=== PATIENT | male | born 1950 | race Caucasian/White ===

== ENCOUNTER 2020-08-05 14:56 | Emergency (ER) | payer MEDICARE, OTHER, SELFPAY ==
[2020-08-05 15:10] VITALS: BP 200/70; PULSE 78; RESP 20; TEMP 37.2; O2SAT 99
--- NOTE | 2020-08-05 15:15 | ED.DIZZY ---
HPI - Dizziness General Chief Complaint: Dizziness Stated Complaint: dizzy Source: patient and RN notes reviewed Limitations: no limitations History of Present Illness HPI Narrative: The left handed patient-- non-smoker/rare drinker on several meds but active-- presents with positional vertigo. Patient states he runs inc half marathons, and has had intermittent positional, true vertigo for the last half year. In July, he and family members were diagnosed with Covid manifested by URI type symptoms which have resolved. 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 He complains 1-2d recurrence of positional vertigo, associated with definite nystagmus, which is vertical. Symptoms are mild- mod, associated with a short latency, resolve after short period of 1 to 2 minutes. He had 1 episode so bad that he took a knee. No fever, URI?sinusitis, speech?visual changes, lateralizing weakness, headache pain, N/V D , increased tinnitus [he has chronic]; no true syncope, S OB, palpitations, CP. Patient offered referral to ED for same day testing [imaging, lab ] which he declines. Vital signs remarkable for elevated blood pressure, so given additional half dose of his morning 5 mg Norvasc. He requests refill of gabapentin; patient advised to follow-up with his neurologist and PMD [who was contacted ,also to gt MRI]. Related Data Home Medications Medication Instructions Recorded Confirmed amlodipine [Norvasc] 5 mg PO DAILY 08/05/20 08/05/20 aripiprazole [Abilify] 10 mg PO DAILY 08/05/20 08/05/20 bupropion HCl [Wellbutrin XL] 300 mg PO QAM 08/05/20 08/05/20 gabapentin 600 mg PO HS 08/05/20 08/05/20 melatonin 10 mg PO HS PRN 08/05/20 08/05/20 terbinafine HCl 250 mg PO DAILY 08/05/20 08/05/20 Allergies Allergy/AdvReac Type Severity Reaction Status Date / Time No Known Allergies Allergy Verified 08/05/20 15:26 Review of Systems Review of Systems: Narrative: General/Constitutional: No weight loss,fever Eyes: N0: Redness,discharge Ears/Nose/Throat: No: Epistaxis,ear discharge Respiratory: Denies: Hemoptysis Gastrointestinal: No Vomiting, Bleeding-rectal Skin: No Lumps, eruption Neurologic: No Focal Weakness,Sz Hematologic: Denies: Petechiae/Purpura Psychiatric: No: Suicida ideationl All Other Systems: Reviewed and Negative [facility] Past Medical History Medical History (Updated 08/13/20 @ 09:16 by Harry Lujan MD) History of anxiety History of hypertension Social History Social History (Updated 07/08/19 @ 14:38 by Wendy Alberts PA-C) Smoking status: Never smoker Gender identity (if verbalized by the patient): Male Comments At time of signature, agree with nursing past medical, surgical, social and family history. There is no relevant family history pertinent to the presenting complaint Exam Narrative: Exam Narrative: General Appearance: Well appearing, No distress EYE: PERRLA, Conjunctiva clear, EOMI , vertical nystagmus with leaning over Neurological: A&O x3, CN II-X intact Ears: External ear normal, TM benign Nose: Normal nose Mouth/Throat: Normal appearing, Normal lips Neck: Supple Respiratory: Airway patent, No respiratory distress Abdomen: Soft, Non-tender, sounds Musculoskeletal: Full ROM Skin: Warm, Dry Psychiatric: Normal mood, Normal affect Course Vital Signs Vital signs: Vital Signs Temperature 98.9 F 08/05/20 15:10 Pulse Rate 78 08/05/20 15:10 Respiratory Rate 08/05/20 15:10 Blood Pressure 200/70 H 08/05/20 15:10 Pulse Oximetry 99 08/05/20 15:10 Temperature 98.9 F 08/05/20 15:10 Pulse Rate 53 L 08/05/20 16:24 Respiratory Rate 08/05/20 15:10 Blood Pressure 157/60 H 08/05/20 16:24 Pulse Oximetry 99 08/05/20 15:10 MDM - Dizziness M
[2020-08-05 15:41] VITALS: BP 200/70
--- NOTE | 2020-08-05 15:42 | PC.NURSE ---
DR AMELIE VIERA GAVE VERBAL ORDER FOR PT TO TAKE ONE OF HIS OWN NORVASC. PT HAS HIS NORVASC 10 MG TABLETS WITH. PT TOOK 10 MG NORVASC PO. D. YULI VO
[2020-08-05 16:24] VITALS: BP 157/60; PULSE 53
== END 2020-08-05 16:44 | disposition home or self-care (01) ==
PROVIDERS: Emergency Provider Emergency Medicine
DX: H55.00 Unspecified nystagmus (principal); R42 Dizziness and giddiness; I10 Essential (primary) hypertension; F41.9 Anxiety disorder, unspecified
CPT/HCPCS: 99213; G0463

== ENCOUNTER → 2021-02-03 10:31 | Outpatient (CLI) | payer MEDICARE, OTHER, SELFPAY ==
--- NOTE | ~2021-02-03 | XR_ITS ---
XR shoulder LT min 2V DATE: 02/03/2021 10:55 INDICATION: Left shoulder pain TECHNIQUE: 4 views COMPARISON: None FINDINGS: No fracture or dislocation, periosteal reaction or bone destruction or abnormal soft tissue calcification. Osteopenia. IMPRESSION: Negative left shoulder Osteopenia Reviewed, dictated and finalized at location A.
== END ==
PROVIDERS: Visit Provider Physician Assistant
DX: M85.812 Other specified disorders of bone density and structure, left shoulder (principal)
CPT/HCPCS: 73030

== ENCOUNTER 2021-02-10 09:46 | Outpatient (CLI) | payer MEDICARE, OTHER, SELFPAY ==
--- NOTE | ~2021-02-10 | XR_ITS ---
EXAMINATION: XR lg joint inject/asp w image DATE: 02/10/2021 10:37 INDICATION: Left shoulder pain TECHNIQUE: A time-out was performed to verify the patient's name, date of , and procedure to b e performed. The procedure including the risks, benefits, and alternatives was discussed with the pat ient. Risks discussed included bleeding and infection. The patient understood the risks and agreed to proceed. The skin overlying the rotator cuff interval of the left glenohumeral joint was prepped an d draped in usual sterile fashion. Anesthetic was administered with 1% lidocaine subcutaneously. A 22 G needle was advanced under fluoroscopic guidance into the joint. Injection of 1 mL of Omnipaque 240 confirmed intra-articular position of the needle. Subsequently, injectate consisting of 4 mL of a 3:1 mixture of 1% lidocaine: 40 mg/mL Kenalog for a total dosage of 20 mg Kenalog was instilled. Wa shout of contrast was seen confirming intra-articular administration. The needle was removed and the entry site was cleaned and dressed. There were no immediate complications. Fluoroscopy exposure time was 0.1 minutes. The total number of images was 2. Total DAP was 0.392 mGycm^2 FINDINGS: Real-time fluoroscopy demonstrates the needle in the left glenohumeral joint. Patient's breonna n prior to procedure:12/22. Patient's pain following the procedure: 07/24. IMPRESSION: 1. Right glenohumeral joint injection of local anesthetic and steroid with decrease in the patient's presenting pain. Reviewed, dictated and finalized at location A. IMPRESSION: 1. Right glenohumeral joint injection of local anesthetic and steroid with decr ease in the patient's presenting pain.
== END 2021-02-10 09:47 | disposition home or self-care (01) ==
PROVIDERS: PCP Physician Assistant; Visit Provider Physician Assistant
DX: M25.512 Pain in left shoulder (principal)
CPT/HCPCS: 20610; 77002; J3301; Q9966

== ENCOUNTER 2021-07-03 08:46 | Emergency (ER) | payer MEDICARE, OTHER, SELFPAY ==
[2021-07-03 08:51] VITALS: BP 155/53; PULSE 50; RESP 16; TEMP 36.4; O2SAT 100
--- NOTE | 2021-07-03 09:04 | PC.NURSE ---
Pt states that his tested positive for covid 19, therefore he would like to get tested, denies symptoms
[2021-07-03 10:25] VITALS: BP 166/50; PULSE 50; RESP 18; O2SAT 100
--- NOTE | 2021-07-03 10:25 | PC.NURSE ---
Pt states he will go to [facility] to get tested
--- NOTE | 2021-07-03 11:00 | ED.GENADULT ---
HPI - General Adult General Chief complaint: Unspecified Stated complaint: wants COVID test Time Seen by Provider: 07/03/21 09:16 Source: patient Mode of arrival: ambulatory Limitations: no limitations History of Present Illness HPI narrative: Patient is 70-year-old male present with chief complaint of wanting a Covid test after his tested positive and being tested for a procedure. Patient states that him and his are both asymptomatic. Patient denies any fevers, chills, chest pain, shortness of breath, nausea, vomiting, abdominal pain or any other symptoms. Related Data Home Medications Medication Instructions Recorded Confirmed amlodipine [Norvasc] 5 mg PO DAILY 08/05/20 08/05/20 aripiprazole [Abilify] 10 mg PO DAILY 08/05/20 08/05/20 bupropion HCl [Wellbutrin XL] 300 mg PO QAM 08/05/20 08/05/20 gabapentin 600 mg PO HS 08/05/20 08/05/20 melatonin 10 mg PO HS PRN 08/05/20 08/05/20 terbinafine HCl 250 mg PO DAILY 08/05/20 08/05/20 Allergies Allergy/AdvReac Type Severity Reaction Status Date / Time No Known Allergies Allergy Verified 08/05/20 15:26 Review of Systems Review of Systems: CONSTITUTIONAL: Denies fever, chills, or sweats. EYES: Denies visual changes, redness, or discharge. ENT: Denies rhinorrhea, congestion, sore throat, or otalgia. CARDIOVASCULAR: Denies chest pain, palpitations, or edema. RESPIRATORY: Denies cough or dyspnea. GASTROINTESTINAL: Denies abdominal pain, nausea, vomiting, or diarrhea. GENITOURINARY: Denies dysuria or hematuria. SKIN: Denies rash or itching. MUSCULOSKELETAL: Denies back pain, joint pain, or myalgia. NEUROLOGIC: Denies headache, numbness, dizziness, or weakness. PSYCHIATRIC: Denies anxiety or depression. [facility] Past Medical History Medical History (Updated 07/03/21 @ 09:45 by Tran Balderas PA-C) History of anxiety History of hypertension Social History Social History (Updated 07/08/19 @ 14:38 by Wendy Alberts PA-C) Smoking status: Never smoker Gender identity (if verbalized by the patient): Male Exam Narrative: GENERAL: Well-appearing, well-nourished, and in no acute distress. HEAD: Normocephalic, atraumatic. EYES: PERRLA and EOMI. NECK: Supple. No adenopathy or masses. No carotid bruits or JVD CHEST: Clear to auscultation. No respiratory distress. No wheezes rales or rhonchi HEART: Regular rate and rhythm. EXTREMITIES: Normal range of motion. No edema. SKIN: Warm, dry, no rash. NEURO: No focal deficits. Alert and oriented x3. PSYCH: Normal mood and affect. Course Vital Signs Vital signs: Vital Signs Temperature 97.6 F 07/03/21 08:51 Pulse Rate 50 L 07/03/21 08:51 Respiratory Rate 16 07/03/21 08:51 Blood Pressure 155/53 H 07/03/21 08:51 Pulse Oximetry 100 07/03/21 08:51 Temperature 97.6 F 07/03/21 08:51 Pulse Rate 50 L 07/03/21 10:25 Respiratory Rate 18 07/03/21 10:25 Blood Pressure 166/50 H 07/03/21 10:25 Pulse Oximetry 100 07/03/21 10:25 Medical Decision Making MDM Narrative Medical decision making narrative: Offered patient PCR test. Did inform patient that her PCR machine is down and the PCR tests are being sent out, so we are not sure the estimated result time. Patient states if we do not know with the distal come back that he will go as well for the test. Patient asked whether he places any area perform Covid testing and I have informed him that [facility], [facility], and some local urgent cares are able to test. Patient given quarantine instructions. Patient treated to return to emergency department should he develop any emergent symptoms. Vital Signs Vital Signs: Vital Signs Temperature 97.6 F 07/03/21 08:51 Pulse Rate 50 L 07/03/21 08:51 Respiratory Rate 16 07/03/21 08:51 Blood Pressure 155/53 H 07/03/21 08:51 Pulse Oximetry 100 07/03/21 08:51 Temperature 97.6 F 07/03/21 08:51 Pulse Rate 50 L 07/03/21 10:25 Respiratory Rate 18 07/03/21 10:25 Blood Pressure 166/
== END 2021-07-03 10:26 | disposition home or self-care (01) ==
PROVIDERS: Emergency Provider Emergency Medicine; PCP Physician Assistant
DX: Z20.822 Contact with and (suspected) exposure to COVID-19 (principal); F41.9 Anxiety disorder, unspecified; I10 Essential (primary) hypertension
CPT/HCPCS: 99281

== ENCOUNTER 2021-09-07 12:16 | Outpatient (CLI) | payer MEDICARE, OTHER, SELFPAY ==
--- NOTE | ~2021-09-07 | MR_ITS ---
EXAMINATION: MR shoulder LT wo con DATE: 09/07/2021 13:40 INDICATION: Left shoulder pain TECHNIQUE: Magnetic resonance imaging (MRI) of the left shoulder was performed without intravenous co ntrast. Sequences included axial PD-weighted FS FSE, coronal oblique PD-weighted FS FSE, coronal obli que T2-weighted FS FSE, sagittal PD-weighted FS FSE, and sagittal T1-weighted SE. COMPARISON: None. FINDINGS: Coracoacromial arch: The acromion undersurface is curved in morphology (type II). The coracoacromial ligament is normal. M ild to moderate acromioclavicular osteoarthritis. Rotator cuff: The supraspinatus, infraspinatus and teres minor tendons are normal. The subscapularis tendon is norm al. Normal rotator cuff muscle bulk and signal. Biceps tendon, glenoid labrum and glenohumeral cartilage: Long head of the biceps tendon is normal. There is a tear at the 9:00-10:00 position of the posterior glenoid labrum. Mild glenohumeral osteoarthritis with diffuse partial thickness cartilage loss most prominent at the inferomedial humeral head. There is also some shallow chondral surface regularity at the inferior glenoid. Fluid: Physiologic amount of fluid in the glenohumeral joint and biceps tendon sheath. No loose osteochondr al bodies. Mild increased fluid signal in the subacromial/subdeltoid bursa consistent with minimal bu rsitis. Bones: Normal marrow signal with no edema, fracture or pathologic marrow replacing process. There is thicken ing of the joint capsule at the axillary recess as well as thickening of the components of the biceps su sling with increased soft tissue density rotator cuff interval. IMPRESSION: 1. Mild glenohumeral osteoarthritis with small tear at the posterior glenoid labrum. 2. Mild to moderate acromioclavicular osteoarthritis with minimal subacromial/subdeltoid bursitis. 3. Thickening of the capsule at the axillary recess and of the biceps su sling at the rotator cuf f interval, both findings which can be seen with adhesive capsulitis which is a clinical diagnosis. Reviewed, dictated and finalized at location A. SSMENT CONSULTANT IMPRESSION: 1. Mild glenohumeral osteoarthritis with small tear at the posterior glenoid la pedro. 2. Mild to moderate acromioclavicular osteoarthritis with minimal subacromial/s ubdeltoid bursitis. 3. Thickening of the capsule at the axillary recess and of the biceps su sl ing at the rotator cuff interval, both findings which can be seen with adhesive capsulitis which is a clinical diagnosis.
--- NOTE | ~2021-09-07 | XR_ITS ---
. EXAMINATION: XR lg joint inject/asp w image DATE: 09/07/2021 14:23 INDICATION: Left shoulder pain TECHNIQUE: A time-out was performed to verify the patient's name, date of , and procedure to b e performed. The procedure including the risks, benefits, and alternatives was discussed with the pat ient. Risks discussed included bleeding and infection. The patient understood the risks and agreed to proceed. The skin overlying the rotator cuff interval of the left glenohumeral joint was prepped an d draped in usual sterile fashion. Anesthetic was administered with 1% lidocaine subcutaneously. A 22 G needle was advanced under fluoroscopic guidance into the joint. Injection of 1 mL of Omnipaque 240 confirmed intra-articular position of the needle. Subsequently, injectate consisting of 4 mL of a 3:1 mixture of 1% lidocaine: 40 mg/mL triamcinolone for a total dosage of 40 mg prednisone was inst illed. Washout of contrast was seen confirming intra-articular administration. The needle was removed and the entry site was cleaned and dressed. There were no immediate complications. Fluoroscopy expo sure time was 0.1 minutes. The total number of images was 2. FINDINGS: Real-time fluoroscopy demonstrates the needle in the left glenohumeral joint. Patient's breonna n prior to procedure:08/24. Patient's pain following the procedure: 07/24. IMPRESSION: 1. Left glenohumeral joint injection of local anesthetic and steroid with decrease in the patient's p resenting pain. Reviewed, dictated and finalized at location A. GER STATISTICAL IMPRESSION: 1. Left glenohumeral joint injection of local anesthetic and steroid with decre ase in the patient's presenting pain.
== END 2021-09-07 12:17 | disposition home or self-care (01) ==
PROVIDERS: PCP Physician Assistant; Visit Provider Physician Assistant
DX: M19.012 Primary osteoarthritis, left shoulder (principal)
CPT/HCPCS: 20610; 73221; 77002; J3301; Q9966

== ENCOUNTER → 2022-05-14 11:14 | Outpatient (CLI) | payer MEDICARE, OTHER, SELFPAY ==
--- NOTE | ~2022-05-14 | XR_ITS ---
EXAM: XR hip BI wo pelvis DATE: 05/14/2022 11:29 HISTORY: BILAT HIP PAIN FOR 2 MONTHS NO INJURY . COMPARISON: None available. FINDINGS: Normal mineralization. No fracture or dislocation. No lytic or blastic lesion. Bilateral s uperior hip joint space narrowing, osteophytosis and sclerosis, slightly worse on the right. Bilatera l cam deformities that can contribute to femoral acetabular impingement. Scattered pelvic enthesopath y. Degenerative changes in the lumbar spine. Scattered vascular calcifications. No erosion or periost eal change. Soft tissues within normal limits. IMPRESSION: Moderate right and mild left hip osteoarthritis. Reviewed, dictated and finalized at location K.
== END ==
PROVIDERS: PCP Family Medicine; Visit Provider Physician Assistant
DX: M16.0 Bilateral primary osteoarthritis of hip (principal)
CPT/HCPCS: 73521

== ENCOUNTER → 2023-04-15 14:19 | Outpatient (CLI) | payer MEDICARE, OTHER, SELFPAY ==
--- NOTE | ~2023-04-15 | XR_ITS ---
XR hip LT min 2V DATE: 04/15/2023 15:16 INDICATION: Left hip pain TECHNIQUE: AP and lateral views COMPARISON: 05/14/2022 bilateral hips FINDINGS: Mild left hip joint space narrowing consistent with mild left hip osteoarthritis. No fractu re or dislocation, avascular necrosis or bone destruction of the left hip is detected. Normal alignment at the pubic symphysis and left sacroiliac joint. IMPRESSION: Mild left hip osteoarthritis Reviewed, dictated and finalized at location L.
== END ==
PROVIDERS: PCP Physician Assistant; Visit Provider Physician Assistant
DX: M16.12 Unilateral primary osteoarthritis, left hip (principal)
CPT/HCPCS: 73502

== ENCOUNTER → 2023-05-21 13:24 | Outpatient (CLI) | payer MEDICARE, OTHER, SELFPAY ==
--- NOTE | ~2023-05-21 | MR_ITS ---
MRI of the left hip Clinical history: Osteoarthritis Technique: Coronal T1-weighted, T2-weighted, and proton-density fat-sat images, and axial T1-weighted and proton-density fat-sat images were acquired through the pelvis. Coronal T2-weighted images and c oronal, axial, and sagittal proton-density fat-sat images were acquired through the left hip. Findings: There is no fracture, avascular necrosis, or transient osteoporosis of either hip. Bone mar row signals the proximal femora and visualized pelvic bones are unremarkable. There is mild bilateral hip joint osteoarthritis, with chondral thinning diffusely, left hip worse than right. There is mild bony spurring at the superolateral acetabular margins bilaterally. No significant joint effusion see n in either side. No definite left acetabular labral tear identified. Visualized musculature about the pelvis and left hip is unremarkable. No muscle atrophy or edema. Vis ualized tendons are intact. No evidence for bursitis. No soft tissue mass or fluid collection seen. IMPRESSION: Mild bilateral hip joint osteoarthritis, left worse than right. Reviewed, dictated and finalized at location . 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
== END ==
PROVIDERS: PCP Physician Assistant; Visit Provider Physician Assistant
DX: M16.0 Bilateral primary osteoarthritis of hip (principal)
CPT/HCPCS: 73721

== ENCOUNTER 2023-06-18 06:47 | Outpatient (CLI) | payer MEDICARE, OTHER, SELFPAY ==
--- NOTE | ~2023-06-18 | MR_ITS ---
MRI of the brain Clinical History: Dementia Technique: Axial and sagittal T1-weighted images were acquired. These were followed by axial T2-weigh hung, diffusion weighted, gradient, and FLAIR images. Findings: There is no acute infarct, intracranial hemorrhage, or mass lesion. There are mild chronic white matter changes in the periventricular white matter bilaterally. Ventricles and subarachnoid spaces are dilated. Orbits are unremarkable. Paranasal sinuses and mastoi d air cells are clear. Major intracranial flow voids are intact. Sagittal midline structures are intact. IMPRESSION: No acute abnormality. Moderate generalized atrophy and minimal chronic white matter changes. Reviewed, dictated and finalized at location . 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
== END 2023-06-18 06:48 | disposition home or self-care (01) ==
PROVIDERS: PCP Family Medicine; Visit Provider Physician Assistant
DX: F03.90 Unspecified dementia, unspecified severity, without behavioral disturbance, psychotic disturbance, mood disturbance, and anxiety (principal); G31.9 Degenerative disease of nervous system, unspecified
CPT/HCPCS: 70551

== ENCOUNTER 2023-07-17 12:26 | Outpatient (CLI) | payer MEDICARE, OTHER, SELFPAY ==
--- NOTE | ~2023-07-17 | MR_ITS ---
MRA HEAD History: Carotid artery stenosis Technique: 3D time of flight MRA of the head is performed. Findings: The right and left distal vertebral arteries and the basilar and posterior cerebral arterie s are normal. Right and left distal internal carotid arteries and anterior and middle cerebral arteri es are normal. There is no aneurysm, stenosis, or occlusion. Impression: No occlusion, stenosis, or aneurysm. Reviewed, dictated and finalized at location . SSER APPRENTICE Impression: No occlusion, stenosis, or aneurysm.
== END 2023-07-17 12:27 | disposition home or self-care (01) ==
LOC: ANHIMG 12:34
PROVIDERS: PCP Family Medicine; Visit Provider Physician Assistant
DX: I67.89 Other cerebrovascular disease (principal)
CPT/HCPCS: 70544

== ENCOUNTER 2024-01-08 15:57 | Outpatient (CLI) | payer MEDICARE, OTHER, SELFPAY ==
--- NOTE | ~2024-01-08 | XR_ITS ---
EXAMINATION: XR ribs RT 2V Exam Date/Time: 01/08/2024 16:00 CDT HISTORY: Fall 1 week ago, lower anterior rib pain Comparison: None available. RESULT: Lines, tubes, and devices: None. Lungs and pleura: Clear. Cardiothymic silhouette: Stable. Other: No acute upper abdominal finding. Minimally displaced right anterolateral sixth and seventh r ib fractures. IMPRESSION: No acute cardiopulmonary process. Minimally replaced right anterolateral sixth and seventh rib fractu res. Reviewed, dictated and finalized at location K. IMPRESSION: No acute cardiopulmonary process. Minimally replaced right anterolateral sixth and seventh rib fractures.
== END 2024-01-08 15:58 ==
PROVIDERS: PCP Physician Assistant; Visit Provider Physician Assistant
DX: R07.81 Pleurodynia (principal)
CPT/HCPCS: 71100

== ENCOUNTER 2024-07-15 10:58 | Emergency (ER) | payer MEDICARE, OTHER, SELFPAY ==
--- NOTE | 2024-07-15 10:59 | ED.NAVMDI ---
HPI - Nausea/Vomiting/Diarrhea General Chief complaint: Nausea/Vomiting/Diarrhea Stated complaint: diarrhea Time Seen by Provider: 07/15/24 10:59 Source: patient Mode of arrival: ambulatory Limitations: no limitations History of Present Illness HPI Narrative: Jesus is a 74-year-old male patient presenting to the clinic today with complaints of diarrhea for 1.5 weeks. He reports no blood in his stool. Denies any fevers, abdominal pain, back pain, nausea, or vomiting. States that he has had 2 diarrhea stools today. Stools are loose and watery. Has not taken any medications for the diarrhea. No one else at home has similar symptoms. Denies any recent antibiotics use or knowledge of eating anything undercooked. Also reporting some urination concerns. States he is able to urinate and then he will have diarrhea and then he will go back about 30 minutes later urinate again and it will be a lot less than what is normal. He denies any burning with urination or urgency. Son is at bedside. Son has picked up Imodium but patient has not started taking yet. Son is more concerned about the urinary concern. Related Data Home Medications ?Medication ?Instructions ?Recorded ?Confirmed ?Last Taken ?Type gabapentin 600 mg tablet 600 mg PO HS 08/05/20 07/15/24 Unknown History valbenazine 40 mg capsule 40 mg PO DAILY 08/29/22 07/15/24 Unknown History (Ingrezza) Allergies Allergy/AdvReac Type Severity Reaction Status Date / Time No Known Allergies Allergy Verified 07/15/24 11:17 Review of Systems Review of Systems: Pertinent positives per HPI. Patient denies any fever, chills, rash, headache, visual changes, dizziness, cough, runny nose, sore throat, shortness of breath, chest pain, palpitations, nausea, vomiting, constipation, abdominal pain PMFSH Past Medical History Medical History History of pancreatitis Mixed anxiety depressive disorder Benign essential hypertension Obstructive sleep apnea (adult) (pediatric) Transient cerebral ischemic attack, unspecified Cognitive impairment, mild, so stated Other specified anxiety disorders Surgical History Surgical History History of tonsillectomy Family History Family History Father Brain cancer Mother Depression Grandparent Hypertension Heart disease congestive heart failure Dementia Social History Social History Smoking status: Former smoker Tobacco type: cigarettes Second hand tobacco smoke exposure: No Alcohol intake: current Alcohol use details: 1 beer every 3 months Substance use: never Substance use type: does not use Do You Feel Safe in your Home?: Yes Lack of Transportation: No Lack of Food: Never True Current Housing: I Have Housing Concerned About Future Housing: No Difficulty Paying Gas/Electric Bills: No Difficulty Paying for Meds: No Currently Unemployed: No Education: High School Diploma/GED Difficulty w/ Childcare or Family Care: No Living arrangements: with family Occupation/Education: retired Gender identity (if verbalized by the patient): Male Sexual Orientation (if Verbalized by the Patient): Straight or Heterosexual Spiritual care concerns: No Comments At the time of my signature, I reviewed and agree with the nursing past medical, surgical, social, and family history. There is no relevant family history pertinent to the patient complaint. Exam Narrative: General: Well-developed, obese, in no apparent distress. Head: Normocephalic, atraumatic. Cardio: Regular rate and rhythm, s1 and s2 normal, no murmur appreciated. Resp: Clear to auscultation bilaterally, no rhonchi, rales, wheezing or rubs. Abdomen: Soft, pliable, bowel sounds present in all quadrants, non-tender to palpation, no organomegly, no CVAT tenderness. : Deferred Course Course Emergency Course: Portions of this record may have been created with voice recognition software. Level of Care: Express Care Visit Vital Signs Vital signs: Vital Signs Temperature 36.5 C 07/15/24 11:10 Pulse Rate 45 L 07/15/24 11:10 Respiratory Rate 18 07/15/24 11:10 Blood Pressure 144/37 H 07/15/24 11:10 Pulse Oximetry 100 07/15/24 11:10 Oxygen Delivery Room Air 07/15/24 11:10 Temperature 36.5 C 07/15/24 11:10 Pulse Rate 45 L 07/15/24 11:10 Respiratory Rate 18 07/15/24 11:10 Blood Pressure 144/37 H 07/15/24 11:10 Pulse Oximetry 100 07/15/24 11:10 Oxygen Delivery Room Air 07/15/24 11:10 Vital signs reviewed MDM - Nausea/Vomiting/Diarrhea MDM Narrative Medical decision making narrative: At the time of visit patient is resting comfortably on the exam table. Patient appears to be nontoxic. Labs: UA dip was completed. No sign of protein, leukocytes, nitrates, blood, or bili. Plan: Patient has acute diarrhea- not likely infectious. Also complaining of some urinary urgency at times. Could possibly be from BPH-recommend further follow-up with PCP for evaluation. Supportive measures were discussed with the patient and they voiced understanding discharge instructions and agrees to treatment plan. Return precautions reviewed Differential Diagnosis Differential diagnosis: Likely traveler's diarrhea, food poisoning, gastroenteritis, clostridium difficile infection, drug-induced nausea and vomiting and dehydration Lab Data Labs: Lab Results 07/15/24 Range/Units 11:23 POC Urine Color Yellow POC Urine Clarity Clear POC Urine pH 6.0 POC Ur Specif Hoffman 1.020 POC Urine Protein Negative (Negative) POC Ur Glucose (UA) Negative (Negative) POC Urine Ketones Negative (Negative) POC Urine Blood Negative (Negative) POC Urine Nitrite Negative (Negative) POC Urine Bilirubin Negative (Negative) POC Urine Urobilinogen 0.2 POC U Leukocyte Esteras Negative (Negative) Discharge Plan Discharge Clinical Impression: Acute diarrhea, Urinary urgency Patient Disposition: Home, Self-Care Condition: Stable Instructions: Antibiotic Form, Acute Diarrhea (ED), Urinary Urgency and Frequency (DC) Additional Instructions: UA shows no sign of infection in the clinic today. No history of BPH- follow up with PCP for further evaluation May take Imodium as needed for diarrhea as long as there is no blood in your stool- if symptoms last longer than 2 weeks-recommend stool studies. Increase fluids and stay well hydrated Tylenol/motrin for pain/fever BRAT diet for diarrhea Clear liquids x 24 hours then advance as tolerated for nausea/vomiting Go to the ED if you develop a worsening in your condition- high fever not controlled by Tylenol or Motrin, dehydration, weakness, lethargy, shortness of breath, chest pain, abdomen pain, or difficulty with urination. Follow up with your PCP in 3-5 days if symptoms persist. Patient Language: Indonesian Prescriptions: No Action gabapentin 600 mg Tablet 600 mg PO HS aspirin 81 mg tablet,chewable 81 mg PO DAILY Qty: 30 0RF Ingrezza 40 mg capsule 40 mg PO DAILY propranolol 20 mg tablet 20 mg PO Q12H Qty: 60 0RF bupropion HCl 150 mg tablet extended release 24 hr 150 mg PO QAM Qty: 90 0RF buspirone 10 mg tablet 20 mg PO TID Qty: 180 0RF Centrum Silver Ultra Men's [id number] mcg tablet 1 tablet PO DAILY Qty: 90 0RF acetylcysteine [NAC] 600 mg capsule 600 mg PO DAILY Qty: 90 0RF glycine 500 mg capsule 3,000 mg PO DAILY Qty: 180 0RF krill oil 500 mg capsule 1 mg PO DAILY Qty: 30 0RF bupropion HCl [Wellbutrin XL] 300 mg tablet extended release 24 hr 300 mg PO QAM Qty: 90 3RF memantine 10 mg tablet 10 mg PO QPM 90 Days Qty: 90 3RF atorvastatin 20 mg tablet 20 mg PO DAILY 90 Days Qty: 90 3RF amlodipine 5 mg tablet 5 mg PO DAILY Qty: 90 2RF losartan 100 mg tablet 100 mg PO DAILY Qty: 90 0RF Follow-up/Referrals: Michael Hunter MD [Primary Care Provider] - Time of Disposition: 11:26 Quality NIHSS Nursing Documentation ED NIHSS nursing documentation: reviewed/agree
[2024-07-15 11:10] VITALS: BP 144/37; PULSE 45; RESP 18; TEMP 36.5; O2SAT 100
[2024-07-15 11:27] LABS: EDUAAPPEAR Clear; EDUABILI Negative (Negative); EDUABLOOD Negative (Negative); EDUACOLOR1 Yellow; EDUAGLUCOSE Negative (Negative); EDUAKETONE Negative (Negative); EDUALEUKO Negative (Negative); EDUANITRATE Negative (Negative); EDUAPROTEIN Negative (Negative); EDUAUROBILI 0.2
--- OUTSIDE RECORDS SUMMARY | 2024-07-22 05:49 | XMS_ITS | Encounter Summary ---
Author Name [facility] of [facility] ([place]) Organization [facility] ([place]) Address [address], [place] [address] Care Team Providers Care Control Clerk Repairs Name Role Phone CARLIN STEWART Primary Care Provider Unavailabl e Selected Encounter This section includes the information on record at [place] for the Encounter. Date/Time Encounter Type Encounter Description Reason Provider Source Jun 29, 2024 01:00 PM OFFICE O/P NEW MOD 45 MIN PRIMARY CARE/MEDICINE ICD-10-CM I10 Essential (primary) hypertension CARLIN STEWART Tevin Encounter Template Text not used by [place] Assessments - Encounter Diagnoses This section includes the primary and secondary diagnoses documented for the Encounter. Date/Time Primary/Secondary Diagnosis Diagnosis Name Provider Source Jun 29, 2024 02:35 PM PRIMARY Essential (primary) hypertension CARLIN STEWART [facility] Jun 29, 2024 02:35 PM SECONDARY Alzheimer's disease, unspecified PATCARLIN D [facility] Jun 29, 2024 02:35 PM SECONDARY Chronic kidney disease, unspecified CARLIN STEWART [facility] Jun 29, 2024 02:35 PM SECONDARY Contact with and exposure to other hazardous substances CARLIN STEWART [facility] Jun 29, 2024 02:35 PM SECONDARY Hyperlipidemia, unspecified PATCARLIN Leo [facility] Jun 29, 2024 02:35 PM SECONDARY Tremor, unspecified PAT,CARLIN D [facility] Plan of Treatment: Future Appointments (+ 6 months) and Future Tests (+/- 45 days) The Plan of Treatment section includes future care activities for the patient from all [facility] treatment[facility]. This section includes future appointments and future orders which are active, pending or scheduled. Active, Pending, and Scheduled Orders This section includes a listing of several types of active, pending, and scheduled orders, including clinic medications orders, diagnostic test orders, procedure orders and consult orders; where the start date of the order is 45 days before the date of the Encounter or 45 days after the date of theEncounter. The data comes from all [facility]. Test Date/Time Test Type Test Details Facility Name May 20, 2024 12:00 AM Laboratory - Chemi stry Order URINALYSIS (STL-PB) URINE - CLEAN CATCH [facility] May 20, 2024 12:00 AM Laboratory - Chemi stry Order MICRAL/CREAT PROFILE (STL) URINE YELLOW [facility] Jun 19, 2024 12:00 AM Laboratory - Chemi stry Order MICRAL/CREAT PROFILE (STL) URINE YELLOW [facility] Jun 19, 2024 12:00 AM Laboratory - Chemi stry Order URINALYSIS (STL-PB) URINE - CLEAN CATCH [facility] Vital Signs: All taken on the encounter date This section contains inpatient and outpatient Vital Signs collected on the date of the Encounter. Date/Time Temperature Pulse Blood Pressure Respiratory Rate SP02 Pain Height Weight Body Mass Index Source Jun 29, 2024 01:19 PM 47 151/55 [facility] Jun 29, 2024 01:02 PM 98.3 47 176/64 16 100 0 73 231.8 31 [facility] Social History: Smoking Status (Most current) and Tobacco Use (All prior to encounter date) This section includes the most current, and the historical, smoking and tobacco- related health factors from the [place] facility where the Encounter took place. Current Smoking Status This section includes the most current smoking, or tobacco-related health factor, from the [place] facility where the Encounter took place. Date/Time Current Smoking Status Comment Facil ity Jun 29, 2024 01:00 PM VA-TOBACCO USE FOR MELANY CIGARETTES [facility] Tobacco Use History This section includes a history of the smoking, or tobacco-related health factors, that were collected on or before the date of the Encounter. The data comes from the [place] facility where the Encounter took place. Date/Time Smoking Status/Tobacco Use Comment F acility Jun 29, 2024 01:00 PM VA-TOBACCO USE FOR MELANY CIGARETTES [facility] Encounter Notes: All associated encounter notes This section contains the clinical notes associated to the Encounter. Date/Time Encounter Note(s) Provider Source Jun 29, 2024 02:20 PM PRIMARY CARE INITI AL EVALUATION NOTE: LOCAL TITLE: PRIMARY CARE PROVIDER NEW VISIT ST STANDARD TITLE: PRIMARY CARE INITIAL EVALUATION NOTE DATE OF NOTE: JUN 29, 2024@14:20 ENTRY DATE: JUN 29, 2024@14:20:20 AUTHOR: CARLIN STEWART COSIGNER: URGENCY: STATUS: COMPLETED PRIMARY CARE PROVIDER NEW VISIT STL Has ADDENDA NEW PATIENT: REASON FOR VISIT/CHIEF COMPLAINT: - Here to get established with [facility] He has [facility] PCP ( ), [facility]T Neurology ( ), [facility] Psychaitry () He wants to continue care with his private physician, but wants to get established with VA. He is accompanied by his daughter Hilary , who is also POA along with his Significant medical history:- Sleep apnea-uses CPAP Alzheimer's dementia Anxiety Hypertension Hyperlipidemia Mild CKD Tremor PSH :- Left shoulder arthroscopic surgery Fh : Nothing significant SH :- ---- Lives with his at home 4kids -Dr. Richard lives 20 min away Quit smoking in 1985 Alcohol rare No recreational drug use ALLERGIES: Patient has answered NKA ALLERGY REVIEW: Allergy list reviewed and remains current. MEDICATION RECONCILIATION: I have reviewed the patient's medication list with the patient and/or his/her care-gathering worker. Handwritten corrections, additions and/or deletions were made to the list. Corrected Outpatient Medication List was provided to the patient/caregiver. Active Outpatient Medications (including Supplies): No Medications Found Weight : Patient Weight History - Last Four 1. 231.8 lbs. / 105.1 kg. on JUN 29, 2024@13:02 Vitals : ----- Temp : 98.3 F [36.8 C] (06/29/2024 13:02) BP : 151/55 (06/29/2024 13:19) WI : 47 (06/29/2024 13:19): RR : 16 (06/29/2024 13:02) POX: 100% (06/29/2024 13:02) Objective findings: Alert , oriented X 3 Not in acute distress HEENT - moist mucous membranes NECK - supple , no adenopathy, no bruits Heart - s1s2, rrr, no murmurs Chest - CTA rhys with no distress Abdomen - soft, nontender, no organomegaly Extremities- no pedal edema , good pedal pulses, both feet warm Most recent labs : LDL : 53____,____ HDL : 48 mg/dL (05/26/24 13:19) TRI : 64 mg/dL (05/26/24 13:19) CHOLESTEROL 114 mg/dL 05/26/2024 13:19 HGA1C 5.3 % 05/26/2024 13:19 TSH 1.531 uIU/mL 05/26/2024 13:19 WBC : 5.3 10*3/uL (05/26/24 13:19) HGB 12.3 L g/dL 05/26/2024 13:19 MCV :90.6 fL (05/26/24 13:19) PLT 194 10*3/uL 05/26/2024 13:19 SODIUM 142 mEq/L 05/26/2024 13:19 POTASSIUM 4.6 mEq/L 05/26/2024 13:19 CALCIUM : 10.0 mg/dL (05/26/24 13:19) CREATININE 1.44 H mg/dL 05/26/2024 13:19 GLUCOSE 82 mg/dL 05/26/2024 13:19 SGOT : 24 U/L (05/26/24 13:19) SGPT : 27 U/L (05/26/24 13:19) ALKALINE PHOSPHATASE 82 U/L 05/26/2024 13:19 ASSESSMENT/PLAN: -Above labs reviewed with patient -His daughter, Hilary is willing to help him with VVC's Her phone number : [phone] Email address: [email or web address] # HTN : uncontrolled, advised low-salt diet He should blood pressure monitor at this visit Advised to check blood pressure daily and keep log He is on Losartan 100 mg daily Amlodipine 5 mg daily Also on Propranolol 10 mg daily for tremor He wants to continue care with his prior physicians in regards to adjusting the blood pressure medications # Hyperlipidemia : He is on Atorvastatin 20 mg daily, LDL at goal # Anxiety and Dementia: he is seeing PVT Psychaitry On Bupropion XL 450 mg/ day Buspirone 10 mgs tid Valbenzanone ( ingrezza ) 40 mg/day Memantine 10 mgs / day # Mild CKD: Advised good blood pressure control to prevent further progression of CKD # Tremor: He is on propranolol 10 mg/day with improvement Avg Risk Colorectal Cancer Screen - L,N,P,PH: AVERAGE RISK colorectal cancer screening is due based on information available to this clinical reminder Prior/outside colonoscopy results: colon polyps - beningn Date: June 29, 2022 Colonoscopy reminder set 3 years from JUN 29, 2024. Toxic Exposure Screening Follow-Up - NS,P: Exposure Concern(s): 06/29/2024 [place] Related Exposures - Toxic Exposure Concern Follow-up Question(s): 06/29/2024 Benefits/Claims Questions - Toxic Exposure Concern Health/Medical Questions - Toxic Exposure Concern Registry Questions - Toxic Exposure Concern [place] Healthcare Enrollment Questions - Toxic Exposure Concern /caregiver has no health or medical concerns related to their concern of environmental exposure. The following connections were provided to the /caregiver: No connections needed at this time SUMMARY STATEMENT: Plan of care has been discussed with including expected therapeutic benefits and potential side effects of prescribed medication and treatments. [place] verbalizes understanding and is in agreement with the plan of care. Patient was instructed to keep all scheduled appointments and contact extended insurance clerk for any additional problems. Medication Reconciliation Opt STL: I have reviewed the patient's medication list (including active outpatient prescriptions dispensed from this [facility] (local) and dispensed from another [place] or [facility] facility (remote) as well as inpatient orders (local pending and active), local clinic medications, locally documented non-VA medications, and local prescriptions that have or been discontinued in the past 90 days.) with the patient and/or his/her care-gathering worker. Handwritten corrections, additions and/or deletions were made to the list, as appropriate. Corrected Outpatient Medication List was provided to the patient/caregiver. RTC : 12/2024 /joaquim/ CARLIN STEWART MD Staff Physician Signed: 06/29/2024 14:35 06/29/2024 ADDENDUM STATUS: COMPLETED Tremor & Tardive dyskinesia :on Ingrezza ( correction of above note regarding indication) /joaquim/ CARLIN STEWART MD Staff Physician Signed: 06/29/2024 14:42 CARLIN STEWART [facility] Jun 29, 2024 02:03 PM ORTHOTICS PROSTHET ICS EDUCATION NOTE: LOCAL TITLE: NURSING PROSTHETIC ITEM PATIENT EDUCATION NOTE ST STANDARD TITLE: ORTHOTICS PROSTHETICS EDUCATION NOTE DATE OF NOTE: JUN 29, 2024@14:03 ENTRY DATE: JUN 29, 2024@14:03:30 AUTHOR: KRISHNA MCCAIN COSIGNER: URGENCY: STATUS: COMPLETED Prosthetic Patient Education Learner: Patient, Family Method: Individual Evaluation of Learning: Able to Perform/Verbalize Items: BP Monitor & Cuff 1. Sit comfortably with your left arm resting on a flat surface so that the center of your upper arm is at the same height as your heart. 2. Lay left arm on the table, palm up and thread cuff end through metal loop, smooth side against arm. Then position the tube off-center toward the inner side of arm in line with the finger. 3. Pull the end of the cuff to tighten it, fold back the extra material, and fasten securely. The cuff should be snug but not too tight. You should be able to insert two fingers between the cuff and your arm. 4. Confirm that the index points within the proper fit range. 5. Press the START button. As the cuff pressurizes, measurement will begin and the Cuff Inflation Meter will show on the display screen. It is normal for the cuff to feel very tight. 6. When the inflation is complete, the deflation starts automatically and the heart blinks, indicating that the measurement is in progress. Once the pulse is detected, the symbol flashes with each pulse beat. 7. When the measurement is complete, the systolic and diastolic pressure readings and pulse rate are displayed. The cuff deflates and the monitor automatically shuts off after 60 seconds, or you can turn it off by pressing the START button. 8. The reading is then stored into memory. 9. Remove cuff and make a note of your blood pressure and pulse rate. Once education has been provided consult may be ordered by clicking below. Place Nurse Initiated Consult /joaquim/ LATESHIA A KALYN PRINTER SLOTTER FEEDER LICENSED PRACTIAL NURSE Signed: 06/29/2024 14:06 KRISHNA MCCAIN [facility] Jun 29, 2024 01:09 PM NURSING NOTE: LOCAL TITLE: V15 PACT FACE TO FACE NOTE ST STANDARD TITLE: NURSING NOTE DATE OF NOTE: JUN 29, 2024@13:09 ENTRY DATE: JUN 29, 2024@13:09:35 AUTHOR: KRISHNA MCCAIN EXP COSIGNER: URGENCY: STATUS: COMPLETED Provider Visit: Patient Identifiers : Full Name Date of Reason for visit: New Patient Do you have a history of any of the following? (check all that apply): Hypertension, Other:DEMENTIA Surgeries (type(s) and date(s)): NA Have you been seen by a physician, VA or private, in the last year? Yes Name and contact information for provider: DR. NG Have you been hospitalized or seen in an ER in the last year? Yes What hospital(s) or ERs and approximate date(s)? SEPTEMBER 2023 FALL WITH BROKEN RIBS ON THE RIGHT Records request sent: Mode of Arrival: Ambulatory Allergy Review: Patient has answered NKA Allergy list reviewed and remains current. Recent Vital Signs: Temperature: 98.3 F [36.8 C] (06/29/2024 13:02) Pulse: 47 (06/29/2024 13:02) Respiration: 16 (06/29/2024 13:02) B/P: 176/64 (06/29/2024 13:02) Pain: 0 (06/29/2024 13:02) Wt: 231.8 lb [105.14 kg] (06/29/2024 13:02) Ht: 73 in [185.4 cm] (06/29/2024 13:02) BMI: 30.6 POX: 100% (06/29/2024 13:02) Blood sugar glucometer reading: NA PERSONAL HEALTH INVENTORY Notes: No data available for PHI note titles PERSONAL HEALTH INVENTORY - MAP: No data available for PHI MAP What matters most to you in your life right now? ---- 's Response: FAMILY WHOLE HEALTH SHARED GOALS: PERSONAL HEALTH PLAN - SHARED GOALS: No data available for: Php Shared Goals SHARED GOALS ==== TO STAY AT HOME LONG POSSIBLE Would you like to discuss any personal problem, family problem, alcohol use, drug use, or a mental or emotional illness? No Contact provided Primary Care phone number and encouraged to call if any questions or concerns. Review that after hours nurse line [phone] and emergency room are available 04/02 for patient use. Contact verbalized good understanding. MST Screening - V: Patient denies experiencing sexual trauma (MST). Toxic Exposure Screening - CP,DI,L,NS,P,PH,S,U: The /caregiver was asked if they believe the [place] experienced any toxic exposure(s), such as Airborne Hazards and [place], [place] related exposures, Agent [place], Radiation, contaminated water at [place] or other such exposures, while serving in the [employer]. /caregiver believes the [place] was exposed to the following while serving in the [employer]: [employer] [place] contaminated water exposure: [place]/caregiver was made aware of educational resources that includes information on presumptive conditions and how to file a claim. Printed information was offered and provided if desired. Health/Medical Questions All patients who report a health/medical concern will receive follow-up from a clinician. For urgent or emergent concerns, they were advised to follow local facility policy. Benefits/Claims Questions /caregiver was informed of local point of contact. [place] Health Care Enrollment and Eligibility Questions [place]/caregiver was informed of local point of contact. Registry Questions /caregiver was informed of local point of contact. Contact information for local resources: [facility] Registry Exam Program: [phone] Eligibility: [phone] [id number] Toxic Exposure Screening Follow-Up reminder is needed. Name of person notified: DR. STEWART Tobacco Use Screening - AT,DE,L,M,N,P,PH,PS,RT,S, U: The patient is a former cigarette smoker. Quit smoking GREATER THAN OR EQUAL to 15 years. The patient has never used other types of tobacco. Learning Assessment: - * This patient's learning ABILITIES, BARRIERS to learning, CULTURAL and MOSQUE beliefs, and learning PREFERENCES were assessed. Following are findings of note: Patient reads well. Comment: WITH GLASSES AND CONTACTS Patient has the following hearing/auditory barrier(s) to consider when teaching: No hearing barrier identified. Patient has the following speech barrier to consider when teaching: No speech barrier identified. LANGUAGE Patient reports that Setswana is preferred language for healthcare. Patient reports learning preference is to refer to handouts. Patient reports learning preference is attending one-to-one or group demonstrations. Patient reports learning preference is looking at pictures or viewing videos. Suicide Screen - V: C-SSRS Screening [place]-Suicide Severity Rating Scale (C-SSRS Screener) 1. Over the past month, have you wished you were or wished you could go to sleep and not wake up? No 2. Over the past month, have you had any actual thoughts of killing yourself? No 3. Over the past month, have you been thinking about how you might do this? Response not required due to responses to other questions. 4. Over the past month, have you had these thoughts and had some intention of acting on them? Response not required due to responses to other questions. 5. Over the past month, have you started to work out or worked out the details of how to kill yourself? Response not required due to responses to other questions. 6. If yes, at any time in the past month did you intend to carry out this plan? Response not required due to responses to other questions. 7. In your lifetime, have you ever done anything, started to do anything, or prepared to do anything to end your life (for example, collected pills, obtained a gun, gave away valuables, went to the roof but didn't jump)? No 8. If YES, was this within the past 3 months? Response not required due to responses to other questions. COVID-19 Immunization - L,N,P,PH,U: Refused Pfizer Monovalent COVID-19 vaccine Immunization: COVID-19 (PFIZER), MRNA, LNP-S, PF, SALVADOR-SUCROSE, 30 MCG/0.3 ML (AGES 12+ YEARS) Refusal Reason: PATIENT DECISION Patient refuses all immunization(s) in the COVID-19 group Date Documented: 06/29/24 13:24 Depression Screening - V: Perform PHQ-2 A PHQ-2 screen was performed. The score was 0 which is a negative screen for depression. Over the past two weeks, how often have you been bothered by the following problems? 1. Little interest or pleasure in doing things Not at all 2. Feeling down, depressed, or hopeless Not at all Homelessness/Food Insecurity Screen - DI,L,N,P,PH,PS,S,U: In the past 2 months, have you been living in stable housing that you own, rent, or stay in as part of a household? Yes - Living in stable housing. Are you worried or concerned that in the next 2 months you may NOT have stable housing that you own, rent, or stay in as part of a household? No - Not worried about housing near future The reports the following: Within the past 12 months, you worried whether your food would run out before you got money to buy more. Never true Within the past 12 months, the food you bought just didn't last and you didn't have money to get more. Never true Influenza Immunization - L,N,P,PH,U: Deferral / Refusal The patient declines to receive the recommended dose of seasonal influenza vaccine. Immunization: INFLUENZA, UNSPECIFIED FORMULATION Refusal Reason: PATIENT DECISION Patient refuses all immunization(s) in the FLU group Date Documented: 06/29/24 13:24 PTSD Screening - V: PC-PTSD-5 A PTSD screening test (PC-PTSD-5) was negative (score=0). IN THE PAST MONTH, have you ever had any experience that was so frightening, horrible or traumatic. For example: A serious accident or fire a physical or sexual assault or abuse An earthquake or flood A war Seeing someone be killed or seriously injured Having a loved one through homicide or suicide 1. Have you ever experienced this kind of event? NO 2. Had nightmares about the event(s) or thought about the event(s) when you did not want to? Response not required due to responses to other questions. 3. Tried hard not to think about the event(s) or went out of your way to avoid situations that reminded you of the event(s)? Response not required due to responses to other questions. 4. Been constantly on guard, watchful, or easily startled? Response not required due to responses to other questions. 5. [place] numb or detached from people, activities, or your surroundings? Response not required due to responses to other questions. 6. [place] guilty or unable to stop blaming yourself or others for the event(s) or any problems the event(s) may have caused? Response not required due to responses to other questions. Herpes Zoster (Shingles) Vaccine - L,N,P,PH,U: The patient declines to receive the recommended dose of zoster (shingles) vaccine. Immunization: ZOSTER RECOMBINANT Refusal Reason: PATIENT DECISION Patient refuses all immunization(s) in the ZOSTER group Date Documented: 06/29/24 13:25 Pneumococcal Conjugate Vaccine (PCV15/PCV20) - L,N,P,PH,U: Refuses PCV vaccine Immunization: PNEUMOCOCCAL CONJUGATE, UNSPECIFIED FORMULATION Refusal Reason: PATIENT DECISION Patient refuses all immunization(s) in the PneumoPCV group Date Documented: 06/29/24 13:25 Tdap Immunization - L,N,P,PH,U: The patient declines to receive the recommended dose of Tdap vaccine. Immunization: TDAP Refusal Reason: PATIENT DECISION Patient refuses all immunization(s) in the TDAP group Date Documented: 06/29/24 13:25 Alcohol Use Screen (AUDIT-C) - V: Alcohol Screen: SCREEN FOR ALCOHOL (AUDIT-C) An alcohol screening test (AUDIT-C) was negative (score=0). 1. How often did you have a drink containing alcohol in the past year? Consider a drink to be a 12 ounce can or bottle of regular beer, 8 ounces of malt liquor, a 5 ounce glass of table wine, or a 1.5 ounce shot of liquor (like scotch, gin, or vodka). Never 2. How many drinks containing alcohol did you have on a typical day when you were drinking in the past year? Response not required due to responses to other questions. 3. How often did you have six or more drinks on one occasion in the past year? Response not required due to responses to other questions. /joaquim/ KRISHAN MCCAIN LPN LICENSED PRACTIAL NURSE Signed: 06/29/2024 13:26 KRISHNA MCCAIN [facility]
--- OUTSIDE RECORDS SUMMARY | 2024-07-22 05:49 | XMS_ITS | Encounter Summary ---
Author Name [facility] [place] Address [address] [place] [address] Care Team Providers Care Reinsurance Accountant Name Role Phone CARLIN STEWART Primary Care Provider Unavailabl e Selected Encounter This section includes the information on record at [place] for the Encounter. Date/Time Encounter Type Encounter Description Reason Provider Source Jun 19, 2024 01:01 PM Outpatient Encounter TELEPHONE PRIMARY CARE CARLIN STEWART IHTevin Encounter Template Text not used by [place] Plan of Treatment: Future Appointments (+ 6 months) and Future Tests (+/- 45 days) The Plan of Treatment section includes future care activities for the patient from all [place] treatmentfacilities. This section includes future appointments and future orders which are active, pending or scheduled. Future Appointments This section includes appointments that were scheduled to occur 6 months from the date of the Encounter, up to a maximum of 20 appointments. The data comes from all [place] treatment facilities. Appointment Date/Time Appointment Type Appointme nt Facility Name Jun 29, 2024 01:00 PM AMBULATORY - MEDICINE [facility] Active, Pending, and Scheduled Orders This section includes a listing of several types of active, pending, and scheduled orders, including clinic medications orders, diagnostic test orders, procedure orders and consult orders; where the start date of the order is 45 days before the date of the Encounter or 45 days after the date of theEncounter. The data comes from all [place] treatment [facility]. Test Date/Time Test Type Test Details Facility Name May 20, 2024 12:00 AM Laboratory - Chemi stry Order URINALYSIS (STL-PB) URINE - CLEAN CATCH [facility] May 20, 2024 12:00 AM Laboratory - Chemi stry Order MICRAL/CREAT PROFILE (STL) URINE YELLOW [facility] Jun 19, 2024 12:00 AM Laboratory - Chemi stry Order MICRAL/CREAT PROFILE (STL) URINE YELLOW [facility] Jun 19, 2024 12:00 AM Laboratory - Chemi stry Order URINALYSIS (STL-PB) URINE - CLEAN CATCH [facility] Lab Results: +/- 30 days of the encounter This section includes the Chemistry and Hematology Lab Results on record with [place] for the patient. Radiology Reports and Pathology Reports are provided separately, in subsequent sections. Lab Results This section contains the Chemistry/Hematology Results that were resulted 30 days before or 30 daysafter the date of the Encounter. Date/Time Source Result Type Result - Unit Interpretation Reference Range Comment May 26, 2024 01:19 PM [facility] TSH (MA-PB) Specimen Type: SERUM No comment entered. Ordering Provider: CARLIN STEWART Report Released Date/Time: May 20, 2024 03:03 PM Reporting Lab: [facility] [address] [facility] [address] Performing Lab: [facility] [address] [facility] [address] TSH 1.531 u[IU]/mL 0.47-5 May 26, 2024 01:19 PM [facility] HGA1C Specimen Type: BLOOD No comment entered. Ordering Provider: CARLIN STEWART Report Released Date/Time: May 20, 2024 03:03 PM Reporting Lab: [facility] [address] [facility] [address] Performing Lab: [facility] [address] [facility] [address] HGA1C 5.3 4.0-6.0 May 26, 2024 01:19 PM [facility] CBC Specimen Type: BLOOD No comment entered. Ordering Provider: CARLIN STEWART Report Released Date/Time: May 20, 2024 03:03 PM Reporting Lab: [facility] [address] [facility] [address] Performing Lab: [address] [address] WBC 5.3 10*3/uL 3.6-11.2 RBC 4.06 10*6/uL L 4.10-5.70 HGB 12.3 g/dL L 13.1-16.8 HCT 36.8 L 38.2-48.4 MCV 90.6 fL 80.0-100.0 MCH 30.3 pg 27.0-34.0 MCHC 33.4 g/dL 33.0-36.0 PLT 194 10*3/uL 150-400 MPV 11.2 fL 7.5-11.2 RDW 13.1 11.8-15.1 LYMPHOCYTES, AUTO % 20 MONOCYTES, AUTO % 10 NEUTROPHILS, AUTO % 65 EOSINOPHILS, AUTO % 4 BASOPHILS, AUTO % 1 LYMPHOCYTES, ABSOLUTE 1.05 10*3/uL 0.77-4.50 MONOCYTES, ABSOLUTE 0.54 10*3/uL 0.19-0.80 NEUTROPHILS, ABSOLUTE 3.42 10*3/uL 2.10-8.00 EOSINOPHILS, ABSOLUTE 0.21 10*3/uL 0.00-0.60 BASOPHILS, ABSOLUTE 0.03 10*3/uL 0.00-0.20 May 26, 2024 01:19 PM [facility] COMPREHENSIVE METABOLIC PANEL Specimen Type: PLASMA Comment: No hemolysis noted. Ordering Provider: CARLIN STEWART Report Released Date/Time: May 20, 2024 03:03 PM Reporting Lab: [facility] [address] [facility] [address] Performing Lab: [facility] [address] [place] [phone] CREATININE 1.44 mg/dL H 0.7-1.3 UREA NITROGEN 24.7 mg/dL 9.0-25.0 GLUCOSE 82 mg/dL 72-99 SODIUM 142 meq/L 136-145 POTASSIUM 4.6 meq/L 3.5-5 CHLORIDE 112 meq/L H 98-107 CARBON DIOXIDE 17 meq/L L 22-31 CALCIUM 10.0 mg/dL 8.4-10.4 PROTEIN 6.2 g/dL 6-8.6 ALBUMIN 4.2 g/dL 3.4-5 TOTAL BILIRUBIN 0.8 mg/dL 0.2-1.2 ALKALINE PHOSPHATASE 82 U/L 40-150 AST/SGOT 24 U/L 5-34 ALT/SGPT 27 U/L 8-40 EGFR (CKD-EPI 2020) 52.0 >60 May 26, 2024 01:19 PM [facility] LIPID PANEL (STL) Specimen Type: PLASMA Comment: No hemolysis noted. Ordering Provider: CARLIN STEWART Report Released Date/Time: May 20, 2024 03:03 PM Reporting Lab: [facility] [address] [facility] [address] Performing Lab: [facility] [address] [facility] [address] CHOLESTEROL 114 mg/dL 0-200 TRIGLYCERIDE 64 mg/dL 0-150 CALCULATED LDL 53 mg/dL HDL(New) 48 mg/dL >40 Encounter Notes: All associated encounter notes This section contains the clinical notes associated to the Encounter. Date/Time Encounter Note(s) Provider Source Jun 19, 2024 01:01 PM NURSING NOTE: LOCAL TITLE: V15 PACT TELEPHONE CONTACT NOTE STL STANDARD TITLE: NURSING NOTE DATE OF NOTE: JUN 19, 2024@13:01 ENTRY DATE: JUN 19, 2024@13:01:48 AUTHOR: KRISHNA MCCAIN COSIGNER: URGENCY: STATUS: COMPLETED Patient/Other contacted: Patient Patient Identifiers : Full Name Date of Appointment Reminder: Outbound call to patient to remind of upcoming: Provider in-person with DR. STEWART Appointment is scheduled for: Jun@13:00 Appointment type: In-person, instructed to: Write down any questions you may have to discuss with your provider at your appointment. Bring any forms or non-VA records if needed. Arrive 15 mins early to check-in allowing time for traffic and parking. Take your medicine as you normally would that morning, and bring all your medicine with you to the appointment: this includes any purchased over the counter that you are using. Clinical reminders: No applicable nurse clinical reminders due at the time of this encounter. Encouraged to contact PC Team with questions/concerns or if need to reschedule/cancel appointment. Provided/reviewed the nurse advice line (ext [phone]) for medical needs after hours. Contact understanding verified by teach back: Yes Total time spent on phone: 5 MIN /joaquim/ KRISHNA MCCAIN LPN LICENSED PRACTIAL NURSE Signed: 06/19/2024 13:04 KRISHNA MCCAIN [facility]
--- OUTSIDE RECORDS SUMMARY | 2024-07-22 05:49 | XMS_ITS | Encounter Summary ---
Author Name [facility] [place] [facility] [place] [facility] [place] Address [address] [place] [id number] Care Team Providers Care Dental Hygiene Instructor Name Role Phone CARLIN STEWART Primary Care Provider Unavailabl e Selected Encounter This section includes the information on record at [place] for the Encounter. Date/Time Encounter Type Encounter Description Reason Pro vider Source IHE Encounter Template Text not used by [place]
--- OUTSIDE RECORDS SUMMARY | 2024-07-22 05:49 | XMS_ITS | Encounter Summary ---
Author Name [facility] [place] [facility] [place] [facility] [place] Address [address] [place] [address] Care Team Providers Care Staffing Specialist Name Role Phone CARLIN STEWART Primary Care Provider Unavailabl e Selected Encounter This section includes the information on record at [place] for the Encounter. Date/Time Encounter Type Encounter Description Reason Pro vider Source Apr 29, 2024 09:29 AM Outpatient Encounter ADMIN PAT ACTIVTIES (MASNONCT) IHE Encounter Template Text not used by [place] Plan of Treatment: Future Appointments (+ 6 months) and Future Tests (+/- 45 days) The Plan of Treatment section includes future care activities for the patient from all [place] treatmentfacilities. This section includes future appointments and future orders which are active, pending or scheduled. Future Appointments This section includes appointments that were scheduled to occur 6 months from the date of the Encounter, up to a maximum of 20 appointments. The data comes from all [place] treatment facilities. Appointment Date/Time Appointment Type Appointme nt Facility Name Jun 29, 2024 01:00 PM AMBULATORY - MEDICINE [facility] Active, Pending, and Scheduled Orders This section includes a listing of several types of active, pending, and scheduled orders, including clinic medications orders, diagnostic test orders, procedure orders and consult orders; where the start date of the order is 45 days before the date of the Encounter or 45 days after the date of theEncounter. The data comes from all [place] treatment [facility]. Test Date/Time Test Type Test Details Facility Name May 20, 2024 12:00 AM Laboratory - Chemi stry Order URINALYSIS (STL-PB) URINE - CLEAN CATCH [facility] May 20, 2024 12:00 AM Laboratory - Chemi ameena Order MICRAL/CREAT PROFILE (STL) URINE YELLOW SP [facility] Lab Results: +/- 30 days of the encounter This section includes the Chemistry and Hematology Lab Results on record with [place] for the patient. Radiology Reports and Pathology Reports are provided separately, in subsequent sections. Lab Results This section contains the Chemistry/Hematology Results that were resulted 30 days before or 30 daysafter the date of the Encounter. Date/Time Source Result Type Result - Unit Interpretation Reference Range Comment May 26, 2024 01:19 PM [facility] TSH (MA-PB) Specimen Type: SERUM No comment entered. Ordering Provider: CARLIN STEWART Report Released Date/Time: May 20, 2024 03:03 PM Reporting Lab: [facility] [address] [facility] [address] Performing Lab: [address] [address] TSH 1.531 u[IU]/mL 0.47-5 May 26, 2024 01:19 PM [facility] HGA1C Specimen Type: BLOOD No comment entered. Ordering Provider: CARLIN STEWART Report Released Date/Time: May 20, 2024 03:03 PM Reporting Lab: [facility] [address] [facility] [address] Performing Lab: [facility] [address] [place] [phone] HGA1C 5.3 4.0-6.0 May 26, 2024 01:19 PM [facility] CBC Specimen Type: BLOOD No comment entered. Ordering Provider: CARLIN STEWART Report Released Date/Time: May 20, 2024 03:03 PM Reporting Lab: [facility] [address] [facility] [address] Performing Lab: [facility] [address] [place] [phone] WBC 5.3 10*3/uL 3.6-11.2 RBC 4.06 10*6/uL [...] 10*3/uL 0.00-0.20 May 26, 2024 01:19 PM [facility] COMPREHENSIVE METABOLIC PANEL Specimen Type: PLASMA Comment: No hemolysis noted. Ordering Provider: CARLIN STEWART Report Released Date/Time: May 20, 2024 03:03 PM Reporting Lab: [facility] [address] [facility] [address] Performing Lab: [facility] [address] [place] [phone] CREATININE 1.44 mg/dL H 0.7-1.3 UREA NITROGEN [...] 52.0 >60 May 26, 2024 01:19 PM [facility] LIPID PANEL (STL) Specimen Type: PLASMA Comment: No hemolysis noted. Ordering Provider: CARLIN STEWART Report Released Date/Time: May 20, 2024 03:03 PM Reporting Lab: [facility] [address] [facility] [address] Performing Lab: [facility] [address] [place] [phone] CHOLESTEROL 114 mg/dL 0-200 TRIGLYCERIDE 64 mg/dL 0-150 CALCULATED LDL 53 mg/dL HDL(New) 48 mg/dL >40 Encounter Notes: All associated encounter notes This section contains the clinical notes associated to the Encounter. Date/Time Encounter Note(s) Provider Source Apr 29, 2024 09:29 AM ADMINISTRATIVE NOT E: LOCAL TITLE: SCHEDULING NOTE STL STANDARD TITLE: ADMINISTRATIVE NOTE DATE OF NOTE: APR 29, 2024@09:29 ENTRY DATE: APR 29, 2024@09:30:07 AUTHOR: JEREMIE GOMES EXP COSIGNER: URGENCY: STATUS: COMPLETED Minimum Scheduling attempts to contact the have been made. RTC/Appt/Consult request will be discontinued after 14 days. Clinic: PRIMARY CARE [place]: Apr First Call to [place] - unsuccessful scheduling: Apr Second Call to - unsuccessful scheduling: Apr ADDITIONAL RESULTS FROM SCHEDULING ATTEMPTS: /yolanda GOMES Meter Reader Chief Signed: 04/29/2024 09:30 JEREMIE GOMES [facility] Apr 29, 2024 09:29 AM PHYSICIAN LETTERS: LOCAL TITLE: NO CONTACT LETTER STL STANDARD TITLE: PHYSICIAN LETTERS DATE OF NOTE: APR 29, 2024@09:29 ENTRY DATE: APR 29, 2024@09:29:16 AUTHOR: JEREMIE GOMES EXP COSIGNER: URGENCY: STATUS: COMPLETED [address] [address] APR 29, 2024 MORELIA MASSEY [address] [place], [place] [address] Dear Morelia Massey, Thank you for choosing the [facility] as your primary choice for health care. As a partner in your health care, we are attempting to contact you because we have been unsuccessful in reaching you by phone to schedule your clinic appointment. Please call us at [phone], extension [phone] to speak to us regarding making an appointment in the PRIMARY CARE clinic. Your good health is important to us. Please contact us within 2 weeks from the date of this letter. If we do not hear from you, we will notify your referring provider and a new referral will be required to schedule an appointment. IMPORTANT: Due to COVID-19 we have greatly expanded our telehealth options, please contact the clinic to inquire about scheduling. Sincerely, JEREMIE GOMES Meter Reader Chief MORELIA MASSEY ABIGAIL R [facility]
--- OUTSIDE RECORDS SUMMARY | 2024-07-22 05:49 | XMS_ITS | Encounter Summary ---
Author Name [facility] [place] Address [address] [place] [address] Care Team Providers Care Ops Analyst Name Role Phone CARLIN STEWART Primary Care Provider Unavailabl e Selected Encounter This section includes the information on record at [place] for the Encounter. Date/Time Encounter Type Encounter Description Reason Provider Source Jun 14, 2024 01:00 PM Outpatient Encounter PRIMARY CARE/MEDICINE CARLIN STEWART IHTevin Encounter Template Text not used by [place] Plan of Treatment: Future Appointments (+ 6 months) and Future Tests (+/- 45 days) The Plan of Treatment section includes future care activities for the patient from all [place] treatmentfacilities. This section includes future appointments and future orders which are active, pending or scheduled. Future Appointments This section includes appointments that were scheduled to occur 6 months from the date of the Encounter, up to a maximum of 20 appointments. The data comes from all [place] treatment facilities. Appointment Date/Time Appointment Type Appointme nt Facility Name Jun 29, 2024 01:00 PM AMBULATORY - MEDICINE [facility] Active, Pending, and Scheduled Orders This section includes a listing of several types of active, pending, and scheduled orders, including clinic medications orders, diagnostic test orders, procedure orders and consult orders; where the start date of the order is 45 days before the date of the Encounter or 45 days after the date of theEncounter. The data comes from all [place] treatment [facility]. Test Date/Time Test Type Test Details Facility Name May 20, 2024 12:00 AM Laboratory - Chemi stry Order URINALYSIS (STL-PB) URINE - CLEAN CATCH [facility] May 20, 2024 12:00 AM Laboratory - Chemi stry Order MICRAL/CREAT PROFILE (STL) URINE YELLOW [facility] Jun 19, 2024 12:00 AM Laboratory - Chemi stry Order MICRAL/CREAT PROFILE (STL) URINE YELLOW [facility] Jun 19, 2024 12:00 AM Laboratory - Chemi stry Order URINALYSIS (STL-PB) URINE - CLEAN CATCH [facility] Lab Results: +/- 30 days of the encounter This section includes the Chemistry and Hematology Lab Results on record with [place] for the patient. Radiology Reports and Pathology Reports are provided separately, in subsequent sections. Lab Results This section contains the Chemistry/Hematology Results that were resulted 30 days before or 30 daysafter the date of the Encounter. Date/Time Source Result Type Result - Unit Interpretation Reference Range Comment May 26, 2024 01:19 PM [facility] TSH (MA-PB) Specimen Type: SERUM No comment entered. Ordering Provider: CARLIN STEWART Report Released Date/Time: May 20, 2024 03:03 PM Reporting Lab: [facility] [address] [facility] [address] Performing Lab: [facility] [address] [facility] [address] TSH 1.531 u[IU]/mL 0.47-5 May 26, 2024 01:19 PM [facility] HGA1C Specimen Type: BLOOD No comment entered. Ordering Provider: CARLIN STEWART Report Released Date/Time: May 20, 2024 03:03 PM Reporting Lab: [facility] [address] [facility] [address] Performing Lab: [facility] [address] [facility] [address] HGA1C 5.3 4.0-6.0 May 26, 2024 01:19 PM [facility] CBC Specimen Type: BLOOD No comment entered. Ordering Provider: CARLIN STEWART Report Released Date/Time: May 20, 2024 03:03 PM Reporting Lab: [facility] [address] [facility] [address] Performing Lab: [facility] [address] [facility] [address] WBC 5.3 10*3/uL 3.6-11.2 RBC 4.06 10*6/uL [...] 10*3/uL 0.00-0.20 May 26, 2024 01:19 PM [facility] COMPREHENSIVE METABOLIC PANEL Specimen Type: PLASMA Comment: No hemolysis noted. Ordering Provider: CARLIN STEWART Report Released Date/Time: May 20, 2024 03:03 PM Reporting Lab: [facility] [address] [facility] [address] Performing Lab: [facility] [address] [place] [phone] CREATININE 1.44 mg/dL H 0.7-1.3 UREA NITROGEN [...] 52.0 >60 May 26, 2024 01:19 PM [facility] LIPID PANEL (STL) Specimen Type: PLASMA Comment: No hemolysis noted. Ordering Provider: CARLIN STEWART Report Released Date/Time: May 20, 2024 03:03 PM Reporting Lab: [facility] [address] [facility] [address] Performing Lab: [facility] [address] [facility] [address] CHOLESTEROL 114 mg/dL 0-200 TRIGLYCERIDE 64 mg/dL 0-150 CALCULATED LDL 53 mg/dL HDL(New) 48 mg/dL >40 Encounter Notes: All associated encounter notes This section contains the clinical notes associated to the Encounter. Date/Time Encounter Note(s) Provider Source Jun 17, 2024 08:27 AM PHYSICIAN LETTERS: LOCAL TITLE: TEST RESULT GENERAL LETTER STL STANDARD TITLE: PHYSICIAN LETTERS DATE OF NOTE: JUN 17, 2024@08:27 ENTRY DATE: JUN 17, 2024@08:27:48 AUTHOR: CARLIN STEWART EXP COSIGNER: URGENCY: STATUS: COMPLETED [address] [address] JUN 17, 2024 MORELIA MASSEY [address] [place], [place] [address] Dear Morelia Massey, I would like to update you on your recent test results. LIPID PROFILE - High cholesterol and triglycerides (lipids) are risk factors for heart disease. Your cholesterol should fall between 140 and 200, and your triglycerides levels should be less than or equal to 150. HDL is the good cholesterol and should ideally be greater than 40. LDL is the bad cholesterol and optimal levels should be less than 100 (near optimal is between 100 and 129). TRIGLYCERIDE 64 mg/dL 05/26/2024 13:19 CHOLESTEROL 114 mg/dL 05/26/2024 13:19 HDL(New) 48 mg/dL 05/26/2024 13:19 CALCULATED LDL 53 mg/dL 05/26/2024 13:19 These readings are within normal limits. HEMOGLOBIN A1C - Gives us information about your diabetes (sugar or glucose) control over the past 3 months. HGA1C 5.3 % 05/26/2024 13:19 These readings are within normal limits. CBC - A complete blood count (CBC) gives important information about the kinds and numbers of cells in the blood, especially red blood cells, white blood cells, and platelets. HGB 12.3 L g/dL 05/26/2024 13:19 HEMATOCRIT 36.8 % L (05/26/24 13:19) PLT 194 10*3/uL 05/26/2024 13:19 WHITE BLOOD COUNT 5.3 10*3/uL (05/26/24 13:19) The results are not a clinical concern at present . CHEM 7 - This is important information about the current status of your kidneys, liver, and electrolyte and acid/base balance as well as of your blood sugar and blood proteins. SODIUM 142 mEq/L 05/26/2024 13:19 POTASSIUM 4.6 mEq/L 05/26/2024 13:19 CHLORIDE 112 H mEq/L 05/26/2024 13:19 UREA NITROGEN 24.7 mg/dL 05/26/2024 13:19 CREATININE 1.44 H mg/dL 05/26/2024 13:19 CALCIUM 10.0 mg/dL 05/26/2024 13:19 CARBON DIOXIDE 17 L mEq/L 05/26/2024 13:19 GLUCOSE 82 mg/dL 05/26/2024 13:19 EGFR (CKD-EPI 2020) 52.0 05/26/2024 13:19 These results are abnormal. you have mild kidney imairement LIVER FUNCTION PANEL - These are tests for liver function: PROTEIN 6.2 g/dL 05/26/2024 13:19 ALBUMIN 4.2 g/dL 05/26/2024 13:19 TOTAL BILIRUBIN 0.8 mg/dL 05/26/2024 13:19 ALKALINE PHOSPHATASE 82 U/L 05/26/2024 13:19 AST/SGOT 24 U/L 05/26/2024 13:19 ALT/SGPT 27 U/L 05/26/2024 13:19 These readings are within normal limits. PLAN I look forward to seeing you at your next clinic appointment. Thank you for choosing the [facility] for your healthcare. FUTURE APPOINTMENTS: 06/29/2024 13:00 [facility] PACT B NEW PATIENT Sincerely, CARLIN STEWART MD Staff Physician MORELIA MASSEY RAMA D [facility]
--- OUTSIDE RECORDS SUMMARY | 2024-07-22 05:49 | XMS_ITS | Encounter Summary ---
Author Name [facility] [place] [facility] [place] [facility] [place] [facility] [place] Address [address] [place] [address] Care Team Providers Care Edge Plugger Name Role Phone CARLIN STEWART Primary Care Provider Unavailabl e Selected Encounter This section includes the information on record at [place] for the Encounter. Date/Time Encounter Type Encounter Description Reason Provider Source May 20, 2024 02:58 PM Outpatient Encounter TELEPHONE PRIMARY CARE CARLIN STEWART IHTevin Encounter Template Text not used by [place] Plan of Treatment: Future Appointments (+ 6 months) and Future Tests (+/- 45 days) The Plan of Treatment section includes future care activities for the patient from all [place] treatmentfacilities. This section includes future appointments and future orders which are active, pending or scheduled. Future Appointments This section includes appointments that were scheduled to occur 6 months from the date of the Encounter, up to a maximum of 20 appointments. The data comes from all [place] treatment facilities. Appointment Date/Time Appointment Type Appointme nt Facility Name Jun 29, 2024 01:00 PM AMBULATORY - MEDICINE [facility] Active, Pending, and Scheduled Orders This section includes a listing of several types of active, pending, and scheduled orders, including clinic medications orders, diagnostic test orders, procedure orders and consult orders; where the start date of the order is 45 days before the date of the Encounter or 45 days after the date of theEncounter. The data comes from all [place] treatment [facility]. Test Date/Time Test Type Test Details Facility Name May 20, 2024 12:00 AM Laboratory - Chemi stry Order URINALYSIS (STL-PB) URINE - CLEAN CATCH [facility] May 20, 2024 12:00 AM Laboratory - Chemi stry Order MICRAL/CREAT PROFILE (STL) URINE YELLOW [facility] Jun 19, 2024 12:00 AM Laboratory - Chemi stry Order MICRAL/CREAT PROFILE (STL) URINE YELLOW [facility] Jun 19, 2024 12:00 AM Laboratory - Chemi stry Order URINALYSIS (STL-PB) URINE - CLEAN CATCH [facility] Lab Results: +/- 30 days of the encounter This section includes the Chemistry and Hematology Lab Results on record with [place] for the patient. Radiology Reports and Pathology Reports are provided separately, in subsequent sections. Lab Results This section contains the Chemistry/Hematology Results that were resulted 30 days before or 30 daysafter the date of the Encounter. Date/Time Source Result Type Result - Unit Interpretation Reference Range Comment May 26, 2024 01:[address] [facility] TSH ([place]-PB) Specimen Type: SERUM No comment entered. Ordering Provider: CARLIN STEWART Report Released Date/Time: May 20, 2024 03:03 PM Reporting Lab: [facility] [address] [address] Performing Lab: [facility] [address] [facility] [address] TSH 1.531 u[IU]/mL 0.47-5 May 26, 2024 01:[address] [facility] HGA1C Specimen Type: BLOOD No comment entered. Ordering Provider: CARLIN STEWART Report Released Date/Time: May 20, 2024 03:03 PM Reporting Lab: [facility] [address] [facility] [phone] Performing Lab: [facility] [address] [address] HGA1C 5.3 4.0-6.0 May 26, 2024 01:[address] [facility] CBC Specimen Type: BLOOD No comment entered. Ordering Provider: CARLIN STEWART Report Released Date/Time: May 20, 2024 03:03 PM Reporting Lab: [facility] [address] [facility] [address] Performing Lab: [address] [address] WBC 5.3 10*3/uL 3.6-11.2 RBC 4.06 10*6/uL [...] 10*3/uL 0.00-0.20 May 26, 2024 01:[address] [facility] COMPREHENSIVE METABOLIC PANEL Specimen Type: PLASMA Comment: No hemolysis noted. Ordering Provider: CARLIN STEWART Report Released Date/Time: May 20, 2024 03:03 PM Reporting Lab: [facility] [address] [address] Performing Lab: [facility] [address] [place] [phone] CREATININE 1.44 mg/dL H 0.7-1.3 UREA NITROGEN [...] 52.0 >60 May 26, 2024 01:[address] [facility] LIPID PANEL (STL) Specimen Type: PLASMA Comment: No hemolysis noted. Ordering Provider: CARLIN STEWART Report Released Date/Time: May 20, 2024 03:03 PM Reporting Lab: [facility] [address] [facility] [address] Performing Lab: [facility] [address] [facility] [address] CHOLESTEROL 114 mg/dL 0-200 TRIGLYCERIDE 64 mg/dL 0-150 CALCULATED LDL 53 mg/dL HDL(New) 48 mg/dL >40 Encounter Notes: All associated encounter notes This section contains the clinical notes associated to the Encounter. Date/Time Encounter Note(s) Provider Source May 20, 2024 03:00 PM NURSING NOTE: LOCAL TITLE: V15 PACT TELEPHONE CONTACT NOTE STL STANDARD TITLE: NURSING NOTE DATE OF NOTE: MAY 20, 2024@15:00 ENTRY DATE: MAY 20, 2024@15:00:26 AUTHOR: KRISHNA MCCAIN COSIGNER: URGENCY: STATUS: COMPLETED Patient/Other contacted: Patient Patient Identifiers : Full Name Date of Appointment Reminder: Outbound call to patient to remind of upcoming: Provider in-person with DR. STEWART Appointment is scheduled for: May@13:00 Appointment type: In-person, instructed to: Write down [...] appointment. Provided/reviewed the nurse advice line (ext [phone]) for medical needs after hours. Contact understanding verified by teach back: Yes Total time spent on phone: 5 MIN /joaquim/ KRISHNA MCCAIN LPN LICENSED PRACTIAL NURSE Signed: 05/20/2024 15:[address] [facility]
--- OUTSIDE RECORDS SUMMARY | 2024-07-22 05:49 | XMS_ITS | Encounter Summary ---
Author Name [facility] [place] Organization [facility] [place] [facility] [place] Address [address] [place] [address] Care Team Providers Care Customer Accounts Advisor Name Role Phone CARLIN STEWART Primary Care Provider Unavailabl e Selected Encounter This section includes the information on record at [place] for the Encounter. Date/Time Encounter Type Encounter Description Reason Provider Source Jun 03, 2024 01:57 PM Outpatient Encounter TELEPHONE PRIMARY CARE CARLIN STEWART IHTevin Encounter Template Text not used by [place] Plan of Treatment: Future Appointments (+ 6 months) and Future Tests (+/- 45 days) The Plan of Treatment section includes future care activities for the patient from all [place] treatmentfacilities. This section includes future appointments and future orders which are active, pending or scheduled. Future Appointments This section includes appointments that were scheduled to occur 6 months from the date of the Encounter, up to a maximum of 20 appointments. The data comes from all [place] treatment facilities. Appointment Date/Time Appointment Type Appointme nt Facility Name Jun 29, 2024 01:00 PM AMBULATORY - MEDICINE [facility] Active, Pending, and Scheduled Orders This section includes a listing of several types of active, pending, and scheduled orders, including clinic medications orders, diagnostic test orders, procedure orders and consult orders; where the start date of the order is 45 days before the date of the Encounter or 45 days after the date of theEncounter. The data comes from all [place] treatment [facility]. Test Date/Time Test Type Test Details Facility Name May 20, 2024 12:00 AM Laboratory - Chemi stry Order URINALYSIS (STL-PB) URINE - CLEAN CATCH [facility] May 20, 2024 12:00 AM Laboratory - Chemi stry Order MICRAL/CREAT PROFILE (STL) URINE YELLOW [facility] Jun 19, 2024 12:00 AM Laboratory - Chemi stry Order MICRAL/CREAT PROFILE (STL) URINE YELLOW [facility] Jun 19, 2024 12:00 AM Laboratory - Chemi stry Order URINALYSIS (STL-PB) URINE - CLEAN CATCH [facility] Lab Results: +/- 30 days of the encounter This section includes the Chemistry and Hematology Lab Results on record with [place] for the patient. Radiology Reports and Pathology Reports are provided separately, in subsequent sections. Lab Results This section contains the Chemistry/Hematology Results that were resulted 30 days before or 30 daysafter the date of the Encounter. Date/Time Source Result Type Result - Unit Interpretation Reference Range Comment May 26, 2024 01:19 PM [facility] TSH (MA-PB) Specimen Type: SERUM No comment entered. Ordering Provider: CARLIN STEWART Report Released Date/Time: May 20, 2024 03:03 PM Reporting Lab: [facility] [address] [facility] [address] Performing Lab: [facility] [address] [facility] [facility] [address] TSH 1.531 u[IU]/mL 0.47-5 May 26, 2024 01:19 PM [facility] HGA1C Specimen Type: BLOOD No comment entered. Ordering Provider: CARLIN STEWART Report Released Date/Time: May 20, 2024 03:03 PM Reporting Lab: [facility] [address] [facility] [address] Performing Lab: [facility] [address] [facility] [address] HGA1C 5.3 4.0-6.0 May 26, 2024 01:19 PM [facility] CBC Specimen Type: BLOOD No comment entered. Ordering Provider: CARLIN STEWART Report Released Date/Time: May 20, 2024 03:03 PM Reporting Lab: [facility] [address] [facility] [address] Performing Lab: [address] [address] WBC 5.3 10*3/uL 3.6-11.2 RBC 4.06 10*6/uL [...] 10*3/uL 0.00-0.20 May 26, 2024 01:19 PM [facility] COMPREHENSIVE METABOLIC PANEL Specimen Type: PLASMA Comment: No hemolysis noted. Ordering Provider: CARLIN STEWART Report Released Date/Time: May 20, 2024 03:03 PM Reporting Lab: [facility] [address] [facility] [address] Performing Lab: [facility] [address] [place] [phone] CREATININE 1.44 mg/dL H 0.7-1.3 UREA NITROGEN [...] 52.0 >60 May 26, 2024 01:19 PM [facility] LIPID PANEL (STL) Specimen Type: PLASMA Comment: No hemolysis noted. Ordering Provider: CARLIN STEWART Report Released Date/Time: May 20, 2024 03:03 PM Reporting Lab: [facility] [address] [facility] [address] Performing Lab: [facility] [address] [facility] [address] CHOLESTEROL 114 mg/dL 0-200 TRIGLYCERIDE 64 mg/dL 0-150 CALCULATED LDL 53 mg/dL HDL(New) 48 mg/dL >40 Encounter Notes: All associated encounter notes This section contains the clinical notes associated to the Encounter. Date/Time Encounter Note(s) Provider Source Jun 03, 2024 01:57 PM NURSING NOTE: LOCAL TITLE: V15 PACT TELEPHONE CONTACT NOTE STL STANDARD TITLE: NURSING NOTE DATE OF NOTE: JUN 03, 2024@13:57 ENTRY DATE: JUN 03, 2024@13:57:09 AUTHOR: KRISHNA MCCAIN EXP COSIGNER: URGENCY: STATUS: COMPLETED Unable to contact: No answer at phone number listed and unable to leave message. Outbound call to patient for: Appointment reminder for 06/15/[address] Stewart. /joaquim/ KRISHNA MCCAIN LPN LICENSED PRACTIAL NURSE Signed: 06/03/2024 13:58 KRISHNA MCCAIN [facility]
--- OUTSIDE RECORDS SUMMARY | 2024-07-22 05:49 | XMS_ITS | Continuity of Care Document ---
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 It does not include entries that were removed or entered in error. Problem Status Onset Date Problem Type Date of Resolution Comments Source Alzheimer's disease Active Condition [facility] Chronic kidney disease Active Condition [facility] Exposure to potentially hazardous substance ([facility] [id number]) Active Condition Jul 01 4 Entered By: YARITZA GOLDSTEIN Comment: Entered automatically through ARMINDA Problem List documentation program JESSICA BARRON [facility] Hyperlipidemia Active Condition [facility] Hypertension Active Condition [facility] Tremor Active Condition [facility] Diagnosis: ICD-10-CM I10 Essential (primary) hypertension Active Diagnosis [facility] Medications Combined list of outpatient medications from Department of Defense and Veterans Affairs facilities.Medications provided include 1) outpatient medications from the last 15 months, and 2) patient-reported medications. Medication Details Route Status Patient Instructions Prescription Expires Prescription Number Last Dispense Date Ordering Provider Order Date Order Qty Source AMLODIPINE BESYLATE (AMLODIPINE BESYLATE), 5 MG, TABLET, ORAL, [facility], 1000 ea. BOTTLE Cancele d [id number] : 2023 0 Pharmac y Data Transac tion Service Facilit y AMLODIPINE BESYLATE (AMLODIPINE BESYLATE), 5 MG, TABLET, ORAL, [facility], 1000 ea. BOTTLE Cancele d [id number] : 2023 0 Pharmac y Data Transac tion Service Facilit y AMLODIPINE BESYLATE (AMLODIPINE BESYLATE), 5 MG, TABLET, ORAL, [facility], 1000 ea. BOTTLE Active [id number] 4 2023 90 Pharmac y Data Transac tion Service Facilit y AMLODIPINE BESYLATE (AMLODIPINE BESYLATE), 5 MG, TABLET, ORAL, [facility], 1000 ea. BOTTLE Active [id number] 2023 90 Pharmac y Data Transac tion Service Facilit y AMLODIPINE BESYLATE (amlodipine besylate), 5 MG, TABLET, ORAL, [facility], 1000 ea. BOTTLE Active [id number] 2023 90 Pharmac y Data Transac tion Service Facilit y AMLODIPINE BESYLATE 5MG TAB TAKE ONE TABLET BY MOUTH ONCE A DAY ORAL ACTIVE PAT,KALANI A D 2023 [facility] ATORVASTATI N CA 40MG TAB TAKE ONE-HALF TABLET BY MOUTH EVERY EVENING ORAL ACTIVE PAT,KALANI A D 2023 [facility] ATORVASTATI N CALCIUM (ATORVASTAT IN CALCIUM), 20 MG, TABLET, ORAL, [employer], 1000 ea. BOTTLE Active [id number] 2023 90 Pharmac y Data Transac tion Service Facilit y ATORVASTATI N CALCIUM (atorvastat in calcium), 20 MG, TABLET, ORAL, [facility], 500 ea. BOTTLE Active [id number] 4 2023 90 Pharmac y Data Transac tion Service Facilit y BUPROPION (WELLBUTRIN XL) 24HR TAB,SA (EXTENDED RELEASE) TAKE 450 MGS BY MOUTH ONCE A DAY ORAL ACTIVE PAT,KALANI A D 2023 [facility] BUPROPION XL (bupropion HCl), 150 MG, TAB ER 24H, ORAL, [employer], 30 ea. BOTTLE Active [id number] 2023 90 Pharmac y Data Transac tion Service Facilit y BUPROPION XL (bupropion HCl), 150 MG, TAB ER 24H, ORAL, [employer] 500 ea. BOTTLE Active [id number] 2023 90 Pharmac y Data Transac tion Service Facilit y BUPROPION XL (bupropion HCl), 150 MG, TAB ER 24H, ORAL, [employer] 500 ea. BOTTLE Active [id number] 2023 90 Pharmac y Data Transac tion Service Facilit y BUPROPION XL (bupropion HCl), 300 MG, TAB ER 24H, ORAL, [employer], 500 ea. BOTTLE Active [id number] 2023 90 Pharmac y Data Transac tion Service Facilit y BUPROPION XL (bupropion HCl), 300 MG, TAB ER 24H, ORAL, [facility], 500 ea. BOTTLE Cancele d [id number] : 2023 0 Pharmac y Data Transac tion Service Facilit y BUSPIRONE HCL (buspirone HCl), 10 MG, TABLET, ORAL, [employer] 500 ea. BOTTLE Active [id number] 2023 360 Pharmac y Data Transac tion Service Facilit y BUSPIRONE HCL (buspirone HCl), 10 MG, TABLET, ORAL, [employer] 500 ea. BOTTLE Cancele d [id number] : 2023 0 Pharmac y Data Transac tion Service Facilit y BUSPIRONE HCL (BUSPIRONE HCL), 10MG, TABLET, ORAL, [employer], 100 ea. BOTTLE Active [id number] 2023 120 Pharmac y Data Transac tion Service Facilit y BUSPIRONE HCL (BUSPIRONE HCL), 10MG, TABLET, ORAL, [employer] [place], 100 ea. BOTTLE Active [id number] 2023 120 Pharmac y Data Transac tion Service Facilit y BUSPIRONE HCL 10MG TAB TAKE ONE TABLET BY MOUTH THREE TIMES A DAY ORAL ACTIVE KALANI STEWART 2023 [facility] GABAPENTIN (gabapentin ), 600 MG, TABLET, ORAL, [facility], 500 ea. BOTTLE Active [id number] 4 2023 90 Pharmac y Data Transac tion Service Facilit y GABAPENTIN (gabapentin ), 600 MG, TABLET, ORAL, [facility], 500 ea. BOTTLE Active [id number] 2023 90 Pharmac y Data Transac tion Service Facilit y INGREZZA (valbenazin e tosylate), 40 MG, CAPSULE, ORAL, NE[employer], 30 ea. BOTTLE Active [id number] 2023 30 Pharmac y Data Transac tion Service Facilit y INGREZZA (valbenazin e tosylate), 40 MG, CAPSULE, ORAL, NE[employer] BIOS, 30 ea. BOTTLE Active [id number] 2023 30 Pharmac y Data Transac tion Service Facilit y INGREZZA (valbenazin e tosylate), 40 MG, CAPSULE, ORAL, NEUROCRINE BIOS, 30 ea. BOTTLE Active [id number] 2023 30 Pharmac y Data Transac tion Service Facilit y INGREZZA (valbenazin e tosylate), 40 MG, CAPSULE, ORAL, NEURO[employer]INE BIOS, 30 ea. BOTTLE Active [id number] 2023 30 Pharmac y Data Transac tion Service Facilit y INGREZZA (valbenazin e tosylate), 40 MG, CAPSULE, ORAL, NEURO[employer]INE BIOS, 30 ea. BOTTLE Active [id number] 2023 30 Pharmac y Data Transac tion Service Facilit y INGREZZA (valbenazin e tosylate), 40 MG, CAPSULE, ORAL, NEURO[employer]INE BIOS, 30 ea. BOTTLE Active [id number] 2023 30 Pharmac y Data Transac tion Service Facilit y INGREZZA (valbenazin e tosylate), 40 MG, CAPSULE, ORAL, NE[employer]INE BIOS, 30 ea. BOTTLE Active [id number] 2023 30 Pharmac y Data Transac tion Service Facilit y IPRATROPIUM BROMIDE (IPRATROPIU M BROMIDE), 42MCG, SPRAY, NASAL, BAUSCH &LOMB RX, 15 ml CANISTER Active [id number] 2023 15 Pharmac y Data Transac tion Service Facilit y LOSARTAN POTASSIUM (losartan potassium), 100 MG, TABLET, ORAL, [facility], 1000 ea. BOTTLE Active [id number] 2023 90 Pharmac y Data Transac tion Service Facilit y LOSARTAN POTASSIUM (losartan potassium), 100 MG, TABLET, ORAL, [facility]ARM[facility], 1000 ea. BOTTLE Active [id number] 2023 90 Pharmac y Data Transac tion Service Facilit y LOSARTAN POTASSIUM 100MG TAB TAKE ONE TABLET BY MOUTH ONCE A DAY ORAL ACTIVE PAT,KALANI A D 2023 [facility] MEMANTINE HCL (memantine HCl), 10 MG, TABLET, ORAL, [facility], 60 ea. BOTTLE Active [id number] 2023 90 Pharmac y Data Transac tion Service Facilit y MEMANTINE HCL 10MG TAB TAKE ONE TABLET BY MOUTH TWICE A DAY ORAL ACTIVE PAT,KALANI A D 2023 [facility] METRONIDAZO LE (metronidaz ole), 1 %, GEL (GRAM), TOPICAL, [facility], 60 g TUBE Active [id number] 2023 60 Pharmac y Data Transac tion Service Facilit y PROPRANOLOL HCL (propranolo l HCl), 10 MG, TABLET, ORAL, [employer] 1000 ea. BOTTLE Active [id number] 4 2023 180 Pharmac y Data Transac tion Service Facilit y PROPRANOLOL HCL 10MG TAB TAKE ONE TABLET BY MOUTH ONCE A DAY ORAL ACTIVE PAT,KALANI A D 2023 [facility] VALBENAZINE 40MG CAP,ORAL TAKE 1 CAPSULE BY MOUTH ONCE A DAY ORAL ACTIVE PAT,KALANI A D 2023 [facility] Immunizations Combined list of available immunizations from the Department of Defense and Veterans Affairs facilities. Immunization Series Date Given Administered By Site Reaction Lot Number CVX Code Drug [employer] Status Comments Source COVID-19, mRNA, LNP-S, PF, 100 mcg or 50 mcg dose 2020 [employer] (MOD) Not Given COVID-19, mRNA, LNP-S, PF, 100 mcg or 50 mcg dose DoD Influenza vaccine, quadrivalent, adjuvanted 2019 BROOKLYNN PRESTON () Not Given Influenza vaccine, quadrival ent, adjuvante d DoD Results Combined list of recent chemistry, hematology and other laboratory results from Department of Defense and Veterans Affairs, ranging from 15 months to all on record, depending upon the facility. Order Name Results Value Reference Range Date Interpretation Specimen Comments Source TSH (MA-PB) THYROTROPIN [UNITS/VOLU ME] IN SERUM OR PLASMA 1.531 u[IU]/ mL 0.47 - 5 05/26 Specimen Type: SERUM No comment entered. Ordering Provider: CARLIN STEWART Report Released Date/Time: May 20, 2024 03:03 PM Reporting Lab: [address] [address] Performing Lab: [address] [address] [facility] HGA1C HEMOGLOBIN A1C/HEMOGLO BIN.TOTAL IN BLOOD 5.3 4.0 - 6.0 05/26 Specimen Type: BLOOD No comment entered. Ordering Provider: CARLIN STEWART Report Released Date/Time: May 20, 2024 03:03 PM Reporting Lab: [address] [address] Performing Lab: [address] [address] [facility] CBC LEUKOCYTES [#/VOLUME] IN BLOOD BY AUTOMATED COUNT 5.3 10*3/u L 3.6 - 11.2 05/26 Specimen Type: BLOOD No comment entered. Ordering Provider: CARLIN STEWART Report Released Date/Time: May 20, 2024 03:03 PM Reporting Lab: [address] [address] Performing Lab: [address] [address] [facility] CBC ERYTHROCYTE S [#/VOLUME] IN BLOOD BY AUTOMATED COUNT 4.06 10*6/u L 4.10 - 5.70 05/26 L Specimen Type: BLOOD No comment entered. Ordering Provider: CARLIN STEWART Report Released Date/Time: May 20, 2024 03:03 PM Reporting Lab: [address] [address] Performing Lab: [address] [address] [facility] CBC HEMOGLOBIN [MASS/VOLUM E] IN BLOOD 12.3 g/dL 13.1 - 16.8 05/26 L Specimen Type: BLOOD No comment entered. Ordering Provider: CARLIN STEWART Report Released Date/Time: May 20, 2024 03:03 PM Reporting Lab: [facility] [address] [place] [phone] Performing Lab: [address] [phone] [place] [address] CBC HEMATOCRIT [VOLUME FRACTION] OF BLOOD 36.8 38.2 - 48.4 05/26 L Specimen Type: BLOOD No comment entered. Ordering Provider: CARLIN STEWART Report Released Date/Time: May 20, 2024 03:03 PM Reporting Lab: [address] [address] Performing Lab: [address] [phone] [place] [address] CBC MCV [ENTITIC VOLUME] BY AUTOMATED COUNT 90.6 fL 80.0 - 100.0 05/26 Specimen Type: BLOOD No comment entered. Ordering Provider: CARLIN STEWART Report Released Date/Time: May 20, 2024 03:03 PM Reporting Lab: [address] [address] Performing Lab: [address] [phone] [place] [address] CBC MCH [ENTITIC MASS] BY AUTOMATED COUNT 30.3 pg 27.0 - 34.0 05/26 Specimen Type: BLOOD No comment entered. Ordering Provider: CARLIN STEWART Report Released Date/Time: May 20, 2024 03:03 PM Reporting Lab: [facility] [address] [place] [address] Performing Lab: [address] [address] [facility] CBC MCHC [MASS/VOLUM E] BY AUTOMATED COUNT 33.4 g/dL 33.0 - 36.0 05/26 Specimen Type: BLOOD No comment entered. Ordering Provider: CARLIN STEWART Report Released Date/Time: May 20, 2024 03:03 PM Reporting Lab: [facility] [address] [place] [phone] Performing Lab: [facility] [address] [place] [phone] [facility] CBC PLATELETS [#/VOLUME] IN BLOOD BY AUTOMATED COUNT 194 10*3/u L 150 - 400 05/26 Specimen Type: BLOOD No comment entered. Ordering Provider: CARLIN STEWART Report Released Date/Time: May 20, 2024 03:03 PM Reporting Lab: [facility] [address] [place] [address] Performing Lab: [address] [phone] [place] [address] CBC PLATELET MEAN VOLUME [ENTITIC VOLUME] IN BLOOD BY AUTOMATED COUNT 11.2 fL 7.5 - 11.2 05/26 Specimen Type: BLOOD No comment entered. Ordering Provider: CARLIN STEWART Report Released Date/Time: May 20, 2024 03:03 PM Reporting Lab: [facility] [address] [place] [address] Performing Lab: [address] [phone] [place] [address] CBC ERYTHROCYTE DISTRIBUTIO N WIDTH [RATIO] BY AUTOMATED COUNT 13.1 11.8 - 15.1 05/26 Specimen Type: BLOOD No comment entered. Ordering Provider: CARLIN STEWART Report Released Date/Time: May 20, 2024 03:03 PM Reporting Lab: [facility] [address] [place] [address] Performing Lab: [facility] [address] [place] [phone] [place] [address] CBC LYMPHOCYTES /100 LEUKOCYTES IN BLOOD BY AUTOMATED COUNT 20 05/26 Specimen Type: BLOOD No comment entered. Ordering Provider: CARLIN STEWART Report Released Date/Time: May 20, 2024 03:03 PM Reporting Lab: [facility] [address] [facility] [address] Performing Lab: [facility] [address] [facility] [address] [facility] CBC MONOCYTES/1 00 LEUKOCYTES IN BLOOD BY AUTOMATED COUNT 10 05/26 Specimen Type: BLOOD No comment entered. Ordering Provider: CARLIN STEWART Report Released Date/Time: May 20, 2024 03:03 PM Reporting Lab: [facility] [address] [facility] [address] Performing Lab: [facility] [address] [facility] [address] [facility] CBC NEUTROPHILS /100 LEUKOCYTES IN BLOOD BY AUTOMATED COUNT 65 05/26 Specimen Type: BLOOD No comment entered. Ordering Provider: CARLIN STEWART Report Released Date/Time: May 20, 2024 03:03 PM Reporting Lab: [facility] [address] [facility] [address] Performing Lab: [facility] [address] [facility] [address] [facility] CBC EOSINOPHILS /100 LEUKOCYTES IN BLOOD BY AUTOMATED COUNT 4 05/26 Specimen Type: BLOOD No comment entered. Ordering Provider: CARLIN STEWART Report Released Date/Time: May 20, 2024 03:03 PM Reporting Lab: [facility] [address] [facility] [address] Performing Lab: [facility] [address] [facility] [address] [facility] CBC BASOPHILS/1 00 LEUKOCYTES IN BLOOD BY AUTOMATED COUNT 1 05/26 Specimen Type: BLOOD No comment entered. Ordering Provider: CARLIN STEWART Report Released Date/Time: May 20, 2024 03:03 PM Reporting Lab: [facility] [address] [facility] [address] Performing Lab: [facility] [address] [facility] [address] [facility] CBC LYMPHOCYTES [#/VOLUME] IN BLOOD BY AUTOMATED COUNT 1.05 10*3/u L 0.77 - 4.50 05/26 Specimen Type: BLOOD No comment entered. Ordering Provider: CARLIN STEWART Report Released Date/Time: May 20, 2024 03:03 PM Reporting Lab: [facility] [address] [place] [address] Performing Lab: [address] [phone] [place] [address] CBC MONOCYTES [#/VOLUME] IN BLOOD BY AUTOMATED COUNT 0.54 10*3/u L 0.19 - 0.80 05/26 Specimen Type: BLOOD No comment entered. Ordering Provider: CARLIN STEWART Report Released Date/Time: May 20, 2024 03:03 PM Reporting Lab: [address] [address] Performing Lab: [address] CBC NEUTROPHILS [#/VOLUME] IN BLOOD BY AUTOMATED COUNT 3.42 10*3/u L 2.10 - 8.00 05/26 Specimen Type: BLOOD No comment entered. Ordering Provider: CARLIN STEWART Report Released Date/Time: May 20, 2024 03:03 PM Reporting Lab: [address] [address] Performing Lab: [address] [phone] [place] [address] CBC EOSINOPHILS [#/VOLUME] IN BLOOD BY AUTOMATED COUNT 0.21 10*3/u L 0.00 - 0.60 05/26 Specimen Type: BLOOD No comment entered. Ordering Provider: CARLIN STEWART Report Released Date/Time: May 20, 2024 03:03 PM Reporting Lab: [address] [address] Performing Lab: [address] [phone] [place] [address] CBC BASOPHILS [#/VOLUME] IN BLOOD BY AUTOMATED COUNT 0.03 10*3/u L 0.00 - 0.20 05/26 Specimen Type: BLOOD No comment entered. Ordering Provider: CARLIN STEWART Report Released Date/Time: May 20, 2024 03:03 PM Reporting Lab: [facility] [address] [facility] [address] Performing Lab: [facility] [address] [place] [phone] [facility] COMPREHEN SIVE METABOLIC PANEL CREATININE [MASS/VOLUM E] IN SERUM OR PLASMA 1.44 mg/dL 0.7 - 1.3 05/26 H Specimen Type: PLASMA Comment: No hemolysis noted. Ordering Provider: CARLIN STEWART Report Released Date/Time: May 20, 2024 03:03 PM Reporting Lab: [address] [address] Performing Lab: [address] [phone] [place] [address] COMPREHEN SIVE METABOLIC PANEL UREA NITROGEN [MASS/VOLUM E] IN SERUM OR PLASMA 24.7 mg/dL 9.0 - 25.0 05/26 Specimen Type: PLASMA Comment: No hemolysis noted. Ordering Provider: CARLIN STEWART Report Released Date/Time: May 20, 2024 03:03 PM Reporting Lab: [address] [address] Performing Lab: [address] [address] [facility] COMPREHEN SIVE METABOLIC PANEL GLUCOSE [MASS/VOLUM E] IN SERUM OR PLASMA 82 mg/dL 72 - 99 05/26 Specimen Type: PLASMA Comment: No hemolysis noted. Ordering Provider: CARLIN STEWART Report Released Date/Time: May 20, 2024 03:03 PM Reporting Lab: [facility] [address] [place] [phone] Performing Lab: [address] [address] [facility] COMPREHEN SIVE METABOLIC PANEL SODIUM [MOLES/VOLU ME] IN SERUM OR PLASMA 142 meq/L 136 - 145 05/26 Specimen Type: PLASMA Comment: No hemolysis noted. Ordering Provider: CARLIN STEWART Report Released Date/Time: May 20, 2024 03:03 PM Reporting Lab: [facility] [address] [place] [phone] Performing Lab: [facility] [address] [place] [phone] [place] [address] COMPREHEN SIVE METABOLIC PANEL POTASSIUM [MOLES/VOLU ME] IN SERUM OR PLASMA 4.6 meq/L 3.5 - 5 05/26 Specimen Type: PLASMA Comment: No hemolysis noted. Ordering Provider: CARLIN STEWART Report Released Date/Time: May 20, 2024 03:03 PM Reporting Lab: [address] [address] Performing Lab: [address] [phone] [place] [address] COMPREHEN SIVE METABOLIC PANEL CHLORIDE [MOLES/VOLU ME] IN SERUM OR PLASMA 112 meq/L 98 - 107 05/26 H Specimen Type: PLASMA Comment: No hemolysis noted. Ordering Provider: CARLIN STEWART Report Released Date/Time: May 20, 2024 03:03 PM Reporting Lab: [facility] [address] [place] [phone] Performing Lab: [facility] [address] [place] [phone] [place] [address] COMPREHEN SIVE METABOLIC PANEL CARBON DIOXIDE, TOTAL [MOLES/VOLU ME] IN SERUM OR PLASMA 17 meq/L 22 - 31 05/26 L Specimen Type: PLASMA Comment: No hemolysis noted. Ordering Provider: CARLIN STEWART Report Released Date/Time: May 20, 2024 03:03 PM Reporting Lab: [facility] [address] [place] [phone] Performing Lab: [facility] [address] [place] [phone] [facility] COMPREHEN SIVE METABOLIC PANEL CALCIUM [MASS/VOLUM E] IN SERUM OR PLASMA 10.0 mg/dL 8.4 - 10.4 05/26 Specimen Type: PLASMA Comment: No hemolysis noted. Ordering Provider: CARLIN STEWART Report Released Date/Time: May 20, 2024 03:03 PM Reporting Lab: [facility] [address] [place] [phone] Performing Lab: [address] [address] [facility] COMPREHEN SIVE METABOLIC PANEL PROTEIN [MASS/VOLUM E] IN SERUM OR PLASMA 6.2 g/dL 6 - 8.6 05/26 Specimen Type: PLASMA Comment: No hemolysis noted. Ordering Provider: CARLIN STEWART Report Released Date/Time: May 20, 2024 03:03 PM Reporting Lab: [address] [address] Performing Lab: [address] [address] [facility] COMPREHEN SIVE METABOLIC PANEL ALBUMIN [MASS/VOLUM E] IN SERUM OR PLASMA 4.2 g/dL 3.4 - 5 05/26 Specimen Type: PLASMA Comment: No hemolysis noted. Ordering Provider: CARLIN STEWART Report Released Date/Time: May 20, 2024 03:03 PM Reporting Lab: [address] [address] Performing Lab: [address] [address] [facility] COMPREHEN SIVE METABOLIC PANEL BILIRUBIN.T OTAL [MASS/VOLUM E] IN SERUM OR PLASMA 0.8 mg/dL 0.2 - 1.2 05/26 Specimen Type: PLASMA Comment: No hemolysis noted. Ordering Provider: CARLIN STEWART Report Released Date/Time: May 20, 2024 03:03 PM Reporting Lab: [facility] [address] [place] [phone] Performing Lab: [address] [address] [facility] COMPREHEN SIVE METABOLIC PANEL ALKALINE PHOSPHATASE [ENZYMATIC ACTIVITY/VO LUME] IN SERUM OR PLASMA 82 U/L 40 - 150 05/26 Specimen Type: PLASMA Comment: No hemolysis noted. Ordering Provider: CARLIN STEWART Report Released Date/Time: May 20, 2024 03:03 PM Reporting Lab: [address] [address] Performing Lab: [address] [address] [facility] COMPREHEN SIVE METABOLIC PANEL ASPARTATE AMINOTRANSF ERASE [ENZYMATIC ACTIVITY/VO LUME] IN SERUM OR PLASMA 24 U/L 5 - 34 05/26 Specimen Type: PLASMA Comment: No hemolysis noted. Ordering Provider: CARLIN STEWART Report Released Date/Time: May 20, 2024 03:03 PM Reporting Lab: [address] [address] Performing Lab: [address] [address] [facility] COMPREHEN SIVE METABOLIC PANEL ALANINE AMINOTRANSF ERASE [ENZYMATIC ACTIVITY/VO LUME] IN SERUM OR PLASMA 27 U/L 8 - 40 05/26 Specimen Type: PLASMA Comment: No hemolysis noted. Ordering Provider: CARLIN STEWART Report Released Date/Time: May 20, 2024 03:03 PM Reporting Lab: [address] [address] Performing Lab: [address] [address] [facility] COMPREHEN SIVE METABOLIC PANEL GLOMERULAR FILTRATION RATE/1.73 SQ M.PREDICTED [VOLUME RATE/AREA] IN SERUM, PLASMA OR BLOOD BY CREATININE- BASED FORMULA (CKD-EPI 2020) 52.0 60 05/26 Specimen Type: PLASMA Comment: No hemolysis noted. Ordering Provider: CARLIN STEWART Report Released Date/Time: May 20, 2024 03:03 PM Reporting Lab: [address] [address] Performing Lab: [facility] [address] [facility] [address] [facility] LIPID PANEL (STL) CHOLESTEROL [MASS/VOLUM E] IN SERUM OR PLASMA 114 mg/dL 0 - 200 05/26 Specimen Type: PLASMA Comment: No hemolysis noted. Ordering Provider: CARLIN STEWART Report Released Date/Time: May 20, 2024 03:03 PM Reporting Lab: [facility] [address] [place] [phone] Performing Lab: [facility] [address] [facility] [address] [facility] LIPID PANEL (STL) TRIGLYCERID E [MASS/VOLUM E] IN SERUM OR PLASMA 64 mg/dL 0 - 150 05/26 Specimen Type: PLASMA Comment: No hemolysis noted. Ordering Provider: CARLIN STEWART Report Released Date/Time: May 20, 2024 03:03 PM Reporting Lab: [facility] [address] [place] [phone] Performing Lab: [facility] [address] [facility] [phone] [facility] LIPID PANEL (STL) CHOLESTEROL IN LDL [MASS/VOLUM E] IN SERUM OR PLASMA BY CALCULATION 53 mg/dL 05/26 Specimen Type: PLASMA Comment: No hemolysis noted. Ordering Provider: CARLIN STEWART Report Released Date/Time: May 20, 2024 03:03 PM Reporting Lab: [facility] [address] [place] [address] [phone] Performing Lab: [facility] [address] [place] [address] [facility] LIPID PANEL (STL) CHOLESTEROL IN HDL [MASS/VOLUM E] IN SERUM OR PLASMA 48 mg/dL 40 05/26 Specimen Type: PLASMA Comment: No hemolysis noted. Ordering Provider: CARLIN STEWART Report Released Date/Time: May 20, 2024 03:03 PM Reporting Lab: [facility] [address] [place] [phone] Performing Lab: [facility] [phone] [facility] Vital Signs Combined list of inpatient and outpatient Vital Signs from Department of Defense and Veterans Affairs, ranging from 12 months to all on record, depending upon the facility. Vital Sign Value Date Comments Source SYSTOLIC BLOOD PRESSURE 176 06/29/2024 13:02:00 [facility] DIASTOLIC BLOOD PRESSURE 64 06/29/2024 13:02:00 [facility] PULSE OXIMETRY 100 06/29/2024 13:02:00 [facility] WEIGHT 231.8 06/29/2024 13:02:00 [facility] BMI 31kg/m2 06/29/2024 13:02:00 [facility] PAIN 0 06/29/2024 13:02:00 [facility] HEIGHT 73 06/29/2024 13:02:00 [facility] TEMPERATURE 98.3 06/29/2024 13:02:00 [facility] PULSE 47 06/29/2024 13:02:00 [facility] RESPIRATION 16 06/29/2024 13:02:00 [facility] Encounters Combined list of: 1) Encounters from Department of Veterans Affairs facilities going back up to thelast 18 months. 2) Encounters from the Department of [facility] facilities going back up to 280 months. Location Location Details Encounter Type Encounter Number Reason For Visit Attending Provider ADM Date DC Date Status Disposition Source [facility] Outpatient Encounter [id number] 04/29 [facility] Outpatient Encounter [id number] PAT,CARLIN D 05/20 [facility] Outpatient Encounter [id number] PAT,CARLIN D 06/03 [facility] Outpatient Encounter [id number] PAT,CARLIN D 06/14 [facility] Outpatient Encounter [id number] CARLIN STEWART 06/19 [facility] Outpatient Encounter [id number] 06/29 [facility] OFFICE O/P NEW MOD 45 MIN [id number] Diagnos is: ICD-10- CM I10 Essenti al (primar y) hyperte nsion<b r/> CARLIN STEWART 06/29 [facility] Outpatient Encounter [id number] 06/29 [facility] Social History Combined list of available smoking, tobacco, and other social history from Department of Defense and Veterans Affairs facilities. Social History Type Response Date Comment Sourc e Tobacco smoking status NHIS VA-TOBACCO USE FORMER CIGARETTES 06/29/2024 [facility] History of tobacco use AR-TOBACCO NEVER USED OTHER TYPE 06/29/2024 [facility] This section is an empty social history section. DoD Plan of Care List of future care activities from Department of [facility] facilities. Additional future care activities may be listed in the Assessment and Plan section. Date/Time Care Activity Care Activity Detail Facili ty 12/29/2024 AMBULATORY - MEDICINE AMBULATORY - MEDICI NE [facility] 06/19/2024 Laboratory - Mushroom Press Operator ry Order MICRAL/CREAT PROFILE (STL) URINE YELLOW [facility] 06/19/2024 Laboratory - Mushroom Press Operator ry Order URINALYSIS (STL-PB) URINE - CLEAN CATCH [facility]
--- OUTSIDE RECORDS SUMMARY | 2024-07-22 05:50 | XMS_ITS | Clinical Summary ---
Author Organization [facility] Address [address] [place] [address] Care Team Providers Care Civil Engineer In Training Name Role Phone None, Physician Primary Care Provider Unavailabl e Source Comments [facility],non-owned Affiliates and Associated Physician Practices is amultiple site organization consisting of ambulatory clinics and hospital sitesin [place], [place], [place] and [place]. This disclosure is being madepursuant to the Care Everywhere program and may not contain all information available regarding this patient. Last updated 18.[facility] Allergies No known active allergies Medications * Be aware that medications may not be up to date on this document. Alwaysverify current medications with the patient. Medication Sig Dispensed Refills Start Date End Date Status buPROPion XL 24hr (Wellbutrin-XL) 150 MG tablet Take 1 (one) tablet by mouth once daily 02/12/2022 Active buPROPion XL 24hr (Wellbutrin-XL) 300 MG tablet Take 1 (one) tablet by mouth once daily 08/11/2021 Active losartan (Cozaar) 100 MG tablet Take 1 (one) tablet by mouth once daily 02/12/2022 Active amLODIPine (Norvasc) 5 MG tablet Take 1 (one) tablet by mouth once daily 10/10/2021 Active gabapentin (Neurontin) 600 MG tablet Take 1 (one) tablet by mouth once daily 02/12/2022 Active memantine (Namenda) 10 MG tablet Take 1 (one) tablet by mouth 2 times daily Active atorvastatin (Lipitor) 20 MG tablet Take 1 (one) tablet by mouth at bedtime Active multivitamins plus minerals chew tablet Take 1 (one) tablet by mouth daily with food Active aspirin (Kamilah Aspirin) 325 MG tablet Take 1 (one) tablet by mouth once daily Active Ingrezza 40 MG capsule TAKE ONE CAPSULE BY MOUTH ONCE DAILY 90 capsule 3 07/30/2023 Active propranolol (Inderal) 10 MG tabletIndications:Tr emor Take 1 (one) tablet by mouth 2 times daily for 90 days Reasons: Tremor 180 tablet 3 03/20/2024 Active busPIRone (Buspar) 10 MG tablet TAKE 3 TABLET BY MOUTH TWICE DAILY 04/08/2024 Active GLYCINE PO Take 3,000 mg by mouth Active N-ACETYL CYSTEINE PO Acti ve KRILL OIL PO Active Active Problems Problem Noted Date Diagnosed Date Anxiety 06/20/2023 06/20/2023 Low back pain 06/20/2023 06/20/2023 Memory impairment 06/20/2023 06/20/2023 Pain of left lower extremity 06/20/202301/2023 Pancreatitis 06/20/2023 06/20/2023 Polyp of colon 06/20/2023 06/20/2023 Tendinitis of trochanteric region of left hip Cardiac murmur 09/05/2020 HTN (hypertension) 09/05/2020 Mild pulmonary hypertension 09/05/2020 Obstructive sleep apnea peterson hung with continuous positive airway pressure (CPAP) 09/05/2020 Acquired insufficiency of aortic valve Disease due to severe acute respiratory syndrome coronavirus 2 (SARS-CoV-2) 07/22/2020 06/20/2023 Overview (06/20/2023): Problem added by Rule (IC_COVID19_AUTO_PROBLEM) following SARS-CoV2 by motorboat mechanic inboard/outboard-PCR - IDPH from SENIOR TELECOMMUNICATIONS SPECIALIST Swab collected on 21-JUL-2020 08:47:00 FENDER FINISHER tested positive for COVID-19. 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 Encounters Date Type Department Care Team Description 06/10/2024 Travel from Last 3 Months Immunizations Name Administration Dates Next Due FLU VACCINE QUAD IIV4 SPLIT 0.25 ML IM 3 INFLUENZA VACCINE 05/16/2020 Social History Tobacco Use Types Packs/Day Years Used Date Smoking Tobacco: Never Smokeless Tobacco: Never Tobacco Cessation:Counseling Given: Not Answered PHQ-2 Answer Date Recorded Patient Health Questionnaire-2 Score 0 06/10/2024 Sex and Gender Information Value Date Recorded Sex Assigned at Not on file Gender Identity Not on file Sexual Orientation Not on file Last Filed Vital Signs Vital Sign Reading Time Taken Comments Blood Pressure 147/49 06/10/2024 1:01 PM FENDER FINISHER Pulse 42 06/10/2024 1:01 PM FENDER FINISHER Temperature 36.1 ??C (97 ??F) 06/20/2023 8:58 AM FENDER FINISHER Respiratory Rate - - Oxygen Saturation 98% 04/14/2024 1:55 PM CDT Inhaled Oxygen Concentration - - Weight 105.7 kg (233 lb) 06/10/2024 1:01 PM FENDER FINISHER Height 190.5 cm (6' 3 ) 06/10/2024 1:01 PM FENDER FINISHER Body Mass Index 29.12 06/10/2024 1:01 PM FENDER FINISHER Plan of Treatment Upcoming Encounters Date Type Department Care Team (Late st Contact Info) Description 04/14/2025 1:30 PM CDT Office Visit [facility] - Neurology [address] [place] [address], [place] [phone] Alonzo Can MD [address] [place] [phone] Health Maintenance Due Date Last Done Comments COLOGUARD (AGES 45-75) - COL ON CA SCREENING 1952 COLON MONITORING 1952 COLONOSCOPY - COLON CA SCREENING 1952 CT COLONOGRAPHY - COLON CA SCREENING 1952 Colorectal Cancer Screening 1952 FIT - COLON CA SCREENING 1952 FLEX SIG - COLON CA SCREENING 1952 HEPATITIS C SCREENING 07/03/1970 DTAP/TDAP/TD VACCINES (1 - Tdap) 1971 ZOSTER VACCINE (1 of 2) 2002 PNEUMOCOCCAL VACCINE 50+ (1 of 1 - PCV) 2017 SCREENING FOR DIABETES 04/18/2022 COVID-19 VACCINE (1 - 2023-2 5 season) 2024 INFLUENZA VACCINE (#1) 2024 3, 05/16/2020 DEPRESSION SCREENING 07/15/2024 06/10/2024 MEDICARE AWV ? CALENDAR YEAR 2024 Respiratory Syncytial Virus (RSV) Vaccine Pt: or over 60 yrs (1 - 1-dose 75+ series) 2027 HEPATITIS B VACCINE Aged Out No longe r eligible based on patient's age to complete this topic HIB VACCINE Aged Out No longer eligi ble based on patient's age to complete this topic HPV VACCINE Aged Out No longer eligi ble based on patient's age to complete this topic MENINGOCOCCAL VACCINE Aged Out No lydia ravi eligible based on patient's age to complete this topic Care Teams Civil Engineer In Training Relationship Specialty Start Date End Date None, Physician [address] [place] [address] PCP - General 06/20/23
--- OUTSIDE RECORDS SUMMARY | 2024-07-22 05:50 | XMS_ITS | Encounter Summary ---
Author Organization [facility] Address [address] [place] [address] Care Team Providers Care Education Specialist Name Role Phone None, Physician Primary Care Provider Unavailabl e Reason for Referral * Evaluate & Treat (Routine) - Closed Specialty Diagnoses / Procedures Referred By Germaine goodrich Referred To Contact Psychiatry Diagnoses Memory loss Alonzo Can MD [address] [place] [address] [address] [place] [address] Gary Ace MD [address] [place] [address] [address] DEPT OF PSYCHIATRY & [place] [address] Referral ID Status Reason Start Date Expiration Date V isits Requested Visits Authorized [id number] Closed Specialty Services Required 12/17/2023 12/16/2024 1 1 Scheduling Instructions Memory difficulties. [facility] for Lecanemab treatment Encounter Details Date Type Department Care Team (Late st Contact Info) Description 12/17/2023 9:00 AM CDT Office Visit [facility] - Neurology [address] [place] [address], [place] [address] Alonzo Can MD [address] [place] [address] [address] [place] [address] Memory loss (Primary Dx); Tremor Social History Tobacco Use Types Packs/Day Years Used Date Smoking Tobacco: Never Smokeless Tobacco: Never Sex and Gender Information Value Date Recorded Sex Assigned at Not on file Gender Identity Not on file Sexual Orientation Not on file documented as of this encounter Last Filed Vital Signs Vital Sign Reading Time Taken Comments Blood Pressure 169/58 12/17/2023 8:42 AM CDT Pulse 48 12/17/2023 8:42 AM CDT Temperature - - Respiratory Rate - - Oxygen Saturation 98% 12/17/2023 8:42 AM CDT Inhaled Oxygen Concentration - - Weight 107.5 kg (237 lb) 12/17/2023 8:42 AM CDT Height 190.5 cm (6' 3 ) 12/17/2023 8:42 AM CDT Body Mass Index 29.62 12/17/2023 8:42 AM CDT documented in this encounter Progress Notes * Alonzo Can MD - 12/17/2023 9:11 AM CDT Neurology Clinic Note Date of Encounter: 12/17/23 Chief Complaint: Tardive dyskinesias and tremor in hands Jseus Massey is a 73 year old male with a history of HTN, and anxiety/depression originally presented to clinic for tardive dyskinesia and hand tremor. Patient was started on aripiprazole 10mg about 1 year ago for depression, and after 8 months of the medication he began to developing a tapping movement in his left hand. Accordingly his psychiatrist stopped this medication, however when the medication was stopped the hand tapping resolved but he then developed lip and jaw TD. He will occasionally bite the inside of his cheek and endorses the smacking interfering with his eating. Valbenazine 40 mg/d helped but 80 mg/d made him sleepy. Also about 1 year ago he began to developed bilateral hand shaking that occurs when he is using his hands for fine motor. He notes that this most affects his handwriting. He is able to feed himself, but notes he will spill soup if he is eating it. No concerns with his balance or recent falls. 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 No known family history of parkinson's disease or essential tremor. He also take gabapentin 600mg qd and wellbutrin 300mg and 150mg daily for depression as well. Patient states that he was having excessive sleepiness from the propranolol (20mg BID) although it was helping his hand tremor and therefore his PCP stopped the propranolol and started memantine (10mg daily) for tremor and new memory issues he is having. With regards to the valbenazine 40 mg/d he feels that his dyskinesias are 50% improved. stateshe still does have lip smacking and she notices the most when he is driving, however they are better. He was last seen in clinic on 06/20/2023 and continued on valbenazine 40 mg daily. The tardive dyskinesias are still partly controlled. However the hand tremors are worse and bothersome and he would like to be restarted on propranolol again. Denies any falls, sleepiness, gait ataxia while being on am antadine or valbenazine. Memory is declining and PCP had scored MMS at 23 (down from 27). Has word finding difficulties from time to time. ROS: General - Denies changes in weight or appetite ENT - Denies dental or swallowing difficulties Cardiac - Denies chest pain or palpitations Pulmonary - Denies shortness of breath, cough, or sputum production Gastrointestinal - Denies abdominal pain or changes in bowel habits Genitourinary - Denies changes in bladder habits Endocrine - Denies heat or cold intolerance Musculoskeletal - Denies myalgias or arthralgias Hematological - Denies history of malignancy or blood abnormalities Neurological - See HPI Allergies: No Known Allergies Home Medications: Current Outpatient Medications: amLODIPine (Norvasc) 5 MG tablet, Take 1 (one) tablet by mouth once daily, Disp: , Rfl: aspirin (Kamilah Aspirin) 325 MG tablet, Take 1 (one) tablet by mouth once daily, Disp: , Rfl: atorvastatin (Lipitor) 20 MG tablet, Take 1 (one) tablet by mouth at bedtime, Disp: , Rfl: buPROPion XL 24hr (Wellbutrin-XL) 150 MG tablet, Take 1 (one) tablet by mouth once daily, Disp: , Rfl: buPROPion XL 24hr (Wellbutrin-XL) 300 MG tablet, Take 1 (one) tablet by mouth once daily, Disp: , Rfl: gabapentin (Neurontin) 600 MG tablet, Take 1 (one) tablet by mouth once daily, Disp: , Rfl: Ingrezza 40 MG capsule, TAKE ONE CAPSULE BY MOUTH ONCE DAILY, Disp: 90 capsule, Rfl: 3 losartan (Cozaar) 100 MG tablet, Take 1 (one) tablet by mouth once daily, Disp: , Rfl: memantine (Namenda) 10 MG tablet, Take 1 (one) tablet by mouth once daily, Disp: , Rfl: multivitamins plus minerals chew tablet, Take 1 (one) tablet by mouth daily with food, Disp: , Rfl: PMH: depression, HTN Family History: No pertinent family history known, although mother had some vague neurologic conditions(see above) Social History Socioeconomic History Marital status: Spouse name: Not on file Number of children: Not on file Years of education: Not on file Highest education level: Not on file Occupational History Not on file Tobacco Use Smoking status: Never Smokeless tobacco: Never Vaping Use Vaping Use: Never used Substance and Sexual Activity Alcohol use: Not on file Drug use: Never Sexual activity: Never Other Topics Concern Not on file Social History Narrative Not on file Social Determinants of Health Financial Resource Strain: Not on file Food Insecurity: Not on file Transportation Needs: Not on file Stress: Not on file Housing Stability: Not on file Physical Exam: Blood pressure 169/58, pulse 48, height 1.905 m (6' 3 ), weight 107.5 kg (237 lb), SpO2 98%. General: Con - NAD, afebrile Heent - NCAT, MMM, anicteric Neck - No JVD, LAD, trachea midline Pulm - CTAB, no w/r/r Abd - BS+, soft, NTND Ext: No c/c/e, 2+ dpp, normal ROM Cortical Function Mental Status Awake, alert, follows commands Orientation Person, place, time, and situation Language Fluency intact, comprehension intact, repetition intact Visual Herrera Intact bilaterally to confrontation Neglect No visual neglect noted, no tactile neglect noted Cranial Nerves II Pupils 4 mm and bilaterally reactive to light. Fundoscopic exam not performed. VIII Hearing is intact bilaterally to finger rub. III/IV/ Extraocular muscles intact. No diplopia, ptosis, nystagmus or convergence abnormalities noted. IX/X Palate elevated symmetrically without phonation abnormalities noted. V Facial sensation symmetric to light touch and intact bilaterally. Corneal reflex not examined. XIHead turning and shoulder shrug are intact. VII No facial palsy noted. XII Tongue is midline with normal movements and no atrophy noted. Motor Function Movement Grade 2 postural and kinetic tremor Bulk No abnormalities noted Tone No abnormalities noted Slight TDs around lips and jaw. Proximal Upper Distal Upper Proximal Lower Distal Lower Right 5/5 5/5 5/5 5/5 Left 5/5 5/5 5/5 5/5 Neck flexors - 5/5 Neck extensors - 5/5 Muscle Stretch Reflexes BI TRI BR PAT ACH TOES Right 2 2 2 2 2 Down Left 2 2 2 2 2 Down Sensory Large Fiber Sensation Light Touch Symmetrically intact, distally and proximally. Small Fiber Sensation Noxious Stimuli Symmetrically intact, distally and proximally. Temperature Symmetrically intact, distally and proximally. Cerebellar FNF Right dysmetric Left dysmetric Postural and kinetic tremor in hands Grade 2 Gait steady ambulation Diagnosis. Anxiety depression and tardive dyskinesias following the use of aripiprazole. He also had a fast postural and kinetic tremor that had responded very well to propranolol but he had stopped it because of adverse effects of somnolence. Plan. We will continue Valbenazine at 40 mg daily. Reviewed MRI brain done in OSH - has some cortical atrophy and small vessel disease. To will continue memantine at 10 mg/day. Restart Propranalol 10 mg po bid for hand tremors (could be medication induced). New prescription placed. Referred to Dr Ace [facility] for consideration of Lecanemab. He has a referral from [facility] to [facility] for this. RTC 6 months. Call for questions or concerns. Signed Electronically Alonzo Can MD, FRCP, Professor of Neurology, Director, Movement Disorders documented in this encounter Plan of Treatment Upcoming Encounters Date Type Department Care Team (Late st Contact Info) Description 04/14/2025 1:30 PM CDT Office Visit [facility] - Neurology [address] [place] [address], [facility] [place] [address] Alonzo Can MD [address] [place] [address] [place] [phone] Scheduled Referrals Name Type Priority Associated Diagnoses Order Schedule Ref to Psychiatry - [facility] Outpatient Referral Routine Memory loss 1 Occurrences starting 12/17/2023 until 12/16/2024 documented as of this encounter Visit Diagnoses Diagnosis Memory loss- Primary Tremor Abnormal involuntary movements documented in this encounter Care Teams Education Specialist Relationship Specialty Start Date End Date None, Physician [address] [place] [address] PCP - General 06/20/23 documented as of this encounter
--- OUTSIDE RECORDS SUMMARY | 2024-07-22 05:50 | XMS_ITS | Encounter Summary ---
Author Organization [facility] Address [address] [place] [address] Care Team Providers Care Baggage Handling Supervisor Name Role Phone Unavailable Primary Care Provider Unavailabl e Reason for Visit * Reason Comments Refill Request Encounter Details Date Type Department Care Team (Late st Contact Info) Description 05/14/2023 Refill [facility] - Neurology [address] [place] [phone] Alonzo Can MD [address] [place] [address] [address] [place] [phone] Refill Request Social History Tobacco Use Types Packs/Day Years Used Date Smoking Tobacco: Never Smokeless Tobacco: Never Sex and Gender Information Value Date Recorded Sex Assigned at Not on file Gender Identity Not on file Sexual Orientation Not on file documented as of this encounter Plan of Treatment Upcoming Encounters Date Type Department Care Team (Late st Contact Info) Description 04/14/2025 1:30 PM CDT Office Visit [facility] - Neurology [address] [place] [phone] Alonzo Can MD [address] [place] [address] [address] [place] [phone] documented as of this encounter Visit Diagnoses Diagnosis Tremor Abnormal involuntary movements documented in this encounter
--- OUTSIDE RECORDS SUMMARY | 2024-07-22 05:50 | XMS_ITS | Encounter Summary ---
Author Organization [facility] Address [address] [facility] [facility] [place] [address] Care Team Providers Care Siene Maker Name Role Phone Unavailable Primary Care Provider Unavailabl e Encounter Details Date Type Department Care Team (Late st Contact Info) Description 04/21/2022 Orders Only [facility] [address] [place] [phone] Alonzo Can MD [address] [place] [address] [address] [place] [phone] Tardive dyskinesia Social History Tobacco Use Types Packs/Day Years [...] Office Visit [facility] Neurology [address] [place] [phone] Alonzo Can MD [address] [place] [address] [address] [place] [phone] documented as of this encounter Visit Diagnoses Diagnosis Tardive dyskinesia- Primary Subacute dyskinesia due to drugs documented in this encounter
--- OUTSIDE RECORDS SUMMARY | 2024-07-22 05:50 | XMS_ITS | Encounter Summary ---
Author Organization [facility] Address [address] [facility] [place] [address] Care Team Providers Care Tree Surgeon Helper Name Role Phone Unavailable Primary Care Provider Unavailabl e Reason for Visit * Reason Onset Date Comments Medication Prior Auth Request 04/15/2023 Encounter Details Date Type Department Care Team (Late st Contact Info) Description 04/15/2023 Telephone [facility] [address] [place] [address], [place] [phone] Alonzo Can MD [address] [place] [phone] Medication Prior Auth Request Social History Tobacco Use Types Packs/Day Years Used Date Smoking Tobacco: Never Smokeless Tobacco: Never Sex and Gender Information Value Date Recorded Sex Assigned at Not on file Gender Identity Not on file Sexual Orientation Not on file documented as of this encounter Miscellaneous Notes * Telephone Encounter - Kanika Aldana RN - 04/22/2023 1:22 PM CDT Approved PA for Ingrezza 40mg capsules CaseId:[id number];Status:Approved;Review Type:Prior Auth;Coverage Start Date:03/16/2023;Coverage End Date:04/15/2024 * Telephone Encounter - Kanika Aldana RN - 04/15/2023 12:53 PM CDT PA initiated with [facility] via [employer] for Davionza. Included last visit note dated 10/17/22. Will await a response. ARANA: [id number] documented in this encounter Plan of Treatment Upcoming Encounters Date Type Department Care Team (Late st Contact Info) Description 04/14/2025 1:30 PM CDT Office Visit [facility] [address] [place] [address], [place] [phone] Alonzo Can MD [address] [place] [address] [place] [phone] documented as of this encounter Visit Diagnoses Not on filedocumented in this encounter
--- OUTSIDE RECORDS SUMMARY | 2024-07-22 05:50 | XMS_ITS | Encounter Summary ---
Author Organization [facility] Address [address] [place] [address] [place] [address] Care Team Providers Care Industrial Organizational Psychologist Name Role Phone None, Physician Primary Care Provider Unavailabl e Reason for Visit * Reason Onset Date Comments MEDICATION REFILL 03/20/2024 Encounter Details Date Type Department Care Team (Late st Contact Info) Description 03/20/2024 Refill [facility]rology [address] [place] [address], [place] [phone] Alonzo Can MD [address] [place] [phone] MEDICATION REFILL Social History Tobacco Use Types Packs/Day Years Used Date Smoking Tobacco: Never Smokeless Tobacco: Never Sex and Gender Information Value Date Recorded Sex Assigned at Not on file Gender Identity Not on file Sexual Orientation Not on file documented as of this encounter Miscellaneous Notes * Telephone Encounter - Mellisa Oconnor - 03/20/2024 10:57 AM CDT Refill Request Jesus Massey ISAAC: 12/17/2023May due: 04/14/2024May scheduled: 04/14/2024 LRF: 12/17/2023 Qty Disp: 180 # of refills: 3 Allergies: No Known Allergies Pended Medication Order: Requested Prescriptions Pending Prescriptions Disp Refills propranolol (Inderal) 10 MG tablet 180 tablet 3 Sig: Take 1 (one) tablet by mouth 2 times daily for 90 days Reasons: Tremor documented in this encounter Plan of Treatment Upcoming Encounters Date Type Department Care Team (Late st Contact Info) Description 04/14/2025 1:30 PM CDT Office Visit [facility]rology [address] [place] [address], [place] [address] Alonzo Can MD [address] [place] [address] [place] [address] documented as of this encounter Visit Diagnoses Diagnosis Tremor Abnormal involuntary movements documented in this encounter Care Teams Industrial Organizational Psychologist Relationship Specialty Start Date End Date None, Physician [address] [place] [address] PCP - General 06/20/23 documented as of this encounter
--- OUTSIDE RECORDS SUMMARY | 2024-07-22 05:50 | XMS_ITS | Encounter Summary ---
Author Name [facility] Address [address] [place] [address] Care Team Providers Care Plant Supervisor Name Role Phone PAT CARLIN Primary Care Provider Unavailabl e Selected Encounter This section includes the information on record at [place] for the Encounter. Date/Time Encounter Type Encounter Description Reason Pro vider Source Jun 29, 2024 12:00 AM Outpatient Encounter EVENT (HISTORICAL) IHE Encounter Template Text not used by [place] Plan of Treatment: Future Appointments (+ 6 [...] of theEncounter. The data comes from all [place] treatment facilities. Test Date/Time Test Type Test Details Facility [...] Order URINALYSIS (STL-PB) URINE - CLEAN CATCH [facility]
--- OUTSIDE RECORDS SUMMARY | 2024-07-22 05:50 | XMS_ITS | Encounter Summary ---
Author Organization [facility] Address [address] [facility] [place] [address] Care Team Providers Care Catering Cook Name Role Phone None, Physician Primary Care Provider Unavailabl e Reason for Visit * Reason Comments Tremors Encounter Details Date Type Department Care Team (Late st Contact Info) Description 06/20/2023 9:30 AM TALCER Office Visit [facility] Neurology [address] [place] [address], [place] [phone] Alonzo Can MD [address] [place] [address] [place] [address] Tardive dyskinesia (Primary Dx) Social History Tobacco Use Types Packs/Day Years Used Date Smoking Tobacco: Never Smokeless Tobacco: Never Sex and Gender Information Value Date Recorded Sex Assigned at Not on file Gender Identity Not on file Sexual Orientation Not on file documented as of this encounter Last Filed Vital Signs Vital Sign Reading Time Taken Comments Blood Pressure 159/56 06/20/2023 8:58 AM TALCER Pulse 57 06/20/2023 8:58 AM TALCER Temperature 36.1 ??C (97 ??F) 06/20/2023 8:58 AM TALCER Respiratory Rate - - Oxygen Saturation 97% 06/20/2023 8:58 AM TALCER Inhaled Oxygen Concentration - - Weight 106.8 kg (235 lb 6.4 oz) 06/20/2023 8:58 AM TALCER Height 190.5 cm (6' 3 ) 06/20/2023 8:58 AM TALCER Body Mass Index 29.42 06/20/2023 8:58 AM TALCER documented in this encounter Progress Notes * Alonzo Can MD - 06/20/2023 9:30 AM CST Neurology Clinic Note Date of Encounter: 06/20/23 Chief Complaint: Tardive dyskinesias and tremor in hands Jesus Massey is a 72 year old male with a history of [...] or recent falls. 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 No [...] and new memory issues he is having. Patient states his tremors are better, he can button his shirts and his eating and using utensils has improved significantly. With regards to the valbenazine 40 mg/d he feels that his dyskinesias are 50% improved. stateshe still does have lip smacking and she notices the most when he is driving, however they are better. He was last seen in clinic 10/17/2022 and found to have essential tremor and tardive dyskinesias. Denies any falls, sleepiness, gait ataxia while being on amantadine or valbenazine. Memory is decliningand PCP scored MMS at 23 (down from 27). [...] Known Allergies Home Medications: Current Outpatient Medications: ??? amLODIPine (Norvasc) 5 MG tablet, Take 1 (one) tablet by mouth once daily, Disp: , Rfl: ??? aspirin (Kamilah Aspirin) 325 MG tablet, Take 1 (one) tablet by mouth once daily, Disp: , Rfl: ??? atorvastatin (Lipitor) 20 MG tablet, Take 1 (one) tablet by mouth at bedtime, Disp: , Rfl: ??? buPROPion XL 24hr (Wellbutrin-XL) 150 MG tablet, Take 1 (one) tablet by mouth once daily, Disp:, Rfl: ??? buPROPion XL 24hr (Wellbutrin-XL) 300 MG tablet, Take 1 (one) tablet by mouth once daily, Disp:, Rfl: ??? gabapentin (Neurontin) 600 MG tablet, Take 1 (one) tablet by mouth once daily, Disp: , Rfl: ??? Ingrezza 40 MG capsule, Take 1 (one) capsule by mouth once daily, Disp: , Rfl: ??? losartan (Cozaar) 100 MG tablet, Take 1 (one) tablet by mouth once daily, Disp: , Rfl: ??? memantine (Namenda) 10 MG tablet, Take 1 (one) tablet by mouth once daily, Disp: , Rfl: ??? multivitamins plus minerals chew tablet, Take 1 (one) tablet by mouth daily with food, Disp: , Rfl: PMH: depression, HTN Family History: No pertinent family history known, although mother had some vague neurologic conditions(see above) Social History Socioeconomic History ??? Marital status: Spouse name: Not on file ??? Number of children: Not on file ??? Years of education: Not on file ??? Highest education level: Not on file Occupational History ??? Not on file Tobacco Use ??? Smoking status: Never ??? Smokeless tobacco: Never Vaping Use ??? Vaping Use: Never used Substance and Sexual Activity ??? Alcohol use: Not on file ??? Drug use: Never ??? Sexual activity: Never Other Topics Concern ??? Not on file Social History Narrative ??? Not on file Social Determinants of Health Financial Resource Strain: Not on file Food Insecurity: Not on file Transportation Needs: Not on file Stress: Not on file Housing Stability: Not on file Physical Exam: Blood pressure 159/56, pulse 57, temperature 97 ??F (36.1 ??C), temperature source Oral, height 1.905 m (6' 3 ), weight 106.8 kg (235 lb 6.4 oz), SpO2 97%. General: Con - NAD, afebrile Heent - [...] and no atrophy noted. Motor Function Movement Slight kinetic tremor Bulk No abnormalities noted Tone [...] Postural and kinetic tremor in hands Grade 1 Gait steady ambulation Diagnosis. Anxiety depression and tardive dyskinesias following the use of aripiprazole. He also had a fast postural and kinetic tremor that had responded very well to propranolol but he has stopped it because of adverse effects of somnolence. Plan. We will continue Valbenazine at 40 mg daily. Reviewed MRI brain done in OSH - has some cortical atrophy and small vessel disease. To will continue memantine at 10 mg/day Discussed and started on Aricept 5 mg HS for memory In view of episodes of speech difficulty it is recommended to do MRA head and neck to look for any carotid artery stenosis. On discussion he and is wanted this to be ordered by his PCP and I will request LINNEA Felix to place an order. RTC 6 months. Call for questions or concerns. Signed Electronically Alonzo Can MD, FRCP, Professor of Neurology, Director, Movement Disorders ER documented in this encounter Plan of Treatment Upcoming Encounters Date Type Department Care Team (Late st Contact Info) Description 04/14/2025 1:30 PM CDT Office Visit [facility] - Neurology [address] [place] [address], [facility] [place] [phone] Alonzo Can MD [address] [place] [address] [place] [address] documented as of this encounter Visit Diagnoses Diagnosis Tardive dyskinesia- Primary Subacute dyskinesia due to drugs documented in this encounter Care Teams Catering Cook Relationship Specialty Start Date End Date None, Physician [address] [place] [address] PCP - General 06/20/23 documented as of this encounter
--- OUTSIDE RECORDS SUMMARY | 2024-07-22 05:50 | XMS_ITS | Encounter Summary ---
Author Organization [facility] Address [address] [facility] [place] [address] Care Team Providers Care Software Test Developer Name Role Phone Unavailable Primary Care Provider Unavailabl e Reason for Visit * Reason Onset Date Comments Concerns 05/22/2023 Encounter Details Date Type Department Care Team (Late st Contact Info) Description 05/22/2023 Telephone [facility] [address] [place] [address], [place] [address] Alonzo Can MD [address] [place] [phone] Concerns Social History Tobacco Use Types Packs/Day Years Used Date Smoking Tobacco: Never Smokeless Tobacco: Never Sex and Gender Information Value Date Recorded Sex Assigned at Not on file Gender Identity Not on file Sexual Orientation Not on file documented as of this encounter Miscellaneous Notes * Telephone Encounter - Dixie Lopez RN - 05/24/2023 12:57 PM CST Images from the original note were not included. Alonzo Can MD You 8 minutes ago (12:46 PM) PC I saw him last in November 04 and he had a FU in Apr that is cancelled ? I will have to see him again in clinic - when possible. Video visit is also possible if they have computer equipment etc Thx PC Called patient's and informed her of the above. Asked our PCC's to try to get the patient in for a sooner appointment. T PULLER * Telephone Encounter - Dixie Lopez RN - 05/22/2023 2:54 PM CST Patient's states that patient is having an issue with having an issue with word finding. This is happening more often lately but has been going on for some time. Psychiatrist Dr. Yen ( is unsure of the Psychiatrists name) called patient's PCP and told the PCP that he needs to see his neurologist david. Will forward to Dr. aCn to see how he would like to proceed. T PULLER * Telephone Encounter - Dixie Lopez RN - 05/22/2023 2:53 PM CST ----- Message from Dixie Lopez RN sent at 05/22/2023 2:32 PM SNOUT PULLER ----- Regarding: FW: NEW ISSUES AND CONCERNS ----- Message ----- From: Ally Sanders Sent: 05/22/2023 2:09 PM SNOUT PULLER To: Neur Nursing Staff Subject: NEW ISSUES AND CONCERNS PT SPOUSE IS Calling she states pt is having difficulty speaking and this comes and goes. Pt states she has ask her dr to send a New referral as well but pt is currently a pt of Dr Can. Pt spouse (Mahsa) can be reached @ [phone]. Thks T PULLER documented in this encounter Plan of Treatment Upcoming Encounters Date Type Department Care Team (Late st Contact Info) Description 04/14/2025 1:30 PM CDT Office Visit [facility] - Neurology [address] [place] [address], [place] [address] Alonzo Can MD [address] [place] [address] [place] [address] documented as of this encounter Visit Diagnoses Not on filedocumented in this encounter
--- OUTSIDE RECORDS SUMMARY | 2024-07-22 05:50 | XMS_ITS | Encounter Summary ---
Author Organization [facility] Address [address] [place] [address] Care Team Providers Care High Man Name Role Phone None, Physician Primary Care Provider Unavailabl e Encounter Details Date Type Department Care Team (Latest Contact Info) Description 06/20/2023 Travel Social History Tobacco Use Types Packs/Day Years [...] Office Visit [facility] Neurology [address] [place] [address], [facility] [place] [address] Alonzo Can MD [address] [place] [address] [place] [phone] documented as of this encounter Visit Diagnoses Not on filedocumented in this encounter Care Teams High Man Relationship Specialty Start Date End Date None, Physician [address] [place] [address] PCP - General 06/20/23 documented as of this encounter
--- OUTSIDE RECORDS SUMMARY | 2024-07-22 05:50 | XMS_ITS | Encounter Summary ---
Author Organization [facility] Address [address] [facility] [place] [address] Care Team Providers Care Patient Sitter Name Role Phone None, Physician Primary Care Provider Unavailabl e Reason for Visit * Reason Comments Refill Request Encounter Details Date Type Department Care Team (Late st Contact Info) Description 07/30/2023 Refill [facility] [address] [place] [address], [place] [phone] Alonzo Can MD [address] [place] [phone] Refill Request Social History Tobacco Use Types Packs/Day Years Used Date Smoking Tobacco: Never Smokeless Tobacco: Never Sex and Gender Information Value Date Recorded Sex Assigned at Not on file Gender Identity Not on file Sexual Orientation Not on file documented as of this encounter Miscellaneous Notes * Telephone Encounter - Mellisa Oconnor - 07/30/2023 1:10 PM CST Refill Request Jesus Massey ISAAC: MAY due: 12/17/2023 NOV scheduled: 12/17/2023 LRF: 10/08/2022 Qty Disp: # of refills: Allergies: No Known Allergies Pended Medication Order: Requested Prescriptions Pending Prescriptions Disp Refills ??? 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 documented in this encounter Plan of Treatment Upcoming Encounters Date Type Department Care Team (Late st Contact Info) Description 04/14/2025 1:30 PM CDT Office Visit [facility] Neurology [address] [facility], [place] [address] Alonzo Can MD [facility] [place] [address] documented as of this encounter Visit Diagnoses Not on filedocumented in this encounter Care Teams Patient Sitter Relationship Specialty Start Date End Date None, Physician [address] [place] [address] PCP - General 06/20/23 documented as of this encounter
--- OUTSIDE RECORDS SUMMARY | 2024-07-22 05:50 | XMS_ITS | Encounter Summary ---
Author Organization [facility] Address [address] [facility] [place] [address] Care Team Providers Care Media Theorist And Author Of Name Role Phone Unavailable Primary Care Provider Unavailabl e Encounter Details Date Type Department Care Team (Late st Contact Info) Description 06/11/2022 Orders Only [facility] [address] [place] [phone] Alonzo Can MD [address] [place] [address] [address] [place] [phone] Tremor Social History Tobacco Use Types Packs/Day [...] Office Visit [facility] Neurology [address] [place] [address] Alonzo Can MD [address] [place] [address] [address] [place] [phone] documented as of this encounter Visit Diagnoses Diagnosis Tremor- Primary Abnormal involuntary movements documented in this encounter
--- OUTSIDE RECORDS SUMMARY | 2024-07-22 05:50 | XMS_ITS | Encounter Summary ---
Author Organization [facility] Address [address] [place] [address] Care Team Providers Care Drying Equipment Operator Name Role Phone None, Physician Primary Care Provider Unavailabl e Reason for Visit * Reason Onset Date Comments Medication Prior Auth Request 04/02/2024 In grezza renewal Encounter Details Date Type Department Care Team (Late st Contact Info) Description 04/02/2024 Telephone [facility] Neurology [address] [place] [address], [place] [phone] Alonzo Can MD [address] [place] [phone] Medication Prior Auth Request (Ingrezza renewal) Social History Tobacco Use Types Packs/Day Years Used Date Smoking Tobacco: Never Smokeless Tobacco: Never Sex and Gender Information Value Date Recorded Sex Assigned at Not on file Gender Identity Not on file Sexual Orientation Not on file documented as of this encounter Miscellaneous Notes * Telephone Encounter - Dixie Lopez RN - 04/02/2024 7:58 AM CDT PA initiated with [facility] via covermymeds for Ingrezza. Included last visit note dated 12/17/2023. Will await a response. ARANA: [id number] Approved as below: Message from Plan CaseId:[id number];Status:Approved;Review Type:Prior Auth;Coverage Start Date:03/03/2024;Coverage End Date:07/14/2099;. Authorization Expiration Date: July 14, 2099. documented in this encounter Plan of Treatment Upcoming Encounters Date Type Department Care Team (Late st Contact Info) Description 04/14/2025 1:30 PM CDT Office Visit [facility] - Neurology [address] [place] [address], [place] [address] Alonzo Can MD [address] [place] [address] [place] [address] documented as of this encounter Visit Diagnoses Not on filedocumented in this encounter Care Teams Drying Equipment Operator Relationship Specialty Start Date End Date None, Physician [address] [place] [address] PCP - General 06/20/23 documented as of this encounter
--- OUTSIDE RECORDS SUMMARY | 2024-07-22 05:50 | XMS_ITS | Encounter Summary ---
Author Organization [facility] Address [address] [facility] [place] [address] Care Team Providers Care Radon Inspector Name Role Phone Unavailable Primary Care Provider Unavailabl e Reason for Visit * Reason Onset Date Comments Medication Problem 04/20/2022 Encounter Details Date Type Department Care Team ([facility] Contact Info) Description 04/20/2022 Telephone [facility] [address] [place] [phone] Alonzo Can MD [address] [place] [phone] Medication Problem Social History Tobacco Use Types Packs/Day Years Used Date Smoking Tobacco: Never Smokeless Tobacco: Never Sex and Gender Information Value Date Recorded Sex Assigned at Not on file Gender Identity Not on file Sexual Orientation Not on file documented as of this encounter Miscellaneous Notes * Telephone Encounter - Giselle Sousa MA - 04/20/2022 4:51 PM CDT Patient called stating that his valbenazine (Ingrezza) 40 MG capsule medication has been sent to the incorrect pharmacy and will like for it to be sent to [facility]. documented in this encounter Plan of Treatment Upcoming Encounters Date Type Department Care Team (Late Contact Info) Description 04/14/2025 1:30 PM CDT Office Visit [facility] - Neurology [address] [place] [address] [place] [phone] Alonzo Can MD [address] [place] [address] documented as of this encounter Visit Diagnoses Diagnosis Tardive dyskinesia Subacute dyskinesia due to drugs documented in this encounter
--- OUTSIDE RECORDS SUMMARY | 2024-07-22 05:50 | XMS_ITS | Continuity of Care Document ---
Author Organization [facility] Address [address] [place] [phone] Care Team Providers Care Form Coverer Name Role Phone Barbra Navarro Primary Care Physician Encounter [facility] [id number] Date(s): 09/06/20 - 09/06/[address] [phone] Discharge Disposition: Home Attending Physician: Gustavo Macias DO Admitting Physician: Gustavo Macias DO Allergies, Adverse Reactions, Alerts No Known Allergies Medications gabapentin Oral, 0 Refill(s) Start Date: 08/26/17 Status: Ordered L THEANINE L THEANINE, 2 CAP, Oral, Daily, 0 Refill(s) Start Date: 12/09/19 Status: Ordered lisinopril Oral, Daily, 0 Refill(s) Start Date: 08/26/17 Status: Ordered Melatonin 20 mg, Oral, Once a day (at bedtime), 0 Refill(s) Start Date: 12/09/19 Status: Ordered multiple vitamin 2 TAB, Oral, Daily, 0 Refill(s) Start Date: 12/09/19 Status: Ordered Neurontin Oral, TID, 0 Refill(s) Start Date: 08/26/17 Status: Ordered Tylenol 8 HR Arthritis Pain 650 mg oral tablet, extended release 1,300 mg = 2 tab(s), Oral, HS, 0 Refill(s) Start Date: 12/09/19 Status: Ordered Wellbutrin Oral, 0 Refill(s) Start Date: 08/10/18 Status: Ordered Problem List Condition Effective Dates Status Health Status Inform ant Depression(Confirmed) Active Anxiety(Confirmed) Active Disease caused by 2019 novel coronavirus(Confirmed) 1 07/22/20 Active High blood pressure(Confirmed) Active Lower back pain(Confirmed) Active Memory problem(Confirmed) Active Left leg pain(Confirmed) Active Pancreatitis(Confirmed) Active Colon polyps(Confirmed) Active Sleep apnea(Confirmed) Active 1Problem added by Rule (IC_COVID19_AUTO_PROBLEM) following SARS-CoV2 by curator of collections-PCR - [facility] from [employer] [facility] FORMER Swab collected on 21-JUL-2020 08:47: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 Procedures Procedure Date Related Diagnosis Body Site Status Colonoscopy 12/14/19 Completed COLONOSCOPY 1 06/11/12 Completed Tonsillectomy Completed 1X2 Social History Social History Type Response Smoking Status Former smoker, quit more than 30 days ago; Tobacco use per day: 3 pks; entered on: 08/26/17 Sex Male
--- OUTSIDE RECORDS SUMMARY | 2024-07-22 05:50 | XMS_ITS | Encounter Summary ---
Author Organization [facility] Address [address] [facility] [place] [address] Care Team Providers Care Rn Support Services Name Role Phone None, Physician Primary Care Provider Unavailabl e Encounter Details Date Type Department Care Team (Late st Contact Info) Description 04/14/2024 2:00 PM CDT Office Visit [facility] - Neurology [address] [place] [address], [facility] [place] [phone] Alonzo Can MD [address] [place] [phone] Tremor (Primary Dx) Social History Tobacco Use Types Packs/Day Years Used Date Smoking Tobacco: Never Smokeless Tobacco: Never Sex and Gender Information Value Date Recorded Sex Assigned at Not on file Gender Identity Not on file Sexual Orientation Not on file documented as of this encounter Last Filed Vital Signs Vital Sign Reading Time Taken Comments Blood Pressure 112/73 04/14/2024 1:55 PM CDT Pulse 72 04/14/2024 1:55 PM CDT Temperature - - Respiratory Rate - - Oxygen Saturation 98% 04/14/2024 1:55 PM CDT Inhaled Oxygen Concentration - - Weight - - Height - - Body Mass Index - - documented in this encounter Progress Notes * Alonzo Can MD - 04/14/2024 2:06 PM CDT Movement disorders clinic note Date of Encounter: 04/14/24 Chief Complaint: Tardive dyskinesias and tremor in hands Jesus Massey is a 73 year old male [...] recent falls. 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 No [...] He was last seen in clinic on 12/17/2023 and continued on valbenazine 40 mg daily. The tardive dyskinesias are still partly controlled. He was restarted on propranolol 10 mg p.o. twice daily and the hand tremors are very well-controlled he says. He has no adverse effects. Denies any falls, sleepiness, gait ataxia while being on amantadine or valbenazine. Memory is declining and his says that he has been diagnosed as dementia and Alzheimer's disease. He is on memantine 10 mg daily. PCP had previously scored MMS at 23 (down from 27). [...] by mouth once daily, Disp: , Rfl: busPIRone (Buspar) 10 MG tablet, TAKE 3 TABLET BY MOUTH TWICE DAILY, Disp: , Rfl: gabapentin (Neurontin) 600 MG [...] mouth daily with food, Disp: , Rfl: propranolol (Inderal) 10 MG tablet, Take 1 (one) tablet by mouth 2 times daily for 90 days Reasons:Tremor, Disp: 180 tablet, Rfl: 3 PMH: depression, HTN Family History: No pertinent [...] Not on file Physical Exam: Blood pressure 112/73, pulse 72, SpO2 98%. General: Con - NAD, afebrile [...] no atrophy noted. Motor Function Movement Grade 1 postural and kinetic tremor Bulk No abnormalities noted Tone No abnormalities noted Very slight TDs around lips and jaw. Proximal Upper [...] dysmetric Postural and kinetic tremor in hands very slight Grade 1 Gait steady ambulation Diagnosis. Anxiety depression and tardive dyskinesias following the use of aripiprazole. He also had a fast postural and kinetic tremor that has responded very well to propranolol Plan. We will continue Valbenazine at 40 mg daily. Reviewed MRI brain done in OSH - has some cortical atrophy and small vessel disease. To will continue memantine at 10 mg/day. To continue Propranalol 10 mg po bid for hand tremors (could be medication induced). RTC 1 year. Call for questions or concerns. Signed Electronically Alonzo Can MD, FRCP, Professor of Neurology, Director, Movement Disorders documented in this encounter Plan of Treatment Upcoming Encounters Date Type Department Care Team (Late st Contact Info) Description 04/14/2025 1:30 PM CDT Office Visit [facility] - Neurology [address] [place] [address], [place] [phone] Alonzo Can MD [address] [place] [address] [place] [phone] documented as of this encounter Visit Diagnoses Diagnosis Tremor- Primary Abnormal involuntary movements documented in this encounter Care Teams Rn Support Services Relationship Specialty Start Date End Date None, Physician [address] [place] [address] PCP - General 06/20/23 documented as of this encounter
--- OUTSIDE RECORDS SUMMARY | 2024-07-22 05:50 | XMS_ITS | Encounter Summary ---
Author Organization [facility] Address [address] [facility] [place] [address] Care Team Providers Care Ophthalmic Technologist Name Role Phone None, Physician Primary Care Provider Unavailabl e Encounter Details Date Type Department Care Team (Latest Contact Info) Description 06/10/2024 Travel Social History Tobacco Use Types Packs/Day Years Used Date Smoking Tobacco: Never Smokeless Tobacco: Never PHQ-2 Answer Date Recorded Patient Health Questionnaire-2 Score 0 06/10/2024 Sex and Gender Information Value Date Recorded Sex Assigned at Not on file Gender Identity Not on file Sexual Orientation Not on file documented as of this encounter Plan of Treatment Upcoming Encounters Date Type Department Care Team (Late st Contact Info) Description 04/14/2025 1:30 PM CDT Office Visit [facility] - Neurology [address] [place] [address], [place] [address] Alonzo Can MD [address] [place] [address] [place] [phone] documented as of this encounter Visit Diagnoses Not on filedocumented in this encounter Care Teams Ophthalmic Technologist Relationship Specialty Start Date End Date None, Physician [address] [place] [address] PCP - General 06/20/23 documented as of this encounter
--- OUTSIDE RECORDS SUMMARY | 2024-07-22 05:50 | XMS_ITS | Encounter Summary ---
Author Organization [facility] Address [address] [facility] [place] [address] Care Team Providers Care Desktop Support Technician Name Role Phone None, Physician Primary Care Provider Unavailabl e Encounter Details Date Type Department Care Team (Latest Contact Info) Description 03/19/2024 Travel Social History Tobacco Use Types Packs/Day [...] Office Visit [facility] - Neurology [address] [place] [address], [facility] [place] [address] Alonzo Can MD [address] [place] [address] [place] [phone] documented as of this encounter Visit Diagnoses Not on filedocumented in this encounter Care Teams Desktop Support Technician Relationship Specialty Start Date End Date None, Physician [address] [place] [address] PCP - General 06/20/23 documented as of this encounter
--- OUTSIDE RECORDS SUMMARY | 2024-07-22 05:50 | XMS_ITS | Encounter Summary ---
Author Organization [facility] Address [address] [place] [address] Care Team Providers Care Sql Database Administrator Name Role Phone Unavailable Primary Care Provider Unavailabl e Reason for Visit * Reason Comments Tremors Encounter Details Date Type Department Care Team (Late st Contact Info) Description 10/17/2022 4:00 PM CDT Office Visit [facility] Neurology [address] [place] [address], [place] [address] Alonzo Can MD [address] [place] [phone] Tremor (Primary Dx) Social History Tobacco Use Types Packs/Day Years Used Date Smoking Tobacco: Never Smokeless Tobacco: Never Tobacco Cessation:Counseling Given: Not Answered Sex and Gender Information Value Date Recorded Sex Assigned at Not on file Gender Identity Not on file Sexual Orientation Not on file documented as of this encounter Last Filed Vital Signs Vital Sign Reading Time Taken Comments Blood Pressure 122/53 10/17/2022 1:19 PM CDT Pulse 46 10/17/2022 1:19 PM CDT Temperature 36.1 ??C (97 ??F) 10/17/2022 1:19 PM CDT Respiratory Rate - - Oxygen Saturation 96% 10/17/2022 1:19 PM CDT Inhaled Oxygen Concentration - - Weight 108.9 kg (240 lb) 10/17/2022 1:19 PM CDT Height 190.5 cm (6' 3 ) 10/17/2022 1:19 PM CDT Body Mass Index 30 10/17/2022 1:19 PM CDT documented in this encounter Patient Instructions * Patient Instructions* Cintia Hernandez MD - 10/17/2022 2:26 PM CDT Continue Ingrezza 40mg daily for lip smacking Continue Namenda 10mg daily for memory and hand tremors Follow up in 6 months documented in this encounter Progress Notes * Cintia Hernandez MD - 10/17/2022 3:33 PM CDT Neurology Note Date of Encounter: 10/17/22 Chief Complaint: lip smacking and tremor in hands HPI: Jesus Massey is a 72 year old [...] tapping resolved but he then developed lip smacking. The lip smacking has not improved or worsened. He will occasionally bite the inside of his cheek and endorses the sm acking interfering with his eating. Also about 1 year ago he began to developed bilateral hand shaking that occurs when he is using his hands for fine motor. He notes that this most affects his handwriting. He is able to feed himself, but notes he will spill soup if he is eating it. No concerns with his balance or recent falls. 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 No known family history of parkinson's disease or essential tremor. He also take gabapentin 600mg qd and wellbutrin 300mg and 150mg daily for depression as well. He was last seen in clinic 04/18/2022 and found to have essential tremor and tardive dyskinesias. Hewas started on propanolol for the essential tremor and valbenazine for the dyskinesias. Patient states that he was having excessive [...] improved significantly. With regards to the valbenazine he feels that his dyskinesias are 50% improved. states he still does have lip smacking and she notices the most when he is driving, however they are better. Denies any falls, sleepiness, gait ataxia while being on amantadine or valbenazine. ROS: General - Denies changes in weight [...] mouth once daily, Disp: , Rfl: ??? buPROPion XL 24hr [...] by mouth once daily, Disp: , Rfl: PMH: depression, HTN Family [...] Not on file Physical Exam: Blood pressure 122/53, pulse 46, temperature 97 ??F (36.1 ??C), temperature source Oral, height 1.905 m (6' 3 ), weight 108.9 kg (240 lb), SpO2 96 %. General: Con - NAD, afebrile Heent - [...] No abnormalities noted Tone No abnormalities noted minimal lip smacking noted while relaxed and not doing any activity about once every 30 seconds when the patient is focusing on something else Proximal Upper Distal Upper Proximal Lower Distal [...] proximally. Cerebellar FNF Right dysmetric Left dysmetric tremor with outstretched arms minimal. Gait steady ambulation Assessment: Jesus Massey is a 72 year old male presenting with history of HTN, and anxiety/depression who is presenting for followup of tardive dyskinesia and hand tremors. The lip smacking is consistent with tardive dyskinesia, has improved with valbenazine, still some dyskinesias when doing other tasks. The hand tremor still unclear if enhanced physiologic v essential tremor is well controlled on the amantadine which is also ok if he is having memory issues. Although amantadine is not usually used for hand tremor there are a few trials where it has been shown to help tremors and for this patient it is controlling tremors and no side effects therefore will continue. Plan: --Continue Memantine 10mg qD --Continue valbenazine 40mg once a day, if even better control of lip smacking wanted in a few weeks patient will reach out and can increase to 60mg qD --send Dr. Can a message in 2 weeks regarding how the medications are working --follow up in 6 months Patient seen and discussed with Neurology attending, Dr. Can. Cintia Hernandez MD PGY-3, Neurology Resident I have seen and examined the patient with the resident and I agree with the findings and plan of care as documented by the resident. Date of Service: 10/17/2022 History 72-year-old WM with tardive dyskinesias that came on after treatment with aripiprazole. He was started on valbenazine 40 mg/day and has been about 50% improvement in the perioral dyskinesias and about 99% improvement in the tremors in his hands he was started on treatment with propranolol 20 mg p.o. twice daily but his states that he became very sleepy with this medication and stopped it. His PCP has put him on memantine 10 mg/day. He states his hand tremors are very well controlled at present. Examination. Very slight tardive dyskinesias around the mouth. However when he is uncrossed in times he does tend to have lipsmacking. No postural tremor but has grade 1 kinetic tremor. Diagnosis. Anxiety depression and tardive dyskinesias following the use of aripiprazole. He also had a fast postural and kinetic tremor that had responded very well to propranolol but he has stopped it because of adverse effects of somnolence. Plan. We will continue Valbenazine at 40 mg daily. If his lipsmacking dyskinesias increase I may goto 60 mg/day. I asked him to communicate back with me after 2 weeks. We will continue memantine at 10 mg/day RTC 6 months. Call for questions or concerns. Please see resident notes for details Alonzo Can MD Attending Physician, Neurology documented in this encounter Plan of Treatment Upcoming Encounters Date Type Department Care Team (Late st Contact Info) Description 04/14/2025 1:30 PM CDT Office Visit [facility] - Neurology [address] [place] [address], [place] [phone] Alonzo Can MD [address] [place] [address] [place] [phone] documented as of this encounter Visit Diagnoses Diagnosis Tremor- Primary Abnormal involuntary movements documented in this encounter
--- OUTSIDE RECORDS SUMMARY | 2024-07-22 05:50 | XMS_ITS | Encounter Summary ---
Author Organization [facility] Address [address] [facility] [place] [address] Care Team Providers Care Skimmer Name Role Phone None, Physician Primary Care Provider Unavailabl e Encounter Details Date Type Department Care Team (Latest Contact Info) Description 04/14/2024 Travel Social History Tobacco Use Types Packs/Day [...] Office Visit [facility] - Neurology [address] [place] [address], [facility] [place] [address] Alonzo Can MD [address] [place] [address] [place] [phone] documented as of this encounter Visit Diagnoses Not on filedocumented in this encounter Care Teams Skimmer Relationship Specialty Start Date End Date None, Physician [address] [place] [address] PCP - General 06/20/23 documented as of this encounter
--- OUTSIDE RECORDS SUMMARY | 2024-07-22 05:50 | XMS_ITS | Patient Health Summary ---
Author Organization [facility] [employer] Address [address] [place] [address] Care Team Providers Care Assisted Living Home Director Name Role Phone None, Physician Primary Care Provider Unavailabl e Note from [facility],non-owned Affiliates and Associated Physician Practices is amultiple site organization consisting of ambulatory clinics and hospital sitesin [place], [place], [place] and [place]. This disclosure is being madepursuant to the Care Everywhere program and may not contain all information available regarding this patient. Last updated 18.[facility] [employer] Allergies No known active allergies Medications * Be aware that medications may not be up to date on this document. Alwaysverify current medications with the patient. * buPROPion XL 24hr (Wellbutrin-XL) 150 MG tablet(Started 02/12/2022) Take 1 (one) tablet by mouth once daily * buPROPion XL 24hr (Wellbutrin-XL) 300 MG tablet(Started 08/11/2021) Take 1 (one) tablet by mouth once daily * losartan (Cozaar) 100 MG tablet(Started 02/12/2022) Take 1 (one) tablet by mouth once daily * amLODIPine (Norvasc) 5 MG tablet(Started 10/10/2021) Take 1 (one) tablet by mouth once daily * gabapentin (Neurontin) 600 MG tablet(Started 02/12/2022) Take 1 (one) tablet by mouth once daily * memantine (Namenda) 10 MG tablet Take 1 (one) tablet by mouth 2 times daily * atorvastatin (Lipitor) 20 MG tablet Take 1 (one) tablet by mouth at bedtime * multivitamins plus minerals chew tablet Take 1 (one) tablet by mouth daily with food * aspirin (Kamilah Aspirin) 325 MG tablet Take 1 (one) tablet by mouth once daily * Ingrezza 40 MG capsule(Started 07/30/2023) TAKE ONE CAPSULE BY MOUTH ONCE DAILY 3 refills by 07/29/2024 * propranolol (Inderal) 10 MG tablet(Started 03/20/2024) Take 1 (one) tablet by mouth 2 times daily for 90 days Reasons: Tremor 3 refills by 03/20/2025 * busPIRone (Buspar) 10 MG tablet(Started 04/08/2024) TAKE 3 TABLET BY MOUTH TWICE DAILY * GLYCINE PO Take 3,000 mg by mouth * N-ACETYL CYSTEINE PO * KRILL OIL PO Active Problems Problem Noted Date Diagnosed Date [...] respiratory syndrome coronavirus 2 (SARS-CoV-2) 07/22/2020 06/20/2023 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 Immunizations * FLU VACCINE QUAD IIV4 SPLIT 0.25 ML IM(Given 03/15/2023) * INFLUENZA VACCINE(Given 05/16/2020) Social History Tobacco Use Types Packs/Day Years [...] Comments Blood Pressure 147/49 06/10/2024 1:01 PM DIRECTOR SUPPLY CHAIN Pulse 42 06/10/2024 1:01 PM DIRECTOR SUPPLY CHAIN Temperature 36.1 ??C (97 ??F) 06/20/2023 8:58 AM DIRECTOR SUPPLY CHAIN Respiratory Rate - - Oxygen Saturation 98% 04/14/2024 1:55 PM CDT Inhaled Oxygen Concentration - - Weight 105.7 kg (233 lb) 06/10/2024 1:01 PM DIRECTOR SUPPLY CHAIN Height 190.5 cm (6' 3 ) 06/10/2024 1:01 PM DIRECTOR SUPPLY CHAIN Body Mass Index 29.12 06/10/2024 1:01 PM DIRECTOR SUPPLY CHAIN Care Teams Assisted Living Home Director Relationship Specialty Start Date End Date None, Physician [address] [place] [address] PCP - General 06/20/23
--- OUTSIDE RECORDS SUMMARY | 2024-07-22 05:50 | XMS_ITS | Referral Summary ---
Author Organization [facility] Address [address] [place] [address] Care Team Providers Care Physical Education Department Chair Name Role Phone None, Physician Primary Care Provider Unavailabl e Source Comments [facility],non-owned Affiliates and Associated Physician Practices is amultiple site organization consisting of ambulatory clinics and hospital sitesin [place], [place], [place] and [place]. This disclosure is being madepursuant to the Care Everywhere program and may not contain all information available regarding this patient. Last updated 18.[facility] [employer] Encounters Date Type Department Care Team Description 06/10/2024 Travel from Last 3 Months Allergies No known active allergies Medications * [...] added by Rule (IC_COVID19_AUTO_PROBLEM) following SARS-CoV2 by weatherization field technician-PCR - [facility] from [employer] Swab collected on 21-JUL-2020 08:47:00 KINESIOTHERAPIST tested positive for COVID-19. 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 Immunizations Name Administration Dates Next Due FLU [...] Comments Blood Pressure 147/49 06/10/2024 1:01 PM KINESIOTHERAPIST Pulse 42 06/10/2024 1:01 PM KINESIOTHERAPIST Temperature 36.1 ??C (97 ??F) 06/20/2023 8:58 AM KINESIOTHERAPIST Respiratory Rate - - Oxygen Saturation 98% 04/14/2024 1:55 PM CDT Inhaled Oxygen Concentration - - Weight 105.7 kg (233 lb) 06/10/2024 1:01 PM KINESIOTHERAPIST Height 190.5 cm (6' 3 ) 06/10/2024 1:01 PM KINESIOTHERAPIST Body Mass Index 29.12 06/10/2024 1:01 PM KINESIOTHERAPIST Plan of Treatment Upcoming Encounters Date Type Department Care Team (Late st Contact Info) Description 04/14/2025 1:30 PM CDT Office Visit [facility] - Neurology [address] [place] [address], [place] [phone] Alonzo Can MD [address] [place] [address] [place] [phone] Care Teams Physical Education Department Chair Relationship Specialty Start Date End Date None, Physician [address] [place] [address] PCP - General 06/20/23
--- OUTSIDE RECORDS SUMMARY | 2024-07-22 05:50 | XMS_ITS | Encounter Summary ---
Author Name [facility] Organization [facility] Address [address] [place] [address] Care Team Providers Care Gas Torch Brazier Name Role Phone CARLIN STEWART Primary Care Provider Unavailabl e Selected Encounter This section includes the information on record at [place] for the Encounter. Date/Time Encounter Type Encounter Description Reason Pro vider Source Jun 29, 2024 02:34 PM Outpatient Encounter ADMIN PAT ACTIVTIES (MASNONCT) IHE Encounter Template Text not used by [place] Plan of Treatment: Future Appointments (+ 6 months) and Future Tests (+/- 45 days) The Plan of Treatment section includes future care activities for the patient from all [place] treatmentfacilities. This section includes future appointments and [...] of theEncounter. The data comes from all [place] treatment facilities. Test Date/Time Test Type Test Details Facility Name May 20, 2024 12:00 AM Laboratory - Chemi stry Order URINALYSIS (STL-PB) URINE - CLEAN CATCH [facility] May 20, 2024 12:00 AM Laboratory - Chemi stry Order MICRAL/CREAT PROFILE (STL) URINE [facility] Jun 19, 2024 12:00 AM Laboratory - Chemi stry Order MICRAL/CREAT PROFILE (STL) URINE [facility] Jun 19, 2024 12:00 AM Laboratory - Chemi stry Order URINALYSIS (STL-PB) URINE - CLEAN CATCH SP [facility] Encounter Notes: All associated encounter notes This section contains the clinical notes associated to the Encounter. Date/Time Encounter Note(s) Provider Source Jun 29, 2024 02:34 PM ADMINISTRATIVE NOT E: LOCAL TITLE: SCHEDULING NOTE STL STANDARD TITLE: ADMINISTRATIVE NOTE DATE OF NOTE: JUN 29, 2024@14:34 ENTRY DATE: JUN 29, 2024@14:34:38 AUTHOR: NANY LANIER EXP COSIGNER: URGENCY: STATUS: COMPLETED SCHEDULING NOTE STL Has ADDENDA Additional comments: Spoke to face to face at [facility] -team2 vvc test call completed requested by Dr. Stewart. ADDITIONAL RESULTS FROM SCHEDULING ATTEMPTS: Spoke with [place]/Caregiver /joaquim/ NANY LANIER Telehealth Clinical Production Ski Repairer Signed: 06/29/2024 14:35 06/29/2024 ADDENDUM STATUS: COMPLETED daughter Hilary came in with patient stated to use her telephone# [phone] and email:[email or web address] for vvc. /joaquim/ NANY LANIER Telehealth Clinical Production Ski Repairer Signed: 06/29/2024 14:40 NANY LANIER [facility]
--- OUTSIDE RECORDS SUMMARY | 2024-07-22 05:50 | XMS_ITS | Encounter Summary ---
Author Organization [facility] Address [address] [facility] [address] [place] [address] Care Team Providers Care Hangersmith Name Role Phone None, Physician Primary Care Provider Unavailabl e Encounter Details Date Type Department Care Team (Latest Contact Info) Description 12/17/2023 Travel Social History Tobacco Use Types Packs/Day [...] Office Visit [facility] - Neurology [address] [place] [address], [facility] [place] [address] Alonzo Can MD [address] [place] [address] [place] [phone] documented as of this encounter Visit Diagnoses Not on filedocumented in this encounter Care Teams Hangersmith Relationship Specialty Start Date End Date None, Physician [address] [place] [address] PCP - General 06/20/23 documented as of this encounter
--- OUTSIDE RECORDS SUMMARY | 2024-07-22 05:51 | XMS_ITS | Clinical Summary ---
Author Organization [facility] Address [address] [place] [address]. [place], [place] [address] [place] [address] Care Team Providers Care Keno Dealer Name Role Phone Unavailable Primary Care Provider Unavailabl e Social History Tobacco Use Types Packs/Day Years Used Date Smoking Tobacco: Never Assessed Sex and Gender Information Value Date Recorded Sex Assigned at Not on file Legal Sex Male 7:42 PM CDT Gender Identity Not on file Sexual Orientation Not on file Plan of Treatment Health Maintenance Due Date Last Done Comments Colorectal Cancer Screening Colonoscopy (10 Years) 1952 Hepatitis C 1970 DTaP, Tdap and Td Vaccines ( 1 - Tdap) 1971 Zoster Vaccines (1 of 2) 2002 Annual Medicare Wellness Visit 2017 Pneumococcal Vaccine: 65+ Ye ars (1 of 1 - PCV) 2017 COVID-19 Vaccine ( - 2023-2 5 season) 2024 Influenza Adult (#1) 2024 RSV Immunization or 60+ Years (1 - 1-dose 75+ series) 2027 Meningococcal Vaccine Aged Out No lydia ravi eligible based on patient's age to complete this topic RSV Immunizations Under 20 Months Aged Out No longer eligible based on patient's age to complete this topic Insurance [facility] MEDICARE
--- OUTSIDE RECORDS SUMMARY | 2024-07-22 05:51 | XMS_ITS | Encounter Summary ---
Author Organization [facility] Address [address] [place] [address]. [place], [place] [address] [place] [address] Care Team Providers Care Radial Arm Saw Operator Name Role Phone Isela Card MD Primary Care Provider Unavailable Encounter Details Date Type Department Care Team (Late st Contact Info) Description 11/01/2013 Abstract [facility] [address] [place], [place] [id number] Addie Whyte, CARAMEL MAKER [address] [facility] [address] [place] [address] Social History Tobacco Use Types Packs/Day Years Used Date Smoking Tobacco: Never Assessed Sex and Gender Information Value Date Recorded Sex Assigned at Not on file Legal Sex Male 7:42 PM CDT Gender Identity Not on file Sexual Orientation Not on file documented as of this encounter Plan of Treatment Not on file documented as of this encounter Visit Diagnoses Diagnosis Other specified sites of sprains and strains documented in this encounter Care Teams Radial Arm Saw Operator Relationship Specialty Start Date End Date Isela aCrd MD PCP - General 11/01/13 documented as of this encounter
--- OUTSIDE RECORDS SUMMARY | 2024-07-22 05:51 | XMS_ITS | Encounter Summary ---
Author Organization [facility] Address [address] [facility] [place] [address] Care Team Providers Care Survey Workers Supervisor Name Role Phone Unavailable Primary Care Provider Unavailabl e Reason for Visit * Reason Comments Establish Care Tremors * Consult, Test & Treat (Routine) - Closed Specialty Diagnoses / Procedures Referred By Contac t Referred To Contact Neurology Diagnoses Tremor, unspecified Socorro Felix, PACora [address] [place] [address] Alonzo Can MD [address] [place] [address] [address] [place] [address] Referral ID Status Reason Start Date Expiration Date Visits Re quested Visits Authorized [id number] Closed 11/30/2021 11/30/2022 1 1 Encounter Details Date Type Department Care Team (Late st Contact Info) Description 04/18/2022 9:00 AM CDT Office Visit [facility] Neurology [address] [place] [address], [place] [address] Alonzo Can MD [address] [place] [address] [address] [place] [address] Tardive dyskinesia (Primary Dx); Tremor Social History Tobacco Use Types Packs/Day Years Used Date Smoking Tobacco: Never Smokeless Tobacco: Never Sex and Gender Information Value Date Recorded Sex Assigned at Not on file Gender Identity Not on file Sexual Orientation Not on file documented as of this encounter Last Filed Vital Signs Vital Sign Reading Time Taken Comments Blood Pressure - - Pulse 62 04/18/2022 9:10 AM CDT Temperature 37.1 ??C (98.7 ??F) 04/18/2022 9:10 AM CD T Respiratory Rate - - Oxygen Saturation 98% 04/18/2022 9:10 AM CDT Inhaled Oxygen Concentration - - Weight 109.1 kg (240 lb 9.6 oz) 04/18/2022 9:10 AM CDT Height 190.5 cm (6' 3 ) 04/18/2022 9:10 AM CDT Body Mass Index 30.07 04/18/2022 9:10 AM CDT documented in this encounter Patient Instructions * Patient Instructions* Guevara Alarcon DO - 04/18/2022 10:09 AM CDT --start propranlol 20mg twice a nadir --start valbenazine 40mg once a day --send Dr. Can a message in 1 month regarding how the medications are working --follow up in 4 months documented in this encounter H&P Notes * Guevara Alarcon DO - 04/18/2022 9:07 AM CDT Neurology Note Date of Encounter: 04/18/22 Chief Complaint: lip smacking and tremor in hands HPI: Jesus Massey is a 71 year old male with a history of HTN, and anxiety/depression who is presenting today for bilateral hand shaking and lip smacking. Patient was started on aripiprazole 10mg about [...] endorses the smacking interfering with his eating. Also about 1 [...] recent falls. 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 No known family history of parkinson's disease, although shared his mother developed weakness in her legs in her 60s, then dysarthria in her 70s, and in her 70s, although she was never diagnosed with anything in particular. He also take gabapentin 600mg qd and wellbutrin 300mg and 150mg daily for depression as well. ROS: General - Denies changes in weight [...] ??? amLODIPine (Norvasc) 5 MG tablet, Take 5 mg by mouth once daily, Disp: , Rfl: ??? buPROPion XL 24hr (Wellbutrin-XL) 150 MG tablet, Take 150 mg by mouth once daily, Disp: , Rfl: ??? buPROPion XL 24hr (Wellbutrin-XL) 300 MG tablet, Take 300 mg by mouth once daily, Disp: , Rfl: ??? gabapentin (Neurontin) 600 MG tablet, Take 600 mg by mouth once daily, Disp: , Rfl: ??? losartan (Cozaar) 100 MG tablet, Take 100 mg by mouth once daily, Disp: , Rfl: ??? propranolol (Inderal) 20 MG tablet, Take 1 (one) tablet by mouth 2 times daily, Disp: 60 tablet, Rfl: 2 ??? valbenazine (Ingrezza) 40 MG capsule, Take 1 (one) capsule by mouth once daily for 90 days, Disp: 90 capsule, Rfl: 3 PMH: depression HTN Family History: No pertinent family history known, although mother had some vague neurologic conditions(see above) Social History: Social History Socioeconomic History ??? Marital status: Spouse name: Not on file ??? Number of children: Not on file ??? Years of education: Not on file ??? Highest education level: Not on file Occupational History ??? Not on file Tobacco Use ??? Smoking status: Never Smoker ??? Smokeless tobacco: Never Used Vaping Use ??? Vaping Use: Never used Substance and Sexual Activity ??? Alcohol use: Not on file ??? Drug use: Never ??? Sexual activity: Never Other Topics Concern ??? Not on file Social History Narrative ??? Not on file Social Determinants of Health Financial Resource Strain: Not on file Food Insecurity: Not on file Transportation Needs: Not on file Physical Activity: Not on file Stress: Not on file Social Connections: Not on file Intimate Partner Violence: Not on file Housing Stability: Not on file Physical Exam: General: Con - NAD, afebrile Heent - [...] and no atrophy noted. Motor Function Movement No abnormalities noted Bulk No abnormalities noted Tone No abnormalities noted intermittent lip smacking noted, about once every 10 seconds when the patient is focusing on [...] Right dysmetric Left dysmetric tremor with outstretched arms, worsens when patient is counting backwards by 7. Gait steady ambulation Assessment: Jesus Massey is a 71 year old male presenting with history of HTN, and anxiety/depression who is presenting today for bilateral hand shaking and lip smacking. The lip smacking is consistent withtardive dyskinesia, which can be improved with medications valbenazine. The tremors are consistent with essential tremor, and can also be improved with pharmacologic intervention(propranolol). Plan: --start propranlol 20mg twice a nadir --start valbenazine 40mg once a day --send Dr. Can a message in 1 month regarding how the medications are working --follow up in 4 months Patient seen and discussed with Neurology attending, Dr. Can. Guevara Alarcon, DO PGY-3, Neurology Resident I have seen and examined the patient with the resident and I agree with the findings and plan of care as documented by the resident. Date of Service: 04/18/2022 History 71-year-old WM with anxiety/depression who was treated with aripiprazole 10 mg a day for about 1 year and later developed tardive dyskinesia. The medication was stopped but the tardive dyskinesia has continued around the mouth and the tongue and the jaw with teeth grinding. This is bothersome to the patient and he would like this treated. He also has a tremor in his hands which affects his handwriting and his ability to eat and drink. At present he is on treatment with bupropion and gabapentin Examination. Has tardive dyskinesias around the mouth and tongue and jaw and increased blinking. Also has a fast postural and kinetic tremor in his hands with a frequency of around 7 to 8 Hz on the left pulse derek. No signs of Parkinson's disease. Gait is normal no other neurologic deficit. Diagnosis. Depression, anxiety, tardive dyskinesia, fast postural and kinetic tremor in his hands. DDx includes medication induced tremor versus enhanced physiologic tremor versus essential tremor. Plan. Started on valbenazine 40 mg at bedtime for tardive dyskinesia. Started on propranolol 20 mg p.o. twice daily for the hand tremors. To let me know after a month how the medications are helping him. RTC 4 months Please see resident notes for details Alonzo Can MD Attending Physician, Neurology documented in this encounter Plan of Treatment Upcoming Encounters Date Type Department Care Team (Late st Contact Info) Description 04/14/2025 1:30 PM CDT Office Visit [facility] - Neurology [address] [place] [address], [place] [address] Alonzo Can MD [address] [place] [address] [place] [address] documented as of this encounter Visit Diagnoses Diagnosis Tardive dyskinesia- Primary Subacute dyskinesia due to drugs Tremor Abnormal involuntary movements documented in this encounter
--- OUTSIDE RECORDS SUMMARY | 2024-07-22 05:51 | XMS_ITS | Encounter Summary ---
Author Organization [facility] Address [address] [facility] [address] [place] [address] Care Team Providers Care Screen Vent Binder Name Role Phone Unavailable Primary Care Provider Unavailabl e Reason for Visit * Reason Onset Date Comments Medication Prior Auth Request 04/18/2022 Encounter Details Date Type Department Care Team (Late st Contact Info) Description 04/18/2022 Telephone [facility] [address] [place] [address], [place] [address] Alonzo Can MD [address] [place] [address] Medication Prior Auth Request Social History Tobacco Use Types Packs/Day Years Used Date Smoking Tobacco: Never Smokeless Tobacco: Never Sex and Gender Information Value Date Recorded Sex Assigned at Not on file Gender Identity Not on file Sexual Orientation Not on file documented as of this encounter Miscellaneous Notes * Telephone Encounter - Dixie Lopez RN - 04/18/2022 11:01 AM CDT LINNEA Ybarra approved as below: CaseId:[id number];Status:Approved;Review Type:Prior Auth;Coverage Start Date:03/19/2022;Coverage End Date:04/18/2023; Approval Details Authorized from March 19, 2022 to April 18, 2023 Contacted pharmacy and patient. * Telephone Encounter - Dixie Lopez RN - 04/18/2022 10:59 AM CDT ePA completed for Ingrezza 40mg. Will await a response. Patient aware of the PA process and that script was sent to a specialty pharmacy which is [facility]. Will update patientwhen a determination is received. documented in this encounter Plan of Treatment Upcoming Encounters Date Type Department Care Team (Late st Contact Info) Description 04/14/2025 1:30 PM CDT Office Visit [facility] - Neurology [address] [place] [address], [place] [address] Alonzo Can MD [address] [place] [address] [place] [address] documented as of this encounter Visit Diagnoses Not on filedocumented in this encounter
--- OUTSIDE RECORDS SUMMARY | 2024-07-22 05:51 | XMS_ITS | Encounter Summary ---
Author Organization [facility] Address [address] [facility] [place] [address] Care Team Providers Care Insulating Machine Operator Name Role Phone Unavailable Primary Care Provider Unavailabl e Reason for Referral * Medication Prior Authorization - Authorized Specialty Diagnoses / Procedures Referred By Germaine goodrich Referred To Contact Diagnoses Tardive dyskinesia Alonzo Can MD [address] [place] [address] [address] [place] [address] Referral ID Status Reason Start Date Expiration Date V isits Requested Visits Authorized [id number] Authorized 03/19/2022 04/18/2023 1 1 Reason for Visit * Reason Onset Date Comments MEDICATION REFILL 04/18/2022 Encounter Details Date Type Department Care Team (Late st Contact Info) Description 04/18/2022 Refill [facility] [address] [place] [address], [place] [address] Alonzo Can MD [address] [place] [address] [address] [place] [address] MEDICATION REFILL Social History Tobacco Use Types Packs/Day Years Used Date Smoking Tobacco: Never Smokeless Tobacco: Never Sex and Gender Information Value Date Recorded Sex Assigned at Not on file Gender Identity Not on file Sexual Orientation Not on file documented as of this encounter Miscellaneous Notes * Telephone Encounter - Dixie Lopez RN - 04/18/2022 10:46 AM CDT Script for Tate needs to go [facility] Will send to [facility]. Patientis aware. documented in this encounter Plan of Treatment Upcoming Encounters Date Type Department Care Team (Late st Contact Info) Description 04/14/2025 1:30 PM CDT Office Visit [facility] - Neurology [address] [place] [address], [place] [address] Alonzo Can MD [address] [place] [address] [place] [address] documented as of this encounter Visit Diagnoses Diagnosis Tardive dyskinesia Subacute dyskinesia due to drugs documented in this encounter
--- OUTSIDE RECORDS SUMMARY | 2024-07-22 05:51 | XMS_ITS | Encounter Summary ---
Author Organization [facility] Address [address] [place] [address]. [place], [place] [address] [place] [address] Care Team Providers Care Chief Bank Examiner Name Role Phone Isela Card MD Primary Care Provider Unavailable Reason for Visit * Reason Comments Vascular Lab Study (SCAN) Encounter Details Date Type Department Care Team (Late st Contact Info) Description 08/27/2017 Scan [facility] [address] [place] [id number] Scanned, Documents Vascular Lab Study (SCAN) Social History Tobacco Use Types Packs/Day Years Used Date Smoking Tobacco: Never Assessed Sex and Gender Information Value Date Recorded Sex Assigned at Not on file Legal Sex Male 7:42 PM CDT Gender Identity Not on file Sexual Orientation Not on file documented as of this encounter Plan of Treatment Not on file documented as of this encounter Procedures Procedure Name Priority Date/Time Associated Diagnosis Comments VASCULAR LAB GENERIC (SCAN ORDER) Routine 08/26/2017 documented in this encounter Results * VASCULAR LAB (08/26/2017) us Documents Scanned SCANNING Final Result documented in this encounter Visit Diagnoses Not on filedocumented in this encounter Care Teams Chief Bank Examiner Relationship Specialty Start Date End Date Isela Card MD PCP - General 11/01/13 documented as of this encounter
--- OUTSIDE RECORDS SUMMARY | 2024-07-22 05:52 | XMS_ITS | Referral Summary ---
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 Social History Tobacco Use Types Packs/Day Years Used Date Smoking Tobacco: Former Personal Safety Answer Date Recorded Getting School Help Needed Not on file 09/04 Sex and Gender Information Value Date Recorded Sex Assigned at Not on file Legal Sex Male 10:38 AM BROADCAST PROGRAM DIRECTOR Gender Identity Not on file Sexual Orientation Not on file Last Filed Vital Signs Vital Sign Reading Time Taken Comments Blood Pressure 186/52 07/03/2021 2:40 PM BROADCAST PROGRAM DIRECTOR Pulse 55 07/03/2021 2:40 PM BROADCAST PROGRAM DIRECTOR Temperature 36.4 ??C (97.6 ??F) 07/03/2021 1:33 PM CS T Respiratory Rate 16 07/03/2021 2:40 PM BROADCAST PROGRAM DIRECTOR Oxygen Saturation 98% 07/03/2021 2:40 PM BROADCAST PROGRAM DIRECTOR Inhaled Oxygen Concentration - - Weight 110.5 kg (243 lb 9.7 oz) 07/03/2021 1:33 PM BROADCAST PROGRAM DIRECTOR Height 188 cm (6' 2 ) 07/03/2021 1:33 PM BROADCAST PROGRAM DIRECTOR Body Mass Index 31.28 07/03/2021 1:33 PM BROADCAST PROGRAM DIRECTOR Plan of Treatment Not on file Insurance MEDICARE FOR LIFE MEDICARE FOR LIFE Care Teams Extruder Tender Relationship Specialty Start Date End Date No, Physician PCP - General 07/15/20 Rosa Camacho NP Nurse Practitioner Neurology 08/09/20
--- OUTSIDE RECORDS SUMMARY | 2024-07-22 05:52 | XMS_ITS | Clinical Summary ---
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 Social History Tobacco Use Types Packs/Day Years Used Date Smoking Tobacco: Former Personal Safety Answer Date Recorded Getting School Help Needed Not on file 09/04 Sex and Gender Information Value Date Recorded Sex Assigned at Not on file Legal Sex Male 10:38 AM FOLDER GLUER OPERATOR Gender Identity Not on file Sexual Orientation Not on file Obstetrics History Last Filed Vital Signs Vital Sign Reading Time Taken Comments Blood Pressure 186/52 07/03/2021 2:40 PM FOLDER GLUER OPERATOR Pulse 55 07/03/2021 2:40 PM FOLDER GLUER OPERATOR Temperature 36.4 ??C (97.6 ??F) 07/03/2021 1:33 PM CS T Respiratory Rate 16 07/03/2021 2:40 PM FOLDER GLUER OPERATOR Oxygen Saturation 98% 07/03/2021 2:40 PM FOLDER GLUER OPERATOR Inhaled Oxygen Concentration - - Weight 110.5 kg (243 lb 9.7 oz) 07/03/2021 1:33 PM FOLDER GLUER OPERATOR Height 188 cm (6' 2 ) 07/03/2021 1:33 PM FOLDER GLUER OPERATOR Body Mass Index 31.28 07/03/2021 1:33 PM FOLDER GLUER OPERATOR Plan of Treatment Not on file Insurance MEDICARE FOR LIFE MEDICARE FOR LIFE Care Teams Management Tech Relationship Specialty Start Date End Date No, Physician PCP - General 07/15/20 Rosa Camacho NP Nurse Practitioner Neurology 08/09/20
--- OUTSIDE RECORDS SUMMARY | 2024-07-22 05:52 | XMS_ITS | Encounter Summary ---
Author Organization [facility] Healthcare Address [address] [place] [address] Care Team Providers Care Printed Forms Proofreader Name Role Phone LbRoya jayureen JIRA DEVELOPER Unavailable [phone] No, Physician Primary Care Provider [phone] Reason for Visit * Reason Comments COVID-19 EVALUATION Encounter Details Date Type Department Care Team (Late st Contact Info) Description 07/03/2021 4:00 PM QC SCIENTIST - 07/03/2021 4:01 PM QC SCIENTIST Emergency [facility] Emergency Department [address] [place] [id number] Close exposure to COVID-19 virus (Primary Dx) Discharge Disposition: Discharge to home or self care Social History Tobacco Use Types Packs/Day Years Used Date Smoking Tobacco: Former Sex and Gender Information Value Date Recorded Sex Assigned at Not on file Legal Sex Male 10:38 AM QC SCIENTIST Gender Identity Not on file Sexual Orientation Not on file documented as of this encounter Last Filed Vital Signs Vital Sign Reading Time Taken Comments Blood Pressure 186/52 07/03/2021 2:40 PM QC SCIENTIST Pulse 55 07/03/2021 2:40 PM QC SCIENTIST Temperature 36.4 ??C (97.6 ??F) 07/03/2021 1:33 PM CS T Respiratory Rate 16 07/03/2021 2:40 PM QC SCIENTIST Oxygen Saturation 98% 07/03/2021 2:40 PM QC SCIENTIST Inhaled Oxygen Concentration - - Weight 110.5 kg (243 lb 9.7 oz) 07/03/2021 1:33 PM QC SCIENTIST Height 188 cm (6' 2 ) 07/03/2021 1:33 PM QC SCIENTIST Body Mass Index 31.28 07/03/2021 1:33 PM QC SCIENTIST documented in this encounter Discharge Instructions * Discharge Instructions* Ann Dorsey PA - 07/03/2021 2:34 PM QC SCIENTIST You tested negative for COVID-19. SCIENTIST * Attachments The following attachments cannot be sent through Care Everywhere. * Normal Exam (AfterCare(R) Instructions(ER/ED)) (Citizen Of [place]) documented in this encounter Discharge Disposition Disposition Code Departure Means Destination Discharge to home or self care documented in this encounter ED Notes * Ann Dorsey PA - 07/03/2021 2:30 PM CST HPI Chief Complaint Patient presents with ??? COVID-19 EVALUATION Patient is a 70-year-old male who presented to the ER for COVID-19 testing. Patient states his wifehad to be tested prior to procedure and received positive test results today. He is currently asymptomatic and is requesting to be tested. He has no other complaints. History provided by: Patient energy director used: No Patient History: Patient Active Problem List Diagnosis Date Noted ??? 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 No past surgical history on file. No family history on file. Social History Tobacco Use ??? Smoking status: Former Smoker ??? Smokeless tobacco: Not on file Substance Use Topics ??? Alcohol use: Not on file ??? Drug use: Not on file Social History Social History Narrative ??? Not on file Review of Systems Review of Systems All other systems reviewed and are negative. Physical Exam ED Triage Vitals [07/03/21 1333] Temp Pulse Resp BP SpO2 36.4 ??C (97.6 ??F) 57 16 168/56 98 % Temp src Heart Rate Source Patient Position BP Location FiO2 (%) Oral -- -- -- -- Labs Reviewed INFLUENZA A/B, RSV, AND COVID-19 PCR Result Value COVID-19 RNA Negative Influenza A RNA Negative Influenza B RNA Negative RSV RNA Negative First COVID-19 test? No Employeed in healthcare? No Group care resident? No Hospitalized? No Is patient in ICU? No Symptomatic as defined by CDC? No Narrative: Reason for testing?->Known exposure to confirmed or suspected COVID-19 case Known exposure to confirmed or suspected COVID-19 case?->No Physical Exam Vitals and nursing note reviewed. Constitutional: General: He is not in acute distress. HENT: Head: Normocephalic. Right Ear: External ear normal. Left Ear: External ear normal. Nose: Nose normal. Mouth/Throat: Mouth: Mucous membranes are moist. Eyes: Conjunctiva/sclera: Conjunctivae normal. Cardiovascular: Rate and Rhythm: Normal rate. Pulmonary: Effort: Pulmonary effort is normal. No respiratory distress. Musculoskeletal: Cervical back: Neck supple. Right lower leg: No edema. Left lower leg: No edema. Skin: General: Skin is warm and dry. Neurological: General: No focal deficit present. Mental Status: He is alert. Psychiatric: Mood and Affect: Mood normal. Behavior: Behavior normal. MDM Medical Decision Making Differential Diagnosis or Management Options: Patient tested negative for COVID-19. This examination was transcribed using the [employer] voice recognition system without human vulcanizer operator. In an effort to expedite patient care, this report has not been adjusted for typographical, grammatical, and syntax by a trained medical supply technician. They agree with: Discharge Final diagnoses: Close exposure to COVID-19 virus Ann Dorsey PA 07/03/21 1456 Cosigned by Daniel Munoz MD at 07/03/2021 3:25 PM QC SCIENTIST SCIENTIST SCIENTIST * Anselmo Ames RN - 07/03/2021 1:32 PM CST Pt is requesting to be Covid tested. Pt denies having any symptoms but reports his tested positive so he wants to be tested. SCIENTIST documented in this encounter Plan of Treatment Not on file documented as of this encounter Procedures Procedure Name Priority Date/Time Associated Diagnosis Comments INFLUENZA A/B, RSV, AND COVID-19 PCR Routine 07/03/2021 1:37 PM QC SCIENTIST documented in this encounter Results * Influenza A/B, RSV, and COVID-19 PCR Nasopharyngeal (07/03/2021 1:37 PM QC SCIENTIST) COVID-19 RNA Negative Negative JOHANA Comment:Testing performed by : [facility] [address] [place] [address], [place]., [address] Influenza A RNA Negative Negative JOHANA Comment:Testing performed by : [address], [place]., [address] Influenza B RNA Negative Negative JOHANA Comment:Testing performed by : [address], [place]., [address] RSV RNA Negative Negative JOHANA Comment: Interpretive data: This test is performed using the Trutaper[employer] Xpress CoV-2/Flu/RSV plus assay. This is a multiplex, real-time reverse transcriptase PCR assay intended for the qualitative detection of nucleic acid from SARS-CoV-2, influenza A, influenza B, and respiratory syncytial virus. This assay has been reviewed by the FDA for Emergency Use Authorization (EUA). The performance characteristics have been verified by the performing laboratory. Results must be considered in the clinical context, and a negative result does not rule out infection. Interpretive Data last revised 2021. Testing performed by: [address] [address] First COVID-19 test? No JOHANA Comment:Testing performed by : [address], [place]., [address] Employeed in healthcare? No JOHANA Comment:Testing performed by : [address], [place]., [address] Group care resident? No JOHANA Comment:Testing performed by : [address], [place]., [address] Hospitalized? No JOHANA Comment:Testing performed by : [address], [place]., [address] Is patient in ICU? No JOHANA Comment:Testing performed by : [facility], [address] [place] [address]., [address] Symptomatic as defined by CDC? No JOHANA BLUE Comment:Testing performed by : [facility], [address] [place] [address]., [address] Nasopharyngeal 07/03/2021 1: 37 PM QC SCIENTIST 07/03/2021 1:41 PM QC SCIENTIST Narrative JOHANA BLUE - 07/03/2021 2:22 PM QC SCIENTIST Reason for testing?->Known exposure to confirmed or suspected COVID-19 case Known exposure to confirmed or suspected COVID-19 case?->No us Ann [facility] MICROBIOLOGY - GENERA L ORDERABLES Final Result JOHANA MIRZA [address] [facility] Department [place] [address] documented in this encounter Visit Diagnoses Diagnosis Close exposure to COVID-19 virus- Primary documented in this encounter Care Teams Printed Forms Proofreader Relationship Specialty Start Date End Date No, Physician PCP - General 07/15/20 Rosa Camacho NP Nurse Practitioner Neurology 08/09/20 documented as of this encounter
--- OUTSIDE RECORDS SUMMARY | 2024-07-22 05:53 | XMS_ITS | Continuity of Care Document ---
Author Organization [facility] Address [address] [place] [address] Phone Care Team Providers Care Validation Leader Name Role Phone Aguillon Luis KHALIL Unavailable Unavailab le Allergies, Adverse Reactions, Alerts Substance Reaction Status Criticality No Known Allergies Active No Inform ation Medications Medication Instructions Dosage Effective Dates (start - stop) Status Comments gabapentin 250 mg/5 mL oral solution take 6 milliliter by oral route 3 times every day 300 MG - Active Neurontin 100 mg capsule take 1 capsule by oral route 3 times every day 100 MG - Active bupropion HCl 100 mg tablet take 1 tablet by oral route 2 times every day 100 MG - Active amlodipine 5 mg tablet take 1 tablet by oral route every day 5 MG - Active losartan 50 mg tablet take 1 tablet by o ral route every day 50 MG - Active aripiprazole 2 mg tablet take 1 tablet by oral route every day 2 MG - Active Procedures Procedure Date X-ray Exam Hip Unilat With Pelvis When P erf 2-3 View Office/outpatient visit,est, mod 2022 Asp/inject major joint or bursa w/o US g uidance Kenalog 40mg/mL Global/Postop followup visit Global/Postop followup visit Arc 2 0 Sling [place] Arm Sling X-ray exam shoulder complete, minimum 2 views Office/outpatient visit,racquel barbosa 2021 Advance Directives Directive Yes / No Effective Date File Name No Information Encounters Encounter Description Practice Location Reason(s) For Visit Diagnoses Date Provider Providers Copied on Encounter Office/outpa tient visit,est, mod [facility], [address], [id number], [place] tel:[phone] [facility] left hip (chief complaint) Pain in left hipUnilateral primary osteoarthritis, left hipTrochanteric bursitis, left hip 3 Henna Smith. [address] [place] [address], [id number] , [place]. tel:[phone] Referring Provider: Luis Mcdonald, [address] [place] [address], [place], [address] . tel:[phone] [facility], [address], [id number], [place] tel:[phone] [facility] shoulder (chief complaint) Bicipital tendinitis, left shoulderBursitis of left shoulderComplete rotatr-cuff tear/ruptr of left shoulder, not traumaEncounter for other orthopedic aftercare Mar-0 2 House Dea . [address] [place] [address], [id number] , [place]. tel:[phone] [facility], [address], [id number], [place] tel:[phone] [facility] shoulder (chief complaint) Bicipital tendinitis, left shoulderBursitis of left shoulderComplete rotatr-cuff tear/ruptr of left shoulder, not traumaEncounter for other orthopedic aftercare [address] . [address] [place] [address], [address], [id number] , [place]. [phone] [facility], [address] [place], [id number], tel:[phone] [facility] Complete rotatr-cuff tear/ruptr of left shoulder, not trauma 2 Venkatesh Fields. [address] [address], [place], [place], [id number] , [place]. tel:[phone] [facility], [address], [id number], tel:[phone] [facility] Bicipital tendinitis, left shoulderBursitis of left shoulderComplete rotatr-cuff tear/ruptr of left shoulder, not trauma 2 Venkatesh Fields. [address], [id number] , [place]. [phone] Office/outpa tient visit,[facility], [address], [id number], tel:[phone] [facility] left shoulder pain (chief complaint) Pain in left shoulderComplete rotatr-cuff tear/ruptr of left shoulder, not traumaBicipital tendinitis, left shoulderBursitis of left shoulder 2 Venkatesh Fields. [address] [address], [place], [place], [id number] , [place]. tel: [phone] Referring Provider: Donnie Timmons, [address] [place] [address], [place], [address] . tel:[phone] Family History Family Member Type Diagnosis Age At Onset No Information Immunizations Vaccine Date Status Comments influenza, injectable, quadrivalent, (3 years or older) administered Note: per patient ; Source: Source Unspecified Payers Payer name Insurance type Covered republican ID Authoriza tion(s) [employer] Medicare HMO PPO Clai ms Office CI [id number] [facility] I Just Shared [facility] [id number] Social History Type Description Quantity Date Captured Comments Alcohol Use Details Unknown Caffeine Use Details Unknown Tobacco Use Status Ex-cigarette smoker 023 Smoking Status Former smoker Non-Smoking Tobacco Use Details : No Details Available : No Details Available Sex Male Vital Signs Date / Time: Height Weight BMI Pulse Rate Blood Pressure Temperature Respiratory Rate Body Surface Area Head Circumference Head Circ. Percentile Wt./Dante. Percentile BMI percentile Pulse Ox Inhaled Ox 8:56 AM 73.00 in 111.130 kg (245.00 lbs) 32.3 2 kg/m robbin (2) Chief Complaint And Reason For Visit From encounter dated '05/31/2023 08:45'. left hip (chief complaint). Description: Jesus presents to the office today for evaluation of hisacute, nontraumatic left hip pain. Denies injury, trauma, fall within the last year. Denies fever, chills, generalized feelings of illness or malaise. Pain has been present for 4 to 5 months, with a gradual development and no identifiable initiating event. He did present to his primary care who referred him to physical therapy and suggested cortisone injections. He indicates therapy is helpful itis just not curative and he feels he would like to try to obtain better control of his pain. He is experiencing stiffness and difficulty with placing socks and tying shoes. He rates his pain at a 7 out of 10 with a sharp intermittent nature located at the greater trochanteric region. Denies radiation of pain into the groin or gluteal region. Denies paresis or paresthesia. His pain is worsened with activity such as mowing the lawn, physical therapy, sitting for an extended period of time, range of motion and with running. He is utilizing ice, Aleve and therapy exercises for pain control. He isambulating without assistive device and accompanied to the visit by his . Reason For Referral Reason For Referral No Information Plan Of Treatment Date Type Action Status Referral Ordered: X-ray Exam Hip Unilat With Pelvis When Perf 2-3 View LT hip ordered Referral Ordered: X-ray exam shoulder complete, minimum 2 views LT shoulder ordered Future Order: Lab Order Basic Me tabolic Panel (BMP), Ordered on: Ordered History Of Present Illness Encounter Date Complaint History Of Prese nt Illness left hip Jesus presents to the office today for evaluation of his acute, nontraumatic left hip pain. Denies injury, trauma, fall within the last year. Denies fever, chills, generalized feelings of illness or malaise. Pain has been present for 4 to 5 months, with a gradual development and no identifiable initiating event. He did present to his primary care who referred him to physical therapy and suggested cortisone injections. He indicates therapy is helpful it is just not curative and he feels he would like to try to obtain better control of his pain. He is experiencing stiffness and difficulty with placing socks and tying shoes. He rates his pain at a 7 out of 10 with a sharp intermittent nature located at the greater trochanteric region. Denies radiation of pain into the groin or gluteal region. Denies paresis or paresthesia. His pain is worsened with activity such as mowing the lawn, physical therapy, sitting for an extended period of time, range of motion and with running. He is utilizing ice, Aleve and therapy exercises for pain control. He is ambulating without assistive device and accompanied to the visit by his . shoulder The patient retu rns 12 weeks from the above procedure. The patient has done well in the interim and notes no wound/skin problems, wound drainage, new neurological complaints, or abnormal swelling/calf pain. They have been compliant with the prescribed therapy and have progressed well. They are happy with their progress. shoulder The patient retu rns 5 weeks from the above procedure. The patient has done well in the interim and notes no wound/skin problems, wound drainage, new neurological complaints, or abnormal swelling/calf pain. They have been compliant with the prescribed weight bearing status per the patient's report and use of the sling. They have progressed well with prescribed physical therapy. left shoulder pain Jesus hilliard is a 71 year old male. He presents with pain and weakness on the left side. He states that the symptoms have been acute non-traumatic and began 9 months ago. The symptoms occur constantly with intermittent worsening. The problem is fluctuating. Currently the patient states that the symptoms are moderate-severe. The pain is described as aching, sharp and stabbing. The symptoms occur with activity. The patient is experiencing pain in the following location: lateral shoulder on the left side. The pain radiates to the upper arm on the left side. The symptoms are aggravated by abduction, daily activities, sleeping, lifting away from the body, moving the arm suddenly and reaching overhead. Jesus states that the symptoms are relieved by ice, otc medicines and rest. In addition to left shoulder pain the patient is also experiencing nocturnal awakening. Pertinent negatives include fever, joint instability and tingling in the arms. The patient has had a previous x-ray and MRI. Prior NSAIDs include unspecified NSAIDS. He has been treated with a corticosteroid injection on the left side. These sound like subacromial injections. The first in January or February provided several weeks if not months of relief. Pain however returned. The second was roughly a week ago, which he notes provided only a day or two of benefit. Patient has had previous therapy. He notes a full course of PT last summer/fall without resolution of his symptoms. Functional Status Date Functional Assessmen t No Information Instructions Date Instruction Additional Infor alonso Pathophysiology of b oth trochanteric bursitis and arthritic changes to the hip joint were discussed with the patient. Conservative treatment options were discussed including cortisone injection, physical therapy, the use of ice or heat, and the use of over the counter pain medications or NSAID type medications. As the pain is greater in the lateral thigh Jesus would like to proceed with cortisone injection into the left greater trochanteric bursa. Risks and benefits of cortisone were discussed. The frequency of injection schedule was discussed. If he does not obtain relief of pain or has changes to his pain he will notify the office and discuss left intra-articular joint injection under fluoroscopy. He demonstrates appropriate understanding of the diagnosis and the plan of care and will be seen as neededWritten for the procedure was obtained. The patient was placed in the right lateral decubitus position. The left greater trochanter was palpated. The skin was prepped with alcohol and chlorhexidine, anesthetized with Ethyl Chloride spray and a 22 gauge needle was used to introduce 80mg of Kenalog and 3mL of 0.5% Bupivacaine plain into the trochanteric bursal space. Pressure was held on the injection site for approximately 60 seconds after removal of needle. The area was then cleaned and a sterile bandage was placed. The procedure was completed without complication and was well tolerated by the patient. Patient was educated on post injection care instructions and discharged in stable condition.Dictation completed with [employer] software, grammatical variances and spelling errors may inadvertently occur. Related to Trochanteric bursitis, left hip The patient will to be WBAT and will continue physical therapy per protocol with progression to advanced strengthening, final ROM work, and functional progression. Ice, elevate, and use NSAIDs/Tylenol as able/needed. They may transition to a HEP if ready. The patient will return in 6 weeks for continued follow up if needed, otherwise is released to all activities at this point. Questions answered, verbalized. Related to Encounter for other orthopedic aftercare The details of the p rocedure performed and appropriate arthroscopic photos and any intraoperative imaging were discussed in detail with the patient.The patient will to be WBAT and will continue physical therapy per protocol with progression to advanced strengthening, final ROM work, and functional progression. Ice, elevate, and use NSAIDs/Tylenol as able/needed. The patient will return in 6 weeks for continued follow up and likely final release to all activities at that point. Questions answered, verbalized. Related to Encounter for other orthopedic aftercare Given his failure of non-operative treatments and his continued symptoms he is indicated for surgical intervention, although I can not say if this would be an arthroscopic debridement vs. more likely a rotator cuff repair. I suppose if irreparable then debridement, InSpace spacer placement and SAD might also be indicated. It does not appear given the x-rays with limited to no OA and his good motion that reverse would be needed. He is going to obtain the images of the MRI on a CD and the report and get them to me so I can review. Any surgical intervention that requires implants would need to be delayed until mid-October given the recent injection and we discussed this in detail today. In the interim he will continue to ice/use heat, use OTC meds, and do his HEP. Questions answered, verbalized understanding. ADDENDUM 09/15/21: I have obtained the MRI report and images. He has labral tearing, mild GH chondrosis, along with bursitis/impingement findings and biceps findings. His cuff is intact. Given the findings it would be reasonable to proceed with left shoulder arthroscopic debridement, capsular release, chondroplasty as appropriate, as well as SAD and tenodesis. We discussed the risks, benefits, and alternatives to surgery. We discussed in detail the perioperative restrictions, rehabilitation, and expected outcomes for the procedure as well as possible complications including but not limited to: , DVT/PE, heart attack, stroke, other medical complication, infection, injury to nerves, blood vessels, and soft tissues, continued pain, perceived failure of the surgery, and the possible need for further surgery in the future. The patient expressed their understanding and has elected to proceed at their earliest convenience. Medical clearance will be obtained as appropriate. Questions answered, verbalized understanding. Related to Bursitis of left shoulder Assessments Type Assessment Date assessment Pain in left hip assessment Unilateral primary osteoarthriti s, left hip assessment Trochanteric bursitis, left hip Patient Care Teams Name Effective Dates (start - stop) Status Members No Information
--- OUTSIDE RECORDS SUMMARY | 2024-07-22 05:53 | XMS_ITS | Continuity of Care Document ---
Author Organization [facility] Address [address] [address] Phone Care Team Providers Care Technical Solutions Engineer Name Role Phone Nicolás Michaels MD Unavailable Unavailable Procedures Procedure Date No Charge Initial Hospital Care Subsequent Hospital Care Advance Directives Directive Yes / No Effective Date File Name No Information Encounters Encounter Description Practice Location Reason(s) For Visit Diagnoses Date Provider Providers Copied on Encounter [facility], [address] [place] [address], [address], [phone] [facility] No Information 9 Brando Monzon. [address] [facility], [facility] [address], [place], [id number] , . [phone] Initial Hospital Care [facility], [address], [address], [phone] [facility] Acute kidney failure, unspecifiedDehydrat ionHyperkalemia 9 Brando Monzon. [address] [facility], [facility] [address], [place], [id number] , [place]. tel:[phone] Referring Provider: Dylan Tatum, [address] [facility] [address], [place], [address]. tel:[phone] Subsequent Hospital Care [facility], [address], [address], [phone] [facility] Acute kidney failure, unspecifiedDehydrat ionHyperkalemia 9 Brando Monzon. [address] [facility], [address], [place], [place], [id number] , [place]. tel: [phone] Referring Provider: Dylan Tatum, [address] [facility] [address], [place], [address]. tel:[phone] Family History Family Member Type Diagnosis Age At Onset No Information Payers Payer name Insurance type Covered constitution party ID Authoriza tion(s) Medicare [place] Primary [id number] [facility] [id number] Social History Type Description Quantity Date Captured Comments Sex Male Smoking Status No Information Chief Complaint And Reason For Visit No Information History Of Present Illness Encounter Date Complaint History Of Prese nt Illness No Information Instructions Date Instruction Additional Infor mation No Information Assessments Type Assessment Date No Information
--- OUTSIDE RECORDS SUMMARY | 2024-07-22 05:53 | XMS_ITS | Encounter Summary ---
Author Organization [facility] Address [address] [place] [address] Care Team Providers Care Global Climate Change Analyst Name Role Phone No, Physician Primary Care Provider [phone] Encounter Details Date Type Department Care Team (Late st Contact Info) Description 08/05/2020 8:29 PM NETWORK ASSOCIATE - 08/05/2020 11:30 PM NETWORK ASSOCIATE Emergency [facility] Emergency Department [address] [place] [address] Miley Wallace MD [address] [facility] [address] [place] [address] Unknown, Notinfile Discharge Disposition: Discharge to home or self care Social History Tobacco Use Types Packs/Day Years Used Date Smoking Tobacco: Former Sex and Gender Information Value Date Recorded Sex Assigned at Not on file Legal Sex Male 10:38 AM NETWORK ASSOCIATE Gender Identity Not on file Sexual Orientation Not on file documented as of this encounter Last Filed Vital Signs Vital Sign Reading Time Taken Comments Blood Pressure 145/56 08/05/2020 8:32 PM NETWORK ASSOCIATE Pulse 55 08/05/2020 8:32 PM NETWORK ASSOCIATE Temperature 36.4 ??C (97.5 ??F) 08/05/2020 8:32 PM CS T Respiratory Rate - - Oxygen Saturation 96% 08/05/2020 8:32 PM NETWORK ASSOCIATE Inhaled Oxygen Concentration - - Weight 107.8 kg (237 lb 10.5 oz) 08/05/2020 8:32 PM NETWORK ASSOCIATE Height 190.5 cm (6' 3 ) 08/05/2020 8:32 PM NETWORK ASSOCIATE Body Mass Index 29.71 08/05/2020 8:32 PM NETWORK ASSOCIATE documented in this encounter Discharge Disposition Disposition Code Departure Means Destination Discharge to home or self care documented in this encounter Plan of Treatment Not on file documented as of this encounter Procedures Procedure Name Priority Date/Time Associated Diagnosis Comments SCAN - LABS 08/09/2020 12:00 AM NETWORK ASSOCIATE TNI WITH LIPID PANEL Routine 08/05/2020 8:46 PM NETWORK ASSOCIATE CBC WITH AUTO DIFFERENTIAL Routine 08/05/2020 8:46 PM NETWORK ASSOCIATE APTT Routine 08/05/2020 8:46 PM NETWORK ASSOCIATE PROTIME-INR Routine 08/05/2020 8:46 PM NETWORK ASSOCIATE COMPREHENSIVE METABOLIC PANEL Routine 08/05/2020 8:46 PM NETWORK ASSOCIATE ECG 12-LEAD 08/05/2020 8:39 PM NETWORK ASSOCIATE XR CHEST 1 VIEW 08/05/2020 12:[address] HEAD WO CONTRAST 08/05/2020 1 2:00 AM NETWORK ASSOCIATE documented in this encounter Results * SCAN - LABS (08/09/2020 12:00 AM NETWORK ASSOCIATE) Narrative 08/09/2020 12:00 AM NETWORK ASSOCIATE Ordered by an unspecified provider. us Historical Provider Final Res ult * (ABNORMAL) TNI with LIPID PANEL (08/05/2020 8:46 PM NETWORK ASSOCIATE) Troponin I <0.300 0.000 - 0.300 ng/mL [facility] Comment: Reference using PATRICIA Chemiluminescence ? Negative: Repeat in 4-6 hours as indicated. Triglycerides 250(H) 0 - 149 mg/dL [facility] Comment: National Lipid Association/NCEP Guidelines: ?? Normal ?< 150 mg/dL ?? Borderline high ?? 150-199 mg/dL ?? High ?200-499 mg/dL ?? Very High ? >=500 mg/dL Cholesterol 162 0 - 199 mg/dL [facility] Comment: National Lipid Association/NCEP Guidelines: Desirable ? < 200 mg/dL Borderline high: ??200-239 mg/dL High Risk: ?>=240 mg/dL HDL Cholesterol 45 mg/dL [facility] Comment: Reference Ranges: ? Males: >=40 mg/dL ? Females: >=50 mg/dL LDL Cholesterol, Calc 67 0 - 129 mg/dL [facility] Comment: National Lipid Association/NCEP Guidelines: ??Optimal ? < 100 mg/dL ??Near Optimal ?100-129 mg/dL ??Borderline high 130-159 mg/dL ??High ?>=160 mg/dL Cholesterol/HDL Ratio 3.6 [facility] Comment: Optimal ??< 3.5:1 High ? > 5:1 08/05/2020 8:46 PM NETWORK ASSOCIATE 08/05/2020 8:54 PM NETWORK ASSOCIATE Narrative Resulting Agency Comment ER us Miley Wallace MD LAB BLOOD ORDERABLES Camelia veronica Result [facility] [address] [phone] * (ABNORMAL) Comprehensive metabolic panel (08/05/2020 8:46 PM NETWORK ASSOCIATE) Sodium 141 135 - 145 mmol/L [facility] Potassium 4.0 3.3 - 5.1 mmol/L [facility] Chloride 107 96 - 108 mmol/L [facility] Carbon Dioxide 26 22 - 32 mmol/L [facility] Anion Gap 8 7 - 16 [facility] Glucose 89 70 - 100 mg/dL [facility] BUN 23 8 - 25 mg/dL [facility] Creatinine 1.2 0.5 - 1.3 mg/dL [facility] Comment: NOTE: Estimated GFR (Cockroft-Gault) will NOT be calculated unless patient Height and Weight were entered. Also, Kidney Disease Stage (GFR) and Estimated GFR (Cockroft-Gault) will NOT be calculated if Creatinine result is <0.2. Kidney Disease Stage 64 mL/MIN [facility] Comment: NOTE; ??The GFR is an estimated value using the creatinine, sex, age, and race of the patient. THE Estimated Kidney Disease GFR is validated for AGES 18-70 YEARS STAGE ?mL/Min ?DESCRIPTION ??1 ?90 mL/min or more ?Normal or elevated GFR ??2 ? 60-89 mL/min ?Mildly decreased GFR ??3 ? 30-59 mL/min ?Moderately decreased GFR ??4 ? 15-29 mL/min ?Severely decreased GFR ??5 ? <15 mL/min ? Kidney failure or on dialysis Est GFR (Cockcroft-G) 78 ml/MIN [facility] Comment: Estimated GFR(Cockroft-Gault)is used to calculate patient medication dosage Calcium 9.8 8.6 - 10.3 mg/dL [facility] Total Protein 6.5 6.4 - 8.3 g/dL [facility] Albumin 4.5 3.5 - 5.0 g/dL [facility] Globulin 2.0(L) 2.3 - 3.5 gm/dL [facility] Albumin/Globulin Ratio 2.3(H) 1.1 - 1.8 [facility] Total Bilirubin 0.4 0.0 - 1.2 mg/dL [facility] AST 26 0 - 40 U/L [facility] ALT 25 0 - 41 U/L [facility] Alkaline Phosphatase 82 40 - 129 U/L [facility] 08/05/2020 8:46 PM NETWORK ASSOCIATE 08/05/2020 8:54 PM NETWORK ASSOCIATE Narrative Resulting Agency Comment ER Miley Wallace MD LAB BLOOD ORDERABLES Camelia l Result Performing Organization Address [facility] Co de Phone Number [address] [phone] * (ABNORMAL) aPTT (08/05/2020 8:46 PM NETWORK ASSOCIATE) APTT 44(H) 23 - 38 SECONDS [facility] Comment: New reference ranges in use 04-13-2020. 08/05/2020 8:46 PM NETWORK ASSOCIATE 08/05/2020 8:54 PM NETWORK ASSOCIATE Narrative Resulting Agency Comment ER Miley Wallace MD LAB BLOOD ORDERABLES Camelia l Result Performing Organization Address [facility] de Phone Number [address] [phone] * Protime-INR (08/05/2020 8:46 PM NETWORK ASSOCIATE) PT 13.1 12.3 - 15.1 SECONDS [facility] Comment: New reference ranges in use 04-13-2020. INR 0.95 [facility] Comment: Recommended Therapeutic range for Oral Anticoagulant Therapy No anti-coagulation therapy ? Normal Range: ?0.8-1.4 Anti-coagulation therapy ? Low intensity therapy ?2.0-3.0 ? High intensity therapy ?? 2.5-3.5 Critical Value ? Greater than or equal to 5.0 Patients should be monitored for serious bleeding. 08/05/2020 8:46 PM NETWORK ASSOCIATE 08/05/2020 8:54 PM NETWORK ASSOCIATE Narrative Resulting Agency Comment ER us Miley Wallace MD LAB BLOOD ORDERABLES Camelia glenys Result [facility] [address] [phone] * (ABNORMAL) CBC with auto differential (08/05/2020 8:46 PM NETWORK ASSOCIATE) WBC 5.6 3.8 - 9.9 X10 3/ul [facility] RBC 4.29(L) 4.30 - 5.80 x10 6/ul [facility] Hemoglobin 12.8(L) 13.0 - 17.5 g/dL [facility] Hct 37.7(L) 38.9 - 50.3 % [facility] MCV 87.9 81.3 - 96.4 fl [facility] MCH 29.8 27.1 - 33.3 pg [facility] MCHC 34.0 32.3 - 35.7 g/dl [facility] RDW 12.6 11.1 - 14.9 % [facility] Plt Count 257 150 - 400 x10 3/ul [facility] MPV 10.0 9.1 - 12.3 fl [facility] Neut % 59.3 % [facility] Immature Gran % 0.4 % [facility] Lymph % 27.3 % [facility] Micrima AST - [employer] Yoakum % 10.3 % [facility] E AST - [employer] Eos % 2.2 % [facility] E AST - [employer] AUTO BASO % 0.5 % [facility] NEUTROPHIL ABS # 3.3 1.7 - 6.5 x10 3/ul [facility] Immature Gran # 0.0 0.0 - 0.1 x10 3/ul [facility] Absolute Lymphs (auto) 1.5 0.8 - 3.3 x10 3/ul [facility] Absolute Monos (auto) 0.6 0.2 - 0.8 x10 3/ul [facility] Absolute Eos (auto) 0.1 0.0 - 0.5 x10 3/ul [facility] BASOPHIL ABS # 0.0 0.0 - 0.1 x10 3/ul [facility] Nucleat RBC Rel Count 0.0 #/100WBC [facility] NRBC abs 0.00 0.00 - 0.01 x10 3/ul [facility] Absolute Neutrophils 3,300 200 - 8,000 /ul [facility] 08/05/2020 8:46 PM NETWORK ASSOCIATE 08/05/2020 8:54 PM NETWORK ASSOCIATE Narrative Resulting Agency Comment ER us Miley Wallace MD LAB BLOOD ORDERABLES Camelia l Result Performing Organization Address [facility]/ZIP Co de Phone Number [address] [phone] * ECG 12 lead (08/05/2020 8:39 PM NETWORK ASSOCIATE) Ventricular Rate EKG/Min 60 BPM [facility] Atrial Rate 60 BPM [facility] [place]-Interval (MSEC) 166 ms [facility] QRS-Interval (MSEC) 96 ms [facility] QT-Interval (MSEC) 416 ms [facility] QTc 416 ms [facility] P [place] 33 degrees [facility] R [place] 18 degrees [facility] T [place] 17 degrees [facility] Diagnosis Normal sinus rhythm Normal ECG No previous ECGs available [facility] 08/05/2020 8:39 PM NETWORK ASSOCIATE 08/06/2020 2:56 PM NETWORK ASSOCIATE Narrative Resulting Agency Comment MITA us Miley Wallace MD ECG ORDERABLES Final Res ult Performing Organization Address City/[facility]/ZIP Co de Phone Number [facility] * CT Head WO Contrast (08/05/2020 12:00 AM NETWORK ASSOCIATE) Anatomical Region Laterality Modality Head and Neck N/A Computed Tomogra phy 08/05/2020 10:3 6 PM NETWORK ASSOCIATE Narrative 08/05/2020 10:44 PM NETWORK ASSOCIATE Patient Name: MORELIA SANCHEZ ?Ordering Dr: Miley Wallace MD ?? D.O.B: 1950 ? Exam Date: 08/05/20 ?? 0000 ?? Age: 70 ?Sex: Male ? MR#: [id number] ?? Loc: ? RADIOLOGY REPORT ?? Order #[id number] ?? CT Scan ? CT Head WO IV Contrast ? Signed ? EXAM DESCRIPTION: ?? CT Head WO IV Contrast ? REASON FOR STUDY: ?? Intermittent dizziness since yesterday. ??Fell. ??Nausea ?? today. ? TECHNIQUE: ??Axial images acquired through the brain without intravenous ?? contrast. ??Images stored on PACS. ?? Automated exposure control was used as a ?? dose optimization technique for this examination. ? COMPARISON: ?? None ? FINDINGS: ? BRAIN: ??No hemorrhage, edema or mass effect. No recent infarct. ??Mild chronic ?? ischemic changes in the periventricular white matter bilaterally. ??Mild ?? generalized ventricular dilatation. ??No midline shift or focal atrophy. ? EXTRA-AXIAL SPACES: ??No fluid collections. No masses. ? CALVARIUM: ??No fracture. ? SINUSES/MASTOIDS: ??No fluid or mucosal thickening. ? ORBITS: ??No significant abnormality. ? OTHER: ??No other significant abnormality. ? IMPRESSION: ?? No acute intracranial findings. ? THIS IS AN ELECTRONICALLY VERIFIED FINAL REPORT ?? 08/05/2020 10:44 PM - Electronically signed by Stone Amaro M.D. ?? Stone Amaro M.D. ? DL: DL ?? D: ??08/05/2020 10:44 PM ?? T: ??08/05/2020 10:44 PM ? Report ID: [id number] ?? Reading Location: ??[id number] ? REPORT ELECTRONICALLY SIGNED IN OTHER VENDOR SYSTEM ?? Resulting Agency Comment E Procedure Note Stnoe Amaro MD - 08/05/2020 Patient Name: MORELIA SANCHEZ Dr: Miley Wallace MD D.O.B: 1950 Exam Date: 08/05/20 0000 Age: 70 Sex: Male MR#: [id number] Loc: RADIOLOGY REPORT Order #[id number] CT Scan CT Head WO IV Contrast Signed EXAM DESCRIPTION: CT Head WO IV Contrast REASON FOR STUDY: Intermittent dizziness since yesterday. Fell.Nausea today. TECHNIQUE: Axial images acquired through the brain without intravenous contrast. Images stored on PACS. Automated exposure control was usedas a dose optimization technique for this examination. COMPARISON: None FINDINGS: BRAIN: No hemorrhage, edema or mass effect. No recent infarct. Mildchronic ischemic changes in the periventricular white matter bilaterally. Mild generalized ventricular dilatation. No midline shift or focal atrophy. EXTRA-AXIAL SPACES: No fluid collections. No masses. CALVARIUM: No fracture. SINUSES/MASTOIDS: No fluid or mucosal thickening. ORBITS: No significant abnormality. OTHER: No other significant abnormality. IMPRESSION: No acute intracranial findings. THIS IS AN ELECTRONICALLY VERIFIED FINAL REPORT 08/05/2020 10:44 PM - Electronically signed by Stone Amaro M.D. DL: [place] Report ID: [id number] Reading Location: [place] [address] REPORT ELECTRONICALLY SIGNED IN OTHER VENDOR SYSTEM us Miley Wallace MD IMG CT PROCEDURES Final R esult * XR Chest 1 View (08/05/2020 12:00 AM NETWORK ASSOCIATE) Anatomical Region Laterality Modality Body, Chest N/A Radiographic Scarlet ging 08/05/2020 9:17 PM NETWORK ASSOCIATE Narrative 08/05/2020 9:18 PM NETWORK ASSOCIATE Patient Name: MORELIA SANCHEZ ?Ordering Dr: Miley Wallace MD ?? D.O.B: 1950 ? Exam Date: 08/05/20 ?? 0000 ?? Age: 70 ?Sex: Male ? MR#: [id number] ?? Loc: ? RADIOLOGY REPORT ?? Order #[id number] ?? Radiology ? Chest 1 View Portable ? Signed ? EXAM DESCRIPTION: ?? Chest 1 View Portable ? REASON FOR STUDY: ?? DIZZINESS AND NASUEA FOR 2 DAYS ? TECHNIQUE: ?? Frontal radiographic view of the chest acquired. ? COMPARISON: ?? None available. ? FINDINGS: ? LUNGS/PLEURA: ??No focal consolidation or pneumothorax. No pleural effusion. ? HEART/MEDIASTINUM: ??Heart size is mildly enlarged. ??Normal mediastinal and ?? hilar contours. ? HARDWARE/LINES/TUBES: ??None. ? BONES: ??No acute findings. ? OTHER: ??Mild elevation of the left hemidiaphragm is nonspecific. ??The ?? visualized stomach appears gas-filled. ? IMPRESSION: ??1. ??No acute cardiopulmonary abnormality. ? 2. ??Mild cardiomegaly. ? 3. ??Nonspecific elevation of left hemidiaphragm with a gas-filled stomach, ?? incompletely imaged. ? THIS IS AN ELECTRONICALLY VERIFIED FINAL REPORT ?? 08/05/2020 9:18 PM - Electronically signed by Anselmo Whittaker ?? Anselmo Whittaker ? ML: ML ?? D: ??08/05/2020 9:18 PM ?? T: ??08/05/2020 9:18 PM ? Report ID: [id number] ?? Reading Location: ??[id number] ? REPORT ELECTRONICALLY SIGNED IN OTHER VENDOR SYSTEM ?? Resulting Agency Comment P Procedure Note Anselmo Whittaker MD - 08/05/2020 Patient Name: MORELIA SANCHEZ Dr: Miley Wallace MD D.O.B: 1950 Exam Date: 08/05/20 0000 Age: 70 Sex: Male MR#: [id number] Loc: RADIOLOGY REPORT Order #[id number] Radiology Chest 1 View Portable Signed EXAM DESCRIPTION: Chest 1 View Portable REASON FOR STUDY: DIZZINESS AND NASUEA FOR 2 DAYS TECHNIQUE: Frontal radiographic view of the chest acquired. COMPARISON: None available. FINDINGS: LUNGS/PLEURA: No focal consolidation or pneumothorax. No pleuraleffusion. HEART/MEDIASTINUM: Heart size is mildly enlarged. Normal mediastinaland hilar contours. HARDWARE/LINES/TUBES: None. BONES: No acute findings. OTHER: Mild elevation of the left hemidiaphragm is nonspecific. The visualized stomach appears gas-filled. IMPRESSION: 1. No acute cardiopulmonary abnormality. 2. Mild cardiomegaly. 3. Nonspecific elevation of left hemidiaphragm with a gas-filledstomach, incompletely imaged. THIS IS AN ELECTRONICALLY VERIFIED FINAL REPORT 08/05/2020 9:18 PM - Electronically signed by Anselmo Whittaker ML: ML Report ID: [id number] Reading Location: [id number] REPORT ELECTRONICALLY SIGNED IN OTHER VENDOR SYSTEM Miley Wallace MD IMG XR PROCEDURES Final R esult documented in this encounter Visit Diagnoses Not on filedocumented in this encounter Care Teams Global Climate Change Analyst Relationship Specialty Start Date End Date No, Physician PCP - General 07/15/20 documented as of this encounter
--- OUTSIDE RECORDS SUMMARY | 2024-07-22 05:53 | XMS_ITS | Continuity of Care Document ---
Author Name [facility] Organization [facility] Care Team Providers Care Specification Consultant Name Role Phone [facility] Unavailable Unavailable Problems Combined list of problems from Department of Defense and Veterans Affairs facilities. It does not include entries that were removed or entered in error. Problem Status Onset Date Problem Type Date of Resolution Comments Source Alzheimer's disease Active Condition [facility] Chronic kidney disease Active Condition [facility] Exposure to potentially hazardous substance ([facility] [id number]) Active Condition Jul 01 4 Entered By: YARITZA GOLDSTEIN Comment: Entered automatically through ARMINDA Problem List documentation program JESSICA BARRON [facility] Hyperlipidemia Active Condition [facility] Hypertension Active Condition [facility] Tremor Active Condition [facility] Diagnosis: ICD-10-CM I10 Essential (primary) hypertension Active Diagnosis [facility] Medications Combined list of outpatient medications from Department of Defense and Veterans Affairs facilities.Medications provided include 1) outpatient medications from the last 15 months, and 2) patient-reported medications. Medication Details Route Status Patient Instructions Prescription Expires Prescription Number Last Dispense Date Ordering Provider Order Date Order Qty Source AMLODIPINE BESYLATE (AMLODIPINE BESYLATE), 5 MG, TABLET, ORAL, EX[facility]AN PHARMACE, 1000 ea. BOTTLE Cancele d [id number] : 2023 0 Pharmac y Data Transac tion Service Facilit y AMLODIPINE BESYLATE (AMLODIPINE BESYLATE), 5 MG, TABLET, ORAL, [facility], 1000 ea. BOTTLE Cancele d [id number] : 2023 0 Pharmac y Data Transac tion Service Facilit y AMLODIPINE BESYLATE (AMLODIPINE BESYLATE), 5 MG, TABLET, ORAL, [facility], 1000 ea. BOTTLE Active [id number] 4 2023 90 Pharmac y Data Transac tion Service Facilit y AMLODIPINE BESYLATE (AMLODIPINE BESYLATE), 5 MG, TABLET, ORAL, [facility], 1000 ea. BOTTLE Active [id number] 4 2023 90 Pharmac y Data Transac tion Service Facilit y AMLODIPINE BESYLATE (amlodipine besylate), 5 MG, TABLET, [facility], [facility], 1000 ea. BOTTLE Active [id number] 2023 90 Pharmac y Data Transac [...] ORAL, [employer] LINDSEY, 1000 ea. BOTTLE Active [id number] 2023 90 Pharmac y Data Transac tion Service Facilit y ATORVASTATI N CALCIUM (atorvastat in calcium), 20 MG, TABLET, ORAL, [facility], 500 ea. BOTTLE Active [id number] 2023 90 Pharmac y Data Transac tion Service Facilit y BUPROPION (WELLBUTRIN XL) 24HR TAB,SA (EXTENDED RELEASE) TAKE 450 MGS BY MOUTH ONCE A DAY ORAL ACTIVE PAT,KALANI A D 2023 [facility] BUPROPION XL (bupropion HCl), 150 MG, TAB ER 24H, ORAL, [employer], 30 ea. BOTTLE Active [id number] 4 2023 90 Pharmac y Data Transac tion Service Facilit y BUPROPION XL (bupropion HCl), 150 MG, TAB ER 24H, ORAL, [employer] 500 ea. BOTTLE Active [id number] 2023 90 Pharmac y Data Transac tion Service Facilit y BUPROPION XL (bupropion HCl), 150 MG, TAB ER 24H, ORAL, [employer] 500 ea. BOTTLE Active [id number] 4 2023 90 Pharmac y Data Transac tion Service Facilit y BUPROPION XL (bupropion HCl), 300 MG, TAB ER 24H, ORAL, [employer], 500 ea. BOTTLE Active [id number] 4 2023 90 Pharmac y Data Transac tion Service Facilit y BUPROPION XL (bupropion HCl), 300 MG, TAB ER 24H, ORAL, [facility], 500 ea. BOTTLE Cancele d [id number] : 2023 0 Pharmac y Data Transac tion Service Facilit y BUSPIRONE HCL (buspirone HCl), 10 MG, TABLET, ORAL, [employer] 500 ea. BOTTLE Active [id number] 4 2023 360 Pharmac y Data Transac tion Service Facilit y BUSPIRONE HCL (buspirone HCl), 10 MG, TABLET, ORAL, [employer] 500 ea. BOTTLE Cancele d [id number] : 2023 0 Pharmac y Data Transac tion Service Facilit y BUSPIRONE HCL (BUSPIRONE HCL), 10MG, TABLET, ORAL, [employer], 100 ea. BOTTLE Active [id number] 2023 120 Pharmac y Data Transac tion Service Facilit y BUSPIRONE HCL (BUSPIRONE HCL), 10MG, TABLET, ORAL, [employer], 100 ea. BOTTLE Active [id number] 2023 120 Pharmac y Data Transac tion Service Facilit y BUSPIRONE HCL 10MG TAB TAKE ONE TABLET BY MOUTH THREE TIMES A DAY ORAL ACTIVE KALANI STEWART 2023 [facility] GABAPENTIN (gabapentin ), 600 MG, TABLET, ORAL, EX[facility]ARMACE, 500 ea. BOTTLE Active [id number] 4 2023 90 Pharmac y Data Transac tion Service Facilit y GABAPENTIN (gabapentin ), 600 MG, TABLET, ORAL, [facility], 500 ea. BOTTLE Active [id number] 2023 90 Pharmac y Data Transac tion Service Facilit y INGREZZA (valbenazin e tosylate), 40 MG, CAPSULE, ORAL, NE[employer], 30 ea. BOTTLE Active [id number] 2023 30 Pharmac y Data Transac tion Service Facilit y INGREZZA (valbenazin e tosylate), 40 MG, CAPSULE, ORAL, NEURO[employer] BIOS, 30 ea. BOTTLE Active [id number] 2023 30 Pharmac y Data Transac tion Service Facilit y INGREZZA (valbenazin e tosylate), 40 MG, CAPSULE, ORAL, NEUROCRINE BIOS, 30 ea. BOTTLE Active [id number] 2023 30 Pharmac y Data Transac tion Service Facilit y INGREZZA (valbenazin e tosylate), 40 MG, CAPSULE, ORAL, NEURO[employer]INE BIOS, 30 ea. BOTTLE Active [id number] 2023 30 Pharmac y Data Transac tion Service Facilit y INGREZZA (valbenazin e tosylate), 40 MG, CAPSULE, ORAL, NEUROCRINE BIOS, 30 ea. BOTTLE Active [id number] 2023 30 Pharmac y Data Transac tion Service Facilit y INGREZZA (valbenazin e tosylate), 40 MG, CAPSULE, ORAL, NEUROCRINE BIOS, 30 ea. BOTTLE Active [id number] 2023 30 Pharmac y Data Transac tion Service Facilit y INGREZZA (valbenazin e tosylate), 40 MG, CAPSULE, ORAL, NEUROCRINE BIOS, 30 ea. BOTTLE Active [id number] 4 2023 30 Pharmac y Data Transac tion Service Facilit y IPRATROPIUM BROMIDE (IPRATROPIU M BROMIDE), 42MCG, SPRAY, NASAL, BAUSCH &LOMB RX, 15 ml CANISTER Active [id number] 2023 15 Pharmac y Data Transac tion Service Facilit y LOSARTAN POTASSIUM (losartan potassium), 100 MG, TABLET, ORAL, [facility] PHARMACE, 1000 ea. BOTTLE Active [id number] 2023 90 Pharmac y Data Transac tion Service Facilit y LOSARTAN POTASSIUM (losartan potassium), 100 MG, TABLET, ORAL, XLCARE PHARMACE, 1000 ea. BOTTLE Active [id number] 2023 90 Pharmac y Data Transac tion Service Facilit y LOSARTAN POTASSIUM 100MG TAB TAKE ONE TABLET BY MOUTH ONCE A DAY ORAL ACTIVE PAT,KALANI A D 2023 [facility] MEMANTINE HCL (memantine HCl), 10 MG, TABLET, ORAL, [facility], 60 ea. BOTTLE Active [id number] 4 2023 90 Pharmac y Data Transac tion Service Facilit y MEMANTINE HCL 10MG TAB TAKE ONE TABLET BY MOUTH TWICE A DAY ORAL ACTIVE PAT,KALANI A D 2023 [facility] METRONIDAZO LE (metronidaz ole), 1 %, GEL (GRAM), TOPICAL, [facility], 60 g TUBE Active [id number] 2023 60 Pharmac y Data Transac tion Service Facilit y PROPRANOLOL HCL (propranolo l HCl), 10 MG, TABLET, ORAL, [employer] 1000 ea. 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 (MOD) Not Given COVID-19, mRNA, LNP-S, [...] Reference Range Date Interpretation Specimen Comments Source CBC LEUKOCYTES [#/VOLUME] IN BLOOD BY AUTOMATED COUNT 5.3 10*3/u L 3.6 - 11.2 05/26 Specimen Type: BLOOD No comment entered. Ordering Provider: CARLIN STEWART Report Released Date/Time: May 20, 2024 03:03 PM Reporting Lab: [address] [phone] Performing Lab: [address] [phone] [place] [address] CBC ERYTHROCYTE S [#/VOLUME] IN BLOOD BY AUTOMATED COUNT 4.06 10*6/u L 4.10 - 5.70 05/26 L Specimen Type: BLOOD No comment entered. Ordering Provider: CARLIN STEWART Report Released Date/Time: May 20, 2024 03:03 PM Reporting Lab: [address] [address] Performing Lab: [address] [address] [facility] CBC HEMOGLOBIN [MASS/VOLUM E] IN BLOOD 12.3 g/dL 13.1 - 16.8 05/26 L Specimen Type: BLOOD No comment entered. Ordering Provider: CARLIN STEWART Report Released Date/Time: May 20, 2024 03:03 PM Reporting Lab: [address] [address] Performing Lab: [address] [phone] [facility] CBC HEMATOCRIT [VOLUME FRACTION] OF BLOOD 36.8 38.2 - 48.4 05/26 L Specimen Type: BLOOD No comment entered. Ordering Provider: CARLIN STEWART Report Released Date/Time: May 20, 2024 03:03 PM Reporting Lab: [address] [address] Performing Lab: [address] [address] [facility] CBC MCV [ENTITIC VOLUME] BY AUTOMATED COUNT 90.6 fL 80.0 - 100.0 05/26 Specimen Type: BLOOD No comment entered. Ordering Provider: CARLIN STEWART Report Released Date/Time: May 20, 2024 03:03 PM Reporting Lab: [facility] [address] [place] [phone] Performing Lab: [facility] [address] [place] [phone] [place] [address] CBC MCH [ENTITIC MASS] BY AUTOMATED COUNT 30.3 pg 27.0 - 34.0 05/26 Specimen Type: BLOOD No comment entered. Ordering Provider: CARLIN STEWART Report Released Date/Time: May 20, 2024 03:03 PM Reporting Lab: [facility] [address] [place] [phone] Performing Lab: [address] [phone] [place] [address] CBC MCHC [MASS/VOLUM E] BY AUTOMATED COUNT 33.4 g/dL 33.0 - 36.0 05/26 Specimen Type: BLOOD No comment entered. Ordering Provider: CARLIN STEWART Report Released Date/Time: May 20, 2024 03:03 PM Reporting Lab: [facility] [address] [place] [phone] Performing Lab: [facility] [address] [place] [phone] [place] [address] CBC PLATELETS [#/VOLUME] IN BLOOD BY AUTOMATED COUNT 194 10*3/u L 150 - 400 05/26 Specimen Type: BLOOD No comment entered. Ordering Provider: CARLIN STEWART Report Released Date/Time: May 20, 2024 03:03 PM Reporting Lab: [facility] [address] [place] [phone] Performing Lab: [facility] [address] [place] [phone] [place] [address] CBC PLATELET MEAN VOLUME [ENTITIC VOLUME] IN BLOOD BY AUTOMATED COUNT 11.2 fL 7.5 - 11.2 05/26 Specimen Type: BLOOD No comment entered. Ordering Provider: CARLIN STEWART Report Released Date/Time: May 20, 2024 03:03 PM Reporting Lab: [facility] [address] [facility] [place] [phone] Performing Lab: [facility] [address] [facility] [place] [phone] [facility] CBC ERYTHROCYTE DISTRIBUTIO N WIDTH [RATIO] BY AUTOMATED COUNT 13.1 11.8 - 15.1 05/26 Specimen Type: BLOOD No comment entered. Ordering Provider: CARLIN STEWART Report Released Date/Time: May 20, 2024 03:03 PM Reporting Lab: [facility] [address] [facility] [place] [address] Performing Lab: [facility] [address] [facility] [place] [phone] [facility] CBC LYMPHOCYTES /100 LEUKOCYTES IN BLOOD BY AUTOMATED COUNT 20 05/26 Specimen Type: BLOOD No comment entered. Ordering Provider: CARLIN STEWART Report Released Date/Time: May 20, 2024 03:03 PM Reporting Lab: [facility] [address] [facility] [place] [phone] Performing Lab: [facility] [address] [facility] [place] [phone] [facility] CBC MONOCYTES/1 00 LEUKOCYTES IN BLOOD BY AUTOMATED COUNT 10 05/26 Specimen Type: BLOOD No comment entered. Ordering Provider: CARLIN STEWART Report Released Date/Time: May 20, 2024 03:03 PM Reporting Lab: [facility] [address] [facility] [place] [phone] Performing Lab: [facility] [address] [facility] [place] [phone] [facility] CBC NEUTROPHILS /100 LEUKOCYTES IN BLOOD BY AUTOMATED COUNT 65 05/26 Specimen Type: BLOOD No comment entered. Ordering Provider: CARLIN STEWART Report Released Date/Time: May 20, 2024 03:03 PM Reporting Lab: [facility] [address] [facility] [place] [phone] Performing Lab: [facility] [address] [place] [address] [facility] CBC EOSINOPHILS /100 LEUKOCYTES IN BLOOD BY AUTOMATED COUNT 4 05/26 Specimen Type: BLOOD No comment entered. Ordering Provider: CARLIN STEWART Report Released Date/Time: May 20, 2024 03:03 PM Reporting Lab: [address] [phone] Performing Lab: [address] [phone] [facility] CBC BASOPHILS/1 00 LEUKOCYTES IN BLOOD BY AUTOMATED COUNT 1 05/26 Specimen Type: BLOOD No comment entered. Ordering Provider: CARLIN STEWART Report Released Date/Time: May 20, 2024 03:03 PM Reporting Lab: [address] [phone] Performing Lab: [address] [phone] [place] [address] CBC LYMPHOCYTES [#/VOLUME] IN BLOOD BY AUTOMATED COUNT 1.05 10*3/u L 0.77 - 4.50 05/26 Specimen Type: BLOOD No comment entered. Ordering Provider: CARLIN STEWART Report Released Date/Time: May 20, 2024 03:03 PM Reporting Lab: [address] [phone] Performing Lab: [address] [phone] [facility] CBC MONOCYTES [#/VOLUME] IN BLOOD BY AUTOMATED COUNT 0.54 10*3/u L 0.19 - 0.80 05/26 Specimen Type: BLOOD No comment entered. Ordering Provider: CARLIN STEWART Report Released Date/Time: May 20, 2024 03:03 PM Reporting Lab: [facility] [address] [place] [phone] Performing Lab: [address] [phone] [facility] CBC NEUTROPHILS [#/VOLUME] IN BLOOD BY AUTOMATED COUNT 3.42 10*3/u L 2.10 - 8.00 05/26 Specimen Type: BLOOD No comment entered. Ordering Provider: CARLIN STEWART Report Released Date/Time: May 20, 2024 03:03 PM Reporting Lab: [facility] [address] [place] [phone] Performing Lab: [address] [phone] [place] [address] CBC EOSINOPHILS [#/VOLUME] IN BLOOD BY AUTOMATED COUNT 0.21 10*3/u L 0.00 - 0.60 05/26 Specimen Type: BLOOD No comment entered. Ordering Provider: CARLIN STEWART Report Released Date/Time: May 20, 2024 03:03 PM Reporting Lab: [address] [phone] Performing Lab: [address] [phone] CBC BASOPHILS [#/VOLUME] IN BLOOD BY AUTOMATED COUNT 0.03 10*3/u L 0.00 - 0.20 05/26 Specimen Type: BLOOD No comment entered. Ordering Provider: CARLIN STEWART Report Released Date/Time: May 20, 2024 03:03 PM Reporting Lab: [address] [phone] Performing Lab: [address] [phone] [place] [address] COMPREHEN SIVE METABOLIC PANEL CREATININE [MASS/VOLUM E] IN SERUM OR PLASMA 1.44 mg/dL 0.7 - 1.3 05/26 H Specimen Type: PLASMA Comment: No hemolysis noted. Ordering Provider: CARLIN STEWART Report Released Date/Time: May 20, 2024 03:03 PM Reporting Lab: [facility] [address] [place] [phone] Performing Lab: [address] [phone] [facility] COMPREHEN SIVE METABOLIC PANEL UREA NITROGEN [MASS/VOLUM E] IN SERUM OR PLASMA 24.7 mg/dL 9.0 - 25.0 05/26 Specimen Type: PLASMA Comment: No hemolysis noted. Ordering Provider: CARLIN STEWART Report Released Date/Time: May 20, 2024 03:03 PM Reporting Lab: [facility] [address] [place] [phone] Performing Lab: [facility] [address] [place] [phone] [facility] COMPREHEN SIVE METABOLIC PANEL GLUCOSE [MASS/VOLUM E] IN SERUM OR PLASMA 82 mg/dL 72 - 99 05/26 Specimen Type: PLASMA Comment: No hemolysis noted. Ordering Provider: CARLIN STEWART Report Released Date/Time: May 20, 2024 03:03 PM Reporting Lab: [address] [phone] Performing Lab: [address] [phone] [place] [address] COMPREHEN SIVE METABOLIC PANEL SODIUM [MOLES/VOLU ME] IN SERUM OR PLASMA 142 meq/L 136 - 145 05/26 Specimen Type: PLASMA Comment: No hemolysis noted. Ordering Provider: CARLIN STEWART Report Released Date/Time: May 20, 2024 03:03 PM Reporting Lab: [address] [phone] Performing Lab: [address] [phone] [facility] COMPREHEN SIVE METABOLIC PANEL POTASSIUM [MOLES/VOLU ME] IN SERUM OR PLASMA 4.6 meq/L 3.5 - 5 05/26 Specimen Type: PLASMA Comment: No hemolysis noted. Ordering Provider: CARLIN STEWART Report Released Date/Time: May 20, 2024 03:03 PM Reporting Lab: [facility] [address] [place] [phone] Performing Lab: [address] [phone] [facility] COMPREHEN SIVE METABOLIC PANEL CHLORIDE [MOLES/VOLU ME] IN SERUM OR PLASMA 112 meq/L 98 - 107 05/26 H Specimen Type: PLASMA Comment: No hemolysis noted. Ordering Provider: CARLIN STEWART Report Released Date/Time: May 20, 2024 03:03 PM Reporting Lab: [address] [phone] Performing Lab: [address] [phone] [facility] COMPREHEN SIVE METABOLIC PANEL CARBON DIOXIDE, TOTAL [MOLES/VOLU ME] IN SERUM OR PLASMA 17 meq/L 22 - 31 05/26 L Specimen Type: PLASMA Comment: No hemolysis noted. Ordering Provider: CARLIN STEWART Report Released Date/Time: May 20, 2024 03:03 PM Reporting Lab: [address] [phone] Performing Lab: [address] [phone] [facility] COMPREHEN SIVE METABOLIC PANEL CALCIUM [MASS/VOLUM E] IN SERUM OR PLASMA 10.0 mg/dL 8.4 - 10.4 05/26 Specimen Type: PLASMA Comment: No hemolysis noted. Ordering Provider: CARLIN STEWART Report Released Date/Time: May 20, 2024 03:03 PM Reporting Lab: [address] [phone] Performing Lab: [facility] [address] [place] [phone] [facility] COMPREHEN SIVE METABOLIC PANEL PROTEIN [MASS/VOLUM E] IN SERUM OR PLASMA 6.2 g/dL 6 - 8.6 05/26 Specimen Type: PLASMA Comment: No hemolysis noted. Ordering Provider: CARLIN STEWART Report Released Date/Time: May 20, 2024 03:03 PM Reporting Lab: [facility] [address] [place] [phone] Performing Lab: [address] [phone] [facility] COMPREHEN SIVE METABOLIC PANEL ALBUMIN [MASS/VOLUM E] IN SERUM OR PLASMA 4.2 g/dL 3.4 - 5 05/26 Specimen Type: PLASMA Comment: No hemolysis noted. Ordering Provider: CARLIN STEWART Report Released Date/Time: May 20, 2024 03:03 PM Reporting Lab: [facility] [address] [place] [phone] Performing Lab: [address] [phone] [place] [address] COMPREHEN SIVE METABOLIC PANEL BILIRUBIN.T OTAL [MASS/VOLUM E] IN SERUM OR PLASMA 0.8 mg/dL 0.2 - 1.2 05/26 Specimen Type: PLASMA Comment: No hemolysis noted. Ordering Provider: CARLIN STEWART Report Released Date/Time: May 20, 2024 03:03 PM Reporting Lab: [address] [phone] Performing Lab: [place] [address] [facility] [place] [address] [facility] COMPREHEN SIVE METABOLIC PANEL ALKALINE PHOSPHATASE [ENZYMATIC ACTIVITY/VO LUME] IN SERUM OR PLASMA 82 U/L 40 - 150 05/26 Specimen Type: PLASMA Comment: No hemolysis noted. Ordering Provider: CARLIN STEWART Report Released Date/Time: May 20, 2024 03:03 PM Reporting Lab: [address] [phone] Performing Lab: [address] [phone] [facility] COMPREHEN SIVE METABOLIC PANEL ASPARTATE AMINOTRANSF ERASE [ENZYMATIC ACTIVITY/VO LUME] IN SERUM OR PLASMA 24 U/L 5 - 34 05/26 Specimen Type: PLASMA Comment: No hemolysis noted. Ordering Provider: CARLIN STEWART Report Released Date/Time: May 20, 2024 03:03 PM Reporting Lab: [address] [phone] Performing Lab: [address] [phone] [place] [address] COMPREHEN SIVE METABOLIC PANEL ALANINE AMINOTRANSF ERASE [ENZYMATIC ACTIVITY/VO LUME] IN SERUM OR PLASMA 27 U/L 8 - 40 05/26 Specimen Type: PLASMA Comment: No hemolysis noted. Ordering Provider: CARLIN STEWART Report Released Date/Time: May 20, 2024 03:03 PM Reporting Lab: [facility] [address] [place] [phone] Performing Lab: [facility] [address] [facility] [place] [phone] [place] [address] COMPREHEN SIVE METABOLIC PANEL GLOMERULAR FILTRATION RATE/1.73 SQ M.PREDICTED [VOLUME RATE/AREA] IN SERUM, PLASMA OR BLOOD BY CREATININE- BASED FORMULA (CKD-EPI 2020) 52.0 60 05/26 Specimen Type: PLASMA Comment: No hemolysis noted. Ordering Provider: CARLIN STEWART Report Released Date/Time: May 20, 2024 03:03 PM Reporting Lab: [facility] [address] [facility] [place] [address] Performing Lab: [facility] [address] [facility] [place] [phone] [place] [address] HGA1C HEMOGLOBIN A1C/HEMOGLO BIN.TOTAL IN BLOOD 5.3 4.0 - 6.0 05/26 Specimen Type: BLOOD No comment entered. Ordering Provider: CARLIN STEWART Report Released Date/Time: May 20, 2024 03:03 PM Reporting Lab: [facility] [address] [facility] [place] [address] Performing Lab: [facility] [address] [facility] [place] [address] [facility] LIPID PANEL (STL) CHOLESTEROL [MASS/VOLUM E] IN SERUM OR PLASMA 114 mg/dL 0 - 200 05/26 Specimen Type: PLASMA Comment: No hemolysis noted. Ordering Provider: CARLIN STEWART Report Released Date/Time: May 20, 2024 03:03 PM Reporting Lab: [facility] [address] [facility] [place] [address] Performing Lab: [facility] [address] [facility] [place] [address] [facility] LIPID PANEL (STL) TRIGLYCERID E [MASS/VOLUM E] IN SERUM OR PLASMA 64 mg/dL 0 - 150 05/26 Specimen Type: PLASMA Comment: No hemolysis noted. Ordering Provider: CARLIN STEWART Report Released Date/Time: May 20, 2024 03:03 PM Reporting Lab: [address] [phone] Performing Lab: [address] [phone] [facility] LIPID PANEL (STL) CHOLESTEROL IN LDL [MASS/VOLUM E] IN SERUM OR PLASMA BY CALCULATION 53 mg/dL 05/26 Specimen Type: PLASMA Comment: No hemolysis noted. Ordering Provider: CARLIN STEWART Report Released Date/Time: May 20, 2024 03:03 PM Reporting Lab: [address] [phone] Performing Lab: [address] [phone] [facility] LIPID PANEL (STL) CHOLESTEROL IN HDL [MASS/VOLUM E] IN SERUM OR PLASMA 48 mg/dL 40 05/26 Specimen Type: PLASMA Comment: No hemolysis noted. Ordering Provider: CARLIN STEWART Report Released Date/Time: May 20, 2024 03:03 PM Reporting Lab: [address] [phone] Performing Lab: [address] [phone] [facility] TSH (MA-PB) THYROTROPIN [UNITS/VOLU ME] IN SERUM OR PLASMA 1.531 u[IU]/ mL 0.47 - 5 05/26 Specimen Type: SERUM No comment entered. Ordering Provider: CARLIN STEWART Report Released Date/Time: May 20, 2024 03:03 PM Reporting Lab: [address] [phone] Performing Lab: [address] [facility] [address] [facility] Vital Signs Combined list of inpatient and outpatient Vital Signs from Department of Defense and Veterans Affairs, ranging from 12 months to all on record, depending upon the facility. Vital Sign Value Date Comments Source SYSTOLIC BLOOD PRESSURE 176 06/29/2024 13:02:00 [facility] DIASTOLIC BLOOD PRESSURE 64 06/29/2024 13:02:00 [facility] PULSE OXIMETRY 100 06/29/2024 13:02:00 [facility] WEIGHT 231.8 06/29/2024 13:02:00 [facility] BMI 31kg/m2 06/29/2024 13:02:00 [facility] PAIN 0 06/29/2024 13:02:00 [facility] HEIGHT 73 06/29/2024 13:02:00 [facility] TEMPERATURE 98.3 06/29/2024 13:02:00 [facility] PULSE 47 06/29/2024 13:02:00 [facility] RESPIRATION 16 06/29/2024 13:02:00 [facility] Encounters Combined list of: 1) [facility]counters [facility] going back up to thelast 18 months. 2) Encounters from the Department of [facility] facilities going back up to 280 months. Location Location Details Encounter Type Encounter Number Reason For Visit Attending Provider ADM Date DC Date Status Disposition Source [facility] Outpatient Encounter [id number] 04/29 [facility] Outpatient Encounter [id number] PAT,CARLIN D 05/20 [facility] Outpatient Encounter [id number] PAT,CARLIN D 06/03 [facility] Outpatient Encounter [id number] PAT,CARLIN D 06/14 [facility] Outpatient Encounter [id number] CARLIN STEWART 06/19 [facility] Out[facility] Encounter [id number] 06/29 [facility]P NEW MOD 45 MIN [id number] Diagnos is: ICD-10- CM I10 Essenti al (primar y) hyperte nsion<b r/> CARLIN STEWART 06/29 [facility] Outpatient Encounter [id number] 06/29 [facility] Social History Combined list of available smoking, tobacco, and other social history from Department of Defense and [facility] facilities. Social History Type Response Date Comment Sourc e Tobacco smoking status NHIS VA-TOBACCO USE FORMER CIGARETTES 06/29/2024 [facility] History of tobacco use NE-TOBACCO NEVER USED OTHER TYPE 06/29/2024 [facility] This section is an empty social history section. DoD Plan of Care List of future care activities from Department of [facility] facilities. Additional future care activities may be listed in the Assessment and Plan section. Date/Time Care Activity Care Activity Detail Facili ty 12/29/2024 AMBULATORY - MEDICINE AMBULATORY - MEDICI NE [facility] 06/19/2024 Laboratory - Tread Cutter ry Order MICRAL/CREAT PROFILE (STL) URINE YELLOW [facility] 06/19/2024 Laboratory - Tread Cutter ry Order URINALYSIS (STL-PB) URINE - CLEAN CATCH [facility]
--- OUTSIDE RECORDS SUMMARY | 2024-07-22 05:53 | XMS_ITS | Encounter Summary ---
Author Organization [facility] Facility Care Team Providers Care Order Filler Name Role Phone Unavailable Primary Care Provider Unavailabl e Encounter Details Date Type Department Care Team (Late st Contact Info) Description 10/18/2013 1:48 PM CDT - 10/18/2013 10:15 PM CDT Hospital Encounter LOCATED WITHIN [facility] ROSYCONAnselmo Beltre MD [address] [facility] 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 Gender Identity Not on file Sexual Orientation Not on file documented as of this encounter Plan of Treatment Not on file documented as of this encounter Procedures Procedure Name Priority Date/Time Associated Diagnosis Comments SERUM TROPONIN I Routine 10/18/2013 7:50 PM CDT CHEST RADIOGRAPHY, FRONTAL (AP), LATERAL Routine 10/18/2013 3:57 PM CDT BLOOD GLUCOSE, POC Routine 10/18/2013 2: 38 PM CDT SERUM TROPONIN I Routine 10/18/2013 2:29 PM CDT PLASMA BASIC METABOLIC PANEL Routine 10/18/2013 2:29 PM CDT URINALYSIS Routine 10/18/2013 2:29 PM CDT BLOOD CELL COUNT (CBC) Routine 10/18/2013 2:25 PM CDT DISCHARGE LABORATORY CUMULATIVE REPORT Routine 10/18/2013 12:00 AM CDT documented in this encounter Results * (ABNORMAL) Serum troponin I (10/18/2013 7:50 PM CDT) Troponin I 0.06(H) 0.00 - 0.03 ng/ml HISTORICAL RESULTS Comment: Interpretive Data Serial determinations are recommended for the diagnosis of myocardial infarction (Third Hamilton Definition of Myocardial Infarction. ??J Am Blas Cardiol 2012;60:1581-98). Current interpretive data was last revised on 13. Serum 10/18/2013 7:50 PM CDT us Historical Provider LAB BLOOD ORDERABLES Camelia l Result HISTORICAL RESULTS * CHEST RADIOGRAPHY, FRONTAL (AP), LATERAL (10/18/2013 3:57 PM CDT) Anatomical Region Laterality Modality N/A Radiographic Scarlet ging 10/18/2013 3:57 PM CDT Narrative 10/18/2013 5:50 PM CDT Whitney FAIR M.D. FINAL REPORT The radiology attending physician has personally reviewed this study, and has reviewed and/or edited this written report and agrees with it. ACC# ??Date Time ??Exam [id number] Oct 18, 2013 15:57:00 [id number] Chest 2 views Frontl & Lat EXAMINATION: ?? Chest 2 views HISTORY: Syncope IMPRESSION: ?? Frontal and lateral views of chest are submitted without comparison. The lungs are clear without focal consolidation. No pneumothorax or pleural effusions. The cardia mediastinal silhouette is stable. There is moderate gaseous distention. Requested By: VARINDER URENA M.D. Dictated By: ?? VARINDER RANGEL M.D. ??on Oct ??2013 ??4:18P This document has been electronically signed by: JEREMIAS SINGH M.D. on Oct ??6 2013 ??5:49P Procedure Note Provider, MD Tarik - 11/05/2016 Whitney FAIR M.D. FINAL REPORT The radiology attending physician has personally reviewed this study, and has reviewed and/or edited this written report and agrees with it. ACC# Date Time Exam [id number] Oct 18, 2013 15:57:00 [id number] Chest 2 views Frontl & Lat EXAMINATION: Chest 2 views HISTORY: Syncope IMPRESSION: Frontal and lateral views of chest are submitted without comparison. The lungs are clear without focal consolidation. No pneumothorax or pleural effusions. The cardia mediastinal silhouette is stable. There is moderate gaseous distention. Requested By: VARINDER URENA M.D. Dictated By: VARINDER RANGEL M.D. on Oct 18 2013 4:18P This document has been electronically signed by: JEREMIAS SINGH M.D. on Oct 18 2013 5:49P Historical Provider IMG XR PROCEDURES Final R esult * Blood glucose, POC (10/18/2013 2:38 PM CDT) Glucose, POC, bld 109 70 - 199 mg/dl HISTORICAL RESULTS Blood specimen (specimen) 10/18/2013 2:38 PM CDT us Historical Provider LAB BLOOD ORDERABLES Camelia l Result HISTORICAL RESULTS * Urinalysis (10/18/2013 2:29 PM CDT) Color, ur Yellow Yellow HISTORICAL RESULTS Clarity, ur Clear Clear HISTORIC AL RESULTS Specific gravity, ur 1.021 1.003 - 1.030 HISTORICAL RESULTS pH, ur 5.5 5.0 - 8.0 HISTORICAL RESULTS Protein, ur Trace Trace HISTORIC AL RESULTS Glucose, ur Negative Negative HISTORIC AL RESULTS Ketones, ur Negative Negative HISTORIC AL RESULTS Bilirubin, ur Negative Negative HISTOR ICAL RESULTS U Blood Negative Negative HISTORICAL RESULTS Urobilinogen, quant, ur <2.0 0.0 - 2.0 mg/dl HISTORICAL RESULTS Nitrites, ur Negative Negative HISTORI ANGE RESULTS Leukocyte esterase, ur Negative Negative HISTORICAL RESULTS Urine 10/18/2013 2:29 PM CDT Varinder Urena MD LAB BLOOD ORDERABLES Camelia l Result Performing Organization Address [facility] de Phone Number HISTORICAL RESULTS * (ABNORMAL) Plasma basic metabolic panel (10/18/2013 2:29 PM CDT) Sodium 144 135 - 145 mmol/L HISTORICAL RESULTS K, pl 4.2 3.3 - 4.9 mmol/L HISTORICAL RESULTS Chloride 110 97 - 110 mmol/L HISTORICAL RESULTS CO2 22 22 - 32 mmol/L HISTORICAL RESULTS A. gap 12 0 - 16 mmol/L HISTORICAL RESULTS Glucose 112 70 - 199 mg/dl HISTORICAL RESULTS BUN 37(H) 8 - 25 mg/dl HISTORICAL RESULTS Creatinine 1.87(H) 0.70 - 1.30 mg/dl HISTORICAL RESULTS Calcium 9.7 8.6 - 10.3 mg/dl HISTORICAL RESULTS Plasma 10/18/2013 2:29 PM CDT us Varinder Urena MD LAB BLOOD ORDERABLES Camelia l Result Performing Organization Address [facility] de Phone Number HISTORICAL RESULTS * (ABNORMAL) Serum troponin I (10/18/2013 2:29 PM CDT) Troponin I 0.05(H) 0.00 - 0.03 ng/ml HISTORICAL RESULTS Comment: Interpretive Data Serial determinations are recommended for the diagnosis of myocardial infarction (Third Hamilton Definition of Myocardial Infarction. ??J Am Blas Cardiol 2012;60:1581-98). Current interpretive data was last revised on 13. Serum 10/18/2013 2:29 PM CDT Varinder Urena MD LAB BLOOD ORDERABLES Camelia l Result HISTORICAL RESULTS * (ABNORMAL) Blood cell count (CBC) (10/18/2013 2:25 PM CDT) WBC 12.6(H) 3.8 - 9.8 K/cumm HISTORICAL RESULTS RBC 4.20(L) 4.50 - 5.70 M/cumm HISTORICAL RESULTS Hgb 12.8(L) 13.8 - 17.2 g/dl HISTORICAL RESULTS Hct 37.2(L) 40.7 - 50.3 % HISTORICAL RESULTS MCV 88.4 80.0 - 97.6 fl HISTORICAL RESULTS MCH 30.5 26.7 - 33.7 pg HISTORICAL RESULTS MCHC 34.5 32.7 - 35.5 g/dl HISTORICAL RESULTS Rdw 13.6 11.8 - 14.6 % HISTORICAL RESULTS Platelets 184 140 - 440 K/cumm HISTORICAL RESULTS MPV 9.1 6.8 - 10.4 fl HISTORICAL RESULTS Neutrophils 82.6(H) 38.7 - 74.5 % HISTORICAL RESULTS Lymphocytes 8.8(L) 20.0 - 54.3 % HISTORICAL RESULTS Monos 8.2 4.3 - 13.5 % HISTORICAL RESULTS Eosinophils 0.2 0.0 - 6.0 % HISTORICAL RESULTS Basophils 0.2 0.0 - 3.0 % HISTORICAL RESULTS Neutrophils, abs 10.4(H) 1.8 - 6.6 K/cumm HISTORICAL RESULTS Lymphocytes, abs 1.1(L) 1.2 - 3.3 K/cumm HISTORICAL RESULTS Monocytes, absolute 1.0 0.2 - 1.2 K/cumm HISTORICAL RESULTS Eosinophils, abs 0.0 0.0 - 0.5 K/cumm HISTORICAL RESULTS Basophils, abs 0.0 0.0 - 0.2 K/cumm HISTORICAL RESULTS Blood specimen (specimen) 10/18/2013 2:25 PM CDT Varinder Urena MD LAB BLOOD ORDERABLES Camelia l Result HISTORICAL RESULTS * Discharge Laboratory Cumulative Report (10/18/2013 12:00 AM CDT) 10/18/2013 Narrative HISTORICAL RESULTS - 10/19/2013 3:17 AM CDT ?[facility] ?Department of Laboratories ? [address] [facility] ? [place] [address] Patient Name: ??MORELIA SANCHEZ Med Rec Number: [id number] Fin Number: ?[id number] Date: ?1950 Sex/Age: ? Male 63 years Admit Date: ?10/18/2013 Discharge Date: 10/18/2013 Doctor: ?Anselmo Sidhu Facility: ?[facility] Location: ?OBS-6 Chart Printed: 10/19/2013 03:17 ?? * Abnormal ?? C Critical ?? f Footnote ?? ^ Corrected ?? L Low ?? H High ? i Interp Data ?? @ Reference Lab ?Chart Type:Cumulative ? SELECTED ELECTROLYTES ?Test: Sodium ? Plasma Potassium ??Chloride ? Reference: [135-145] ??[3.3-4.9] ? [97-110] ? Units: mmol/L ? mmol/L ?mmol/L 10/18/2013 ?? 14:29:00 ?? 144 ?4.2 ? 110 ?Test: Total CO2 ??Anion Gap ? Reference: [22-32] ?[0-16] ? Units: mmol/L ? mmol/L 10/18/2013 ?? 14:29:00 ?? 22 ? 12 ? STANDARD BLOOD CHEMISTRY ?Test: BUN ? Creatinine ?? Glucose ?? Total Calcium ? Reference: [8-25] ??[0.70-1.30] ??[70-199] ??[8.6-10.3] ? Units: mg/dL ?? mg/dL ?mg/dL ? mg/dL 10/18/2013 ?? 14:29:00 ?? 37 ??H ?? 1.87 ??H ?112 ? 9.7 ? CARDIAC PROTEINS ?Test: Troponin I i ? Reference: [0.00-0.03] ? Units: ng/mL 10/18/2013 ?? 19:50:00 ?? 0.06 ??H 10/18/2013 ?? 14:29:00 ?? 0.05 ??H ? CARDIAC PROTEINS 10/18/2013 14:29:00 Troponin I: Interpretive Data Serial determinations are recommended for the diagnosis of myocardial infarction (Third Hamilton Definition of Myocardial Infarction. ??J Am Blas Cardiol 2012;60:1581-98). Current interpretive data was last revised on 13. ?URINALYSIS ?Macroscopic ?Test: Color ? Clarity ??Specific [place] ??pH ? Reference: [Yellow] ??[Clear] ??[1.003-1.030] ? [5.0-8.0] ? Units: 10/18/2013 ?? 14:29:20 ?? Yellow ?Clear ?1.021 ? 5.5 ?Test: Albumin ??Glucose ? Ketones ? Bilirubin ? Reference: [Trace] ??[Negative] ??[Negative] ??[Negative] ? Units: 10/18/2013 ?? 14:29:20 ?? Trace ?Negative ?Negative ?Negative ?Test: Blood ? Urobilinogen ??Nitrite ? Reference: [Negative] ??[0.0-2.0] ? [Negative] ? Units: ? mg/dL 10/18/2013 ?? 14:29:20 ?? Negative ?<2.0 ?Negative ?Test: Leuk Esterase ? Reference: [Negative] ? Units: 10/18/2013 ?? 14:29:20 ?? Negative ? COMPLETE BLOOD COUNT ?Test: WBC ?RBC ?Hgb ? Reference: [3.8-9.8] ??[4.50-5.70] ??[13.8-17.2] ? Units: K/cumm ? M/cumm ? g/dL 10/18/2013 ?? 14:25:32 ?? 12.6 ??H ?4.20 ??L ?12.8 ??L ?Test: Hct ?Platelet Ct ??MCV ? Reference: [40.7-50.3] ??[140-440] ?[80.0-97.6] ? Units: % ?K/cumm ? fL 10/18/2013 ?? 14:25:32 ?? 37.2 ??L ?184 ?88.4 ?Test: MCH ?MCHC ? RDW ? Reference: [26.7-33.7] ??[32.7-35.5] ??[11.8-14.6] ? Units: pg ? g/dL ? % 10/18/2013 ?? 14:25:32 ?? 30.5 ? 34.5 ? 13.6 ? COMPLETE BLOOD COUNT ?Test: MPV ? Reference: [6.8-10.4] ? Units: fL 10/18/2013 ?? 14:25:32 ?? 9.1 ? AUTOMATED WHITE CELL DIFFERENTIAL ?Test: Neut Pct Auto ??Lymph Pct Auto ??Warren Pct Auto ? Reference: [38.7-74.5] ?[20.0-54.3] ? [4.3-13.5] ? Units: % ?% ? % 10/18/2013 ?? 14:25:32 ?? 82.6 ??H ?8.8 ??L ?8.2 ?Test: Eos Pct Auto ??Baso Pct Auto ??Neut Abs Auto ? Reference: [0.0-6.0] ? [0.0-3.0] ?[1.8-6.6] ? Units: % ? % ?K/cumm 10/18/2013 ?? 14:25:32 ?? 0.2 ? 0.2 ?10.4 ??H ?Test: Lymph Abs Auto ??Warren Abs Auto ??Eos Abs Auto ? Reference: [1.2-3.3] ? [0.2-1.2] ?[0.0-0.5] ? Units: K/cumm ?K/cumm ? K/cumm 10/18/2013 ?? 14:25:32 ?? 1.1 ??L ?1.0 ?0.0 ?Test: Baso Abs Auto ? Reference: [0.0-0.2] ? Units: K/cumm 10/18/2013 ?? 14:25:32 ?? 0.0 ?POINT OF CARE TESTS ? Chemistry ?Test: Glucose POC ? Reference: [70-199] ? Units: mg/dL 10/18/2013 ?? 14:38:00 ?? 109 ? CANCELLED TESTS Date ?Time ?Test ? Cancel Reason 10/18/2013 ??14:29:00 ??CK Totl ??NCHG Canceled by ED us Historical Provider LAB BLOOD ORDERABLES Camelia veronica Result HISTORICAL RESULTS documented in this encounter Visit Diagnoses Diagnosis Syncope and collapse Acute renal failure (HCC) Acute kidney failure, unspecified Abnormal levels of other serum enzymes Essential hypertension Unspecified essential hypertension Other depressive disorder Encounter for long-term (current) use of other medications documented in this encounter
--- OUTSIDE RECORDS SUMMARY | 2024-07-22 05:53 | XMS_ITS | Encounter Summary ---
Author Organization [facility] Care Team Providers Care Paper Wood Cutter Name Role Phone Unavailable Primary Care Provider Unavailabl e Encounter Details Date Type Department Care Team (Latest Contact Info) Description 10/26/2011 6:49 AM CDT - 10/26/2011 9:35 AM CDT Hospital Encounter [facility] Nguyen Jo Acute pancreatitis; Essential hypertension; Sleep apnea; Personal history of tobacco use, presenting hazards to health; Obesity Social History Tobacco Use Types Packs/Day Years Used Date Smoking Tobacco: Never Assessed Sex and Gender Information Value Date Recorded Sex Assigned at Not on file 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
--- OUTSIDE RECORDS SUMMARY | 2024-07-22 05:53 | XMS_ITS | Encounter Summary ---
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
--- OUTSIDE RECORDS SUMMARY | 2024-07-22 05:53 | XMS_ITS | Referral Summary ---
Author Organization [facility] Address [address] [place] [id number] Care Team Providers Care Automatic Packer Operator Name Role Phone Unavailable Primary Care Provider Unavailabl e Social History Tobacco Use Types Packs/Day Years Used Date Smoking Tobacco: Never Assessed Inadequate Housing Answer Date Recorded Social Determinants: Housing (Overall Score Help er) 0 08/17/2020 Sex and Gender Information Value Date Recorded Sex Assigned at Not on file Gender Identity Not on file Sexual Orientation Not on file Plan of Treatment Not on file
--- OUTSIDE RECORDS SUMMARY | 2024-07-22 05:53 | XMS_ITS | Encounter Summary ---
Author Organization [facility] Address [address] [place] [id number] Care Team Providers Care Recreation Facility Manager Name Role Phone Unavailable Primary Care Provider Unavailabl e Encounter Details Date Type Department Care Team (Late st Contact Info) Description 01/10/2019 5:49 PM CDT Hospital [facility] Ata Matamoros MD [address] [place] [address] Discharge Disposition: Home or Self Care Social History Tobacco Use Types Packs/Day Years Used Date Smoking Tobacco: Never Assessed Inadequate Housing Answer Date Recorded Social Determinants: Housing (Overall Score Help er) 0 08/17/2020 Sex and Gender Information Value Date Recorded Sex Assigned at Not on file Gender Identity Not on file Sexual Orientation Not on file documented as of this encounter Discharge Summaries * Ata Matamoros MD - 01/12/2019 9:32 AM CDT DATE OF ADMISSION: 01/10/2019 DATE OF DISCHARGE: 01/12/2019 DISCHARGE DIAGNOSES: 1. Acute kidney injury. Came with a creatinine of 3.42 secondary to prerenal azotemia and dehydration and secondary to hot weather and contributed by lisinopril and also Aleve. So after giving IV hydration, creatinine is back to normal. Discussed with Dr. Michaels, recommended to hold the lisinopril and started on amlodipine and check BMP in 1 week. Follow up with his PCP and follow up with Dr. Michaels as an outpatient. Recommended hydration and not to take Aleve for his back pain. Recommendedto take Tylenol. 2. Metabolic acidosis, high anion gap, resolved after IV hydration. 3. Hyperkalemia: Possible secondary to acute kidney injury and the lisinopril. Creatinine is back to normal. Potassium is back to normal. Discussed with Dr. Michaels, recommending amlodipine, hold the lisinopril and Aleve, and follow up with his PCP. 4. Obesity. Recommended lifestyle modifications and lose weight. 5. Hypercalcemia, resolved. 6. Leukocytosis, resolved, probably secondary to dehydration. 7. Hypertension: Started on amlodipine 5 mg daily. Recommended low-salt diet and lose weight and recommended to follow up with his PCP. May be need to titrate amlodipine and may need to start 2nd agent in the future for the blood pressure. Follow up with Dr. Michaels if the patient agrees. 8. Chronic depression: Resume his Neurontin and bupropion. 9. Obstructive sleep apnea. The patient was noncompliant with CPAP, but recommended to use it and the patient used 3 hours last night. Recommended to use it at home regularly. Explained the risk of obstructive sleep apnea. PCP is unassigned. PCP name is Fernando. HOSPITAL COURSE: A 68-year-old male with a history as above who came complaining of feeling generalized weakness, fatigue, and he was golfing all day on Saturday and did not drink water and also did not urinate the full day and came with acute renal failure with creatinine of about 3 and hyperkalemic. Given Kayexalate and bicarbonate and D50 with IV insulin and sodium bicarbonate, and the patient's potassium came back to normal, and also started on IV fluids and feeling much better. Creatinine came down to 1.92 yesterday and today is 1.27, and potassium is normal. Calcium got normalized at 9.4. Discussed with the daughter during the course of hospitalization. Discussed with Dr. Michaels who cleared for discharge and recommended to follow up with his PCP. If wants to follow up with Renal, need to follow up with Dr. Michaels as an outpatient. The patient lives in [place], [place], but he comes on the weekends. PHYSICAL EXAMINATION: VITAL SIGNS: Temperature is 98, heart rate is 69, respirations are 14, blood pressure is 150/65. Saturating 98% on room air. GENERAL: Awake, alert, oriented x3. HEENT: Mucous membranes moist and pink. Pupils are reactive. NECK: Short neck. No lymph nodes are palpated. HEART: S1, S2 heard. LUNGS: Clear on examination. ABDOMEN: Soft. No tenderness. No guarding. No masses felt. EXTREMITIES: No pedal edema. MUSCULOSKELETAL: No joint effusion. NEURO: Awake, alert, oriented, moving all his extremities. SKIN: No rash. LABORATORY ANALYSIS: Recent lab analysis: Sodium is 138, potassium is 4.9, chloride is 108, carbon dioxide is 24, anion gap is 11, and BUN is 20. Creatinine is 1.27, came down from 3.38, and calcium was 11.9, came down to 9.4. Troponin is negative. BNP is 30, and serum osmolality was 301. WBC is 9.6, hemoglobin is 13.0, platelets are 183. Urinalysis is negative. Chest x-ray showed elevated left hemidiaphragm, small left pleural effusion. No procedures are done. No echocardiogram done. ALLERGIES: NO KNOWN ALLERGIES. DISCHARGE MEDICATIONS: 1. Amlodipine 5 mg daily. 2. Bupropion 300 mg daily. 3. Gabapentin 600 mg at bedtime. 4. Minerals 1 tablet daily. 5. Recommended Tylenol for his back pain 1-2 tablets q.6 hours p.r.n. The patient recommended not to take Aleve over the counter. He was taking 4 tablets 220 mg daily, that also probably contributed to his renal failure and also elevated blood pressure. CONSULTANTS: Dr. Michaels. PCP: Fernando in [place], [place]. DISCHARGE INSTRUCTIONS: The patient recommended hydration at home and stop the lisinopril for now and started on amlodipine and no Aleve and check BMP in 1 week. Need to follow up with his PCP and the patient willing to follow up with Renal, then follow up with Dr. Michaels in 1-2 weeks and given copy of the lab results from here to show it to his PCP. Discharge process took more than 35 minutes. Discussed with daughter during the course of hospitalization. Ata Matamoros MD [address] [facility] Job: [id number] Electronically Signed On 01.13.2019 17:28 Ata Matamoros MD, V. * Provider, [facility] Historical Conversion - 01/10/2019 8:55 PM CDT ; [facility] Emergency Department [facility] [address] Clinical Summary PERSON INFORMATION Name MORELIA SANCHEZ Age 68 Years 1950 12:00 AM Acct# [id number] Sex Male Dispo Type Still a patient - 30 Arrival 01/10/2019 5:49 PM Checkout 01/10/2019 8:55 PM Address: [address] [place] [id number] Visit Reason DIFFICULTY BREATHING ED Physician Note ED Time Seen By Provider Entered On: 01/10/2019 18:00 Performed On: 01/10/2019 18:00 by West Jackson DO Time Seen By Provider Time Seen by Provider : 01/10/2019 18:00 West Jackson DO - 01/10/2019 18:00 VITALS INFORMATION Vitals/Ht/Wt Temperature Oral: 97.3 F Peripheral Pulse Rate: 98 bpm Respiratory Rate: 20 br/min Oxygen Saturation: 100 % Oxygen Therapy: Room air Systolic Blood Pressure: 115 mmHg Diastolic Blood Pressure: 70 mmHg Mean Arterial Pressure: 85 mmHg Height: 190.5 cm Weight: 120.2 kg Weight Type: Estimated ED Hand-Off Communication ED Hand-Off Reason: In Hospital Transfer ED Hand-Off Reason / In Hospital: SBAR reviewed during report Patient on Logistics Operations Manager: Yes Sitter Present: No Logistics Operations Manager Box: [id number] Potential Core Measure: N/A Hand-off Report Given to: Nicole Little MEDICAL INFORMATION Allergy Info: NKA Prescriptions: DISCHARGE INFORMATION Discharge Disposition: Still a patient - 30 PATIENT EDUCATION INFORMATION Instructions: Follow up: DIAGNOSIS Heat exhaustion; Hyperkalemia; Renal failure NICAL BUYER documented in this encounter Discharge Disposition Disposition Code Departure Means Destination Home or Self Care documented in this encounter Progress Notes * Nicolás Michaels MD - 01/12/2019 9:45 AM CDT Subjective: Hospital course reviewed. Yesterday, patient continued on IV fluids. Overnight, he is hemodynamically stable. At the time of evaluation, he is awake and alert. He is ambulating in the room. He does not appear to be in acute distress. Currently, he denies any complaints. REVIEW OF SYSTEMS: The patient denies any nausea or vomiting. No headaches or blurred vision. He denies any dizziness now, no chest pain. His breathing is comfortable. He denies any abdominal pain ordiarrhea. No dysuria or hematuria. His appetite seems to be good. He denies any rash or joint pains. He denies other complaints. Rest of review of systems is negative. PHYSICAL EXAMINATION: Vital Signs (last 24 hrs) Last Charted Minimum Maximum Temp 98 (JAN 12 08:10) 98 (JAN 12 08:10) 98.4 (JAN 11 22:41) Heart Rate 69 (JAN 12 08:10) 60 (JAN 12 03:04) 69 (JAN 12 08:10) Resp Rate 14 (JAN 12 08:10) 14 (JAN 12 08:10) 16 (JAN 11 19:24) SBP H 150 (JAN 12 08:10) H 149 (JAN 11 19:24) H 163 (JAN 11 22:41) DBP 65 (JAN 12 08:10) L 54 (JAN 11 19:24) 68 (JAN 11 22:41) Intake Output Balance 01/11/2019 7a-3p 2451 350 2101 3p-11p 321 0 321 11p-7a 641 2350 -1709 Totals 3413 2700 713 01/10/2019 7a-3p 0 0 0 3p-11p 100 0 100 11p-7a 460 1000 -540 Totals 560 1000 -440 HEENT: No frontomaxillary sinus tenderness. No nasal congestion. No posterior pharyngeal wall erythema or exudate. NECK: Supple. No JVP elevation. EXTREMITIES: Reveal no edema x4. SKIN: Reveals no rash. GENERAL: The patient is ambulating in the room. He does not appear to be in acute distress. Labs (Last four charted values) WBC 9.6 (JAN 11) H 14.6 (JAN 10) Hgb 13.0 (JAN 11) 16.6 (JAN 10) Hct 38 (JAN 11) 47 (JAN 10) Plt 183 (JAN 11) 263 (JAN 10) Na 138 (JAN 12) 136 (JAN 11) 138 (JAN 10) 138 (JAN 10) K 4.9 (JAN 12) 4.8 (JAN 11) 4.7 (JAN 10) C 6.2 (JAN 10) CO2 24 (JAN 12) 23 (JAN 11) 21 (JAN 10) L 17 (JAN 10) Cl H 108 (JAN 12) 104 (JAN 11) 106 (JAN 10) 104 (JAN 10) Cr 1.27 (JAN 12) H 1.92 (JAN 11) H 2.42 (JAN 10) H 3.38 (JAN 10) BUN 20 (JAN 12) H 31 (JAN 11) H 32 (JAN 10) H 33 (JAN 10) Glucose 97 (JAN 12) H 109 (JAN 11) H 120 (JAN 10) 95 (JAN 10) Mg 2.3 (JAN 12) 2.6 (JAN 11) Phos 2.3 (JAN 12) 4.0 (JAN 11) Ca 9.4 (JAN 12) 9.1 (JAN 11) 9.8 (JAN 10) H 11.9 (JAN 10) PT L 9.6 (JAN 10) INR 0.9 (JAN 10) PTT 30 (JAN 10) Troponin 0.02 (JAN 10) Total CK H 401 (JAN 10) IMPRESSION: This is a 68-year-old white male with history of hypertension, depression with anxiety,previous history of pancreatitis, who is admitted with dizziness and weakness. The patient is thought to have volume contraction. Workup and treatment are underway. Additionally: 1. He has acute kidney injury. This is most likely secondary to volume contraction while on DAYDAY inhibitor and nonsteroidals. Renal function has improved remarkably???back to baseline. 2. Hyperkalemia, likely secondary to advanced acute kidney injury while on DAYDAY inhibitor and nonsteroidals. This is corrected quickly. 3. Volume status. The patient was volume contracted at admission. He is approaching euvolemia at this time. 4. Hypertension, seems to be okay. PLAN: At this time: 1. Stop IV fluids 2. Acute hyperkalemia treatment given with resolution. Keep off DAYDAY inhibitor for now upon discharge 3. Hold DAYDAY inhibitor right now as well as nonsteroidals. 4. Oral intake as tolerated 5. Disposition. Okay to discharge. The patient to stay off DAYDAY inhibitor until follow-up in office with primary care. Would hold off on nonsteroidals. The patient lives out of town. He is recommendedto follow up with his PCP within the week to recess renal function. 6. This was discussed with the patient and staff, primary service at length. All questions answeredin detail. Electronically Signed On 01.12.2019 15:36 Nicloás Michaels MD. * Ata Matamoros MD - 01/12/2019 9:32 AM CDT Discharge summary dictated #[id number]. Discussed with renal okay to discharge on amlodipine. No lisinopril and no Aleve. Recommended compliance with CPAP at home and lose weight. Need to follow-up with his PCP and check BMP in 1 week. Discussed process of more than 35 minutes. Recommended hydration and avoid heat. Electronically Signed On 01.12.2019 09:34 Ata Matamoros MD, V. * Ata Matamoros MD - 01/11/2019 5:33 PM CDT H&P dictated #[id number]. Discussed with the and the daughter and RN. Electronically Signed On 01.11.2019 17:34 Saturnino GIBSON, Ata Silva documented in this encounter H&P Notes * Ata Matamoros MD - 01/11/2019 5:19 PM CDT DATE OF ADMISSION: 01/10/2019 PCP: Unassigned. CHIEF COMPLAINT: Generalized weakness, fatigue, short of breath while playing golf, golfing all dayyesterday. HISTORY OF PRESENT ILLNESS: A 68-year-old male with a history of hypertension, chronic depression, obesity, JANN, noncompliance with CPAP, chronic back pain takes Naprosyn, Aleve, came with complaining of generalized weakness, fatigue, tired and a little confused and really short of breath and came in and brought to the emergency room by his friend because of complaining of generalized weakness and fatigue as well as short of breath and he was playing all day, golfing all day yesterday and day before yesterday and according to the history and the patient stated that he did not drink enough water and did not eat his lunch. He was having a golf tournament, so he was there for straight 5 hours in the sun and it has been a hot day and sweating throughout the day and he told his friend who brought him to the emergency room for further evaluation. The patient is improving. The patient denies any nausea, vomiting, chest pain, shortness of breath. The patient says that he did not pee yesterdayat all. The patient denies any dysuria, fever but felt very hot and sweaty yesterday. The patient is started on IV fluids 0.9 and the patient started producing urine. In the ER, his creatinine was 3.38 and GFR was less than 20, BUN was 33, calcium was 7.9, and anion gap was 23. WBC was 11.6. Urinalysis showed few bacteria. Urine sodium was 98 and the patient started on IV fluids and creatinine is trending down. Dr. Damaraju group is consulted. The patient also taking lisinopril 30 mg daily and also he was taking Aleve 220 mg 4 tablets daily for his chronic lower back pain and probably that would have contributed to his kidney failure with prerenal azotemia. The patient is doing much better.The patient is supposed to use a CPAP machine, but is noncompliant and is refusing to use it here. The patient understands the risk of JANN. PAST MEDICAL HISTORY: 1. Hypertension. 2. Chronic depression. 3. Obesity. 4. JANN noncompliance with CPAP. 5. Chronic lower back pain, was taking Aleve. PAST SURGICAL HISTORY: Denies any past surgical history. ALLERGIES: NO KNOWN ALLERGIES. HOME MEDICATIONS: The patient is on bupropion, Wellbutrin 300 mg daily, lisinopril 30 mg daily, diphenhydramine 50 mg at bedtime, gabapentin 600 mg at bedtime, Aleve 220 mg [id number] was taking 4 tablets daily p.r.n., multivitamin with minerals. SOCIAL HISTORY: Denies smoking. Denies alcohol. Denies illegal drugs. 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 Lives in [place] Saturday through Saturday and comes over the weekend. FAMILY HISTORY: Asked and not significant. REVIEW OF SYSTEMS: Ten review of systems were asked, they were negative except in my HPI. PHYSICAL EXAMINATION: GENERAL: Awake, alert, oriented. Feeling better. HEENT: Mucous membranes moist and pink. Pupils are equal in size. Atraumatic, normocephalic and no paranasal tenderness. Ear pinna is normal. NECK: Short neck and no lymph nodes are palpated. HEART: S1-S2 heard. LUNGS: Clear on examination. No crackles. No wheezing. ABDOMEN: Soft, no tenderness, no guarding, and bowel sounds are present. Obese. No masses felt. No tenderness. EXTREMITIES: Lower extremities, no pedal edema. No calf tenderness. MUSCULOSKELETAL: Denies any joint effusion but has chronic lower back pain but right now does not have any tenderness. NEURO: Awake, alert, oriented, moving all his extremities. SKIN: No rash. LABORATORY ANALYSIS: BMP; sodium is 138, potassium is 6.2, chloride is 104, bicarb is 17, anion gapwas 23, BUN of 33, creatinine 3.38, calcium is 11.9. Total protein is 8.6 and albumin is 5.3, and urine serum osmolality is 301. Total CPK is 401. Troponin is 0.02. BNP is 30. WBC was 14.6, hemoglobin is 16.6, platelets are 263. Urinalysis showed trace protein and few bacteria. Blood glucose is 121. PT is 9.6, INR is 0.9. PTT is 30. EKG showed sinus rhythm with normal EKG. Chest x-ray portable, elevated left hemidiaphragm, small left pleural effusion. ASSESSMENT AND PLAN: A 68-year-old male with history of hypertension, chronic depression,history of pancreatitis in the past, JANN, noncompliance with CPAP, obesity came with complaining ofgeneralized weakness and fatigue with golfing all day yesterday with acute renal failure with hyperkalemia. 1. Acute kidney injury: Do not have a baseline creatinine but creatinine of 3.42, looks like prerenal azotemia probably secondary to dehydration and golfing all day and possible contributed with lisinopril and Aleve over the counter he was taking. Given IV fluids and bicarbonate and anion gap is normal. Creatinine is improving. Dr. Michaels is following. 2. Metabolic acidosis secondary to CHRISTIAN: Improved. 3. Hyperkalemia: Contributed possible secondary to lisinopril and CHRISTIAN. Given cocktail for hyperkalemia including bicarb, D50 and Kayexalate by the pouncer and potassium back to normal. Holding the lisinopril and Aleve. 4. Obesity: Recommended lifestyle modifications. 5. Hypercalcemia. Again probably secondary to dehydration. 6. Leukocytosis, possible secondary to dehydration. WBC is back to normal. 7. Hypertension. Blood pressure is increasing. Started on low-dose amlodipine. Dr. Michaels is following. Continue to hold lisinopril secondary to hyperkalemia and CHRISTIAN. Improving. 8. Chronic depression: We will hold his antidepressants and Neurontin for now. 9. JANN: Noncompliance with the CPAP. The patient refusing for CPAP. Understand the risk of JANN. 10. DVT prophylaxis. Subcu heparin. 11. Admit status inpatient. 12. PCP unassigned. PLAN: Continue with IV hydration, added amlodipine 2.5 mg daily and check BMP and LFTs in the morning and discussed with the daughter and the . Ata Matamoros MD [address] [facility] Job: [id number] Electronically Signed On 01.12.2019 07:45 Ata Matamoros MD, V. documented in this encounter Consult Notes * Nicolás Michaels MD - 01/11/2019 4:30 PM CDT DATE OF CONSULTATION: 01/11/2019 REFERRING Physician: Mark Grissom MD REASON FOR CONSULTATION: Acute kidney injury. HISTORY OF PRESENT ILLNESS: This is a 68-year-old white male with history of hypertension, depression, and anxiety with history of pancreatitis, who is admitted with weakness and dizziness. The patient apparently was in his usual good state of health. He went to play golf yesterday. It was greater than 90 degrees outside when he played. He finished the entire around. He states that he played verywell, but as he was going through the round of golf, he started feeling somewhat lightheaded and weak. He finished the round, and subsequently, it had worsened. Therefore, he came to the hospital. Hestates that during the outing, he did not have any significant amount of beverage intake, possibly l eading to the dizziness and dehydration. In the emergency room, he was found to have advanced acutekidney injury, and he was started on IV fluids. Overnight, the patient had stabilized. He started to urinate better and feels much improved at this time. At the time of evaluation, he is awake and alert. He is resting in bed. He does not appear to be in acute distress. Currently, he denies any compl aints. REVIEW OF SYSTEMS: The patient denies any nausea or vomiting. No headaches or blurred vision. He denies any dizziness now, no chest pain. His breathing is comfortable. He denies any abdominal pain ordiarrhea. No dysuria or hematuria. His appetite seems to be good. He denies any rash or joint pains. He denies other complaints. Rest of review of systems is negative. PAST MEDICAL HISTORY: Significant for the above. PAST SURGICAL HISTORY: Significant for orthopedic procedures. SOCIAL HISTORY: Negative for alcohol, tobacco, or illicit drug use. FAMILY HISTORY: Significant for hypertension. ALLERGIES: HE IS NOT KNOWN TO HAVE ANY DRUG ALLERGIES. MEDICATIONS: At home are Wellbutrin, gabapentin, lisinopril, multivitamin, and naproxen that he takes routinely, but he states that he has not had it in the last 48 hours or so. PHYSICAL EXAMINATION: VITAL SIGNS: He is afebrile with heart rate in the 60s, respiratory rate is 16, blood pressure is 150/70. I's and O's are 560 in, 1 L out. HEENT: No frontomaxillary sinus tenderness. No nasal congestion. No posterior pharyngeal wall erythema or exudate. NECK: Supple. No JVP elevation. Good carotid upstroke and volume. HEART: S1, S2. No gallops or rubs. LUNGS: Clear to auscultation. No rales or wheezes. Good inspiratory effort. ABDOMEN: Soft, nontender, nondistended. Bowel sounds are present. No bruits in all quadrants. No hepatosplenomegaly. No bladder distention per percussion. EXTREMITIES: Reveal no edema x4. SKIN: Reveals no rash. JOINT: reveals no active synovitis. NEUROLOGICAL: Nonfocal. GENERAL: The patient is resting comfortably in bed. He does not appear to be in acute distress. LABORATORY DATA: At admission yesterday; sodium 138, potassium 6.2, chloride 104, bicarbonate 17, BUN 33, creatinine 3.38. This morning BUN has improved to 31, creatinine has improved to 1.92, potassium has improved to 4.8, and bicarbonate has improved to 23. Total CK at admission was only 400. White count 9.6, H and H 13 and 38, and platelet count 183. There is no peripheral eosinophilia. IMPRESSION: This is a 68-year-old white male with history of hypertension, depression with anxiety,previous history of pancreatitis, who is admitted with dizziness and weakness. The patient is thought to have volume contraction. Workup and treatment are underway. Additionally: 1. He has acute kidney injury. This is most likely secondary to volume contraction while on DAYDAY inhibitor and nonsteroidals. Renal function has improved remarkably just overnight. We will continue with IV fluids. 2. Hyperkalemia, likely secondary to advanced acute kidney injury while on DAYDAY inhibitor and nonsteroidals. This is corrected quickly. 3. Volume status. The patient was volume contracted at admission. He is approaching euvolemia at this time. 4. Hypertension, seems to be okay. PLAN: At this time: 1. Check urinalysis and electrolytes. 2. Acute hyperkalemia treatment given with resolution. 3. Hold DAYDAY inhibitor right now as well as nonsteroidals. 4. IV fluids. 5. Disposition. Okay to discharge either later today or tomorrow after some more hydration. The patient may resume lisinopril in about 48 hours. Would hold off on nonsteroidals. The patient lives outof town. He is recommended to follow up with his primary care doctor within the week to recess renal function. This was discussed with the patient and staff at length. All questions answered in detail . Thank you very much for the consultation. Nicolás Michaels MD 861 /[facility] Job: [id number] Electronically Signed On 01.12.2019 16:41 Nicolás Michaels MD. documented in this encounter ED Notes * West Jackson, - 01/10/2019 6:18 PM CDT Patient: MORELIA SANCHEZ Age: 68 years Sex: Male : 1950 Associated Diagnoses: Heat exhaustion; Renal failure; Hyperkalemia Author: West Jackson DO Basic Information Time seen: Immediately upon arrival. History source: Patient, friend. History of Present Illness The patient presents with Patient here with friend who is aiding in history. Patient complains of generalized weakness and fatigue as well as shortness of breath. He does admit that he has been golfing all day. He has been out for 5 hours. He has had limited fluids and has not had any lunch. He does describe it being a hot day and sweating throughout the day.. Review of Systems Constitutional symptoms: Weakness, fatigue, No fever, Skin symptoms: No rash, Eye symptoms: No recent vision problems, ENMT symptoms: No sore throat, Respiratory symptoms: Shortness of breath. Cardiovascular symptoms: No chest pain, Gastrointestinal symptoms: No abdominal pain, Genitourinary symptoms: No dysuria, Musculoskeletal symptoms: No Joint pain, Neurologic symptoms: No headache, Health Status Allergies: see SANTI. Medications: medications were reviewed with patient. Past Medical/ Family/ Social History Medical history Cardiovascular: hypertension. Psychiatric: depression. Previous pancreatitis. Surgical history: no pertinent surgical history. Family history: Not significant. Social history: Alcohol use: Denies, Tobacco use: previous smoker, Drug use: Denies. Physical Examination Vital Signs Per nurse's notes. Pulse Ox 100% on Room Air which is normal for this patient. Vital Signs were reviewed. General: Alert, no acute distress. Skin: Warm, dry. Head: Normocephalic, atraumatic. Neck: Supple, trachea midline. Eye: Pupils are equal, round and reactive to light, extraocular movements are intact. Ears, nose, mouth and throat: dry oropharynx. Cardiovascular: Regular rate and rhythm, S1, S2. Respiratory: Lungs are clear to auscultation, respirations are non-labored, Symmetrical chest wall expansion. Gastrointestinal: Soft, Nontender, Non distended. Musculoskeletal: Normal ROM, no swelling, no deformity. Neurological: Alert and oriented to person, place, time, and situation, No focal neurological deficit observed. Psychiatric: Appropriate mood & affect. Medical Decision Making child monitor: Rhythm strip analyzed by myself shows sinus rhythm, normal rate, with no ectopy.. Electrocardiogram: no acute or ischemic changes appreciated on EKG. Chest X-Ray: Report EXAM: XR Chest Portable CLINICAL INDICATION: Shortness of breath. TECHNIQUE: Single AP upright portable view of the chest was obtained. COMPARISON: None FINDINGS: The left hemidiaphragm is elevated. No focal consolidation or pneumothorax. There is blunting of the left costophrenic angle. The cardiac silhouette is borderline enlarged. The descending thoracic aorta is well delineated. The chest wall is intact. There are mild degenerative changes in the spine. IMPRESSION: Elevated left hemidiaphragm. Small left pleural effusion. . Impression and Plan Diagnosis Heat exhaustion ([id number] T67.5XXA, Discharge, Emergency medicine, Medical) Renal failure ([id number] N19, Discharge, Emergency medicine, Medical) Hyperkalemia ([id number] E87.5, Discharge, Emergency medicine, Medical) Plan Condition: Improved. Disposition: Admit. Notes: 7:30PM patient resting comfortably and seems to be feeling much better. His presentation is consistent with heat exhaustion. He is in acute renal failure likely prerenal in nature. We will plan on admission for further hydration. He is hyperkalemic and this will be treated as well. Case was d iscussed with Dr. Michaels. He agrees with management and admission and recommended a bicarb drip Case was discussed with [facility] hospitalist as well.. Electronically Signed On 01.10.2019 21:11 West Jackson DO * West Jackson DO - 01/10/2019 6:00 PM CDT ED Time Seen By Provider Entered On: 01/10/2019 18:00 Performed On: 01/10/2019 18:00 by West Jackson DO Time Seen By Provider Time Seen by Provider : 01/10/2019 18:00 West Jackson DO - 01/10/2019 18:00 Electronically Signed On 01.10.2019 18:00 West Jackson DO documented in this encounter Plan of Treatment Not on file documented as of this encounter Procedures Procedure Name Priority Date/Time Associated Diagnosis Comments HEPATIC FUNCTION PANEL Routine 9 5:08 AM CDT PHOSPHORUS LEVEL Routine 01/12/2019 5:08 AM CDT MAGNESIUM LEVEL Routine 01/12/2019 5:08 AM CDT BASIC METABOLIC PANEL Routine 01/12/2019 5:08 AM CDT ELECTROCARDIOGRAM 12-LEAD Routine 2018 12:00 AM CDT TELEMETRY MONITORING Routine 01/12/2019 12:00 AM CDT PHOSPHORUS LEVEL Routine 01/11/2019 4:56 AM CDT MAGNESIUM LEVEL Routine 01/11/2019 4:56 AM CDT BASIC METABOLIC PANEL Routine 01/11/2019 4:56 AM CDT AUTOMATED DIFFERENTIAL Routine 9 4:56 AM CDT CBC WITH DIFFERENTIAL Routine 01/11/2019 4:56 AM CDT CHLORIDE RANDOM URINE Routine 01/11/2019 1:20 AM CDT SODIUM RANDOM LEVEL URINE Routine 2018 1:20 AM CDT CREATININE RANDOM URINE Routine 01/12/20 19 1:20 AM CDT URINALYSIS_MICROSCOPIC Routine 9 1:20 AM CDT URINALYSIS Routine 01/11/2019 1:20 AM CDT BASIC METABOLIC PANEL Routine 01/10/2019 11:39 PM CDT POC_GLUCOSE Routine 01/10/2019 8:27 PM CDT XR ADVOCATE PROCEDURE Routine 01/10/2019 7:18 PM CDT OSMOLALITY Routine 01/10/2019 6:46 PM CDT CREATINE KINASE, TOTAL ONLY Routine 01/10/2019 6:46 PM CDT B-TYPE NATRIURETIC PEPTIDE Routine 01/10/2019 6:46 PM CDT DIFFERENTIAL MORPH Routine 01/10/2019 6: 46 PM CDT TROPONIN I Routine 01/10/2019 6:46 PM CDT PROTHROMBIN TIME Routine 01/10/2019 6:46 PM CDT COMPREHENSIVE METABOLIC PANEL Routine 01/10/2019 6:46 PM CDT AUTOMATED DIFFERENTIAL Routine 9 6:46 PM CDT CBC WITH DIFFERENTIAL Routine 01/10/2019 6:46 PM CDT PARTIAL THROMBOPLASTIN TIME Routine 01/10/2019 6:46 PM CDT documented in this encounter Results * MAGNESIUM LEVEL (01/12/2019 5:08 AM CDT) Magnesium Level 2.3 1.6 - 2.6 mg/dL HISTORICAL DATA MIGRATION Hemolysis 2+ 1+ HISTORI ANGE DATA MIGRATION 01/12/2019 5:08 AM CDT 01/12/2019 5:16 AM CDT Nicolás Michaels MD LABORATORY - EXTERNA L HISTORICAL DATA MIGRATION * (ABNORMAL) BASIC METABOLIC PANEL (01/12/2019 5:08 AM CDT) Glucose Lvl 97 70 - 99 mg/dL HISTORICAL DATA MIGRATION BUN 20 6 - 20 mg/dL HISTORICAL DATA MIGRATION Creatinine 1.27 0.60 - 1.30 mg/dL HISTORICAL DATA MIGRATION eGFR AfrAmer >60 mL/min/1.7 3m2 HISTORICAL DATA MIGRATION eGFR NonAfrAmer 57 mL/min/1.7 3m2 HISTORICAL DATA MIGRATION Comment: Per KDOQI guidelines*, a persistent eGFR <60 mL/min/1.73m2 is indicative of chronic kidney disease. ??Clinical correlation is recommended. The National Kidney Disease Education Program has recommended that the estimated GFR be reported with serum creatinine levels to aid in identifying patients with chronic kidney disease and that estimated GFR results above 60 mL/min/1.73m2 not be reported as an exact number. The estimated GFR was calculated using the IDMS traceable MDRD study equation. *KDOQI: National Kidney Foundation Kidney Disease Outcomes Quality Initiatives Calcium 9.4 8.4 - 10.2 mg/dL HISTORICAL DATA MIGRATION Sodium 138 136 - 145 mEq/L HISTORICAL DATA MIGRATION Potassium 4.9 3.5 - 5.1 mEq/L HISTORICAL DATA MIGRATION Chloride 108(H) 97 - 107 mEq/L HISTORICAL DATA MIGRATION TCO2 24 19 - 29 mEq/L HISTORICAL DATA MIGRATION Anion Gap 11 10 - 20 mEq/L HISTORICAL DATA MIGRATION Hemolysis 2+ 1+ HISTORI ANGE DATA MIGRATION 01/12/2019 5:08 AM CDT 01/12/2019 5:16 AM CDT Nicolás Michaels MD LABORATORY - EXTERNA L HISTORICAL DATA MIGRATION * PHOSPHORUS LEVEL (01/12/2019 5:08 AM CDT) Phosphorus 2.3 2.3 - 4.7 mg/dL HISTORICAL DATA MIGRATION Hemolysis 3+ 1+ HISTORI ANGE DATA MIGRATION Lipemic 4+ Negative HISTORICA L DATA MIGRATION 01/12/2019 5:08 AM CDT 01/12/2019 5:16 AM CDT Nicolás Michaels MD LABORATORY - EXTERNA L HISTORICAL DATA MIGRATION * (ABNORMAL) HEPATIC FUNCTION PANEL (01/12/2019 5:08 AM CDT) Total Protein 6.0(L) 6.4 - 8.3 g/dL HISTORICAL DATA MIGRATION Comment:Result checked Albumin 3.6 3.5 - 5.0 g/dL HISTORICAL DATA MIGRATION Comment:Result checked Globulin_ 2.4 2.0 - 4.1 g/dL HISTORICAL DATA MIGRATION A/G Ratio_ 1.5 HISTORICA L DATA MIGRATION Bili Total 0.7 0.2 - 1.0 mg/dL HISTORICAL DATA MIGRATION Bili Direct 0.3 0.0 - 0.5 mg/dL HISTORICAL DATA MIGRATION Alk Phos 69 50 - 124 unit/L HISTORICAL DATA MIGRATION AST/GOT 31 5 - 34 unit/L HISTORICAL DATA MIGRATION ALT/GPT 24 0 - 55 unit/L HISTORICAL DATA MIGRATION Hemolysis 2+ 1+ HISTORI ANGE DATA MIGRATION Lipemic 2+ Negative HISTORICA L DATA MIGRATION 01/12/2019 5:08 AM CDT 01/12/2019 5:16 AM CDT Ata Matamoros MD LABORATORY - EXTER NAL HISTORICAL DATA MIGRATION * Telemetry monitoring (01/12/2019 12:00 AM CDT) 01/12/2019 Narrative HISTORICAL DATA MIGRATION - 01/12/2019 12:00 AM CDT Check Scarlet Vaughn for Scanned Image Procedure Note Provider, Advocate Scarlet Vaughn Historical Conversion - 08/25/2020 Check Scarlet Vaughn for Scanned Image Advocate Scarlet Vaughn Hist orical Conversion Provider NURSING TREATMENT ORDERABLES - UNTIL DISCONTINUED HISTORICAL DATA MIGRATION * Electrocardiogram 12-Lead (01/12/2019 12:00 AM CDT) 01/12/2019 Narrative HISTORICAL DATA MIGRATION - 01/12/2019 12:00 AM CDT Check Scarlet Vaughn for Scanned Image Procedure Note Provider, Advocate Scarlet Vaughn Historical Conversion - 08/25/2020 Check Scarlet Vauhgn for Scanned Image Advocate Scarlet Vaughn Historical Conve rsion Provider ECG ORDERABLES Performing Organization Address City/[facility] Co de Phone Number HISTORICAL DATA MIGRATION * PHOSPHORUS LEVEL (01/11/2019 4:56 AM CDT) Phosphorus 4.0 2.3 - 4.7 mg/dL HISTORICAL DATA MIGRATION Hemolysis 3+ 2+ HISTORI ANGE DATA MIGRATION Lipemic 4+ Negative HISTORICA L DATA MIGRATION 01/11/2019 4:56 AM CDT 01/11/2019 5:15 AM CDT Nicolás Michaels MD LABORATORY - EXTERNA L Performing Organization Address City/[facility] Co de Phone Number HISTORICAL DATA MIGRATION * MAGNESIUM LEVEL (01/11/2019 4:56 AM CDT) Magnesium Level 2.6 1.6 - 2.6 mg/dL HISTORICAL DATA MIGRATION Hemolysis 2+ 2+ HISTORI ANGE DATA MIGRATION 01/11/2019 4:56 AM CDT 01/11/2019 5:15 AM CDT Zhen Carvajal MD LABORATOR Y - EXTERNAL Performing Organization Address City/[facility] Co de Phone Number HISTORICAL DATA MIGRATION * (ABNORMAL) BASIC METABOLIC PANEL (01/11/2019 4:56 AM CDT) Glucose Lvl 109(H) 70 - 99 mg/dL HISTORICAL DATA MIGRATION Comment: Slight hemolysis Clinical correlation is recommended. ??Repeat the test if clinically indicated. BUN 31(H) 6 - 20 mg/dL HISTORICAL DATA MIGRATION Creatinine 1.92(H) 0.60 - 1.30 mg/dL HISTORICAL DATA MIGRATION eGFR AfrAmer 43 mL/min/1.7 3m2 HISTORICAL DATA MIGRATION eGFR NonAfrAmer 35 mL/min/1.7 3m2 HISTORICAL DATA MIGRATION Comment: Per KDOQI guidelines*, a persistent eGFR <60 mL/min/1.73m2 is indicative of chronic kidney disease. ??Clinical correlation is recommended. The National Kidney Disease Education Program has recommended that the estimated GFR be reported with serum creatinine levels to aid in identifying patients with chronic kidney disease and that estimated GFR results above 60 mL/min/1.73m2 not be reported as an exact number. The estimated GFR was calculated using the IDMS traceable MDRD study equation. *KDOQI: National Kidney Foundation Kidney Disease Outcomes Quality Initiatives Calcium 9.1 8.4 - 10.2 mg/dL HISTORICAL DATA MIGRATION Sodium 136 136 - 145 mEq/L HISTORICAL DATA MIGRATION Potassium 4.8 3.5 - 5.1 mEq/L HISTORICAL DATA MIGRATION Chloride 104 97 - 107 mEq/L HISTORICAL DATA MIGRATION TCO2 23 19 - 29 mEq/L HISTORICAL DATA MIGRATION Anion Gap 14 10 - 20 mEq/L HISTORICAL DATA MIGRATION Hemolysis 2+ 2+ HISTORI ANGE DATA MIGRATION 01/11/2019 4:56 AM CDT 01/11/2019 5:15 AM CDT Zhen Carvajal MD LABORATOR Y - EXTERNAL HISTORICAL DATA MIGRATION * CBC WITH DIFFERENTIAL (01/11/2019 4:56 AM CDT) WBC 9.6 4.0 - 11.0 K/cumm HISTORICAL DATA MIGRATION Instr WBC 9.6 4.0 - 11.0 K/cumm HISTORICAL DATA MIGRATION RBC 4.29 4.20 - 6.00 M/cumm HISTORICAL DATA MIGRATION HGB 13.0 12.0 - 17.0 g/dL HISTORICAL DATA MIGRATION Comment:Result checked HCT 38 36 - 51 % HISTORICAL DATA MIGRATION MCV 90 78 - 97 FL HISTORICA L DATA MIGRATION MCH 30 25 - 35 pg HISTORICA L DATA MIGRATION MCHC 34 32 - 37 g/dL HISTORICAL DATA MIGRATION RDW 12.5 11.5 - 14.5 % HISTORICAL DATA MIGRATION Platelet 183 150 - 450 K/cumm HISTORICAL DATA MIGRATION NUCLEATED RBC'S 0.0 0.0 - 0.2 % HISTORICAL DATA MIGRATION Diff_Type? Auto HISTORICA L DATA MIGRATION 01/11/2019 4:56 AM CDT 01/11/2019 5:15 AM CDT Zhen Carvajal MD LABORATOR Y - EXTERNAL HISTORICAL DATA MIGRATION * (ABNORMAL) AUTOMATED DIFFERENTIAL (01/11/2019 4:56 AM CDT) Neutrophil 65 % HISTORICA L DATA MIGRATION Lymphocyte 22 % HISTORICA L DATA MIGRATION Monocyte 10 % HISTORICAL DATA MIGRATION Eosinophil 2 0 - 6 % HISTORICA L DATA MIGRATION Basophil 0 0 - 1 % HISTORICAL DATA MIGRATION Abs Neutro 6.2 2.0 - 8.0 K/cumm HISTORICAL DATA MIGRATION Abs Lymph 2.1 1.0 - 3.5 K/cumm HISTORICAL DATA MIGRATION Abs Rogers 1.0(H) 0.1 - 0.8 K/cumm HISTORICAL DATA MIGRATION Immature Gran 0.3 0.0 - 0.3 % HISTORICAL DATA MIGRATION 01/11/2019 4:56 AM CDT Advocate Scarlet Vaughn Historical Conve rsion Provider LABORATORY - EXTERNAL Performing Organization Address City/[facility] Co de Phone Number HISTORICAL DATA MIGRATION * CREATININE RANDOM URINE (01/11/2019 1:20 AM CDT) U Creatinine 172.12 mg/dL HISTORI ANGE DATA MIGRATION 01/11/2019 1:20 AM CDT 01/11/2019 1:28 AM CDT West Jackson DO LABORATORY - EXTERNA L Performing Organization Address [facility] Co de Phone Number HISTORICAL DATA MIGRATION * SODIUM RANDOM LEVEL URINE (01/11/2019 1:20 AM CDT) U Sodium 98 mEq/L HISTORICAL DATA MIGRATION 01/11/2019 1:20 AM CDT 01/11/2019 1:28 AM CDT West Jackson DO LABORATORY - EXTERNA L Performing Organization Address City/[facility]/ZIP Co de Phone Number HISTORICAL DATA MIGRATION * CHLORIDE RANDOM URINE (01/11/2019 1:20 AM CDT) U Chloride 82 mEq/L HISTORICA L DATA MIGRATION 01/11/2019 1:20 AM CDT 01/11/2019 1:28 AM CDT West Jackson DO LABORATORY - EXTERNA L Performing Organization Address City/[facility]/ZIP Co de Phone Number HISTORICAL DATA MIGRATION * (ABNORMAL) URINALYSIS (01/11/2019 1:20 AM CDT) Pathologist [facility] UA Appear Clear Clear HISTORICAL DATA MIGRATION UA Color Yellow HISTORICAL DATA MIGRATION UA pH 5.5 5.0 - 7.0 HISTORICAL DATA MIGRATION UA Spec Grav 1.025 1.010 - 1.025 HISTORICAL DATA MIGRATION UA Glucose Negative Negative HISTORICA L DATA MIGRATION UA Bili Negative Negative HISTORICAL DATA MIGRATION UA Ketones Negative Negative HISTORICA L DATA MIGRATION UA Blood Negative Negative HISTORICAL DATA MIGRATION UA Protein Trace(A) Negative HISTORICA L DATA MIGRATION UA Urobilinogen 0.2 0.2 - 1 mg/dL HISTORICAL DATA MIGRATION UA Nitrite Negative Negative HISTORICA L DATA MIGRATION UA Leuk Est Negative Negative HISTORIC AL DATA MIGRATION 01/11/2019 1:20 AM CDT 01/11/2019 1:28 AM CDT West Jaya Jackson DO LABORATORY - EXTERNA L Performing Organization Address [facility] de Phone Number HISTORICAL DATA MIGRATION * (ABNORMAL) URINALYSIS_MICROSCOPIC (01/11/2019 1:20 AM CDT) [facility] UA Epithelial Rare(A) None Seen HISTOR ICAL DATA MIGRATION UA WBC 1 - 5/HPF(A) None Seen HISTORICAL DATA MIGRATION UA RBC None Seen None Seen HISTORICAL DATA MIGRATION UA Bacteria Few(A) None Seen HISTORIC AL DATA MIGRATION UA Cast Hyaline(A) HISTORICA L DATA MIGRATION 01/11/2019 1:20 AM CDT Narrative HISTORICAL DATA MIGRATION - 01/11/2019 1:20 AM CDT Order Note: Added by Discen Expert Advocate Scarlet Vaughn Historical Conve rsion Provider LABORATORY - EXTERNAL HISTORICAL DATA MIGRATION * (ABNORMAL) BASIC METABOLIC PANEL (01/10/2019 11:39 PM CDT) Glucose Lvl 120(H) 70 - 99 mg/dL HISTORICAL DATA MIGRATION BUN 32(H) 6 - 20 mg/dL HISTORICAL DATA MIGRATION Creatinine 2.42(H) 0.60 - 1.30 mg/dL HISTORICAL DATA MIGRATION eGFR AfrAmer 33 mL/min/1. 73m2 HISTORICAL DATA MIGRATION eGFR NonAfrAmer 27 mL/min/1. 73m2 HISTORICAL DATA MIGRATION Comment: Per KDOQI guidelines*, a persistent eGFR <60 mL/min/1.73m2 is indicative of chronic kidney disease. ??Clinical correlation is recommended. The National Kidney Disease Education Program has recommended that the estimated GFR be reported with serum creatinine levels to aid in identifying patients with chronic kidney disease and that estimated GFR results above 60 mL/min/1.73m2 not be reported as an exact number. The estimated GFR was calculated using the IDMS traceable MDRD study equation. *KDOQI: National Kidney Foundation Kidney Disease Outcomes Quality Initiatives Calcium 9.8 8.4 - 10.2 mg/dL HISTORICAL DATA MIGRATION Sodium 138 136 - 145 mEq/L HISTORICAL DATA MIGRATION Potassium 4.7 3.5 - 5.1 mEq/L HISTORICAL DATA MIGRATION Comment: Sample integrity checked. ??No clots or fibrin detected. Clinical correlation is recommended. ??Repeat the test if clinically indicated. Chloride 106 97 - 107 mEq/L HISTORICAL DATA MIGRATION TCO2 21 19 - 29 mEq/L HISTORICAL DATA MIGRATION Anion Gap 16 10 - 20 mEq/L HISTORICAL DATA MIGRATION Hemolysis 2+ Negative HISTORI ANGE DATA MIGRATION 01/10/2019 11:3 9 PM CDT 01/10/2019 11:56 PM CDT Zhen Carvajal MD LABORATOR Y - EXTERNAL HISTORICAL DATA MIGRATION * (ABNORMAL) POC_GLUCOSE (01/10/2019 8:27 PM CDT) POC_Glu 121(H) 70 - 99 mg/dL HISTORICAL DATA MIGRATION Tech_ID Etta Navarro HISTORICAL DATA MIGRATION Device SN [id number] HISTORI ANGE DATA MIGRATION 01/10/2019 8:27 PM CDT Advocate Scarlet Vaughn Historical Conve rsion Provider LABORATORY - EXTERNAL HISTORICAL DATA MIGRATION * XR ADVOCATE PROCEDURE (01/10/2019 7:18 PM CDT) Anatomical Region Laterality Modality Radiographic Scarlet ging 01/10/2019 7:18 PM CDT 01/10/2019 7:18 PM CDT Impressions 01/10/2019 7:18 PM CDT Elevated left hemidiaphragm. Small left pleural effusion. Final Dictated by: ??Moo Redmond MD Electronically Signed By: ??Moo Redmond MD on ??01/10/2019 19:23 Technologist Initials: ??SQ Narrative 01/10/2019 7:18 PM CDT EXAM: XR Chest Portable CLINICAL INDICATION: Shortness of breath. TECHNIQUE: Single AP upright portable view of the chest was obtained. COMPARISON: None FINDINGS: The left hemidiaphragm is elevated. No focal consolidation or pneumothorax. There is blunting of the left costophrenic angle. The cardiac silhouette is borderline enlarged. The descending thoracic aorta is well delineated. The chest wall is intact. There are mild degenerative changes in the spine. Procedure Note Provider, Advocate Scarlet Vaughn Historical Conversion - 08/25/2020 EXAM: XR Chest Portable CLINICAL INDICATION: Shortness of breath. TECHNIQUE: Single AP upright portable view of the chest was obtained. COMPARISON: None FINDINGS: The left hemidiaphragm is elevated. No focal consolidation or pneumothorax. There is blunting of the left costophrenic angle. The cardiac silhouette is borderline enlarged. The descending thoracic aorta is well delineated. The chest wall is intact. There are mild degenerative changes in the spine. IMPRESSION: Elevated left hemidiaphragm. Small left pleural effusion. Final Dictated by: Moo Redmond MD Technologist Initials: SQ West Jackson DO IMG XR PROCEDURES * Partial Thromboplastin Time (01/10/2019 6:46 PM CDT) PTT 30 22 - 30 seconds HISTORICAL DATA MIGRATION 01/10/2019 6:46 PM CDT 01/10/2019 6:46 PM CDT West Jackson DO LAB BLOOD ORDERABLES Performing Organization Address [facility] de Phone Number HISTORICAL DATA MIGRATION * (ABNORMAL) PROTHROMBIN TIME (01/10/2019 6:46 PM CDT) PROTIME-PT 9.6(L) 9.7 - 11.6 seconds HISTORICAL DATA MIGRATION INR 0.9 0.9 - 1.1 HISTORICAL DATA MIGRATION 01/10/2019 6:46 PM CDT 01/10/2019 6:46 PM CDT West Jackson DO LABORATORY - EXTERNA L Performing Organization Address [facility] de Phone Number HISTORICAL DATA MIGRATION * (ABNORMAL) CREATINE KINASE, TOTAL ONLY (01/10/2019 6:46 PM CDT) Total CK 401(H) 30 - 200 U/L HISTORICAL DATA MIGRATION 01/10/2019 6:46 PM CDT 01/10/2019 6:46 PM CDT West Jackson DO LABORATORY - EXTERNA L Performing Organization Address [facility] de Phone Number HISTORICAL DATA MIGRATION * (ABNORMAL) COMPREHENSIVE METABOLIC PANEL (01/10/2019 6:46 PM CDT) Glucose Lvl 95 70 - 99 mg/dL HISTORICAL DATA MIGRATION BUN 33(H) 6 - 20 mg/dL HISTORICAL DATA MIGRATION Creatinine 3.38(H) 0.60 - 1.30 mg/dL HISTORICAL DATA MIGRATION eGFR AfrAmer 22 mL/min/1. 73m2 HISTORICAL DATA MIGRATION eGFR NonAfrAmer 18 mL/min/1. 73m2 HISTORICAL DATA MIGRATION Comment: Per KDOQI guidelines*, a persistent eGFR <60 mL/min/1.73m2 is indicative of chronic kidney disease. ??Clinical correlation is recommended. The National Kidney Disease Education Program has recommended that the estimated GFR be reported with serum creatinine levels to aid in identifying patients with chronic kidney disease and that estimated GFR results above 60 mL/min/1.73m2 not be reported as an exact number. The estimated GFR was calculated using the IDWY traceable MDRD study equation. *KDOQI: National Kidney Foundation Kidney Disease Outcomes Quality Initiatives Sodium 138 136 - 145 mEq/L HISTORICAL DATA MIGRATION Potassium 6.2(C) 3.5 - 5.1 mEq/L HISTORICAL DATA MIGRATION Comment:Alert value, results called to Dr Jackson at 01/10/2019 19:16:12 CDT , and read back. Clinical correlation is recommended. Repeat the test if clinically indicated. Slight hemolysis/1+ Chloride 104 97 - 107 mEq/L HISTORICAL DATA MIGRATION TCO2 17(L) 19 - 29 mEq/L HISTORICAL DATA MIGRATION Anion Gap 23(H) 10 - 20 mEq/L HISTORICAL DATA MIGRATION Calcium 11.9(H) 8.4 - 10.2 mg/dL HISTORICAL DATA MIGRATION Alk Phos 104 50 - 124 unit/L HISTORICAL DATA MIGRATION Bili Total 1.0 0.2 - 1.0 mg/dL HISTORICAL DATA MIGRATION Total Protein 8.6(H) 6.4 - 8.3 g/dL HISTORICAL DATA MIGRATION Albumin 5.3(H) 3.5 - 5.0 g/dL HISTORICAL DATA MIGRATION Globulin_ 3.3 2.0 - 4.1 g/dL HISTORICAL DATA MIGRATION A/G Ratio_ 1.6 HISTORICA L DATA MIGRATION AST/GOT 41(H) 5 - 34 unit/L HISTORICAL DATA MIGRATION ALT/GPT 36 0 - 55 unit/L HISTORICAL DATA MIGRATION Hemolysis 2+ 1+ HISTORI ANGE DATA MIGRATION Lipemic 3+ Negative HISTORICA L DATA MIGRATION 01/10/2019 6:46 PM CDT 01/10/2019 6:46 PM CDT West Jackson DO LABORATORY - EXTERNA L HISTORICAL DATA MIGRATION * TROPONIN I (01/10/2019 6:46 PM CDT) Troponin I 0.02 <=0.03 ng/mL HISTORICAL DATA MIGRATION Comment: Troponin I reference range </=0.03 ng/mL ??Negative ?? > 0.03 ng/mL ??Positive Troponin levels >0.03 ng/mL are considered positive. ??Myocardial injury should be excluded clinically. Effective November 27, 2017, reference range for Troponin has been changed. Hemolysis 4+ 1+ HISTORI ANGE DATA MIGRATION Icteric 4+ Negative HISTORICA L DATA MIGRATION 01/10/2019 6:46 PM CDT 01/10/2019 6:46 PM CDT West Jackson DO LABORATORY - EXTERNA L HISTORICAL DATA MIGRATION * (ABNORMAL) CBC WITH DIFFERENTIAL (01/10/2019 6:46 PM CDT) WBC 14.6(H) 4.0 - 11.0 K/cumm HISTORICAL DATA MIGRATION Instr WBC 14.6(H) 4.0 - 11.0 K/cumm HISTORICAL DATA MIGRATION RBC 5.41 4.20 - 6.00 M/cumm HISTORICAL DATA MIGRATION HGB 16.6 12.0 - 17.0 g/dL HISTORICAL DATA MIGRATION HCT 47 36 - 51 % HISTORICAL DATA MIGRATION MCV 87 78 - 97 FL HISTORICA L DATA MIGRATION MCH 31 25 - 35 pg HISTORICA L DATA MIGRATION MCHC 35 32 - 37 g/dL HISTORICAL DATA MIGRATION RDW 12.3 11.5 - 14.5 % HISTORICAL DATA MIGRATION Platelet 263 150 - 450 K/cumm HISTORICAL DATA MIGRATION NUCLEATED RBC'S 0.0 0.0 - 0.2 % HISTORICAL DATA MIGRATION Diff_Type? Auto+Morph (A) HISTORICAL DATA MIGRATION 01/10/2019 6:46 PM CDT 01/10/2019 6:46 PM CDT West Jackson DO LABORATORY - EXTERNA L HISTORICAL DATA MIGRATION * B-TYPE NATRIURETIC PEPTIDE (01/10/2019 6:46 PM CDT) BNP 30 1 - 100 pg/mL HISTORICAL DATA MIGRATION Hemolysis 4+ Negative HISTORI ANGE DATA MIGRATION 01/10/2019 6:46 PM CDT 01/10/2019 6:46 PM CDT West P Jackson DO LABORATORY - EXTERNA L HISTORICAL DATA MIGRATION * (ABNORMAL) AUTOMATED DIFFERENTIAL (01/10/2019 6:46 PM CDT) Neutrophil 78 % HISTORICA L DATA MIGRATION Lymphocyte 12 % HISTORICA L DATA MIGRATION Monocyte 8 % HISTORICAL DATA MIGRATION Eosinophil 0 0 - 6 % HISTORICA L DATA MIGRATION Basophil 0 0 - 1 % HISTORICAL DATA MIGRATION Abs Neutro 11.4(H) 2.0 - 8.0 K/cumm HISTORICAL DATA MIGRATION Abs Lymph 1.8 1.0 - 3.5 K/cumm HISTORICAL DATA MIGRATION Abs Rogers 1.2(H) 0.1 - 0.8 K/cumm HISTORICAL DATA MIGRATION Immature Gran 0.3 0.0 - 0.3 % HISTORICAL DATA MIGRATION 01/10/2019 6:46 PM CDT Advocate Scarlet Vaughn Historical Conve rsion Provider LABORATORY - EXTERNAL HISTORICAL DATA MIGRATION * DIFFERENTIAL MORPH (01/10/2019 6:46 PM CDT) RBC Morph Normal Normal HISTORICAL DATA MIGRATION Plt Estimate Adequate Adequate HISTORI ANGE DATA MIGRATION 01/10/2019 6:46 PM CDT Advocate Scarlet Stella Historical Conve rsion Provider LABORATORY - EXTERNAL HISTORICAL DATA MIGRATION * (ABNORMAL) OSMOLALITY (01/10/2019 6:46 PM CDT) Osmolality 301(H) 275 - 300 mOsm/kg HISTORICAL DATA MIGRATION 01/10/2019 6:46 PM CDT 01/10/2019 9:12 PM CDT West P Jackson DO LABORATORY - EXTERNA L HISTORICAL DATA MIGRATION documented in this encounter Visit Diagnoses Not on filedocumented in this encounter
--- OUTSIDE RECORDS SUMMARY | 2024-07-22 05:53 | XMS_ITS | Clinical Summary ---
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 Name Role Phone Unavailable Primary Care Provider [...] Health Maintenance Due Date Last Done Comments Depression Screening 1964 DTaP/Tdap/Td Vaccine (1 - Tdap) 1971 CT Colonography 1997 Cologuard 1997 Colonoscopy 1997 Colorectal Cancer Screen 1997 Fecal Occult Blood 1997 Sigmoidoscopy 1997 Shingles Vaccine (1 of 2) 2002 Pneumococcal Vaccine 65+ (1 of 1 - PCV) 2017 COVID-19 Vaccine (2023-2 5 season) 2024 Influenza Vaccine (#1) 2024 HPV Vaccine Aged Out No longer eligi ble based on patient's age to complete this topic Hepatitis B Vaccine (For Physician/APC Discussion) Aged Out No longer elig ible based on patient's age to complete this topic Meningococcal Vaccine Aged Out No lydia ravi eligible based on patient's age to complete this topic
== END 2024-07-15 11:35 | disposition home or self-care (01) ==
PROVIDERS: Emergency Provider Nurse Practitioner Family; PCP Family Medicine
DX: R19.7 Diarrhea, unspecified (principal); R39.15 Urgency of urination; F41.8 Other specified anxiety disorders; G47.33 Obstructive sleep apnea (adult) (pediatric); Z86.73 Personal history of transient ischemic attack (TIA), and cerebral infarction without residual deficits; Z87.891 Personal history of nicotine dependence
CPT/HCPCS: 81003; 99212; G0463

== ENCOUNTER 2024-10-15 12:13 | Outpatient (CLI) | payer MEDICARE, OTHER, SELFPAY ==
--- OUTSIDE RECORDS SUMMARY | 2024-10-15 12:24 | XMS_ITS | Encounter Summary ---
Author Name [facility] ([place] Organization [facility] ([place]) Address [address], [place] [address] Care Team Providers Care Geoint Analyst Name Role Phone CARLIN STEWART Primary Care Provider Unavailabl e Insurance Providers: All historical and current Section Date Range: From patient's date of to the date document was created. This section includes the names of all active insurance providers for the patient. Insurance Provider Type of Coverage Plan Name Start of Policy Coverage End of Policy Coverage Group Number Member ID Insurance Provider's Telephone Number Policy Coates's Name Patient's Relationship to Policy Coates Selected Encounter This section includes the information on record at [place] for the Encounter. Date/Time Encounter Type Encounter Description Reason Provider Source Jun 29, 2024 01:00 PM OFFICE O/P NEW MOD 45 MIN PRIMARY CARE/MEDICINE ICD-10-CM I10 Essential (primary) hypertension PATCARLIN D IHE Encounter Template Text not used by [place] Assessments - Encounter Diagnoses This section includes the primary and secondary diagnoses documented for the Encounter. Date/Time Primary/Secondary Diagnosis Diagnosis Name Provider Source Jun 29, 2024 02:35 PM PRIMARY Essential (primary) hypertension CARLIN STEWART [facility] Jun 29, 2024 02:35 PM SECONDARY Alzheimer's disease, unspecified CARLIN STEWART [facility] Jun 29, 2024 02:35 PM SECONDARY Chronic kidney disease, unspecified PATCARLIN D [facility] Jun 29, 2024 02:35 PM SECONDARY Contact with and exposure to other hazardous substances CARLIN STEWART [facility] Jun 29, 2024 02:35 PM SECONDARY Hyperlipidemia, unspecified CARLIN STEWART [facility] Jun 29, 2024 02:35 PM SECONDARY Tremor, unspecified PATCARLIN Candi [facility] Plan of Treatment: Future Appointments (+ 6 months) and Future Tests (+/- 45 days) The Plan of Treatment section includes future care activities for the patient from all [place] [facility]. This section includes future appointments and future [...] of theEncounter. The data comes from all [place] treatment facilities. Test Date/Time Test Type Test Details Facility Name May 20, 2024 12:00 AM Laboratory - Chemi stry Order URINALYSIS (STL-PB) URINE - CLEAN CATCH [facility] May 20, 2024 12:00 AM Laboratory - Chemi stry Order MICRAL/CREAT PROFILE (STL) URINE YELLOW [facility] Jun 19, 2024 12:00 AM Laboratory - Chemi stry Order MICRAL/CREAT PROFILE (STL) URINE YELLOW [facility] Jun 19, 2024 12:00 AM Laboratory - Chemi stry Order URINALYSIS (STL-PB) URINE - CLEAN CATCH [facility] Vital Signs: All taken on the encounter date This section contains inpatient and outpatient Vital Signs collected on the date of the Encounter. Date/Time Temperature Pulse Blood Pressure Respiratory Rate SP02 Pain Height Weight Body Mass Index Source Jun 29, 2024 01:19 PM 47 151/55 [facility] Jun 29, 2024 01:02 PM 98.3 47 176/64 16 100 0 73 231.8 31 [facility] Social History: Smoking Status (Most current) and Tobacco Use (All prior to encounter date) This section includes the most current, and the historical, smoking and tobacco- related health factors from the [place] facility where the Encounter took place. Current Smoking Status This section includes the most current smoking, or tobacco-related health factor, from the [place] facility where the Encounter took place. Date/Time Current Smoking Status Comment Jalil willis Jun 29, 2024 01:00 PM VA-TOBACCO USE FOR MELANY CIGARETTES [facility] Tobacco Use History This section includes a history of the smoking, or tobacco-related health factors, that were collected on or before the date of the Encounter. The data comes from the [place] facility where the Encounter took place. Date/Time Smoking Status/Tobacco Use Comment Tonio curtis Jun 29, 2024 01:00 PM VA-TOBACCO USE FOR EMLANY CIGARETTES [facility] Encounter Notes: All associated encounter notes This section contains the clinical notes associated to the Encounter. 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 Handwritten corrections, additions and/or deletions were made to the list. Corrected Outpatient Medication List was provided to the patient/caregiver. Active Outpatient Medications (including Supplies): No Medications Found Weight : Patient Weight History - Last Four 1. 231.8 lbs. / 105.1 kg. on JUN 29, 2024@13:02 Vitals : ----- Temp : 98.3 F [36.8 C] (06/29/2024 13:02) BP : 151/55 (06/29/2024 13:19) [place] : 47 (06/29/2024 13:19): RR : 16 [...] him with [employer]'s Her phone number : [phone] Email address: [email or web address] # HTN : uncontrolled, advised low-salt diet [...] Concern Registry Questions - Toxic Exposure Concern [place] Healthcare Enrollment Questions - Toxic Exposure Concern Erie/caregiver has no health or medical concerns related to their concern of environmental exposure. The following connections were provided to the Erie/caregiver: No connections needed at this time SUMMARY STATEMENT: Plan of care has been discussed with including expected therapeutic benefits and potential side effects of prescribed medication and treatments. Erie verbalizes understanding and is in agreement with the plan of care. Patient was instructed to keep all scheduled appointments and contact rn labor delivery for any additional problems. 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 Handwritten corrections, additions and/or deletions were made to the list, as appropriate. Corrected Outpatient Medication List was provided to the patient/caregiver. RTC : 12/2024 /yolanda STEWART MD Staff Physician Signed: 06/29/2024 14:35 06/29/2024 ADDENDUM STATUS: COMPLETED Tremor & Tardive dyskinesia :on Ingrezza ( correction of above note regarding indication) /joaquim/ CARLIN STEWART MD Staff Physician Signed: 06/29/2024 14:42 CARLIN STEWART [facility] Jun 29, 2024 02:03 PM ORTHOTICS PROSTHET [...] clicking below. Place Nurse Initiated Consult /joaquim/ KRISHNA MCCAIN LPN LICENSED PRACTIAL NURSE Signed: 06/29/2024 14:06 KRISHNA MCCAIN [facility] Jun 29, 2024 01:09 PM NURSING NOTE: LOCAL TITLE: V15 PACT FACE TO FACE NOTE STL STANDARD TITLE: NURSING NOTE DATE [...] concerns. Review that after hours nurse line ext.[phone] and emergency room are available 04/02 for patient use. Contact verbalized good understanding. MST Screening - V: Patient denies experiencing sexual trauma (MST). Toxic Exposure Screening - CP,DI,L,NS,P,PH,S,U: The Erie/caregiver was asked if they believe the Erie experienced any toxic exposure(s), such as Airborne Hazards and Open Burn [place], [place] War related exposures, Agent [place], Radiation, contaminated water at [place] or other such exposures, while serving in the [employer]. 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 [place] Health Care Enrollment and Eligibility Questions /caregiver was informed of local point of contact. Registry Questions Erie/caregiver was informed of local point of contact. Contact information for local resources: [facility] Registry Exam Program: [phone] Eligibility: [phone] ROZINA [id number] Toxic Exposure Screening Follow-Up reminder is needed. Name of person notified: DR. STEWART Tobacco Use Screening - AT,DE,L,M,N,P,PH,PS,RT,S, U: The patient is a former cigarette smoker. Quit smoking GREATER THAN OR EQUAL to 15 years. The patient has never used other types of tobacco. Learning Assessment: - * This patient's learning ABILITIES, BARRIERS to learning, CULTURAL and RASTAFARIAN beliefs, and learning PREFERENCES were assessed. Following are findings of note: Patient reads well. Comment: WITH GLASSES AND CONTACTS Patient has the following hearing/auditory barrier(s) to consider when teaching: No hearing barrier identified. Patient has the following speech barrier to consider when teaching: No speech barrier identified. LANGUAGE Patient reports that [place] Irish is preferred language for healthcare. Patient reports learning preference is to refer to handouts. Patient reports learning preference is attending one-to-one or group demonstrations. Patient reports learning preference is looking at pictures or viewing videos. Suicide Screen - V: C-SSRS Screening [place]-Suicide Severity Rating Scale (C-SSRS Screener) 1. Over [...] Not worried about housing near future The Erie reports the following: Within the past 12 [...] due to responses to other questions. 5. [place] numb or detached from people, activities, or your surroundings? Response not required due to responses to other questions. 6. [place] guilty or unable to stop blaming yourself [...] due to responses to other questions. /joaquim/ KRISHNA MCCAIN LPN LICENSED PRACTIAL NURSE Signed: 06/29/2024 13:26 KRISHNA MCCAIN [facility]
--- OUTSIDE RECORDS SUMMARY | 2024-10-15 12:24 | XMS_ITS | Referral Summary ---
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 Social History Tobacco Use Types Packs/Day Years Used Date Smoking Tobacco: Former Personal Safety Answer Date Recorded Getting School Help Needed Not on file 09/04 Sex and Gender Information Value Date Recorded Sex Assigned at Not on file Legal 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 Gender Identity Not on file Sexual Orientation Not on file Last Filed Vital Signs Vital Sign Reading Time Taken Comments Blood Pressure 186/52 07/03/2021 2:40 PM LINK KNITTING MACHINE OPERATOR Pulse 55 07/03/2021 2:40 PM LINK KNITTING MACHINE OPERATOR Temperature 36.4 C (97.6 F) 07/03/2021 1:33 PM LINK KNITTING MACHINE OPERATOR Respiratory Rate 16 07/03/2021 2:40 PM LINK KNITTING MACHINE OPERATOR Oxygen Saturation 98% 07/03/2021 2:40 PM LINK KNITTING MACHINE OPERATOR Inhaled Oxygen Concentration - - Weight 110.5 kg (243 lb 9.7 oz) 07/03/2021 1:33 PM LINK KNITTING MACHINE OPERATOR Height 188 cm (6' 2 ) 07/03/2021 1:33 PM LINK KNITTING MACHINE OPERATOR Body Mass Index 31.28 07/03/2021 1:33 PM LINK KNITTING MACHINE OPERATOR Plan of Treatment Not on file Insurance MEDICARE FOR LIFE MEDICARE FOR LIFE Care Teams Climate Change Analyst Relationship Specialty Start Date End Date No, Physician PCP - General 07/15/20 Rosa Camacho NP Nurse Practitioner Neurology 08/09/20
--- OUTSIDE RECORDS SUMMARY | 2024-10-15 12:24 | XMS_ITS | Continuity of Care Document ---
Author Name [facility] Organization [facility] Care Team Providers Care Systems Mgr Name Role Phone [facility] Unavailable Unavailable Problems Combined list of problems from [facility] and [facility] facilities. It does not include entries that were removed or entered in error. Problem Status Onset Date Problem Type Date of Resolution Comments Source Alzheimer's disease Active Condition [facility] Chronic kidney disease Active Condition [facility] Exposure to potentially hazardous substance ([facility] [[email or web address]] [id number]) Active Condition Jul 01 4 Entered By: YARITZA GOLDSTEIN Comment: Entered automatically through ARMINDA Problem List documentation program JESSICA BARRON [facility] Hyperlipidemia Active Condition [facility] Hypertension Active Condition [facility] Tremor Active Condition [facility] Diagnosis: ICD-10-CM I10 Essential (primary) hypertension Active Diagnosis [facility] Medications Combined list of outpatient medications from [facility] and [facility] facilities.Medications provided include 1) outpatient medications from the last 15 months, and 2) patient-reported medications. Medication Details Route Status Patient Instructions Prescription Expires Prescription Number Last Dispense Date Ordering Provider Order Date Order Qty Source AMLODIPINE BESYLATE 5MG TAB TAKE ONE TABLET BY MOUTH ONCE A DAY ORAL ACTIVE PAT,KALANI A D 2023 [facility] ATORVASTATI N CA 40MG TAB TAKE ONE-HALF TABLET BY MOUTH EVERY EVENING ORAL ACTIVE PAT,KALANI A D 2023 [facility] BUPROPION (WELLBUTRIN XL) 24HR TAB,SA (EXTENDED RELEASE) TAKE 450 MGS BY MOUTH ONCE A DAY ORAL ACTIVE PAT,KALANI A D 2023 [facility] BUSPIRONE HCL 10MG TAB TAKE ONE TABLET BY MOUTH THREE TIMES A DAY ORAL ACTIVE PAT,KALANI A D 2023 [facility] LOSARTAN POTASSIUM 100MG TAB TAKE ONE TABLET BY MOUTH ONCE A DAY ORAL ACTIVE PAT,KALANI A D 2023 [facility] MEMANTINE HCL 10MG TAB TAKE ONE TABLET BY MOUTH TWICE A DAY ORAL ACTIVE PATKALANI Leo D 2023 [facility] PROPRANOLOL HCL 10MG TAB TAKE ONE TABLET BY MOUTH ONCE A DAY ORAL ACTIVE PAT,RAM A D 2023 [facility] VALBENAZINE 40MG CAP,ORAL TAKE 1 CAPSULE BY MOUTH ONCE A DAY ORAL ACTIVE PAT,RAM A D 2023 [facility] Results Combined list of recent chemistry, hematology [...] May 20, 2024 03:03 PM Reporting Lab: [facility] [address] [facility] [place] [address] Performing Lab: [facility] [address] [facility] [place] [address] [facility] HGA1C HEMOGLOBIN A1C/HEMOGLO BIN.TOTAL IN BLOOD 5.3 4.0 - 6.0 05/26 Specimen Type: BLOOD No comment entered. Ordering Provider: CARLIN STEWART Report Released Date/Time: May 20, 2024 03:03 PM Reporting Lab: [facility] [address] [facility] [place] [address] Performing Lab: [facility] [address] [facility] [place] [address] [facility] CBC LEUKOCYTES [#/VOLUME] IN BLOOD BY AUTOMATED COUNT 5.3 10*3/u L 3.6 - 11.2 05/26 Specimen Type: BLOOD No comment entered. Ordering Provider: CARLIN STEWART Report Released Date/Time: May 20, 2024 03:03 PM Reporting Lab: [facility] [address] [facility] [place] [address] Performing Lab: [facility] [address] [facility] [place] [address] [facility] CBC ERYTHROCYTE S [#/VOLUME] IN BLOOD BY AUTOMATED COUNT 4.06 10*6/u L 4.10 - 5.70 05/26 L Specimen Type: BLOOD No comment entered. Ordering Provider: CARLIN STEWART Report Released Date/Time: May 20, 2024 03:03 PM Reporting Lab: [address] [address] Performing Lab: [address] [phone] [place] [address] CBC HEMOGLOBIN [MASS/VOLUM E] IN BLOOD 12.3 g/dL 13.1 - 16.8 05/26 L Specimen Type: BLOOD No comment entered. Ordering Provider: CARLIN STEWART Report Released Date/Time: May 20, 2024 03:03 PM Reporting Lab: [address] [address] Performing Lab: [address] [address] [facility] CBC HEMATOCRIT [VOLUME FRACTION] OF BLOOD 36.8 38.2 - 48.4 05/26 L Specimen Type: BLOOD No comment entered. Ordering Provider: CARLIN STEWART Report Released Date/Time: May 20, 2024 03:03 PM Reporting Lab: [address] [address] Performing Lab: [address] [address] [facility] CBC MCV [ENTITIC VOLUME] BY AUTOMATED COUNT 90.6 fL 80.0 - 100.0 05/26 Specimen Type: BLOOD No comment entered. Ordering Provider: CARLIN STEWART Report Released Date/Time: May 20, 2024 03:03 PM Reporting Lab: [address] [address] Performing Lab: [address] [address] [facility] CBC MCH [ENTITIC MASS] BY AUTOMATED COUNT 30.3 pg 27.0 - 34.0 05/26 Specimen Type: BLOOD No comment entered. Ordering Provider: CARLIN STEWART Report Released Date/Time: May 20, 2024 03:03 PM Reporting Lab: [facility] [address] [facility] [place] [address] Performing Lab: [facility] [address] [place] [address] [facility] CBC MCHC [MASS/VOLUM E] BY AUTOMATED COUNT 33.4 g/dL 33.0 - 36.0 05/26 Specimen Type: BLOOD No comment entered. Ordering Provider: CARLIN STEWART Report Released Date/Time: May 20, 2024 03:03 PM Reporting Lab: [facility] [address] [place] [address] Performing Lab: [address] [phone] [place] [address] CBC PLATELETS [#/VOLUME] IN BLOOD BY AUTOMATED COUNT 194 10*3/u L 150 - 400 05/26 Specimen Type: BLOOD No comment entered. Ordering Provider: CARLIN STEWART Report Released Date/Time: May 20, 2024 03:03 PM Reporting Lab: [facility] [address] [place] [phone] Performing Lab: [facility] [address] [place] [phone] [place] [address] CBC PLATELET MEAN VOLUME [ENTITIC VOLUME] IN BLOOD BY AUTOMATED COUNT 11.2 fL 7.5 - 11.2 05/26 Specimen Type: BLOOD No comment entered. Ordering Provider: CARLIN STEWART Report Released Date/Time: May 20, 2024 03:03 PM Reporting Lab: [facility] [address] [place] [phone] Performing Lab: [facility] [address] [place] [phone] [facility] CBC ERYTHROCYTE DISTRIBUTIO N WIDTH [RATIO] BY AUTOMATED COUNT 13.1 11.8 - 15.1 05/26 Specimen Type: BLOOD No comment entered. Ordering Provider: CARLIN STEWART Report Released Date/Time: May 20, 2024 03:03 PM Reporting Lab: [facility] [address] [facility] [address] Performing Lab: [facility] [address] [facility] [address] [facility] CBC LYMPHOCYTES /100 LEUKOCYTES IN BLOOD BY AUTOMATED COUNT 20 05/26 Specimen Type: BLOOD No comment entered. Ordering Provider: CARLIN STEWART Report Released Date/Time: May 20, 2024 03:03 PM Reporting Lab: [facility] [address] [facility] [address] Performing Lab: [facility] [address] [facility] [address] [facility] CBC MONOCYTES/1 00 LEUKOCYTES IN BLOOD BY AUTOMATED COUNT 10 05/26 Specimen Type: BLOOD No comment entered. Ordering Provider: CARLIN STEWART Report Released Date/Time: May 20, 2024 03:03 PM Reporting Lab: [facility] [address] [facility] [address] Performing Lab: [facility] [address] [facility] [address] [facility] CBC NEUTROPHILS /100 LEUKOCYTES IN BLOOD BY AUTOMATED COUNT 65 05/26 Specimen Type: BLOOD No comment entered. Ordering Provider: CARLIN STEWART Report Released Date/Time: May 20, 2024 03:03 PM Reporting Lab: [facility] [address] [facility] [address] Performing Lab: [facility] [address] [facility] [address] [facility] CBC EOSINOPHILS /100 LEUKOCYTES IN BLOOD BY AUTOMATED COUNT 4 05/26 Specimen Type: BLOOD No comment entered. Ordering Provider: CARLIN STEWART Report Released Date/Time: May 20, 2024 03:03 PM Reporting Lab: [facility] [address] [facility] [address] Performing Lab: [facility] [address] [address] [facility] CBC BASOPHILS/1 00 LEUKOCYTES IN BLOOD BY AUTOMATED COUNT 1 05/26 Specimen Type: BLOOD No comment entered. Ordering Provider: CARLIN STEWART Report Released Date/Time: May 20, 2024 03:03 PM Reporting Lab: [address] [address] Performing Lab: [address] [address] [facility] CBC LYMPHOCYTES [#/VOLUME] IN BLOOD BY AUTOMATED COUNT 1.05 10*3/u L 0.77 - 4.50 05/26 Specimen Type: BLOOD No comment entered. Ordering Provider: CARLIN STEWART Report Released Date/Time: May 20, 2024 03:03 PM Reporting Lab: [address] [address] Performing Lab: [address] [address] [facility] CBC MONOCYTES [#/VOLUME] IN BLOOD BY AUTOMATED COUNT 0.54 10*3/u L 0.19 - 0.80 05/26 Specimen Type: BLOOD No comment entered. Ordering Provider: CARLIN STEWART Report Released Date/Time: May 20, 2024 03:03 PM Reporting Lab: [address] [address] Performing Lab: [address] [address] [facility] CBC NEUTROPHILS [#/VOLUME] IN BLOOD BY AUTOMATED COUNT 3.42 10*3/u L 2.10 - 8.00 05/26 Specimen Type: BLOOD No comment entered. Ordering Provider: CARLIN STEWART Report Released Date/Time: May 20, 2024 03:03 PM Reporting Lab: [address] [address] Performing Lab: [address] [address] [facility] CBC EOSINOPHILS [#/VOLUME] IN BLOOD BY AUTOMATED COUNT 0.21 10*3/u L 0.00 - 0.60 05/26 Specimen Type: BLOOD No comment entered. Ordering Provider: CARLIN STEWART Report Released Date/Time: May 20, 2024 03:03 PM Reporting Lab: [address] [address] Performing Lab: [address] [address] [facility] CBC BASOPHILS [#/VOLUME] IN BLOOD BY AUTOMATED COUNT 0.03 10*3/u L 0.00 - 0.20 05/26 Specimen Type: BLOOD No comment entered. Ordering Provider: CARLIN STEWART Report Released Date/Time: May 20, 2024 03:03 PM Reporting Lab: [address] [address] Performing Lab: [address] [address] [facility] COMPREHEN SIVE METABOLIC PANEL CREATININE [MASS/VOLUM E] IN SERUM OR PLASMA 1.44 mg/dL 0.7 - 1.3 05/26 H Specimen Type: PLASMA Comment: No hemolysis noted. Ordering Provider: CARLIN STEWART Report Released Date/Time: May 20, 2024 03:03 PM Reporting Lab: [address] [address] Performing Lab: [address] [address] [facility] COMPREHEN SIVE METABOLIC PANEL UREA NITROGEN [MASS/VOLUM E] IN SERUM OR PLASMA 24.7 mg/dL 9.0 - 25.0 05/26 Specimen Type: PLASMA Comment: No hemolysis noted. Ordering Provider: CARLIN STEWART Report Released Date/Time: May 20, 2024 03:03 PM Reporting Lab: [address] [address] Performing Lab: [address] [address] [facility] COMPREHEN SIVE METABOLIC PANEL GLUCOSE [MASS/VOLUM E] IN SERUM OR PLASMA 82 mg/dL 72 - 99 05/26 Specimen Type: PLASMA Comment: No hemolysis noted. Ordering Provider: CARLIN STEWART Report Released Date/Time: May 20, 2024 03:03 PM Reporting Lab: [facility] [address] [place] [phone] Performing Lab: [facility] [address] [place] [address] [facility] COMPREHEN SIVE METABOLIC PANEL SODIUM [MOLES/VOLU ME] IN SERUM OR PLASMA 142 meq/L 136 - 145 05/26 Specimen Type: PLASMA Comment: No hemolysis noted. Ordering Provider: CARLIN STEWART Report Released Date/Time: May 20, 2024 03:03 PM Reporting Lab: [address] [address] Performing Lab: [facility] [address] [place] [phone] [facility] COMPREHEN SIVE METABOLIC PANEL POTASSIUM [MOLES/VOLU ME] IN SERUM OR PLASMA 4.6 meq/L 3.5 - 5 05/26 Specimen Type: PLASMA Comment: No hemolysis noted. Ordering Provider: CARLIN STEWART Report Released Date/Time: May 20, 2024 03:03 PM Reporting Lab: [facility] [address] [place] [phone] Performing Lab: [facility] [address] [facility] [place] [address] [facility] COMPREHEN SIVE METABOLIC PANEL CHLORIDE [MOLES/VOLU ME] IN SERUM OR PLASMA 112 meq/L 98 - 107 05/26 H Specimen Type: PLASMA Comment: No hemolysis noted. Ordering Provider: CARLIN STEWART Report Released Date/Time: May 20, 2024 03:03 PM Reporting Lab: [facility] [address] [place] [address] Performing Lab: [facility] [address] [place] [phone] [facility] COMPREHEN SIVE METABOLIC PANEL CARBON DIOXIDE, TOTAL [MOLES/VOLU ME] IN SERUM OR PLASMA 17 meq/L 22 - 31 05/26 L Specimen Type: PLASMA Comment: No hemolysis noted. Ordering Provider: CARLIN STEWART Report Released Date/Time: May 20, 2024 03:03 PM Reporting Lab: [address] [address] Performing Lab: [address] [address] [facility] COMPREHEN SIVE METABOLIC PANEL CALCIUM [MASS/VOLUM E] IN SERUM OR PLASMA 10.0 mg/dL 8.4 - 10.4 05/26 Specimen Type: PLASMA Comment: No hemolysis noted. Ordering Provider: CARLIN STEWART Report Released Date/Time: May 20, 2024 03:03 PM Reporting Lab: [address] [address] Performing Lab: [address] [address] [facility] COMPREHEN SIVE METABOLIC PANEL PROTEIN [MASS/VOLUM E] IN SERUM OR PLASMA 6.2 g/dL 6 - 8.6 05/26 Specimen Type: PLASMA Comment: No hemolysis noted. Ordering Provider: CARLIN STEWART Report Released Date/Time: May 20, 2024 03:03 PM Reporting Lab: [address] [address] Performing Lab: [address] [address] [facility] COMPREHEN SIVE METABOLIC PANEL ALBUMIN [MASS/VOLUM E] IN SERUM OR PLASMA 4.2 g/dL 3.4 - 5 05/26 Specimen Type: PLASMA Comment: No hemolysis noted. Ordering Provider: CARLIN STEWART Report Released Date/Time: May 20, 2024 03:03 PM Reporting Lab: [address] [address] Performing Lab: [address] [address] [facility] COMPREHEN SIVE METABOLIC PANEL BILIRUBIN.T OTAL [MASS/VOLUM E] IN SERUM OR PLASMA 0.8 mg/dL 0.2 - 1.2 05/26 Specimen Type: PLASMA Comment: No hemolysis noted. Ordering Provider: CARLIN STEWART Report Released Date/Time: May 20, 2024 03:03 PM Reporting Lab: [facility] [address] [place] [phone] Performing Lab: [facility] [address] [facility] [address] [facility] COMPREHEN SIVE METABOLIC PANEL ALKALINE PHOSPHATASE [ENZYMATIC ACTIVITY/VO LUME] IN SERUM OR PLASMA 82 U/L 40 - 150 05/26 Specimen Type: PLASMA Comment: No hemolysis noted. Ordering Provider: CARLIN STEWART Report Released Date/Time: May 20, 2024 03:03 PM Reporting Lab: [address] [address] Performing Lab: [facility] [address] [place] [phone] [facility] COMPREHEN SIVE METABOLIC PANEL ASPARTATE AMINOTRANSF ERASE [ENZYMATIC ACTIVITY/VO LUME] IN SERUM OR PLASMA 24 U/L 5 - 34 05/26 Specimen Type: PLASMA Comment: No hemolysis noted. Ordering Provider: CARLIN STEWART Report Released Date/Time: May 20, 2024 03:03 PM Reporting Lab: [facility] [address] [place] [address] Performing Lab: [facility] [address] [place] [phone] [facility] COMPREHEN SIVE METABOLIC PANEL ALANINE AMINOTRANSF ERASE [ENZYMATIC ACTIVITY/VO LUME] IN SERUM OR PLASMA 27 U/L 8 - 40 05/26 Specimen Type: PLASMA Comment: No hemolysis noted. Ordering Provider: CARLIN STEWART Report Released Date/Time: May 20, 2024 03:03 PM Reporting Lab: [facility] [address] [place] [phone] Performing Lab: [place] [address] [facility] [place] [address] [facility] COMPREHEN SIVE METABOLIC PANEL GLOMERULAR FILTRATION RATE/1.73 SQ M.PREDICTED [VOLUME RATE/AREA] IN SERUM, PLASMA OR BLOOD BY CREATININE- BASED FORMULA (CKD-EPI 2020) 52.0 60 05/26 Specimen Type: PLASMA Comment: No hemolysis noted. Ordering Provider: CARLIN STEWART Report Released Date/Time: May 20, 2024 03:03 PM Reporting Lab: [facility] [address] [facility] [address] Performing Lab: [address] [address] [facility] LIPID PANEL (STL) CHOLESTEROL [MASS/VOLUM E] IN SERUM OR PLASMA 114 mg/dL 0 - 200 05/26 Specimen Type: PLASMA Comment: No hemolysis noted. Ordering Provider: CARLIN STEWART Report Released Date/Time: May 20, 2024 03:03 PM Reporting Lab: [facility] [address] [facility] [place] [address] Performing Lab: [address] [address] [facility] LIPID PANEL (STL) TRIGLYCERID E [MASS/VOLUM E] IN SERUM OR PLASMA 64 mg/dL 0 - 150 05/26 Specimen Type: PLASMA Comment: No hemolysis noted. Ordering Provider: CARLIN STEWART Report Released Date/Time: May 20, 2024 03:03 PM Reporting Lab: [facility] [address] [facility] [address] Performing Lab: [address] [address] [facility] LIPID PANEL (STL) CHOLESTEROL IN LDL [MASS/VOLUM E] IN SERUM OR PLASMA BY CALCULATION 53 mg/dL 05/26 Specimen Type: PLASMA Comment: No hemolysis noted. Ordering Provider: CARLIN STEWART Report Released Date/Time: May 20, 2024 03:03 PM Reporting Lab: [facility] [address] Performing Lab: [facility] [address] [facility] [address] [facility] LIPID PANEL (STL) CHOLESTEROL IN HDL [MASS/VOLUM E] IN SERUM OR PLASMA 48 mg/dL 40 05/26 Specimen Type: PLASMA Comment: No hemolysis noted. Ordering Provider: CARLIN STEWART Report Released Date/Time: May 20, 2024 03:03 PM Reporting Lab: [facility] [address] [facility] [address] Performing Lab: [facility] [address] [facility] [address] [facility] Vital Signs Combined list of inpatient and outpatient Vital Signs from Department of [facility] and Veterans Affairs, ranging from 12 months to all on record, depending upon the facility. Vital Sign Value Date Comments Source SYSTOLIC BLOOD PRESSURE 176 06/29/20 24 13:02:00 [facility] DIASTOLIC BLOOD PRESSURE 64 024 13:02:00 [facility] PULSE OXIMETRY 100 06/29/2024 13:02:00 [facility] WEIGHT 231.8 06/29/2024 13:02:00 [facility] BMI 31 kg/m2 06/29/2024 13:02:00 [facility] PAIN 0 06/29/2024 13:02:00 [facility] HEIGHT 73 06/29/2024 13:02:00 [facility] TEMPERATURE 98.3 06/29/2024 13:02:00 [facility] PULSE 47 06/29/2024 13:02:00 [facility] RESPIRATION 16 06/29/2024 13:02:00 [facility] Encounters Combined list of: 1) Encounters from Department of Veterans Affairs facilities going backup to the last 18 months, not all [place] inpatient encounters are included; 2) Encounters from the Department of Defense facilities going backup to 280 months. Location Location Details Encounter Type Encounter Number Reason For Visit Attending Provider ADM Date DC Date Status Disposition Source [facility] Outpatient Encounter [id number] 04/29 [facility] Outpatient Encounter [id number] PAT,CARLIN D 05/20 [facility] Outpatient Encounter [id number] PATCARLIN D 06/03 [facility] Outpatient Encounter [id number] PATCARLIN D 06/14 [facility] Outpatient Encounter [id number] KALANI STEWARTA D 06/19 [facility] Outpatient Encounter [id number] 06/29 [facility] OFFICE O/P NEW MOD 45 MIN [id number] Diagnos is: ICD-10- CM I10 Essenti al (primar y) hyperte nsion CARLIN STEWART 06/29 [facility] Outpatient Encounter [id number] 06/29 [facility] Social History Combined list of available smoking, tobacco, and other social history from Department of Defense and Veterans Affairs facilities. Social History Type Response Date Comment Sourc e Tobacco smoking status NHIS VA-TOBACCO USE FORMER CIGARETTES 06/29/2024 [facility] History of tobacco use [place]-TOBACCO NEVER USED OTHER TYPE 06/29/2024 [facility] Plan of Care List of future care activities from Department of Veterans Affairs facilities. Additional future care activities may be listed in the Assessment and Plan section. Date/Time Care Activity Care Activity Detail Facili ty 12/29/2024 AMBULATORY - MEDICINE AMBULATORY - [facility]
--- OUTSIDE RECORDS SUMMARY | 2024-10-15 12:24 | XMS_ITS | Clinical Summary ---
Author Organization [facility] Address [address] [place] [address] Care Team Providers Care Dining Service Worker Name Role Phone None, Physician Primary Care Provider Unavailabl e Source Comments [facility],non-owned Affiliates and Associated Physician Practices is amultiple site organization consisting of ambulatory clinics and hospital sitesin [place], [place], [place] and [place]. This disclosure is being madepursuant to the Care Everywhere program and may not contain all information available regarding this patient. Last updated 18.[facility] Allergies No known active allergies Medications * Be aware that medications may not be up to date on this document. Alwaysverify current medications with the patient. Medication Sig Dispensed Refills Start Date End Date Status losartan (Cozaar) 100 MG tablet Take 1 (one) tablet by mouth once daily 02/12/2022 Active amLODIPine (Norvasc) 5 MG tablet Take 1 (one) tablet by mouth once daily 10/10/2021 Active gabapentin (Neurontin) 600 MG tablet Take 1 (one) tablet by mouth once daily 02/12/2022 Active atorvastatin (Lipitor) 20 MG tablet Take 1 (one) tablet by mouth at bedtime Active multivitamins plus minerals chew tablet Take 1 (one) tablet by mouth daily with food Active aspirin (Kamilah Aspirin) 325 MG tablet Take 1 (one) tablet by mouth once daily Active propranolol (Inderal) 10 MG tabletIndications :Tremor Take 1 (one) tablet by mouth 2 times daily for 90 days Reasons: Tremor 180 tablet 3 03/20/2024 Active GLYCINE PO Take 3,000 mg by mouth Active N-ACETYL CYSTEINE PO Active KRILL OIL PO Active Ingrezza 40 MG capsule TAKE ONE CAPSULE BY MOUTH EVERY DAY 90 capsule 3 07/23/2024 Active colestipol (Colestid) 1 GM tablet Take 1 (one) tablet by mouth once daily 09/11/2024 Active metroNIDAZOLE (Flagyl) 500 MG tablet TAKE 1 TABLET BY MOUTH EVERY 8 HOURS FOR 7 DAYS 09/09/2024 Active Turmeric (QC TUMERIC COMPLEX PO) Take 90 mg by mouth 2 times daily Active L-Theanine 200 MG CAPS Take 200 mg by mouth once daily Active buPROPion XL 24hr (Wellbutrin-XL) 150 MG tablet Take 1 (one) tablet by mouth once daily for 90 days 30 tablet 2 10/12/2024 01/10/2025 Active buPROPion XL 24hr (Wellbutrin-XL) 300 MG tablet Take 1 (one) tablet by mouth once daily for 90 days 30 tablet 2 10/12/2024 01/10/2025 Active busPIRone (Buspar) 10 MG tablet Take 3 (three) tablets by mouth 2 times daily 180 tablet 3 10/12/2024 02/09/2025 Active memantine (Namenda) 10 MG tablet Take 1 (one) tablet by mouth 2 times daily 60 tablet 3 10/12/2024 02/09/2025 Active buPROPion XL 24hr (Wellbutrin-XL) 150 MG tablet Take 1 (one) tablet by mouth once daily for 90 days 30 tablet 2 09/15/2024 10/12/2024 Discontinued (Reorder) buPROPion XL 24hr (Wellbutrin-XL) 300 MG tablet Take 1 (one) tablet by mouth once daily for 90 days 30 tablet 2 09/15/2024 10/12/2024 Discontinued (Reorder) busPIRone (Buspar) 10 MG tablet Take 3 (three) tablets by mouth 2 times daily 180 tablet 3 09/15/2024 10/12/2024 Discontinued (Reorder) memantine (Namenda) 10 MG tablet Take 1 (one) tablet by mouth 2 times daily 60 tablet 3 09/15/2024 10/12/2024 Discontinued (Reorder) Active Problems Problem Noted Date Diagnosed Date [...] added by Rule (IC_COVID19_AUTO_PROBLEM) following SARS-CoV2 by ecology professor-PCR - [facility] from [facility] Swab collected on 21-JUL-2020 08:47:00 HEALTH PROMOTER tested positive for COVID-19. 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 Encounters Date Type Department Care Team Description 09/15/2024 Travel 07/23/2024 Refill [facility] - Neurology [address] [place] [address] [phone] Alonzo Can MD Refill Request from Last 3 Months Immunizations Name Administration Dates Next Due FLU VACCINE QUAD IIV4 SPLIT 0.25 ML IM 3 INFLUENZA VACCINE 05/16/2020 Social History Tobacco Use Types Packs/Day Years Used Date Smoking Tobacco: Never Smokeless Tobacco: Never Tobacco Cessation:Counseling Given: Not Answered PHQ-2 Answer Date Recorded Patient Health Questionnaire-2 Score 1 09/15/2024 Sex and Gender Information Value Date Recorded Sex Assigned at Not on file Gender Identity Not on file Sexual Orientation Not on file Last Filed Vital Signs Vital Sign Reading Time Taken Comments Blood Pressure 154/63 09/15/2024 1:21 PM HEALTH PROMOTER Pulse 48 09/15/2024 1:21 PM HEALTH PROMOTER Temperature 36.1 C (97 F) 06/20/2023 8:58 AM HEALTH PROMOTER Respiratory Rate - - Oxygen Saturation 98% 04/14/2024 1:55 PM CDT Inhaled Oxygen Concentration - - Weight 103.4 kg (228 lb) 09/15/2024 1:21 PM HEALTH PROMOTER Height 190.5 cm (6' 3 ) 09/15/2024 1:21 PM HEALTH PROMOTER Body Mass Index 28.5 09/15/2024 1:21 PM HEALTH PROMOTER Plan of Treatment Upcoming Encounters Date Type Department Care Team (Late st Contact Info) Description 04/14/2025 1:30 PM CDT Office Visit [facility] [address] [place] [address], [place] [phone] Alonzo Can MD [facility] [address] Health Maintenance Due Date Last Done Comments COLOGUARD (AGES 45-75) - COL ON CA SCREENING 1952 COLON MONITORING 1952 COLONOSCOPY - COLON CA SCREENING 1952 CT COLONOGRAPHY - COLON CA SCREENING 1952 Colorectal Cancer Screening 1952 FIT - COLON CA SCREENING 1952 FLEX SIG - COLON CA SCREENING 1952 HEPATITIS C SCREENING 07/03/1970 DTAP/TDAP/TD VACCINES (1 - Tdap) 1971 PNEUMOCOCCAL VACCINE 50+ (1 of 1 - PCV) 2002 ZOSTER VACCINE (1 of 2) 2002 SCREENING FOR DIABETES 04/18/2022 COVID-19 VACCINE (1 - 2023-2 5 season) 2024 INFLUENZA VACCINE (#1) 2024 3, 05/16/2020 MEDICARE AWV CALENDAR YEAR 2024 Respiratory Syncytial Virus (RSV) Vaccine Pt: or over 60 yrs (1 - 1-dose 75+ series) 2027 DEPRESSION SCREENING Completed 09/15/2024, 06/10/2024 HEPATITIS B VACCINE Aged Out No longe r eligible based on patient's age to complete this topic HIB VACCINE Aged Out No longer eligi ble based on patient's age to complete this topic HPV VACCINE Aged Out No longer eligi ble based on patient's age to complete this topic MENINGOCOCCAL (Group B) VACCINE SHARED DECISION-MAKING Aged Out No longer eligible based on patient's age to complete this topic MENINGOCOCCAL GROUPS A/C/Y/W VACCINE Aged Out No longer eligible b ased on patient's age to complete this topic Care Teams Dining Service Worker Relationship Specialty Start Date End Date None, Physician [address] [place] [address] PCP - General 06/20/23
--- OUTSIDE RECORDS SUMMARY | 2024-10-15 12:24 | XMS_ITS | Clinical Summary ---
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 Social History Tobacco Use Types Packs/Day Years Used Date Smoking Tobacco: Former Personal Safety Answer Date Recorded Getting School Help Needed Not on file 09/04 Sex and Gender Information Value Date Recorded Sex Assigned at Not on file Legal Sex Male 10:38 AM DIRECTOR REVENUE Gender Identity Not on file Sexual Orientation Not on file Obstetrics History Last Filed Vital Signs Vital Sign Reading Time Taken Comments Blood Pressure 186/52 07/03/2021 2:40 PM DIRECTOR REVENUE Pulse 55 07/03/2021 2:40 PM DIRECTOR REVENUE Temperature 36.4 C (97.6 F) 07/03/2021 1:33 PM DIRECTOR REVENUE Respiratory Rate 16 07/03/2021 2:40 PM DIRECTOR REVENUE Oxygen Saturation 98% 07/03/2021 2:40 PM DIRECTOR REVENUE Inhaled Oxygen Concentration - - Weight 110.5 kg (243 lb 9.7 oz) 07/03/2021 1:33 PM DIRECTOR REVENUE Height 188 cm (6' 2 ) 07/03/2021 1:33 PM DIRECTOR REVENUE Body Mass Index 31.28 07/03/2021 1:33 PM DIRECTOR REVENUE Plan of Treatment Not on file Insurance MEDICARE FOR LIFE MEDICARE FOR LIFE Care Teams Dye Tub Tender Relationship Specialty Start Date End Date No, Physician PCP - General 07/15/20 Rosa Camacho NP Nurse Practitioner Neurology 08/09/20
--- OUTSIDE RECORDS SUMMARY | 2024-10-15 12:24 | XMS_ITS | Continuity of Care Document ---
Author Organization [facility] Address [address] [place] [address] Phone Care Team Providers Care Animal Cytologist Name Role Phone Aguillon Luis KHALIL Unavailable [...] Global/Postop followup visit Arc 2 0 Sling [place] Arm Sling X-ray exam shoulder complete, minimum 2 views Office/outpatient visit,racquel barbosa 2021 Advance Directives Directive Yes / No Effective Date File Name No Information Encounters Encounter Description Practice Location Reason(s) For Visit Diagnoses Date Provider Providers Copied on Encounter Office/outpa tient visit,est, mod [facility], [address], [id number], [place] tel:[phone] [facility] left hip (chief complaint) Pain in left hipUnilateral primary osteoarthritis, left hipTrochanteric bursitis, left hip 3 Henna Smith. [address] [place] [address], [id number] , [place]. tel:[phone] Referring Provider: Luis Mcdonald, [address] [place] [address], [place], [address] . tel:[phone] [facility], [address], [id number], [place] tel:[phone] [facility] shoulder (chief complaint) Bicipital tendinitis, left shoulderBursitis of left shoulderComplete rotatr-cuff tear/ruptr of left shoulder, not traumaEncounter for other orthopedic aftercare Mar-0 2 House Dea . [address] [place] [address], [id number] , [place]. tel:[phone] [facility], [address], [id number], [place] tel:[phone] [facility] shoulder (chief complaint) Bicipital tendinitis, left shoulderBursitis of left shoulderComplete rotatr-cuff tear/ruptr of left shoulder, not traumaEncounter for other orthopedic aftercare 2 House Eda . [address] [place] [address], [address], [id number] , [place]. [phone] [facility], [address] [place], [id number], tel:[phone] [facility] Complete rotatr-cuff tear/ruptr of left shoulder, not trauma 2 Venkatesh Fields. [address] [address], [place], [place], [id number] , [place]. tel:[phone] [facility], [address], [id number], tel:[phone] [facility] Bicipital tendinitis, left shoulderBursitis of left shoulderComplete rotatr-cuff tear/ruptr of left shoulder, not trauma 2 Venkatesh Fields. [address], [id number] , [place]. [phone] Office[facility]pa [facility]ient visit,[facility], [address], [id number], tel:[phone] [facility] left shoulder pain (chief complaint) Pain in left shoulderComplete rotatr-cuff tear/ruptr of left shoulder, not traumaBicipital tendinitis, left shoulderBursitis of left shoulder 2 Venkatesh Fields. [address] [address], [place], [place], [id number] , [place]. tel:[phone] Referring Provider: Donnie Timmons, [address] [place] [address], [place], [address] . tel:[phone] Family History Family Member Type Diagnosis Age At Onset No Information Immunizations Vaccine Date Status Comments influenza, injectable, quadrivalent, (3 years or older) administered Note: per patient ; Source: Source Unspecified Payers Payer name Insurance type Covered democrat ID Authoriza tion(s) [employer] Medicare HMO PPO Clai ms Office CI [id number] [facility] [address] [facility] [id number] Social History Type Description Quantity Date Captured [...] and discharged in stable condition.Dictation completed with [employer] software, grammatical variances and spelling errors may [...]
--- OUTSIDE RECORDS SUMMARY | 2024-10-15 12:24 | XMS_ITS | Clinical Summary ---
Author Organization [facility] Address [address] [place] [address] Care Team Providers Care Retail Advertising Sales Manager Name Role Phone Unavailable Primary Care [...] 5 season) 2024 Influenza Adult (#1) 2024 PHQ-2 (Physician [place]) 07/15/2024 RSV Immunization or 60+ Years (1 - 1-dose 75+ series) 2027 Meningococcal B Vaccine Aged Out No l onger eligible based on patient's age to complete this topic Meningococcal Vaccine Aged Out No lydia ravi eligible based on patient's age to complete this topic RSV Immunizations Under 20 Months Aged Out No longer eligible based on patient's age to complete this topic Insurance Member Subscriber Plan / Payer (Ef fective for All Dates) Name:Morelia Sanchez Relation to Subscriber:Self Name:Morelia Sanchez Payer ID:Not on file Group ID:Not on file Type:Indemnity Address: [address] MEDICARE
--- OUTSIDE RECORDS SUMMARY | 2024-10-15 12:24 | XMS_ITS | Continuity of Care Document ---
Author Organization [facility] Address [address], [place] [address] Phone Care Team Providers Care Dentures Lab Technician Name Role Phone Nicolás Michaels MD Unavailable Unavailable Procedures Procedure Date No Charge Initial Hospital Care Subsequent Hospital Care Advance Directives Directive Yes / No Effective Date File Name No Information Encounters Encounter Description Practice Location Reason(s) For Visit Diagnoses Date Provider Providers Copied on Encounter [facility], [address] [place] [address], [address], [phone] [facility] No Information 9 Brando Monzon. [address] [facility] [address], [id number] , . tel:[phone] Initial Hospital Care [facility], [address], [address], [phone] [facility] Acute kidney failure, unspecifiedDehydrat ionHyperkalemia 9 Brando Monzon. [address] [facility] [address], [place], [id number] , [place]. tel:[phone] Referring Provider: Dylan Tatum, [address] [facility] [address], [place], [address]. tel:[phone] Subsequent Hospital Care [facility], [address], [address], [phone] [facility] Acute kidney failure, unspecifiedDehydrat ionHyperkalemia 9 Brando Monzon. [address] [facility], [place], [place], [id number] , [place]. tel: [phone] Referring Provider: Dylan Tatum, [address] [facility] [address], [place], [address]. tel:[phone] Family History Family Member Type Diagnosis Age At Onset No Information Payers Payer name Insurance type Covered democrat ID Authoriza tion(s) [place] Primary [id number] [facility] [id number] Social History Type Description Quantity Date Captured Comments Sex Male Smoking Status No Information Chief Complaint And Reason For Visit No Information History Of Present Illness Encounter Date Complaint History Of Prese nt Illness No Information Instructions Date Instruction Additional Infor mation No Information Assessments Type Assessment Date No Information
--- OUTSIDE RECORDS SUMMARY | 2024-10-15 12:36 | XMS_ITS | Continuity of Care Document ---
Author Organization [facility] Address [address] [place] [address] Phone Care Team Providers Care Decorating Consultant Name Role Phone Aguillon Luis KHALIL Unavailable [...] Global/Postop followup visit Arc 2 0 Sling [place] Arm Sling X-ray exam shoulder complete, minimum 2 views Office/outpatient visit,racquel barbosa 2021 Advance Directives Directive Yes / No Effective Date File Name No Information Encounters Encounter Description Practice Location Reason(s) For Visit Diagnoses Date Provider Providers Copied on Encounter Office/outpa tient visit,est, mod [facility], [address], [id number], [place] tel:[phone] [facility] left hip (chief complaint) Pain in left hipUnilateral primary osteoarthritis, left hipTrochanteric bursitis, left hip 3 Henna Smith. [address] [place] [address], [id number] , [place]. tel:[phone] Referring Provider: Luis Mcdonald, [address] [place] [address], [place], [address] . tel:[phone] [facility], [address], [id number], [place] tel:[phone] [facility] shoulder (chief complaint) Bicipital tendinitis, left shoulderBursitis of left shoulderComplete rotatr-cuff tear/ruptr of left shoulder, not traumaEncounter for other orthopedic aftercare Mar-0 2 House Dea . [address] [place] [address], [id number] , [place]. tel:[phone] [facility], [address], [id number], [place] tel:[phone] [facility] shoulder (chief complaint) Bicipital tendinitis, left shoulderBursitis of left shoulderComplete rotatr-cuff tear/ruptr of left shoulder, not traumaEncounter for other orthopedic aftercare 2 House Dea . [address] [place] [address], [address], [id number] , [place]. [phone] [facility], [address] [place], [id number], tel:[phone] [facility] Complete rotatr-cuff tear/ruptr of left shoulder, not trauma 2 Venkatesh Fields. [address] [address], [place], [place], [id number] , [place]. tel:[phone] [facility], [address], [id number], tel:[phone] [facility] Bicipital tendinitis, left shoulderBursitis of left shoulderComplete rotatr-cuff tear/ruptr of left shoulder, not trauma 2 Venkatesh Fields. [address], [id number] , [place]. [phone] [facility], [address], [id number], tel:[phone] [facility] left shoulder pain (chief complaint) Pain in left shoulderComplete rotatr-cuff tear/ruptr of left shoulder, not traumaBicipital tendinitis, left shoulderBursitis of left shoulder 2 Venkatesh Fields. [address] [address], [place], [place], [id number] , [place]. tel:[phone] Referring Provider: Donnie Timmons, [address] [place] [address], [place], [address] . tel:[phone] Family History Family Member Type Diagnosis Age At Onset No Information Immunizations Vaccine Date Status Comments influenza, injectable, quadrivalent, (3 years or older) administered Note: per patient ; Source: Source Unspecified Payers Payer name Insurance type Covered alliance party ID Authoriza tion(s) Hum[employer] Medicare HMO PPO Clai ms Office CI [id number] [facility] [employer] [facility] [id number] Social History Type Description Quantity Date Captured [...] and discharged in stable condition.Dictation completed with [employer] software, grammatical variances and spelling errors may [...]
--- OUTSIDE RECORDS SUMMARY | 2024-10-15 12:36 | XMS_ITS | Continuity of Care Document ---
Author Organization [facility] Address [address], [place] [address] Phone Care Team Providers Care Production Mechanic Tin Cans Name Role Phone Nicolás Michaels MD Unavailable Unavailable Procedures Procedure Date No Charge Initial Hospital Care Subsequent Hospital Care Advance Directives Directive Yes / No Effective Date File Name No Information Encounters Encounter Description Practice Location Reason(s) For Visit Diagnoses Date Provider Providers Copied on Encounter [facility], [address] [place] [address], [address], [phone] [facility] No Information 9 Brando Monzon. [address] [facility], [facility] [address], [place], [id number] , . tel:[phone] Initial Hospital Care [facility], [address], [address], [phone] [facility] Acute kidney failure, unspecifiedDehydrat ionHyperkalemia 9 Brando Monzon. [address] [facility], [facility] [address], [id number] , [place]. tel:[phone] Referring Provider: Dylan Tatum, [address] [facility] [address], [place], [address]. tel:[phone] Subsequent Hospital Care [facility], [address], [address], [phone] [facility] Acute kidney failure, unspecifiedDehydrat ionHyperkalemia 9 Brando Monzon. [address] [facility], [address], [place], [place], [id number] , [place]. tel: [phone] Referring Provider: Dylan Tatum, [address] [facility] [address], [place], [address]. tel:[phone] Family History Family Member Type Diagnosis Age At Onset No Information Payers Payer name Insurance type Covered democrat ID Authoriza tion(s) [place] Primary [id number] [facility] [id number] Social History Type Description Quantity Date Captured Comments Sex Male Smoking Status No Information Chief Complaint And Reason For Visit No Information History Of Present Illness Encounter Date Complaint History Of Prese nt Illness No Information Instructions Date Instruction Additional Infor mation No Information Assessments Type Assessment Date No Information
--- OUTSIDE RECORDS SUMMARY | 2024-10-15 12:36 | XMS_ITS | Continuity of Care Document ---
Author Name [facility] Organization [facility] Care Team Providers Care [employer] Manager Name Role Phone [facility] Unavailable Unavailable Problems Combined list of problems from [facility] and [facility] facilities. It does not include entries that were removed or entered in error. Problem Status Onset Date Problem Type Date of Resolution Comments Source Alzheimer's disease Active Condition [facility] Chronic kidney disease Active Condition [facility] Exposure to potentially hazardous substance ([facility] [id number]) Active Condition Jul 01 4 Entered By: YARITZA GOLDSTEIN Comment: Entered automatically through ARMINDA Problem List documentation program [facility] SAULT Hyperlipidemia Active Condition [facility] Hypertension Active Condition [facility] Tremor Active Condition [facility] Diagnosis: ICD-10-CM I10 Essential (primary) hypertension Active Diagnosis [facility] Medications Combined list of outpatient medications from [facility] and [facility] facilities.Medications provided include 1) outpatient medications from the last 15 months, and 2) patient-reported medications. Medication Details Route Status Patient Instructions Prescription Expires Prescription Number Last Dispense Date Ordering Provider Order Date Order Qty Source AMLODIPINE BESYLATE 5MG TAB TAKE ONE TABLET BY MOUTH ONCE A DAY ORAL ACTIVE PAT,KALANI A D 2023 [facility] ATORVASTATI N CA 40MG TAB TAKE ONE-HALF TABLET BY MOUTH EVERY EVENING ORAL ACTIVE PAT,KALANI A D 2023 [facility] BUPROPION (WELLBUTRIN XL) 24HR TAB,SA (EXTENDED RELEASE) TAKE 450 MGS BY MOUTH ONCE A DAY ORAL ACTIVE PAT,KALANI A D 2023 [facility] BUSPIRONE HCL 10MG TAB TAKE ONE TABLET BY MOUTH THREE TIMES A DAY ORAL ACTIVE PAT,KALANI A D 2023 [facility] LOSARTAN POTASSIUM 100MG TAB TAKE ONE TABLET BY MOUTH ONCE A DAY ORAL ACTIVE PAT,KALANI A D 2023 [facility] MEMANTINE HCL 10MG TAB TAKE ONE TABLET BY MOUTH TWICE A DAY ORAL ACTIVE PATKALANI A D 2023 [facility] PROPRANOLOL HCL 10MG TAB TAKE ONE TABLET BY MOUTH ONCE A DAY ORAL ACTIVE PAT,KALANI A D 2023 [facility] VALBENAZINE 40MG CAP,ORAL TAKE 1 CAPSULE BY MOUTH ONCE A DAY ORAL ACTIVE PATKALANI A D 2023 [facility] Results Combined list of recent chemistry, hematology [...] Reporting Lab: [facility] [address] [facility] [address] Performing Lab: [facility] [address] [facility] [address] [facility] CBC ERYTHROCYTE S [#/VOLUME] IN BLOOD BY AUTOMATED COUNT 4.06 10*6/u L 4.10 - 5.70 05/26 L Specimen Type: BLOOD No comment entered. Ordering Provider: CARLIN STEWART Report Released Date/Time: May 20, 2024 03:03 PM Reporting Lab: [facility] [address] [facility] [address] Performing Lab: [facility] [address] [facility] [address] [facility] CBC HEMOGLOBIN [MASS/VOLUM E] IN BLOOD 12.3 g/dL 13.1 - 16.8 05/26 L Specimen Type: BLOOD No comment entered. Ordering Provider: CARLIN STEWART Report Released Date/Time: May 20, 2024 03:03 PM Reporting Lab: [facility] [address] [facility] [address] Performing Lab: [facility] [address] [facility] [address] [facility] CBC HEMATOCRIT [VOLUME FRACTION] OF BLOOD 36.8 38.2 - 48.4 05/26 L Specimen Type: BLOOD No comment entered. Ordering Provider: CARLIN STEWART Report Released Date/Time: May 20, 2024 03:03 PM Reporting Lab: [facility] [address] [place] [address] Performing Lab: [place] [id number] [place] [address] CBC MCV [ENTITIC VOLUME] BY AUTOMATED COUNT 90.6 fL 80.0 - 100.0 05/26 Specimen Type: BLOOD No comment entered. Ordering Provider: CARLIN STEWART Report Released Date/Time: May 20, 2024 03:03 PM Reporting Lab: [address] [address] Performing Lab: [address] [phone] [place] [address] CBC MCH [ENTITIC MASS] BY AUTOMATED COUNT 30.3 pg 27.0 - 34.0 05/26 Specimen Type: BLOOD No comment entered. Ordering Provider: CARLIN STEWART Report Released Date/Time: May 20, 2024 03:03 PM Reporting Lab: [address] [address] Performing Lab: [address] [phone] [place] [address] CBC MCHC [MASS/VOLUM E] BY AUTOMATED COUNT 33.4 g/dL 33.0 - 36.0 05/26 Specimen Type: BLOOD No comment entered. Ordering Provider: CARLIN STEWART Report Released Date/Time: May 20, 2024 03:03 PM Reporting Lab: [facility] [address] [place] [phone] Performing Lab: [address] [phone] [place] [address] CBC PLATELETS [#/VOLUME] IN BLOOD BY AUTOMATED COUNT 194 10*3/u L 150 - 400 05/26 Specimen Type: BLOOD No comment entered. Ordering Provider: CARLIN STEWART Report Released Date/Time: May 20, 2024 03:03 PM Reporting Lab: [facility] [address] [facility] [address] Performing Lab: [facility] [address] [place] [phone] [facility] CBC PLATELET MEAN VOLUME [ENTITIC VOLUME] IN BLOOD BY AUTOMATED COUNT 11.2 fL 7.5 - 11.2 05/26 Specimen Type: BLOOD No comment entered. Ordering Provider: CARLIN STEWART Report Released Date/Time: May 20, 2024 03:03 PM Reporting Lab: [facility] [address] [place] [phone] Performing Lab: [facility] [address] [place] [phone] [place] [address] CBC ERYTHROCYTE DISTRIBUTIO N WIDTH [RATIO] BY AUTOMATED COUNT 13.1 11.8 - 15.1 05/26 Specimen Type: BLOOD No comment entered. Ordering Provider: CARLIN STEWART Report Released Date/Time: May 20, 2024 03:03 PM Reporting Lab: [facility] [address] [place] [phone] Performing Lab: [facility] [address] [place] [phone] [facility] CBC LYMPHOCYTES /100 LEUKOCYTES IN BLOOD BY AUTOMATED COUNT 20 05/26 Specimen Type: BLOOD No comment entered. Ordering Provider: CARLIN STEWART Report Released Date/Time: May 20, 2024 03:03 PM Reporting Lab: [facility] [address] [place] [phone] Performing Lab: [facility] [address] [place] [phone] [facility] CBC MONOCYTES/1 00 LEUKOCYTES IN BLOOD BY AUTOMATED COUNT 10 05/26 Specimen Type: BLOOD No comment entered. Ordering Provider: CARLIN STEWART Report Released Date/Time: May 20, 2024 03:03 PM Reporting Lab: [facility] [address] [facility] [phone] Performing Lab: [facility] [address] [facility] [address] [facility] CBC NEUTROPHILS /100 LEUKOCYTES IN BLOOD BY AUTOMATED COUNT 65 05/26 Specimen Type: BLOOD No comment entered. Ordering Provider: CARLIN STEWART Report Released Date/Time: May 20, 2024 03:03 PM Reporting Lab: [facility] [address] [place] [phone] Performing Lab: [facility] [address] [facility] [address] [facility] CBC EOSINOPHILS /100 LEUKOCYTES IN BLOOD BY AUTOMATED COUNT 4 05/26 Specimen Type: BLOOD No comment entered. Ordering Provider: CARLIN STEWART Report Released Date/Time: May 20, 2024 03:03 PM Reporting Lab: [address] [address] Performing Lab: [address] [address] [facility] CBC BASOPHILS/1 00 LEUKOCYTES IN BLOOD BY AUTOMATED COUNT 1 05/26 Specimen Type: BLOOD No comment entered. Ordering Provider: CARLIN STEWART Report Released Date/Time: May 20, 2024 03:03 PM Reporting Lab: [address] [address] Performing Lab: [address] [phone] [facility] CBC LYMPHOCYTES [#/VOLUME] IN BLOOD BY AUTOMATED COUNT 1.05 10*3/u L 0.77 - 4.50 05/26 Specimen Type: BLOOD No comment entered. Ordering Provider: CARLIN STEWART Report Released Date/Time: May 20, 2024 03:03 PM Reporting Lab: [facility] [address] [place] [phone] Performing Lab: [address] [address] [facility] CBC MONOCYTES [#/VOLUME] IN BLOOD BY AUTOMATED COUNT 0.54 10*3/u L 0.19 - 0.80 05/26 Specimen Type: BLOOD No comment entered. Ordering Provider: CARLIN STEWART Report Released Date/Time: May 20, 2024 03:03 PM Reporting Lab: [facility] [address] [place] [phone] Performing Lab: [address] [phone] [place] [address] CBC NEUTROPHILS [#/VOLUME] IN BLOOD BY AUTOMATED COUNT 3.42 10*3/u L 2.10 - 8.00 05/26 Specimen Type: BLOOD No comment entered. Ordering Provider: CARLIN STEWART Report Released Date/Time: May 20, 2024 03:03 PM Reporting Lab: [address] [address] Performing Lab: [address] [phone] [place] [address] CBC EOSINOPHILS [#/VOLUME] IN BLOOD BY AUTOMATED COUNT 0.21 10*3/u L 0.00 - 0.60 05/26 Specimen Type: BLOOD No comment entered. Ordering Provider: CARLIN STEWART Report Released Date/Time: May 20, 2024 03:03 PM Reporting Lab: [address] [address] Performing Lab: [address] [address] [facility] CBC BASOPHILS [#/VOLUME] IN BLOOD BY AUTOMATED COUNT 0.03 10*3/u L 0.00 - 0.20 05/26 Specimen Type: BLOOD No comment entered. Ordering Provider: CARLIN STEWART Report Released Date/Time: May 20, 2024 03:03 PM Reporting Lab: [address] [phone] Performing Lab: [address] [address] [facility] COMPREHEN SIVE METABOLIC PANEL CREATININE [MASS/VOLUM E] IN SERUM OR PLASMA 1.44 mg/dL 0.7 - 1.3 05/26 H Specimen Type: PLASMA Comment: No hemolysis noted. Ordering Provider: CARLIN STEWART Report Released Date/Time: May 20, 2024 03:03 PM Reporting Lab: [address] [address] Performing Lab: [facility] [address] [place] [phone] [facility] COMPREHEN SIVE METABOLIC PANEL UREA NITROGEN [MASS/VOLUM E] IN SERUM OR PLASMA 24.7 mg/dL 9.0 - 25.0 05/26 Specimen Type: PLASMA Comment: No hemolysis noted. Ordering Provider: CARLIN STEWART Report Released Date/Time: May 20, 2024 03:03 PM Reporting Lab: [address] [address] Performing Lab: [address] [phone] [facility] COMPREHEN SIVE METABOLIC PANEL GLUCOSE [MASS/VOLUM E] IN SERUM OR PLASMA 82 mg/dL 72 - 99 05/26 Specimen Type: PLASMA Comment: No hemolysis noted. Ordering Provider: CARLIN STEWART Report Released Date/Time: May 20, 2024 03:03 PM Reporting Lab: [address] [address] Performing Lab: [address] [address] [facility] COMPREHEN SIVE METABOLIC PANEL SODIUM [MOLES/VOLU ME] IN SERUM OR PLASMA 142 meq/L 136 - 145 05/26 Specimen Type: PLASMA Comment: No hemolysis noted. Ordering Provider: CARLIN STEWART Report Released Date/Time: May 20, 2024 03:03 PM Reporting Lab: [address] [address] Performing Lab: [address] [address] [facility] COMPREHEN SIVE METABOLIC PANEL POTASSIUM [MOLES/VOLU ME] IN SERUM OR PLASMA 4.6 meq/L 3.5 - 5 05/26 Specimen Type: PLASMA Comment: No hemolysis noted. Ordering Provider: CARLIN STEWART Report Released Date/Time: May 20, 2024 03:03 PM Reporting Lab: [facility] [address] [facility] [address] Performing Lab: [facility] [address] [place] [phone] [facility] COMPREHEN SIVE METABOLIC PANEL CHLORIDE [MOLES/VOLU ME] IN SERUM OR PLASMA 112 meq/L 98 - 107 05/26 H Specimen Type: PLASMA Comment: No hemolysis noted. Ordering Provider: CARLIN STEWART Report Released Date/Time: May 20, 2024 03:03 PM Reporting Lab: [address] [address] Performing Lab: [address] [address] [facility] COMPREHEN SIVE METABOLIC PANEL CARBON DIOXIDE, TOTAL [MOLES/VOLU ME] IN SERUM OR PLASMA 17 meq/L 22 - 31 05/26 L Specimen Type: PLASMA Comment: No hemolysis noted. Ordering Provider: CARLIN STEWART Report Released Date/Time: May 20, 2024 03:03 PM Reporting Lab: [address] [address] Performing Lab: [address] [address] [facility] COMPREHEN SIVE METABOLIC PANEL CALCIUM [MASS/VOLUM E] IN SERUM OR PLASMA 10.0 mg/dL 8.4 - 10.4 05/26 Specimen Type: PLASMA Comment: No hemolysis noted. Ordering Provider: CARLIN STEWART Report Released Date/Time: May 20, 2024 03:03 PM Reporting Lab: [address] [address] Performing Lab: [address] [phone] [facility] COMPREHEN SIVE METABOLIC PANEL PROTEIN [MASS/VOLUM E] IN SERUM OR PLASMA 6.2 g/dL 6 - 8.6 05/26 Specimen Type: PLASMA Comment: No hemolysis noted. Ordering Provider: CARLIN STEWART Report Released Date/Time: May 20, 2024 03:03 PM Reporting Lab: [address] [address] Performing Lab: [address] [address] [facility] COMPREHEN SIVE METABOLIC PANEL ALBUMIN [MASS/VOLUM E] IN SERUM OR PLASMA 4.2 g/dL 3.4 - 5 05/26 Specimen Type: PLASMA Comment: No hemolysis noted. Ordering Provider: CARLIN STEWART Report Released Date/Time: May 20, 2024 03:03 PM Reporting Lab: [address] [address] Performing Lab: [address] [address] [facility] COMPREHEN SIVE METABOLIC PANEL BILIRUBIN.T OTAL [MASS/VOLUM E] IN SERUM OR PLASMA 0.8 mg/dL 0.2 - 1.2 05/26 Specimen Type: PLASMA Comment: No hemolysis noted. Ordering Provider: CARLIN STEWART Report Released Date/Time: May 20, 2024 03:03 PM Reporting Lab: [address] [address] Performing Lab: [address] [address] [facility] COMPREHEN SIVE METABOLIC PANEL ALKALINE PHOSPHATASE [ENZYMATIC ACTIVITY/VO LUME] IN SERUM OR PLASMA 82 U/L 40 - 150 05/26 Specimen Type: PLASMA Comment: No hemolysis noted. Ordering Provider: CARLIN STEWART Report Released Date/Time: May 20, 2024 03:03 PM Reporting Lab: [address] [address] Performing Lab: [address] [place] [address] [facility] COMPREHEN SIVE METABOLIC PANEL ASPARTATE AMINOTRANSF ERASE [ENZYMATIC ACTIVITY/VO LUME] IN SERUM OR PLASMA 24 U/L 5 - 34 05/26 Specimen Type: PLASMA Comment: No hemolysis noted. Ordering Provider: CARLIN STEWART Report Released Date/Time: May 20, 2024 03:03 PM Reporting Lab: [facility] [address] [facility] [address] Performing Lab: [facility] [address] [facility] [address] [facility] COMPREHEN SIVE METABOLIC PANEL ALANINE AMINOTRANSF ERASE [ENZYMATIC ACTIVITY/VO LUME] IN SERUM OR PLASMA 27 U/L 8 - 40 05/26 Specimen Type: PLASMA Comment: No hemolysis noted. Ordering Provider: CARLIN STEWART Report Released Date/Time: May 20, 2024 03:03 PM Reporting Lab: [facility] [address] [place] [phone] Performing Lab: [facility] [address] [facility] [address] [facility] COMPREHEN SIVE METABOLIC PANEL GLOMERULAR FILTRATION RATE/1.73 SQ M.PREDICTED [VOLUME RATE/AREA] IN SERUM, PLASMA OR BLOOD BY CREATININE- BASED FORMULA (CKD-EPI 2020) 52.0 60 05/26 Specimen Type: PLASMA Comment: No hemolysis noted. Ordering Provider: CARLIN STEWART Report Released Date/Time: May 20, 2024 03:03 PM Reporting Lab: [facility] [address] [facility] [address] Performing Lab: [facility] [address] [facility] [address] [facility] HGA1C HEMOGLOBIN A1C/HEMOGLO BIN.TOTAL IN BLOOD 5.3 4.0 - 6.0 05/26 Specimen Type: BLOOD No comment entered. Ordering Provider: CARLIN STEWART Report Released Date/Time: May 20, 2024 03:03 PM Reporting Lab: [facility] [address] [facility] [address] Performing Lab: [facility] [address] [facility] [address] [facility] LIPID PANEL (STL) CHOLESTEROL [MASS/VOLUM E] IN SERUM OR PLASMA 114 mg/dL 0 - 200 05/26 Specimen Type: PLASMA Comment: No hemolysis noted. Ordering Provider: CARLIN STEWART Report Released Date/Time: May 20, 2024 03:03 PM Reporting Lab: [facility] [address] [place] [address] Performing Lab: [place] [address] [facility] [address] [facility] LIPID PANEL (STL) TRIGLYCERID E [MASS/VOLUM E] IN SERUM OR PLASMA 64 mg/dL 0 - 150 05/26 Specimen Type: PLASMA Comment: No hemolysis noted. Ordering Provider: CARLIN STEWART Report Released Date/Time: May 20, 2024 03:03 PM Reporting Lab: [facility] [address] [place] [address] Performing Lab: [address] [address] [facility] LIPID PANEL (STL) CHOLESTEROL IN LDL [MASS/VOLUM E] IN SERUM OR PLASMA BY CALCULATION 53 mg/dL 05/26 Specimen Type: PLASMA Comment: No hemolysis noted. Ordering Provider: CARLIN STEWART Report Released Date/Time: May 20, 2024 03:03 PM Reporting Lab: [facility] [address] Performing Lab: [facility] [address] [facility] LIPID PANEL (STL) CHOLESTEROL IN HDL [MASS/VOLUM E] IN SERUM OR PLASMA 48 mg/dL 40 05/26 Specimen Type: PLASMA Comment: No hemolysis noted. Ordering Provider: CARLIN STEWART Report Released Date/Time: May 20, 2024 03:03 PM Reporting Lab: [facility] [address] [place] [phone] Performing Lab: [facility] [address] [facility] [address] [facility] TSH (MA-PB) THYROTROPIN [UNITS/VOLU ME] IN SERUM OR PLASMA 1.531 u[IU]/ mL 0.47 - 5 05/26 Specimen Type: SERUM No comment entered. Ordering Provider: CARLIN STEWART Report Released Date/Time: May 20, 2024 03:03 PM Reporting Lab: [facility] [address] [facility] [address] Performing Lab: [facility] [address] [facility] [address] [facility] Vital Signs Combined list of inpatient and outpatient Vital Signs from Department of [facility] and [facility] Affairs, ranging from 12 months to all on record, depending upon the facility. Vital Sign Value Date Comments Source SYSTOLIC BLOOD PRESSURE 176 06/29/20 24 13:02:00 [facility] DIASTOLIC BLOOD PRESSURE 64 024 13:02:00 [facility] PULSE OXIMETRY 100 06/29/2024 13:02:00 [facility] WEIGHT 231.8 06/29/2024 13:02:00 [facility] BMI 31 kg/m2 06/29/2024 13:02:00 [facility] PAIN 0 06/29/2024 13:02:00 [facility] HEIGHT 73 06/29/2024 13:02:00 [facility] TEMPERATURE 98.3 06/29/2024 13:02:00 [facility] PULSE 47 06/29/2024 13:02:00 [facility] RESPIRATION 16 06/29/2024 13:02:00 [facility] Encounters Combined list of: 1) Encounters from Department of Veterans Affairs facilities going backup to the last 18 months, not all [place] inpatient encounters are included; 2) Encounters from the Department of Defense facilities going backup to 280 months. Location Location Details Encounter Type Encounter Number Reason For Visit Attending Provider ADM Date DC Date Status Disposition Source [facility] Outpatient Encounter [id number] 04/29 [facility] Outpatient Encounter [id number] PAT,CARLIN D 05/20 [facility] Outpatient Encounter [id number] PATCARLIN D 06/03 [facility] Outpatient Encounter [id number] PATCARLIN D 06/14 [facility] Outpatient Encounter [id number] KALANI STEWARTA D 06/19 [facility] Outpatient Encounter [id number] 06/29 [facility] OFFICE O/P NEW MOD 45 MIN [id number] Diagnos is: ICD-10- CM I10 Essenti al (primar y) hyperte nsion CARLIN STEWART 06/29 [facility] Outpatient Encounter [id number] 06/29 [facility] Social History Combined list of available smoking, tobacco, and other social history from Department of Defense and Veterans Affairs facilities. Social History Type Response Date Comment Sourc e Tobacco smoking status NHIS [facility]-TOBACCO USE FORMER CIGARETTES 06/29/2024 [facility] History of tobacco use [place]-TOBACCO NEVER USED OTHER TYPE 06/29/2024 [facility] Plan of Care List of future care activities from Department of Veterans Affairs facilities. Additional future care activities may be listed in the Assessment and Plan section. Date/Time Care Activity Care Activity Detail Facili ty 12/29/2024 AMBULATORY - MEDICINE AMBULATORY - MEDICI [facility]
[2024-10-20 11:35] LABS: Reference Lab Test Name Gliadin IgG
[2024-10-20 11:36] LABS: Reference Lab Test Result <1.0
== END 2024-10-15 12:14 | disposition home or self-care (01) ==
PROVIDERS: PCP Family Medicine; Visit Provider Nurse Practitioner
DX: R19.7 Diarrhea, unspecified (principal); R19.4 Change in bowel habit; D80.2 Selective deficiency of immunoglobulin A [IgA]
CPT/HCPCS: 36415; 86258

== ENCOUNTER 2024-10-30 00:32 | Day surgery (SDC) | payer MEDICARE, OTHER, SELFPAY ==
[2024-10-23 10:31] VITALS: BMI 30.3
--- OUTSIDE RECORDS SUMMARY | 2024-10-30 00:36 | XMS_ITS | Encounter Summary ---
Author Name [facility] ([place]) Organization [facility] of 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 Date/Time Encounter Type Encounter Description Reason Provider Source Jun 29, 2024 01:00 PM OFFICE O/P NEW MOD 45 MIN PRIMARY CARE/MEDICINE ICD-10-CM I10 Essential (primary) hypertension PATCARLIN D IHE Encounter Template Text not used by [place] Assessments - Encounter Diagnoses This section includes the primary and secondary diagnoses documented for the Encounter. Date/Time Primary/Secondary Diagnosis Diagnosis Name Provider Source Jun 29, 2024 02:35 PM PRIMARY Essential (primary) hypertension CARLIN STEWART [facility] Jun 29, 2024 02:35 PM SECONDARY Alzheimer's disease, unspecified CARLIN STEWART [facility] Jun 29, 2024 02:35 PM SECONDARY Chronic kidney disease, unspecified PATCARLIN D [facility] Jun 29, 2024 02:35 PM SECONDARY Contact with and exposure to other hazardous substances CARLIN STEWART [facility] Jun 29, 2024 02:35 PM SECONDARY Hyperlipidemia, unspecified CARLIN STEWART [facility] Jun 29, 2024 02:35 PM SECONDARY Tremor, unspecified PATCARLIN Candi [facility] Plan of Treatment: Future Appointments (+ 6 months) and Future Tests (+/- 45 days) The Plan of Treatment section includes [facility] care activities [facility] the [facility] [place] [facility]. This section includes future appointments and future [...] of theEncounter. The data comes from all [place] treatment facilities. Test Date/Time Test Type Test [...] [facility] Vital Signs: All taken on the encounter date This section contains inpatient and outpatient Vital Signs collected on the date of the Encounter. Date/Time Temperature Pulse Blood Pressure Respiratory Rate SP02 Pain Height Weight Body Mass Index Source Jun 29, 2024 01:19 PM 47 151/55 [facility] Jun 29, 2024 01:02 PM 98.3 47 176/64 16 100 0 73 231.8 31 [facility] Social History: Smoking Status (Most current) and Tobacco Use (All prior to encounter date) This section includes the most current, and the historical, smoking and tobacco- related health factors from the [place] facility where the Encounter took place. Current Smoking Status This section includes the most current smoking, or tobacco-related health factor, from the [place] facility where the Encounter took place. Date/Time Current Smoking Status Comment Jalil willis Jun 29, 2024 01:00 PM VA-TOBACCO USE FOR MELANY CIGARETTES [facility] Tobacco Use History This section includes a history of the smoking, or tobacco-related health factors, that were collected on or before the date of the Encounter. The data comes from the [place] facility where the Encounter took place. 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 Handwritten corrections, additions and/or deletions were made to the list. Corrected Outpatient Medication List was provided to the patient/caregiver. Active Outpatient Medications (including Supplies): No Medications Found Weight : Patient Weight History - Last Four 1. 231.8 lbs. / 105.1 kg. on JUN 29, 2024@13:02 Vitals : ----- Temp : 98.3 F [36.8 C] (06/29/2024 13:02) BP : 151/55 (06/29/2024 13:19) MO : 47 (06/29/2024 13:19): RR : 16 [...] him with [employer] Her phone number : [phone] Email address: # HTN : uncontrolled, advised low-salt diet [...] Concern Registry Questions - Toxic Exposure Concern [place] Healthcare Enrollment Questions - Toxic Exposure Concern /caregiver has no health or medical concerns related to their concern of environmental exposure. The following connections were provided to the Ellinger/caregiver: No connections needed at this time SUMMARY STATEMENT: Plan of care has been discussed with including expected therapeutic benefits and potential side effects of prescribed medication and treatments. verbalizes understanding and is in agreement with the plan of care. Patient was instructed to keep all scheduled appointments and contact schedule checker for any additional problems. 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 Handwritten corrections, additions and/or deletions were made to the list, as appropriate. Corrected Outpatient Medication List was provided to the patient/caregiver. RTC : 12/2024 /yolanda STEWART MD Staff Physician Signed: 06/29/2024 14:35 06/29/2024 ADDENDUM STATUS: COMPLETED Tremor & Tardive dyskinesia :on Ingrezza ( correction of above note regarding indication) /joaquim/ CARLIN STEWART MD Staff Physician Signed: 06/29/2024 14:42 CARLIN STEWART [facility] Jun 29, 2024 02:03 PM ORTHOTICS PROSTHET [...] PRACTIAL NURSE Signed: 06/29/2024 14:06 KRISHNA MCCAIN [facility] Jun 29, 2024 01:09 PM NURSING NOTE: [...] you in your life right now? ---- Ellinger's Response: FAMILY WHOLE HEALTH SHARED GOALS: PERSONAL [...] concerns. Review that after hours nurse line [phone] and emergency room are available 04/02 for patient use. Contact verbalized good understanding. MST Screening - V: Patient denies experiencing sexual trauma (MST). Toxic Exposure Screening - CP,DI,L,NS,P,PH,S,U: The Ellinger/caregiver was asked if they believe the Ellinger experienced any toxic exposure(s), such as Airborne Hazards and Open Burn Pit, [place] War related exposures, Agent Iro[place], Radiation, contaminated water at [place] or other such exposures, while serving in the [employer]. 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 [place] Health Care Enrollment and Eligibility Questions Ellinger/caregiver was informed of local point of contact. Registry Questions Ellinger/caregiver was informed of local point of contact. Contact information for local resources: [facility] Registry Exam Program: [phone] Eligibility: [phone] ROZINA [id number] Toxic Exposure Screening Follow-Up reminder is needed. Name of person notified: DR. STEWART Tobacco Use Screening - AT,DE,L,M,N,P,PH,PS,RT,S, U: The patient is a former cigarette smoker. Quit smoking GREATER THAN OR EQUAL to 15 years. The patient has never used other types of tobacco. Learning Assessment: - * This patient's learning ABILITIES, BARRIERS to learning, CULTURAL and SIKHISM beliefs, and learning PREFERENCES were assessed. Following are findings of note: Patient reads well. Comment: WITH GLASSES AND CONTACTS Patient has the following hearing/auditory barrier(s) to consider when teaching: No hearing barrier identified. Patient has the following speech barrier to consider when teaching: No speech barrier identified. LANGUAGE Patient reports that Lao is preferred language for healthcare. Patient reports learning preference is to refer to handouts. Patient reports learning preference is attending one-to-one or group demonstrations. Patient reports learning preference is looking at pictures or viewing videos. Suicide Screen - V: C-SSRS Screening [place]-Suicide Severity Rating Scale (C-SSRS Screener) 1. Over [...] Not worried about housing near future The Ellinger reports the following: Within the past 12 [...] due to responses to other questions. 5. [place] numb or detached from people, activities, or your surroundings? Response not required due to responses to other questions. 6. [place] guilty or unable to stop blaming yourself [...] PRACTIAL NURSE Signed: 06/29/2024 13:26 KRISHNA MCCAIN [facility]
--- OUTSIDE RECORDS SUMMARY | 2024-10-30 00:36 | XMS_ITS | Continuity of Care Document ---
Author Name [facility] Organization [facility] Care Team Providers Care Making Machine Operator Name Role Phone [facility] Unavailable Unavailable Problems Combined list of problems from [facility] and [facility] facilities. It does not include entries that were removed or entered in error. Problem Status Onset Date Problem Type Date of Resolution Comments Source Alzheimer's disease Active Condition [facility] Chronic kidney disease Active Condition [facility] Exposure to potentially hazardous substance ([facility] [id number]) Active Condition Jul 01 4 Entered By: YARITZA GOLDSTEIN Comment: Entered automatically through ARMINDA Problem List documentation program JESSICA BARRON [facility] Hyperlipidemia Active Condition [facility] Hypertension Active Condition [facility] Tremor Active Condition [facility] Diagnosis: ICD-10-CM I10 Essential (primary) hypertension Active Diagnosis [facility] Medications Combined list of outpatient medications from [facility] and [facility] facilities.Medications provided include 1) outpatient medications from the last 15 months, and 2) patient-reported medications. Medication Details Route Status Patient Instructions Prescription Expires Prescription Number Last Dispense Date Ordering Provider Order Date Order Qty Source AMLODIPINE BESYLATE 5MG TAB TAKE ONE TABLET BY MOUTH ONCE A DAY ORAL ACTIVE PAT,KALANI A D 2023 [facility] ATORVASTATI N CA 40MG TAB TAKE ONE-HALF TABLET BY MOUTH EVERY EVENING ORAL ACTIVE PAT,KALANI A D 2023 [facility] BUPROPION (WELLBUTRIN XL) 24HR TAB,SA (EXTENDED RELEASE) TAKE 450 MGS BY MOUTH ONCE A DAY ORAL ACTIVE PAT,KALANI A D 2023 [facility] BUSPIRONE HCL 10MG TAB TAKE ONE TABLET BY MOUTH THREE TIMES A DAY ORAL ACTIVE PAT,KALANI A D 2023 [facility] LOSARTAN POTASSIUM 100MG TAB TAKE ONE TABLET BY MOUTH ONCE A DAY ORAL ACTIVE PAT,KALANI A D 2023 [facility] MEMANTINE HCL 10MG TAB TAKE ONE TABLET BY MOUTH TWICE A DAY ORAL ACTIVE PATKALANI Leo D 2023 [facility] PROPRANOLOL HCL 10MG TAB TAKE ONE TABLET BY MOUTH ONCE A DAY ORAL ACTIVE PAT,RAM A D 2023 [facility] VALBENAZINE 40MG CAP,ORAL TAKE 1 CAPSULE BY MOUTH ONCE A DAY ORAL ACTIVE PAT,RAM A D 2023 [facility] Results Combined list of recent chemistry, hematology [...] May 20, 2024 03:03 PM Reporting Lab: [facility] [address] [facility] [address] Performing Lab: [facility] [address] [facility] [address] [facility] HGA1C HEMOGLOBIN A1C/HEMOGLO BIN.TOTAL IN BLOOD 5.3 4.0 - 6.0 05/26 Specimen Type: BLOOD No comment entered. Ordering Provider: CARLIN STEWART Report Released Date/Time: May 20, 2024 03:03 PM Reporting Lab: [facility] [address] [facility] [address] Performing Lab: [facility] [address] [facility] [address] [facility] CBC LEUKOCYTES [#/VOLUME] IN BLOOD BY AUTOMATED COUNT 5.3 10*3/u L 3.6 - 11.2 05/26 Specimen Type: BLOOD No comment entered. Ordering Provider: CARLIN STEWART Report Released Date/Time: May 20, 2024 03:03 PM Reporting Lab: [facility] [address] [facility] [address] Performing Lab: [facility] [address] [facility] [address] [facility] CBC ERYTHROCYTE S [#/VOLUME] IN BLOOD BY AUTOMATED COUNT 4.06 10*6/u L 4.10 - 5.70 05/26 L Specimen Type: BLOOD No comment entered. Ordering Provider: CARLIN STEWART Report Released Date/Time: May 20, 2024 03:03 PM Reporting Lab: [address] [address] Performing Lab: [address] [phone] [place] [address] CBC HEMOGLOBIN [MASS/VOLUM E] IN BLOOD 12.3 g/dL 13.1 - 16.8 05/26 L Specimen Type: BLOOD No comment entered. Ordering Provider: CARLIN STEWART Report Released Date/Time: May 20, 2024 03:03 PM Reporting Lab: [address] [address] Performing Lab: [address] [address] [facility] CBC HEMATOCRIT [VOLUME FRACTION] OF BLOOD 36.8 38.2 - 48.4 05/26 L Specimen Type: BLOOD No comment entered. Ordering Provider: CARLIN STEWART Report Released Date/Time: May 20, 2024 03:03 PM Reporting Lab: [address] [address] Performing Lab: [address] [address] [facility] CBC MCV [ENTITIC VOLUME] BY AUTOMATED COUNT 90.6 fL 80.0 - 100.0 05/26 Specimen Type: BLOOD No comment entered. Ordering Provider: CARLIN STEWART Report Released Date/Time: May 20, 2024 03:03 PM Reporting Lab: [address] [address] Performing Lab: [address] [address] [facility] CBC MCH [ENTITIC MASS] BY AUTOMATED COUNT 30.3 pg 27.0 - 34.0 05/26 Specimen Type: BLOOD No comment entered. Ordering Provider: CARLIN STEWART Report Released Date/Time: May 20, 2024 03:03 PM Reporting Lab: [facility] [address] [facility] [address] Performing Lab: [facility] [address] [place] [address] [facility] CBC MCHC [MASS/VOLUM E] BY AUTOMATED COUNT 33.4 g/dL 33.0 - 36.0 05/26 Specimen Type: BLOOD No comment entered. Ordering Provider: CARLIN STEWART Report Released Date/Time: May 20, 2024 03:03 PM Reporting Lab: [facility] [address] [place] [address] Performing Lab: [address] [phone] [place] [address] CBC PLATELETS [#/VOLUME] IN BLOOD BY AUTOMATED COUNT 194 10*3/u L 150 - 400 05/26 Specimen Type: BLOOD No comment entered. Ordering Provider: CARLIN STEWART Report Released Date/Time: May 20, 2024 03:03 PM Reporting Lab: [facility] [address] [place] [address] Performing Lab: [facility] [address] [place] [phone] [place] [address] CBC PLATELET MEAN VOLUME [ENTITIC VOLUME] IN BLOOD BY AUTOMATED COUNT 11.2 fL 7.5 - 11.2 05/26 Specimen Type: BLOOD No comment entered. Ordering Provider: CARLIN STEWART Report Released Date/Time: May 20, 2024 03:03 PM Reporting Lab: [facility] [address] [place] [phone] Performing Lab: [facility] [address] [place] [phone] [facility] CBC ERYTHROCYTE DISTRIBUTIO N WIDTH [RATIO] BY AUTOMATED COUNT 13.1 11.8 - 15.1 05/26 Specimen Type: BLOOD No comment entered. Ordering Provider: CARLIN STEWART Report Released Date/Time: May 20, 2024 03:03 PM Reporting Lab: [facility] [address] [facility] [address] Performing Lab: [facility] [address] [facility] [address] [facility] CBC LYMPHOCYTES /100 LEUKOCYTES IN BLOOD BY AUTOMATED COUNT 20 05/26 Specimen Type: BLOOD No comment entered. Ordering Provider: CARLIN STEWART Report Released Date/Time: May 20, 2024 03:03 PM Reporting Lab: [facility] [address] [facility] [address] Performing Lab: [facility] [address] [facility] [address] [facility] CBC MONOCYTES/1 00 LEUKOCYTES IN BLOOD BY AUTOMATED COUNT 10 05/26 Specimen Type: BLOOD No comment entered. Ordering Provider: CARLIN STEWART Report Released Date/Time: May 20, 2024 03:03 PM Reporting Lab: [facility] [address] [facility] [address] Performing Lab: [facility] [address] [facility] [address] [facility] CBC NEUTROPHILS /100 LEUKOCYTES IN BLOOD BY AUTOMATED COUNT 65 05/26 Specimen Type: BLOOD No comment entered. Ordering Provider: CARLIN STEWART Report Released Date/Time: May 20, 2024 03:03 PM Reporting Lab: [facility] [address] [facility] [address] Performing Lab: [facility] [address] [facility] [address] [facility] CBC EOSINOPHILS /100 LEUKOCYTES IN BLOOD BY AUTOMATED COUNT 4 05/26 Specimen Type: BLOOD No comment entered. Ordering Provider: CARLIN STEWART Report Released Date/Time: May 20, 2024 03:03 PM Reporting Lab: [facility] [address] [facility] [address] Performing Lab: [facility] [address] [address] [facility] CBC BASOPHILS/1 00 LEUKOCYTES IN BLOOD BY AUTOMATED COUNT 1 05/26 Specimen Type: BLOOD No comment entered. Ordering Provider: CARLIN STEWART Report Released Date/Time: May 20, 2024 03:03 PM Reporting Lab: [address] [address] Performing Lab: [address] [address] [facility] CBC LYMPHOCYTES [#/VOLUME] IN BLOOD BY AUTOMATED COUNT 1.05 10*3/u L 0.77 - 4.50 05/26 Specimen Type: BLOOD No comment entered. Ordering Provider: CARLIN STEWART Report Released Date/Time: May 20, 2024 03:03 PM Reporting Lab: [address] [address] Performing Lab: [address] [address] [facility] CBC MONOCYTES [#/VOLUME] IN BLOOD BY AUTOMATED COUNT 0.54 10*3/u L 0.19 - 0.80 05/26 Specimen Type: BLOOD No comment entered. Ordering Provider: CARLIN STEWART Report Released Date/Time: May 20, 2024 03:03 PM Reporting Lab: [address] [address] Performing Lab: [address] [address] [facility] CBC NEUTROPHILS [#/VOLUME] IN BLOOD BY AUTOMATED COUNT 3.42 10*3/u L 2.10 - 8.00 05/26 Specimen Type: BLOOD No comment entered. Ordering Provider: CARLIN STEWART Report Released Date/Time: May 20, 2024 03:03 PM Reporting Lab: [address] [address] Performing Lab: [address] [address] [facility] CBC EOSINOPHILS [#/VOLUME] IN BLOOD BY AUTOMATED COUNT 0.21 10*3/u L 0.00 - 0.60 05/26 Specimen Type: BLOOD No comment entered. Ordering Provider: CARLIN STEWART Report Released Date/Time: May 20, 2024 03:03 PM Reporting Lab: [address] [address] Performing Lab: [address] [address] [facility] CBC BASOPHILS [#/VOLUME] IN BLOOD BY AUTOMATED COUNT 0.03 10*3/u L 0.00 - 0.20 05/26 Specimen Type: BLOOD No comment entered. Ordering Provider: CARLIN STEWART Report Released Date/Time: May 20, 2024 03:03 PM Reporting Lab: [address] [address] Performing Lab: [address] [address] [facility] COMPREHEN SIVE METABOLIC PANEL CREATININE [MASS/VOLUM E] IN SERUM OR PLASMA 1.44 mg/dL 0.7 - 1.3 05/26 H Specimen Type: PLASMA Comment: No hemolysis noted. Ordering Provider: CARLIN STEWART Report Released Date/Time: May 20, 2024 03:03 PM Reporting Lab: [address] [address] Performing Lab: [address] [address] [facility] COMPREHEN SIVE METABOLIC PANEL UREA NITROGEN [MASS/VOLUM E] IN SERUM OR PLASMA 24.7 mg/dL 9.0 - 25.0 05/26 Specimen Type: PLASMA Comment: No hemolysis noted. Ordering Provider: CARLIN STEWART Report Released Date/Time: May 20, 2024 03:03 PM Reporting Lab: [address] [address] Performing Lab: [address] [address] [facility] COMPREHEN SIVE METABOLIC PANEL GLUCOSE [MASS/VOLUM E] IN SERUM OR PLASMA 82 mg/dL 72 - 99 05/26 Specimen Type: PLASMA Comment: No hemolysis noted. Ordering Provider: CARLIN STEWART Report Released Date/Time: May 20, 2024 03:03 PM Reporting Lab: [facility] [address] [place] [phone] Performing Lab: [facility] [address] [place] [address] [facility] COMPREHEN SIVE METABOLIC PANEL SODIUM [MOLES/VOLU ME] IN SERUM OR PLASMA 142 meq/L 136 - 145 05/26 Specimen Type: PLASMA Comment: No hemolysis noted. Ordering Provider: CARLIN STEWART Report Released Date/Time: May 20, 2024 03:03 PM Reporting Lab: [address] [address] Performing Lab: [facility] [address] [place] [phone] [facility] COMPREHEN SIVE METABOLIC PANEL POTASSIUM [MOLES/VOLU ME] IN SERUM OR PLASMA 4.6 meq/L 3.5 - 5 05/26 Specimen Type: PLASMA Comment: No hemolysis noted. Ordering Provider: CARLIN STEWART Report Released Date/Time: May 20, 2024 03:03 PM Reporting Lab: [facility] [address] [place] [phone] Performing Lab: [facility] [address] [facility] [address] [facility] COMPREHEN SIVE METABOLIC PANEL CHLORIDE [MOLES/VOLU ME] IN SERUM OR PLASMA 112 meq/L 98 - 107 05/26 H Specimen Type: PLASMA Comment: No hemolysis noted. Ordering Provider: CARLIN STEWART Report Released Date/Time: May 20, 2024 03:03 PM Reporting Lab: [facility] [address] [place] [address] Performing Lab: [facility] [address] [place] [phone] [facility] COMPREHEN SIVE METABOLIC PANEL CARBON DIOXIDE, TOTAL [MOLES/VOLU ME] IN SERUM OR PLASMA 17 meq/L 22 - 31 05/26 L Specimen Type: PLASMA Comment: No hemolysis noted. Ordering Provider: CARLIN STEWART Report Released Date/Time: May 20, 2024 03:03 PM Reporting Lab: [address] [address] Performing Lab: [address] [address] [facility] COMPREHEN SIVE METABOLIC PANEL CALCIUM [MASS/VOLUM E] IN SERUM OR PLASMA 10.0 mg/dL 8.4 - 10.4 05/26 Specimen Type: PLASMA Comment: No hemolysis noted. Ordering Provider: CARLIN STEWART Report Released Date/Time: May 20, 2024 03:03 PM Reporting Lab: [address] [address] Performing Lab: [address] [address] [facility] COMPREHEN SIVE METABOLIC PANEL PROTEIN [MASS/VOLUM E] IN SERUM OR PLASMA 6.2 g/dL 6 - 8.6 05/26 Specimen Type: PLASMA Comment: No hemolysis noted. Ordering Provider: CARLIN STEWART Report Released Date/Time: May 20, 2024 03:03 PM Reporting Lab: [address] [address] Performing Lab: [address] [address] [facility] COMPREHEN SIVE METABOLIC PANEL ALBUMIN [MASS/VOLUM E] IN SERUM OR PLASMA 4.2 g/dL 3.4 - 5 05/26 Specimen Type: PLASMA Comment: No hemolysis noted. Ordering Provider: CARLIN STEWART Report Released Date/Time: May 20, 2024 03:03 PM Reporting Lab: [address] [address] Performing Lab: [address] [address] [facility] COMPREHEN SIVE METABOLIC PANEL BILIRUBIN.T OTAL [MASS/VOLUM E] IN SERUM OR PLASMA 0.8 mg/dL 0.2 - 1.2 05/26 Specimen Type: PLASMA Comment: No hemolysis noted. Ordering Provider: CARLIN STEWART Report Released Date/Time: May 20, 2024 03:03 PM Reporting Lab: [facility] [address] [place] [address] Performing Lab: [facility] [address] [facility] [address] [facility] COMPREHEN SIVE METABOLIC PANEL ALKALINE PHOSPHATASE [ENZYMATIC ACTIVITY/VO LUME] IN SERUM OR PLASMA 82 U/L 40 - 150 05/26 Specimen Type: PLASMA Comment: No hemolysis noted. Ordering Provider: CARLIN STEWART Report Released Date/Time: May 20, 2024 03:03 PM Reporting Lab: [address] [address] Performing Lab: [facility] [address] [place] [phone] [facility] COMPREHEN SIVE METABOLIC PANEL ASPARTATE AMINOTRANSF ERASE [ENZYMATIC ACTIVITY/VO LUME] IN SERUM OR PLASMA 24 U/L 5 - 34 05/26 Specimen Type: PLASMA Comment: No hemolysis noted. Ordering Provider: CARLIN STEWART Report Released Date/Time: May 20, 2024 03:03 PM Reporting Lab: [facility] [address] [place] [phone] Performing Lab: [facility] [address] [place] [phone] [facility] COMPREHEN SIVE METABOLIC PANEL ALANINE AMINOTRANSF ERASE [ENZYMATIC ACTIVITY/VO LUME] IN SERUM OR PLASMA 27 U/L 8 - 40 05/26 Specimen Type: PLASMA Comment: No hemolysis noted. Ordering Provider: CARLIN STEWART Report Released Date/Time: May 20, 2024 03:03 PM Reporting Lab: [facility] [address] [place] [phone] Performing Lab: [place] [address] [facility] [address] [facility] COMPREHEN SIVE METABOLIC PANEL GLOMERULAR FILTRATION RATE/1.73 SQ M.PREDICTED [VOLUME RATE/AREA] IN SERUM, PLASMA OR BLOOD BY CREATININE- BASED FORMULA (CKD-EPI 2020) 52.0 60 05/26 Specimen Type: PLASMA Comment: No hemolysis noted. Ordering Provider: CARLIN STEWART Report Released Date/Time: May 20, 2024 03:03 PM Reporting Lab: [facility] [address] [facility] [address] Performing Lab: [address] [address] [facility] LIPID PANEL (STL) CHOLESTEROL [MASS/VOLUM E] IN SERUM OR PLASMA 114 mg/dL 0 - 200 05/26 Specimen Type: PLASMA Comment: No hemolysis noted. Ordering Provider: CARLIN STEWART Report Released Date/Time: May 20, 2024 03:03 PM Reporting Lab: [facility] [address] [facility] [address] Performing Lab: [address] [address] [facility] LIPID PANEL (STL) TRIGLYCERID E [MASS/VOLUM E] IN SERUM OR PLASMA 64 mg/dL 0 - 150 05/26 Specimen Type: PLASMA Comment: No hemolysis noted. Ordering Provider: CARLIN STEWART Report Released Date/Time: May 20, 2024 03:03 PM Reporting Lab: [facility] [address] [facility] [address] Performing Lab: [address] [address] [facility] LIPID PANEL (STL) CHOLESTEROL IN LDL [MASS/VOLUM E] IN SERUM OR PLASMA BY CALCULATION 53 mg/dL 05/26 Specimen Type: PLASMA Comment: No hemolysis noted. Ordering Provider: CARLIN STEWART Report Released Date/Time: May 20, 2024 03:03 PM Reporting Lab: [facility] [place] [facility] [facility] [address] Performing Lab: [facility] [address] [facility] [address] [facility] LIPID PANEL (STL) CHOLESTEROL IN HDL [MASS/VOLUM E] IN SERUM OR PLASMA 48 mg/dL 40 05/26 Specimen Type: PLASMA Comment: No hemolysis noted. Ordering Provider: CARLIN STEWART Report Released Date/Time: May 20, 2024 03:03 PM Reporting Lab: [facility] [address] [facility] [address] Performing Lab: [facility] [address] [facility] [address] [facility] Vital Signs Combined list of inpatient and outpatient Vital Signs from Department of [facility] and Veterans Affairs, ranging from 12 months [...] to the last 18 months, not all [place] inpatient encounters are included; 2) Encounters from the Department of Defense facilities going backup to 280 months. Location Location Details Encounter Type Encounter Number Reason For Visit Attending Provider ADM Date DC Date Status Disposition Source [facility] Outpatient Encounter [id number] 04/29 [facility] Outpatient Encounter [id number] PAT,CARLIN D 05/20 [facility] Outpatient Encounter [id number] PATCARLIN D 06/03 [facility] Outpatient Encounter [id number] PATCARLIN D 06/14 [facility] Outpatient Encounter [id number] KALANI STEWARTA D 06/19 [facility] Outpatient Encounter [id number] 06/29 [facility] O/P NEW MOD 45 MIN [id number] Diagnos is: ICD-10- CM I10 Essenti al (primar y) hyperte nsion CARLIN STEWART 06/29 [facility] Outpatient Encounter [id number] 06/29 [facility] Social History Combined list of available smoking, tobacco, and other social history from Department of Defense and Veterans Affairs facilities. Social History Type Response Date Comment Sourc e Tobacco smoking status NHIS [facility]-TOBACCO USE FORMER CIGARETTES 06/29/2024 [facility] History of tobacco use [place]-TOBACCO NEVER USED OTHER TYPE 06/29/2024 [facility] Plan of Care List of future care activities from Department of Veterans Affairs facilities. Additional future care activities may be listed in the Assessment and Plan section. Date/Time Care Activity Care Activity Detail Facili ty 12/29/2024 AMBULATORY - MEDICINE AMBULATORY - MEDICI [facility]
--- OUTSIDE RECORDS SUMMARY | 2024-10-30 00:36 | XMS_ITS | Clinical Summary ---
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 Social History Tobacco Use Types Packs/Day Years Used Date Smoking Tobacco: Former Personal Safety Answer Date Recorded Getting School Help Needed Not on file 09/04 Sex and Gender Information Value Date Recorded Sex Assigned at Not on file Legal Sex Male 10:38 AM BILL PEDDLER Gender Identity Not on file Sexual Orientation Not on file Obstetrics History Last Filed Vital Signs Vital Sign Reading Time Taken Comments Blood Pressure 186/52 07/03/2021 2:40 PM [facility]ILL [facility]ER Pulse 55 07/03/2021 2:40 PM [facility]ILL [facility] Temperature 36.4 C (97.6 F) 07/03/2021 1:33 PM [facility]ILL P[facility]DLER Respiratory Rate 16 07/03/2021 2:40 PM [facility]ILL PEDDLER Oxygen Saturation 98% 07/03/2021 2:40 PM BILL P[facility]DLER Inhaled Oxygen Concentration - - Weight 110.5 kg (243 lb 9.7 oz) 07/03/2021 1:33 PM BILL PEDDLER Height 188 cm (6' 2 ) 07/03/2021 1:33 PM BILL PEDDLER Body Mass Index 31.28 07/03/2021 1:33 PM BILL PEDDLER Plan of Treatment Not on file Insurance MEDICARE FOR LIFE MEDICARE FOR LIFE Care Teams Indirect Sales Representative Relationship Specialty Start Date End Date No, Physician PCP - General 07/15/20 Rosa Camacho NP Nurse Practitioner Neurology 08/09/20
--- OUTSIDE RECORDS SUMMARY | 2024-10-30 00:36 | XMS_ITS | Continuity of Care Document ---
Author Organization [facility] Address [address], [place] [address] Phone Care Team Providers Care Claim Processor Name Role Phone Nicolás Michaels MD Unavailable Unavailable Procedures Procedure Date No Charge Initial Hospital Care Subsequent Hospital Care Advance Directives Directive Yes / No Effective Date File Name No Information Encounters Encounter Description Practice Location Reason(s) For Visit Diagnoses Date Provider Providers Copied on Encounter [facility], [address] [place] [address], [address], [phone] [facility] No Information 9 Brando Monzon. [address] [facility], [facility] [address], [place], [id number] , . tel:[phone] Initial Hospital Care [facility], [address], [address], [phone] [facility] Acute kidney failure, unspecifiedDehydrat ionHyperkalemia 9 Brando Monzon. [address] [facility], [facility] [address], [place], [id number] , [place]. tel:[phone] Referring Provider: Dylan Tatum, [address] [facility] [address], [place], [address]. tel:[phone] Subsequent Hospital Care [facility], [address], [address], [phone] [facility] Acute kidney failure, unspecifiedDehydrat ionHyperkalemia 9 Brando Monzon. [address] [facility], [address], [place], [place], [id number] , [place]. tel: [phone] Referring Provider: Dylan Tatum, [address] [facility] [address], [place], [address]. tel:[phone] Family History Family Member Type Diagnosis Age At Onset No Information Payers Payer name Insurance type Covered republican ID Authoriza tion(s) Medicare [place] Primary [id number] [facility] [id number] Social History Type Description Quantity Date Captured Comments Sex Male Smoking Status No Information Chief Complaint And Reason For Visit No Information History Of Present Illness Encounter Date Complaint History Of Prese nt Illness No Information Instructions Date Instruction Additional Infor mation No Information Assessments Type Assessment Date No Information
--- OUTSIDE RECORDS SUMMARY | 2024-10-30 00:36 | XMS_ITS | Continuity of Care Document ---
Author Organization [facility] Address [address] [place] [address] Phone Care Team Providers Care Weatherization Coordinator Name Role Phone Aguillon Luis KHALIL Unavailable [...] Global/Postop followup visit Arc 2 0 Sling [place] Arm Sling X-ray exam shoulder complete, minimum 2 views Office/outpatient visit,racquel barbosa 2021 Advance Directives Directive Yes / No Effective Date File Name No Information Encounters Encounter Description Practice Location Reason(s) For Visit Diagnoses Date Provider Providers Copied on Encounter Office/outpa tient visit,est, mod [facility], [address], [id number], [place] tel:[phone] [facility] left hip (chief complaint) Pain in left hipUnilateral primary osteoarthritis, left hipTrochanteric bursitis, left hip 3 Henna Smith. [address] [place] [address], [id number] , [place]. tel:[phone] Referring Provider: Luis Mcdonald, [address] [place] [address], [place], [address] . tel:[phone] [facility], [address], [id number], [place] tel:[phone] [facility] shoulder (chief complaint) Bicipital tendinitis, left shoulderBursitis of left shoulderComplete rotatr-cuff tear/ruptr of left shoulder, not traumaEncounter for other orthopedic aftercare Mar-0 2 House Dea . [address] [place] [address], [id number] , [place]. tel:[phone] [facility], [address], [id number], [place] tel:[phone] [facility] shoulder (chief complaint) Bicipital tendinitis, left shoulderBursitis of left shoulderComplete rotatr-cuff tear/ruptr of left shoulder, not traumaEncounter for other orthopedic aftercare 2 House Dea . [address] [place] [address], [address], [id number] , [place]. [phone] [facility], [address] [place], [id number], tel:[phone] [facility] Complete rotatr-cuff tear/ruptr of left shoulder, not trauma 2 Venkatesh Fields. [address] [address], [place], [place], [id number] , [place]. tel:[phone] [facility], [address], [id number], tel:[phone] [facility] Bicipital tendinitis, left shoulderBursitis of left shoulderComplete rotatr-cuff tear/ruptr of left shoulder, not trauma 2 Venkatesh Fields. [address], [id number] , [place]. [phone] Office/outpa tient visit,[facility], [address], [id number], tel:[phone] [facility] left shoulder pain (chief complaint) Pain in left shoulderComplete rotatr-cuff tear/ruptr of left shoulder, not traumaBicipital tendinitis, left shoulderBursitis of left shoulder 2 Venkatesh Fields. [address] [address], [place], [place], [id number] , [place]. tel:[phone] Referring Provider: Donnie Timmons, [address] [place] [address], [place], [address] . tel:[phone] Family History Family Member Type Diagnosis Age At Onset No Information Immunizations Vaccine Date Status Comments influenza, injectable, quadrivalent, (3 years or older) administered Note: per patient ; Source: Source Unspecified Payers Payer name Insurance type Covered alliance party ID Authoriza tion(s) [employer] Medicare HMO PPO Clai ms Office CI [id number] [facility] [id number] Social History Type Description Quantity Date Captured [...] and discharged in stable condition.Dictation completed with newMentor software, grammatical variances and spelling errors may [...]
--- OUTSIDE RECORDS SUMMARY | 2024-10-30 00:36 | XMS_ITS | Clinical Summary ---
Author Organization [facility] Address [address] [place] [address] Care Team Providers Care Toe Sewer Name Role Phone None, Physician Primary Care Provider Unavailabl e Source Comments [facility],non-owned Affiliates and Associated Physician Practices is amultiple site organization consisting of ambulatory clinics and hospital sitesin [place], [place], [place] and [place]. This disclosure is being madepursuant to the Care Everywhere program and may not contain all information available regarding this patient. Last updated 18.[facility] Allergies No known active allergies Medications * This document contains information received from the source organization and may not represent a complete record from that organization. * Be aware that medications may not be up to date on this document. Alwaysverify current medications with the patient. losartan (Cozaar) 100 MG tablet Take 1 (one) tablet by mouth once daily 2 Active amLODIPine (Norvasc) 5 MG tablet Take 1 (one) tablet by mouth once daily 2 Active gabapentin (Neurontin) 600 MG tablet Take 1 (one) tablet by mouth once daily 2 Active atorvastatin (Lipitor) 20 MG tablet Take 1 (one) tablet by mouth at bedtime Active multivitamins plus minerals chew tablet Take 1 (one) tablet by mouth daily with food Active aspirin (Kamilah Aspirin) 325 MG tablet Take 1 (one) tablet by mouth once daily Active propranolol (Inderal) 10 MG tabletIndicatio ns:Tremor Take 1 (one) tablet by mouth 2 times daily for 90 days Reasons: Tremor 180 tablet 3 4 Active GLYCINE PO Take 3,000 mg by mouth Active N-ACETYL CYSTEINE PO Active KRILL OIL PO Active Ingrezza 40 MG capsule TAKE ONE CAPSULE BY MOUTH EVERY DAY 90 capsule 3 5 Active colestipol (Colestid) 1 GM tablet Take 1 (one) tablet by mouth once daily 5 Active metroNIDAZOLE (Flagyl) 500 MG tablet TAKE 1 TABLET BY MOUTH EVERY 8 HOURS FOR 7 DAYS 5 Active Turmeric (QC TUMERIC COMPLEX PO) Take 90 mg by mouth 2 times daily Active L-Theanine 200 MG CAPS Take 200 mg by mouth once daily Active buPROPion XL 24hr (Wellbutrin-XL) 150 MG tablet Take 1 (one) tablet by mouth once daily for 90 days 30 tablet 2 5 01/11/20 25 Active buPROPion XL 24hr (Wellbutrin-XL) 300 MG tablet Take 1 (one) tablet by mouth once daily for 90 days 30 tablet 2 5 01/11/20 25 Active busPIRone (Buspar) 10 MG tablet Take 3 (three) tablets by mouth 2 times daily 180 tablet 3 5 02/10/20 25 Active memantine (Namenda) 10 MG tablet Take 1 (one) tablet by mouth 2 times daily 60 tablet 3 5 02/10/20 25 Active buPROPion XL 24hr (Wellbutrin-XL) 150 MG tablet Take 1 (one) tablet by mouth once daily for 90 days 30 tablet 2 5 10/13/19 25 Discontinu ed(Reorder ) buPROPion XL 24hr (Wellbutrin-XL) 300 MG tablet Take 1 (one) tablet by mouth once daily for 90 days 30 tablet 2 5 10/13/19 25 Discontinu ed(Reorder ) busPIRone (Buspar) 10 MG tablet Take 3 (three) tablets by mouth 2 times daily 180 tablet 3 5 10/13/19 25 Discontinu ed(Reorder ) memantine (Namenda) 10 MG tablet Take 1 (one) tablet by mouth 2 times daily 60 tablet 3 5 10/13/19 25 Discontinu ed(Reorder ) Active Problems Problem Noted Date Diagnosed Date [...] added by Rule (IC_COVID19_AUTO_PROBLEM) following SARS-CoV2 by cabinetmaker maintenance-PCR - IDPH from PHOSPHORIC ACID SUPERVISOR Swab collected on 21-JUL-2020 08:47:00 WIRELESS COMMUNICATIONS ENGINEER tested positive for COVID-19. 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 Encounters * This document contains information received from the source organization and may not represent a complete record from that organization. Date Type Department Care Team Description 09/15/2024 Travel from Last 3 Months Immunizations Immunization Administration Dates Next Due FLU VACCINE QUAD IIV4 SPLIT 0.25 ML IM 3 INFLUENZA VACCINE 05/16/2020 Social History Tobacco Use Types Packs/Day Years Used Date Smoking Tobacco: Never Smokeless Tobacco: Never Tobacco Cessation:Counseling Given: Not Answered PHQ-2 Answer Date Recorded Patient Health Questionnaire-2 Score 1 09/15/2024 Sex and Gender Information Value Date Recorded Sex Assigned at Not on file Legal Sex Male 12:39 PM CDT Gender Identity Not on file Sexual Orientation Not on file Last Filed Vital Signs Vital Sign Reading Time Taken Comments Blood Pressure 154/63 09/15/2024 1:21 PM WIRELESS COMMUNICATIONS ENGINEER Pulse 48 09/15/2024 1:21 PM WIRELESS COMMUNICATIONS ENGINEER Temperature 36.1 C (97 F) 06/20/2023 8:58 AM WIRELESS COMMUNICATIONS ENGINEER Respiratory Rate - - Oxygen Saturation 98% 04/14/2024 1:55 PM CDT Inhaled Oxygen Concentration - - Weight 103.4 kg (228 lb) 09/15/2024 1:21 PM WIRELESS COMMUNICATIONS ENGINEER Height 190.5 cm (6' 3 ) 09/15/2024 1:21 PM WIRELESS COMMUNICATIONS ENGINEER Body Mass Index 28.5 09/15/2024 1:21 PM WIRELESS COMMUNICATIONS ENGINEER Plan of Treatment Upcoming Encounters Date Type Department Care Team (Late st Contact Info) Description 04/14/2025 1:30 PM CDT Office Visit [facility] - Neurology [address] [place] [address], [place] [phone] Alonzo Can MD [address] [place] [phone] Health Maintenance Due Date Last Done Comments [...] 2002 SCREENING FOR DIABETES 04/18/2022 COVID-19 VACCINE ( - 2023-2 5 season) 2024 MEDICARE AWV CALENDAR YEAR 2024 INFLUENZA VACCINE (Season Ended) 2025 03/15/2023, 05/16/2020 Respiratory Syncytial Virus (RSV) Vaccine Pt: or [...] patient's age to complete this topic Insurance [employer] MEDICARE [place] & [place] [address] [employer] MEDICARE ADV HMO & PPO Care Teams Toe Sewer Relationship Specialty Start Date End Date None, Physician [address] [place] [address] PCP - General 06/20/23
--- OUTSIDE RECORDS SUMMARY | 2024-10-30 00:36 | XMS_ITS | Clinical Summary ---
Author Organization [facility] Address [address] [place] [address] Care Team Providers Care Freelance Operator Name Role Phone Unavailable Primary Care [...] Annual Medicare Wellness Visit 2017 Pneumococcal Vaccine: 50+ Ye ars (1 of 1 - PCV) 2017 COVID-19 Vaccine (1 - 2023-2 5 season) 2024 PHQ-2 (Physician [place]) 07/15/2024 RSV Immunization or 60+ Years (1 [...] patient's age [place] [address] [facility] MEDICARE
--- OUTSIDE RECORDS SUMMARY | 2024-10-30 00:36 | XMS_ITS | Referral Summary ---
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 Social History Tobacco Use Types Packs/Day Years Used Date Smoking Tobacco: Former Personal Safety Answer Date Recorded Getting School Help Needed Not on file 09/04 Sex and Gender Information Value Date Recorded Sex Assigned at Not on file Legal Sex Male 10:38 AM ADVANCED SOLUTIONS ARCHITECT Gender Identity Not on file Sexual Orientation Not on file Last Filed Vital Signs Vital Sign Reading Time Taken Comments Blood Pressure 186/52 07/03/2021 2:40 PM ADVANCED SOLUTIONS ARCHITECT Pulse 55 07/03/2021 2:40 PM ADVANCED SOLUTIONS ARCHITECT Temperature 36.4 C (97.6 F) 07/03/2021 1:33 PM ADVANCED SOLUTIONS ARCHITECT Respiratory Rate 16 07/03/2021 2:40 PM ADVANCED SOLUTIONS ARCHITECT Oxygen Saturation 98% 07/03/2021 2:40 PM ADVANCED SOLUTIONS ARCHITECT Inhaled Oxygen Concentration - - Weight 110.5 kg (243 lb 9.7 oz) 07/03/2021 1:33 PM ADVANCED SOLUTIONS ARCHITECT Height 188 cm (6' 2 ) 07/03/2021 1:33 PM ADVANCED SOLUTIONS ARCHITECT Body Mass Index 31.28 07/03/2021 1:33 PM ADVANCED SOLUTIONS ARCHITECT Plan of Treatment Not on file Insurance MEDICARE FOR LIFE MEDICARE FOR LIFE Care Teams Charge Account Clerk Relationship Specialty Start Date End Date No, Physician PCP - General 07/15/20 Rosa Camacho NP Nurse Practitioner Neurology 08/09/20
[2024-10-30 10:31] VITALS: BP 163/45; PULSE 53; RESP 18; TEMP 35.8; O2SAT 100
[2024-10-30] MEDS: LACTATED RINGERS 1,000 ML 150 ML IV CONT (10:40)
--- NOTE | 2024-10-30 11:01 | P.PNAN_ITS ---
Anes - Initial Pre Proc Eval Procedure: Operation Date: 10/30/24 11:30 Proposed Procedures p Colonoscopy - Keorn Angel MD Date/Time: 10/30/24 11:01 Surgeon: Keron Angel MD Pre Op Diagnosis: Change in bowel habit, Diarrhea, unspecified Patient Data Age: 74 Gender: M Height: 1.85 m Weight: 104.2 kg Last Vital Signs Temp 35.8 C L 10/30/24 10:31 Pulse 53 L 10/30/24 10:31 Resp 18 10/30/24 10:31 BP 163/45 H 10/30/24 10:31 Pulse Ox 100 10/30/24 10:31 O2 Del Method Room Air 10/30/24 10:31 Allergies Allergy/AdvReac Type Severity Reaction Status Date / Time No Known Allergies Allergy Verified 10/30/24 10:29 Home Medications ?Medication ?Instructions ?Recorded ?Confirmed ?Type aspirin 81 mg chewable tablet 81 mg PO DAILY #30 tabs 08/05/20 10/30/24 Rx propranolol 20 mg tablet 20 mg PO Q12H #60 tabs 08/29/22 10/30/24 Rx valbenazine 40 mg capsule 40 mg PO DAILY 08/29/22 10/30/24 History (Ingrezza) acetylcysteine 600 mg capsule (NAC) 600 mg PO DAILY #90 caps 12/03/23 10/30/24 Rx bupropion HCl 150 mg 24 hr tablet, 150 mg PO QAM #90 tabs 12/03/23 10/30/24 Rx extended release buspirone 10 mg tablet 20 mg (2 x 10 mg) PO TID #180 tabs 12/03/23 10/30/24 Rx krill oil 500 mg capsule 1 mg (0.002 x 500 mg) PO DAILY #30 12/03/23 10/30/24 Rx caps whhnrusi-ao-jpqtd 300 mcg-K 60 1 tablet PO DAILY #90 tabs 12/03/23 10/30/24 Rx mcg-lycop 600 mcg-lutein 300 mcg tablet (Centrum Silver Ultra Men's) bupropion HCl 300 mg 24 hr tablet, 300 mg PO QAM #90 tabs 01/27/24 10/30/24 Rx extended release (Wellbutrin XL) memantine 10 mg tablet 10 mg PO QPM 90 days #90 tabs 01/27/24 10/30/24 Rx atorvastatin 20 mg tablet 20 mg PO DAILY 90 days #90 tabs 03/23/24 10/30/24 Rx amlodipine 5 mg tablet 5 mg PO DAILY #90 tabs 05/25/24 10/30/24 Rx Theracurmin 90 mg PO BID 09/01/24 10/30/24 History psyllium seed (sugar) oral powder 2 tsp PO DAILY 09/01/24 10/30/24 History (Metamucil (sugar) oral powder) colestipol 1 gram tablet 1 g PO ONCE #30 tabs 09/09/24 10/30/24 Rx losartan 100 mg tablet 100 mg PO DAILY #90 tabs 10/04/24 10/30/24 Rx Patient hx anesthesia problems: none Family hx anesthesia problems: none Results Review: All pre-operative results and documents have been reviewed as part of the pre- operative evaluation. [facility] Past Medical History Medical History Essential tremor Mixed hyperlipidemia History of pancreatitis Mixed anxiety depressive disorder Benign essential hypertension Obstructive sleep apnea (adult) (pediatric) Transient cerebral ischemic attack, unspecified Cognitive impairment, mild, so stated Other specified anxiety disorders Surgical History Surgical History History of tonsillectomy Family History Family History Father Brain cancer Mother Depression Grandparent Hypertension Heart disease congestive heart failure Dementia Social History Social History Smoking status: Former smoker Tobacco type: cigarettes Second hand tobacco smoke exposure: No Alcohol intake: never Alcohol use details: 1 beer every 3 months Substance use: never Substance use type: does not use Do You Feel Safe in your Home?: Yes Lack of Transportation: No Lack of Food: Never True Current Housing: I Have Housing Concerned About Future Housing: No Difficulty Paying Gas/Electric Bills: No Difficulty Paying for Meds: No Currently Unemployed: No Education: High School Diploma/GED Difficulty w/ Childcare or Family Care: No Living arrangements: with family Occupation/Education: retired Gender identity (if verbalized by the patient): Male Sexual Orientation (if Verbalized by the Patient): Straight or Heterosexual Spiritual care concerns: No Anes - Eval Final PreProcedure Day of Procedure 10/30/24 11:01 Patient weight: obese Heart: regular rate and rhythm Lungs: clear to auscultation Airway: Mallampati scale class III Neurological: alert and oriented Last oral intake: >/= 8 hours ASA classification: III Emergent: no Anesthetic plan: proceed Anesthesia type and monitoring: general GIVS and standard monitoring Results Review: All pre-operative results and documents have been reviewed as part of the pre- operative evaluation. Informed Consent: The patient's anesthetic plan and its attendant risks and benefits were discussed with the patient/family/POA. Questions were solicited and answers provided to the satisfaction of the patient/family/POA.
--- NOTE | 2024-10-30 11:01 | PM.IMHP ---
H&P: HPI History of Present Illness Date/Time: 10/30/24 11:01 Chief Complaint: History of colon polyps Narrative: The patient has a history of colonic polyps, the last colonoscopy was approximately 5 years ago. Review of Systems Review of Systems: All systems reviewed & are unremarkable except as noted in HPI and below PMFSH Past Medical History Medical History Essential tremor Mixed hyperlipidemia History of pancreatitis Mixed anxiety depressive disorder Benign essential hypertension Obstructive sleep apnea (adult) (pediatric) Transient cerebral ischemic attack, unspecified Cognitive impairment, mild, so stated Other specified anxiety disorders Surgical History Surgical History History of tonsillectomy Family History Family History Father Brain cancer Mother Depression Grandparent Hypertension Heart disease congestive heart failure Dementia Social History Social History Smoking status: Former smoker Tobacco type: cigarettes Second hand tobacco smoke exposure: No Alcohol intake: never Alcohol use details: 1 beer every 3 months Substance use: never Substance use type: does not use Do You Feel Safe in your Home?: Yes Lack of Transportation: No Lack of Food: Never True Current Housing: I Have Housing Concerned About Future Housing: No Difficulty Paying Gas/Electric Bills: No Difficulty Paying for Meds: No Currently Unemployed: No Education: High School Diploma/GED Difficulty w/ Childcare or Family Care: No Living arrangements: with family Occupation/Education: retired Gender identity (if verbalized by the patient): Male Sexual Orientation (if Verbalized by the Patient): Straight or Heterosexual Spiritual care concerns: No Meds Home Medications and Allergies Home Medications ?Medication ?Instructions ?Recorded ?Confirmed ?Type aspirin 81 mg chewable tablet 81 mg PO DAILY #30 tabs 08/05/20 10/30/24 Rx propranolol 20 mg tablet 20 mg PO Q12H #60 tabs 08/29/22 10/30/24 Rx valbenazine 40 mg capsule 40 mg PO DAILY 08/29/22 10/30/24 History (Ingrezza) acetylcysteine 600 mg capsule (NAC) 600 mg PO DAILY #90 caps 12/03/23 10/30/24 Rx bupropion HCl 150 mg 24 hr tablet, 150 mg PO QAM #90 tabs 12/03/23 10/30/24 Rx extended release buspirone 10 mg tablet 20 mg (2 x 10 mg) PO TID #180 tabs 12/03/23 10/30/24 Rx krill oil 500 mg capsule 1 mg (0.002 x 500 mg) PO DAILY #30 12/03/23 10/30/24 Rx caps ncjvrfhb-nh-seozz 300 mcg-K 60 1 tablet PO DAILY #90 tabs 12/03/23 10/30/24 Rx mcg-lycop 600 mcg-lutein 300 mcg tablet (Centrum Silver Ultra Men's) bupropion HCl 300 mg 24 hr tablet, 300 mg PO QAM #90 tabs 01/27/24 10/30/24 Rx extended release (Wellbutrin XL) memantine 10 mg tablet 10 mg PO QPM 90 days #90 tabs 01/27/24 10/30/24 Rx atorvastatin 20 mg tablet 20 mg PO DAILY 90 days #90 tabs 03/23/24 10/30/24 Rx amlodipine 5 mg tablet 5 mg PO DAILY #90 tabs 05/25/24 10/30/24 Rx Theracurmin 90 mg PO BID 09/01/24 10/30/24 History psyllium seed (sugar) oral powder 2 tsp PO DAILY 09/01/24 10/30/24 History (Metamucil (sugar) oral powder) colestipol 1 gram tablet 1 g PO ONCE #30 tabs 09/09/24 10/30/24 Rx losartan 100 mg tablet 100 mg PO DAILY #90 tabs 10/04/24 10/30/24 Rx Allergies Allergy/AdvReac Type Severity Reaction Status Date / Time No Known Allergies Allergy Verified 10/30/24 10:29 Vital Signs Vital Signs - 24 hr 10/30/24 10:31 Temperature 96.5 F L Pulse Rate 53 L Respiratory Rate 18 Blood Pressure 163/45 H Pulse Oximetry 100 Oxygen Delivery Room Air Exam Const: General: cooperative and healthy appearing Resp: Effort & Inspection: normal respiratory effort and able to speak in complete sentences Auscultation: clear to auscultation bilaterally Cardio: Rate: regular rate Rhythm: regular rhythm GI: Inspection: normal to inspection GI Palp: No No hepatosplenomegaly present Auscultation: normal bowel sounds Rectal Exam: deferred Skin: General skin exam: normal color Psych: Appearance: grossly normal Mental Status: mental status grossly normal Assessment and Plan Assessment and plan (1) History of colonic polyps: Code(s): Z86.0100 - Personal history of colon polyps, unspecified Status: Acute Assessment and Plan: The patient is deemed a good candidate for the procedure. Consent signed. Will proceed.
[2024-10-30 11:42] VITALS: BP 139/57; PULSE 48; RESP 18; O2SAT 97
[2024-10-30 11:52] VITALS: BP 143/58; PULSE 47; RESP 22; O2SAT 97
[2024-10-30 12:02] VITALS: BP 149/62; PULSE 51; RESP 12; O2SAT 100
== END 2024-10-30 12:11 | disposition home or self-care (01) ==
PROVIDERS: PCP Family Medicine; Referring Provider Nurse Practitioner; Visit Provider Internal Medicine Gastroenterology
PROC: 0DJD8ZZ Inspection of Lower Intestinal Tract, Via Natural or Artificial Opening Endoscopic (ICD-10-PCS; CPT 45378; principal; 2024-10-30 11:30)
DX: Z12.11 Encounter for screening for malignant neoplasm of colon (principal); D12.2 Benign neoplasm of ascending colon; K62.1 Rectal polyp; Z87.891 Personal history of nicotine dependence; E66.9 Obesity, unspecified; Z68.30 Body mass index [BMI] 30.0-30.9, adult
CPT/HCPCS: 45385; 88305; J2704; J7120